=== PATIENT | female | born 1970 | race Caucasian/White ===

== ENCOUNTER → 2018-10-08 08:55 | Outpatient (CLI) | payer BC, SELFPAY ==
--- NOTE | 2018-10-08 09:00 | RAD_ITS ---
STUDY: X-RAY CHEST REASON FOR EXAM: Female, 48 years old. Dyspnea on exertion. TECHNIQUE: PA and lateral views of the chest. COMPARISON: PA and lateral chest x-ray February 09, 2010. Report for that study not available for review at the time of this dictation. FINDINGS: Small calcified granuloma again projects in the left lung base. The lungs are otherwise clear and expanded. There is no demonstrated pleural abnormality. Normal size heart. Normal mediastinum and zaria. Normal visualized pulmonary arteries. Normal visualized aortic arch and descending thoracic aorta. Normal visualized thoracic spine. Normal visualized ribs, clavicles, and shoulders. There is no demonstrated abnormality of the visualized soft tissue structures of the upper abdomen. RAD/Chest PA and Lateral IMPRESSION: No acute cardiopulmonary disease. Electronically Signed: Jose Ramirez MD at 12:36 EST , Service support ,
== END ==
PROVIDERS: Family Provider Internal Medicine; PCP Internal Medicine; Referring Provider Internal Medicine; Visit Provider Internal Medicine
DX: R06.09 Other forms of dyspnea (principal)
CPT/HCPCS: 71046

== ENCOUNTER → 2018-11-04 11:18 | Outpatient (CLI) | payer BC, SELFPAY ==
--- NOTE | 2018-11-04 16:00 | STRESSREP_ITS ---
Stress Test Report Date: 11/04/2018 Procedure: Exercise tolerance test Indications: Dyspnea on exertion Consent: Per the patient Procedure: The patient exercised on a Eladio protocol for 9 minutes and 30 seconds completing Stage 3 and 30 seconds of Stage IV achieving a peak heart rate of 179 bpm (102 % predicted maximal heart rate) with a peak blood pressure 170/58 mmHg and a peak MET capacity of approximately 10 MET's. The baseline ECG demonstrated normal sinus rhythm. The peak exercise ECG demonstrated no obvious ECG changes. There were no cardiac dysrhythmias pretest, during exercise, or recovery. The functional capacity was considered good. The patient had no complaint of chest discomfort during exercise or recovery. The examination was discontinued secondary to dyspnea. Impression: 1. Technically adequate (percent predicted maximal heart rate greater than 85%) exercise tolerance test 2. Peak exercise ECG with no obvious ECG changes 3. There were no cardiac dysrhythmias during exercise or recovery This note was generated with [employer] software. It may contain incorrect words, spelling, and punctuation that were not noted in checking the note before signing.
--- OUTSIDE RECORDS SUMMARY | 2018-12-21 12:15 | XMS RPT_ITS | Continuity of Care Document ---
:1970 Author Organization [facility] Address [address] [place] [address] [place] [address] Phone Care Team Providers Name Role Phone Stefany Shaver DO Unavailable Maria G Stacy MD Unavailable Ramy Pedroza Torri Unavailable Nannette Reyes Unavailable Unavailable LETICIA Shelby Unavailable Unavailable Unavailable Unavailable Problems Name Dates Details Abnormal skin growth (D49.2, 239.2) Comments: right forehead lesion that is reoccurring after freezing Status: Active Abnormal weight gain (R63.5, 783.1) Status: Active Acne (L70.9, 706.1) Comments: better than was last time. on and off. talk about come off atb PO after 6month and putting on topical atb. Status: Active BMI 27.0-27.9,adult (Z68.27, V85.23) Status: Active Deliveries (Parity) Comments: 3 Status: Active BAEZA (dyspnea on exertion) (R06.09, 786.09) Comments: order exercise stress test cant bring down that test Status: Active Hormone imbalance (E34.9, 259.9) Status: Active Hyperlipidemia (E78.5, 272.4) Status: Active Influenza vaccination declined (Renamed from Refused influenza vaccine) (Z28.21, V64.06) Status: Active [facility] WELLNESS EXAM Status: Active Menopause syndrome (N95.1, 627.2) Status: Active Nonsmoker (Z78.9, V49.89) Status: Active Overweight (BMI 25.0-29.9) (E66.3, 278.02) Status: Active Physical exam, routine (Z00.00, V70.0) Status: Active Postmenopausal (Renamed from Postmenopausal status) (Z78.0, V49.81) Status: Active Pregnancies () Comments: 3 Status: Active TOXIC EFFECT, CARBON MONOXIDE (986.) (986) Comments: cooming down off this and better. Status: Active Vitamin D deficiency (E55.9, 268.9) Status: Active Weight gain (R63.5, 783.1) Comments: think related to postmenaupausal.when really watch lost but then regain wehnnot watching. Status: Active Medications Name Dates Details Plexus Active Comments: x-factor multivitaminvital biomebiocleanseprobiomega X gel ProAir HFA 108 (90 Base) MCG/ACT Inhalation Aerosol Solution 2 (two) Puff puffs 15 min prior to exercise for 0 days Quantity: 1 {Inhalation} Refills: 4 Ordered:30-Sep-2018 Fast DO, Stefany AFast DO, Stefany A Start : 30-Sep-2018 Active Vitamin D 2000 UNIT Oral Capsule 1 (one) Capsule qd for 0 days Quantity: 30 {Capsule} Refills: 0 Ordered:30-Sep-2018 Fast DO, Stefany AFast DO, Stefany A Start : 30-Sep-2018 Active Adapalene 0.1 % External Gel uad Gel qd to affcetd area(s) for 0 days Quantity: 30 {Gram} Refills: 3 Ordered:29-Aug-2018 Nannette Reyes Start : 25-Apr-2015 End : 29-Aug-2018 Inactive Aldactone 50 MG Oral Tablet 1 (one) Tablet Tablet bid for 0 days Quantity: 60 {Tablet} Refills: 3 Ordered:29-Aug-2018 Nannette Reyes Start : 24-Aug-2014 End : 29-Aug-2018 Inactive BENZAMYCIN, 5-3% (External Gel) 1 Gel daily in am on th off day of tretinoin four times weekly for 0 days Quantity: 1 {Gel} Refills: 3 Ordered:24-Aug-2014 Madison Ball LPN Start : 04-Jun-2013 End : 24-Aug-2014 Inactive Benzoyl Peroxide 2.5 % External Gel uad Gel qd to affected area(s) prn for 0 days Quantity: 60 {Gram} Refills: 3 Ordered:29-Aug-2018 Nannette Reyes Start : 25-Apr-2015 End : 29-Aug-2018 Inactive EPIDUO, 0.1-2.5% (External Gel) 1 (one) Gel Gel apply at night for 0 days Quantity: 1 {Bottle} Refills: 5 Ordered:25-Apr-2015 Maria G Stacy MD Start : 25-Apr-2015 End : 25-Apr-2015 Inactive EST ESTROGENS-METHYLTEST DS, 1.25-2.5MG (Oral Tablet) 1 Tablet daily for 0 days Quantity: 90 {Tablet} Refills: 3 Ordered:24-Aug-2014 Madison Ball LPN Start : 04-Jun-2013 End : 24-Aug-2014 Inactive Comments:ninety MINOCYCLINE HCL, 100MG (Oral Tablet) 1 Tablet qd for 0 days Quantity: 90 {Tablet} Refills: 3 Ordered:24-Aug-2014 Madison Ball LPN Start : 04-Jun-2013 End : 24-Aug-2014 Inactive No Known Historical Medications Allergies and Adverse Reactions Name Dates Details No Known Allergies (Allergy) Onset: 27-Dec-2011 Status: Active No Known Drug Allergies (Allergy) Onset: 29-Aug-2018 Status: Active Past Medical History Name Dates Details Encounter for screening mammogram for breast cancer (Renamed from Encounter for screening mammogram for malignant neoplasm of breast) (Z12.31, V76.12) Status: Resolved as of 30-Sep-2018 Need for prophylactic vaccination and inoculation against influenza (Z23, V04.81) Status: Resolved as of 30-Sep-2018 [facility] V73.21 Comments: will get mammo TAHBSO. grandfather prostate cancer not colon wildo stool cards scope at 50. Status: Resolved as of 30-Sep-2018 [facility] V73.21 Comments: needs tdap with line of work for sure. tue bso. mammo endo of this year Status: Resolved as of 30-Sep-2018 Procedures Procedure Dates Details Cholecystectomy Completed Comments: October 2006 Hysterectomy; Total Completed Comments: January 2010 Tonsillectomy Completed Comments: 1978 Date Value Details 08-Oct-2018 Chest PA and Lateral Result: Comments: See Note; NOTES: [facility] Imaging Services [address] [place] [address] Chest PA and Lateral MR#: [id number] Acct: [id number] Name: KAREN CAMPOS Rep #: [id number] : 1970 F 48 From: Espinoza Ramirez MD PCP: Stefany Shaver DO Status: REG CLI Study: Chest PA and Lateral Date of Exam: 10/08/18 Exam# [id number] Ordering Dr: Stefany Shaver DO STUDY: X-RAY CHEST REASON FOR EXAM: Female, 48 years old. Dyspnea on exertion. TECHNIQUE: PA and lateral views of the chest. COMPARISON: PA and lateral chest x-ray February 09, 2010. Report for that study not available for review at the time of this dictation. FINDINGS: Small calcified granuloma again projects in the left lung base. The lungs are otherwise clear and expanded. There i s no demonstrated pleural abnormality. Normal size heart. Normal mediastinum and zaria. Normal visualized pulmonary arteries. Normal visualized aortic arch and descending thoracic aorta. Normal visuali zed thoracic spine. Normal visualized ribs, clavicles, and shoulders. There is no demonstrated abnormality of the visualized soft tissue structures of the upper abdomen. ____ RAD/Chest PA and Lateral IMPRESSION: No acute cardiopulmonary disease. Electronically Signed: Jose Ramirez MD at 12:36 EST , Service support , CC: Stefany Shaver DO Truck Safety Inspector: Signed Family History Unknown Family Member Name Dates Details Father Comments: Type I diabetes, age 60- had kidney transplant( diabetes) but of chf Status: Active Maternal Grandfather Comments: prostate cancer, Status: Active Mother Comments: healthy Status: Active paternal aunt with breast cancer Status: Active Paternal Grandfather Comments: prostate cancer Status: Active Sister 1 Comments: living and healthy Status: Active Social History Name Dates Details Alcohol Use: Occasional alcohol use. 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 Status: Active Living Situation: Lives with spouse. Comments: Status: Active No Drug Use Status: Active Non Smoker/No Tobacco Use Status: Active Tobacco use: Never smoker. Status: Active Smoking Status Name Dates Details Never smoker Vital Signs Date Test Result Details :02 Temperature 97.9 f Comments: Method: Temporal Pulse 70 /min Comments: Pattern: Regular Respiration Rate 20 /min Comments: Pattern: Unlabored O2 SAT 98 % Comments: Room air BP Systolic 118 mm[Hg] Comments: Patient Position: Sitting; Cuff Location: Left Arm; Cuff Size: Standard BP Diastolic 78 mm[Hg] Comments: Patient Position: Sitting; Cuff Location: Left Arm; Cuff Size: Standard Weight 182 lb Height 69 in Body Mass Index Calculated 26.88 kg/m2 Body Surface Area Calculated 1.98 m2 :14 Temperature 97.4 f Comments: Method: Temporal Pulse 70 /min Comments: Pattern: Regular Respiration Rate 16 /min Comments: Pattern: Unlabored BP Systolic 100 mm[Hg] Comments: Patient Position: Sitting; Cuff Location: Left Arm; Cuff Size: Standard BP Diastolic 62 mm[Hg] Comments: Patient Position: Sitting; Cuff Location: Left Arm; Cuff Size: Standard Weight 185 lb Height 69 in Body Mass Index Calculated 27.32 kg/m2 Body Surface Area Calculated 2 m2 :34 Temperature 97.8 f Comments: Method: Temporal Pulse 70 /min Comments: Pattern: Regular Respiration Rate 20 /min Comments: Pattern: Unlabored BP Systolic 114 mm[Hg] Comments: Patient Position: Sitting; Cuff Location: Left Arm; Cuff Size: Standard BP Diastolic 74 mm[Hg] Comments: Patient Position: Sitting; Cuff Location: Left Arm; Cuff Size: Standard Weight 187 lb Height 69 in Body Mass Index Calculated 27.61 kg/m2 Body Surface Area Calculated 2.01 m2 :45 Temperature 97.4 f Comments: Method: Temporal Pulse 68 /min Comments: Pattern: Regular Respiration Rate 15 /min Comments: Pattern: Unlabored BP Systolic 122 mm[Hg] Comments: Patient Position: Sitting; Cuff Location: Left Arm; Cuff Size: Standard BP Diastolic 78 mm[Hg] Comments: Patient Position: Sitting; Cuff Location: Left Arm; Cuff Size: Standard Weight 189 lb Height 69 in Body Mass Index Calculated 27.91 kg/m2 Body Surface Area Calculated 2.02 m2 :41 Temperature 98.1 f Comments: Method: Temporal Pulse 72 /min Comments: Pattern: Regular Respiration Rate 17 /min Comments: Pattern: Unlabored O2 SAT 98 % Comments: Room air BP Systolic 120 mm[Hg] Comments: Patient Position: Sitting; Cuff Location: Left Arm; Cuff Size: Standard BP Diastolic 74 mm[Hg] Comments: Patient Position: Sitting; Cuff Location: Left Arm; Cuff Size: Standard Weight 195 lb Height 69 in Body Mass Index Calculated 28.8 kg/m2 Body Surface Area Calculated 2.04 m2 :04 Pulse 86 /min Comments: Pattern: Regular Respiration Rate 18 /min Comments: Pattern: Unlabored BP Systolic 114 mm[Hg] Comments: Patient Position: Sitting; Cuff Location: Left Arm; Cuff Size: Standard BP Diastolic 74 mm[Hg] Comments: Patient Position: Sitting; Cuff Location: Left Arm; Cuff Size: Standard Weight 181 lb Height 69 in Body Mass Index Calculated 26.73 kg/m2 Body Surface Area Calculated 1.98 m2 :29 Temperature 97.8 f Comments: Method: Oral Pulse 68 /min Comments: Pattern: Regular Respiration Rate 18 /min Comments: Pattern: Unlabored BP Systolic 118 mm[Hg] Comments: Patient Position: Sitting; Cuff Location: Left Arm; Cuff Size: Standard BP Diastolic 74 mm[Hg] Comments: Patient Position: Sitting; Cuff Location: Left Arm; Cuff Size: Standard Weight 180 lb Height 69 in Body Mass Index Calculated 26.58 kg/m2 Body Surface Area Calculated 1.98 m2 :53 Temperature 98 f Comments: Method: Oral Pulse 64 /min Comments: Pattern: Regular Respiration Rate 18 /min Comments: Pattern: Unlabored BP Systolic 108 mm[Hg] Comments: Patient Position: Sitting; Cuff Location: Left Arm; Cuff Size: Standard BP Diastolic 70 mm[Hg] Comments: Patient Position: Sitting; Cuff Location: Left Arm; Cuff Size: Standard Weight 184 lb Height 69 in Body Mass Index Calculated 27.17 kg/m2 Body Surface Area Calculated 1.99 m2 :55 Temperature 98 f Comments: Method: Oral Pulse 76 /min Comments: Pattern: Regular Respiration Rate 18 /min Comments: Pattern: Unlabored BP Systolic 114 mm[Hg] Comments: Patient Position: Sitting; Cuff Location: Left Arm; Cuff Size: Standard BP Diastolic 74 mm[Hg] Comments: Patient Position: Sitting; Cuff Location: Left Arm; Cuff Size: Standard Weight 185 lb Height 69 in Body Mass Index Calculated 27.32 kg/m2 Body Surface Area Calculated 2 m2 Results Date Description Value Details 6-Xnq-046901:22 Microscopic Examination Comments: PATIENT NOT FASTINGPERFORMED BY: [facility] [id number] [facility] [id number] Bacteria None seen (Normal) Mucus Threads Present (Normal) Epithelial Cells (non renal) 0-10 {/hpf} (Normal) Range: 0 - 10 RBC 0-2 {/hpf} (Normal) Range: 0 - 2 WBC 0-5 {/hpf} (Normal) Range: 0 - 5 9-Bvr-726676:22 Cortisol (26990) Comments: PATIENT NOT FASTINGPERFORMED BY: [facility] [id number] [facility] [id number] Cortisol 5.9 ug/dL (Normal) Comments: Cortisol AM 6.2 - 19.4 Cortisol PM 2.3 - 11.9 2-Ftm-950365:22 T3, FREE (TRIDOTHYRONINE) (65129) Comments: PATIENT NOT FASTINGPERFORMED BY: [facility] [id number] [facility] [id number] Triiodothyronine (T3), Free 2.6 pg/mL (Normal) Range: 2.0-4.4 0-Lrt-082574:22 T4, FREE (THYROXINE) (07951) Comments: PATIENT NOT FASTINGPERFORMED BY: [facility] [id number] [facility] [id number] T4,Free(Direct) 1.03 ng/dL (Normal) Range: 0.82-1.77 9-Yut-068582:22 URINALYSIS, W/ MICRO (11722) Comments: PATIENT NOT FASTINGPERFORMED BY: [facility] [id number] [facility] [id number] Microscopic Examination See below: (Normal) Comments: Microscopic was indicated and was performed. Microscopic Examination MICRON (Normal) Comments: Microscopic follows if indicated. Nitrite, Urine Negative (Normal) Urobilinogen,Semi-Qn 0.2 mg/dL (Normal) Range: 0.2-1.0 Bilirubin Negative (Normal) Occult Blood Negative (Normal) Ketones Negative (Normal) Glucose Negative (Normal) Protein Negative (Normal) WBC Esterase Negative (Normal) Appearance Clear (Normal) Urine-Color Yellow (Normal) pH 6.5 (Normal) Range: 5.0-7.5 Specific Given 1.015 (Normal) Range: 1.005-1.030 0-Hcu-949177:22 CBC W/AUTO DIFF WBC Comments: PATIENT NOT FASTINGPERFORMED BY: [facility] [id number] [facility] [id number] Information: NURSE DRAW (64433) Immature Grans (Abs) 0.0 {x10E3/uL} (Normal) Range: 0.0-0.1 Immature Granulocytes 0 % (Normal) Baso (Absolute) 0.0 {x10E3/uL} (Normal) Range: 0.0-0.2 Eos (Absolute) 0.2 {x10E3/uL} (Normal) Range: 0.0-0.4 Monocytes(Absolute) 0.3 {x10E3/uL} (Normal) Range: 0.1-0.9 Lymphs (Absolute) 2.3 {x10E3/uL} (Normal) Range: 0.7-3.1 Neutrophils (Absolute) 3.1 {x10E3/uL} (Normal) Range: 1.4-7.0 Basos 1 % (Normal) Eos 3 % (Normal) Monocytes 5 % (Normal) Lymphs 39 % (Normal) Neutrophils 52 % (Normal) Platelets 336 {x10E3/uL} (Normal) Range: 150-379 RDW 13.4 % (Normal) Range: 12.3-15.4 MCHC 33.3 g/dL (Normal) Range: 31.5-35.7 MCH 29.8 pg (Normal) Range: 26.6-33.0 MCV 89 fL (Normal) Range: 79-97 Hematocrit 41.1 % (Normal) Range: 34.0-46.6 Hemoglobin 13.7 g/dL (Normal) Range: 11.1-15.9 RBC 4.60 {x10E6/uL} (Normal) Range: 3.77-5.28 WBC 5.9 {x10E3/uL} (Normal) Range: 3.4-10.8 4-Ydd-988509:22 METABOLIC PANEL, COMPREHENSIVE Comments: PATIENT NOT FASTINGPERFORMED BY: Kn[facility]70 [facility] [id number] (38446) ALT (SGPT) 19 [iU]/L (Normal) Range: 0-32 AST (SGOT) 21 [iU]/L (Normal) Range: 0-40 Alkaline Phosphatase 86 [iU]/L (Normal) Range: 39-117 Bilirubin, Total <0.2 mg/dL (Normal) Range: 0.0-1.2 A/G Ratio 1.7 (Normal) Range: 1.2-2.2 Globulin, Total 2.7 g/dL (Normal) Range: 1.5-4.5 Albumin 4.7 g/dL (Normal) Range: 3.5-5.5 Protein, Total 7.4 g/dL (Normal) Range: 6.0-8.5 Calcium 9.6 mg/dL (Normal) Range: 8.7-10.2 Carbon Dioxide, Total 23 mmol/L (Normal) Range: 20-29 Chloride 102 mmol/L (Normal) Range: 96-106 Potassium 5.1 mmol/L (Normal) Range: 3.5-5.2 Sodium 140 mmol/L (Normal) Range: 134-144 BUN/Creatinine Ratio 17 (Normal) Range: 9-23 eGFR If Africn Am 107 mL/min/1.73 (Normal) eGFR If NonAfricn Am 93 mL/min/1.73 (Normal) Creatinine 0.77 mg/dL (Normal) Range: 0.57-1.00 BUN 13 mg/dL (Normal) Range: 6-24 Glucose 87 mg/dL (Normal) Range: 65-99 31-Cvr-41588:38 METABOLIC PANEL, BASIC Comments: 4-6 wks; PATIENT NOT FASTINGPERFORMED BY: Knok70 [facility] HospitalOramed PharmaceuticalsAn[facility] [id number] Information: [id number] (25760) Calcium, Serum 10.1 mg/dL (Normal) Range: 8.7-10.2 Carbon Dioxide, Total 25 mmol/L (Normal) Range: 18-29 Chloride, Serum 100 mmol/L (Normal) Range: 97-108 Potassium, Serum 5.0 mmol/L (Normal) Range: 3.5-5.2 Sodium, Serum 139 mmol/L (Normal) Range: 134-144 BUN/Creatinine Ratio 15 (Normal) Range: 9-23 eGFR If Africn Am 127 mL/min/1.73 (Normal) eGFR If NonAfricn Am 110 mL/min/1.73 (Normal) Creatinine, Serum 0.65 mg/dL (Normal) Range: 0.57-1.00 BUN 10 mg/dL (Normal) Range: 6-24 Glucose, Serum 91 mg/dL (Normal) Range: 65-99 :42 Lipid Panel (36026) Comments: PATIENT WAS FASTINGPERFORMED BY: [facility]ianxin [facility] [id number] LDL Cholesterol Calc 117 mg/dL (Abnormal) Range: 0-99 LDL/HDL Ratio 1.7 {ratio_units} (Normal) Range: 0.0-3.2 VLDL Cholesterol Issac 18 mg/dL (Normal) Range: 5-40 HDL Cholesterol 70 mg/dL (Normal) Comments: According to ATP-III Guidelines, HDL-C >59 mg/dL is considered anegative risk factor for CHD. Triglycerides 92 mg/dL (Normal) Range: 0-149 Cholesterol, Total 205 mg/dL (Abnormal) Range: 100-199 :42 TSH (05137) Comments: PATIENT WAS FASTINGPERFORMED BY: [employer]os[employer]70 [facility] [id number] TSH 1.910 {uIU/mL} (Normal) Range: 0.450-4.500 :42 T4, FREE (THYROXINE) (68079) Comments: PATIENT WAS FASTINGPERFORMED BY: [facility]in [facility] [id number] T4,Free(Direct) 1.03 ng/dL (Normal) Range: 0.82-1.77 :42 CBC (Auto) (23309) Comments: PATIENT WAS FASTINGPERFORMED BY: OnLiveSt. Lawrence Rehabilitation CenterLvdkay7814 [facility] [id number] Platelets 163 {x10E3/uL} (Normal) Range: 140-415 RDW 13.1 % (Normal) Range: 11.7-15.0 MCHC 33.3 g/dL (Normal) Range: 32.0-36.0 MCH 29.6 pg (Normal) Range: 27.0-34.0 MCV 89 fL (Normal) Range: 80-98 Hematocrit 43.2 % (Normal) Range: 34.0-44.0 Hemoglobin 14.4 g/dL (Normal) Range: 11.5-15.0 RBC 4.87 {x10E6/uL} (Normal) Range: 3.80-5.10 WBC 6.1 {x10E3/uL} (Normal) Range: 4.0-10.5 :42 Metabolic Panel, Comments: PATIENT WAS FASTINGPERFORMED BY: OnLiveSt. [facility] CenterLkhers9469 [facility] [id number] Information: [id number] DIFFICULT D RAW Comprehensive (58838) ALT (SGPT) 29 [iU]/L (Normal) Range: 0-40 AST (SGOT) 18 [iU]/L (Normal) Range: 0-40 Alkaline Phosphatase, S 107 [iU]/L (Normal) Range: 25-150 Bilirubin, Total 0.3 mg/dL (Normal) Range: 0.0-1.2 A/G Ratio 2.0 (Normal) Range: 1.1-2.5 Globulin, Total 2.4 g/dL (Normal) Range: 1.5-4.5 Albumin, Serum 4.9 g/dL (Normal) Range: 3.5-5.5 Protein, Total, Serum 7.3 g/dL (Normal) Range: 6.0-8.5 Calcium, Serum 9.9 mg/dL (Normal) Range: 8.7-10.2 Carbon Dioxide, Total 22 mmol/L (Normal) Range: 20-32 Chloride, Serum 103 mmol/L (Normal) Range: 97-108 Potassium, Serum 4.2 mmol/L (Normal) Range: 3.5-5.2 Sodium, Serum 141 mmol/L (Normal) Range: 134-144 BUN/Creatinine Ratio 13 (Normal) Range: 8-20 eGFR If Africn Am 132 mL/min/1.73 (Normal) Comments: Note: A persistent eGFR <60 mL/min/1.73 m2 (3 months or more) mayindicate chronic kidney disease. An eGFR >59 mL/min/1.73 m2 with anelevated urine protein also may indicate chronic kidney disease.Calculated using CKD-EPI formula. eGFR If NonAfricn Am 115 mL/min/1.73 (Normal) Creatinine, Serum 0.61 mg/dL (Normal) Range: 0.57-1.00 BUN 8 mg/dL (Normal) Range: 6-20 Glucose, Serum 90 mg/dL (Normal) Range: 65-99 Plan of Care Name Dates Details Instructions BMI 27.0-27.9,adult : Eprescribed prescriptions (G8553) Indication: BMI 27.0-27.9,adult Need for prophylactic vaccination and inoculation against influenza : Flu (Influenza) *: flu Indication: Need for prophylactic vaccination and inoculation against influenza Need for prophylactic vaccination and inoculation against influenza : Flu (Influenza) *: flu shot Indication: Need for prophylactic vaccination and inoculation against influenza Overweight (BMI 25.0-29.9) : Eprescribed prescriptions (G8553) Indication: Overweight (BMI 25.0-29.9) Acne : Eprescribed prescriptions (G8553) Indication: Acne Acne : Acne: acne Indication: Acne Planned Observations METABOLIC PANEL, COMPREHENSIVE (38075)Indication: Abnormal weight gain On: 5-Lqu-148434:43 Request LIPID PANEL (68965)Indication: Hyperlipidemia On: 8-Ogv-864291:22 Request Vitamin D Hydroxy (74748)Indication: Vitamin D deficiency On: 1-Frz-504388:22 Request Planned Encounters Medical; [facility] 4 Month Fu - On: 04-Feb-2019 9:45 [facility] Fast DO, Stefany A Fast DO, Stefany A Planned Procedures EXERCISE STRESS TEST (91298)By: On: 21-Oct-2018 Intent Fast DO, Stefany A Fast DO, Stefany A Comments: exercise stress test CXR PA & LAT (63952)By: Sivakumar ALVARADO, On: 30-Sep-2018 Intent Stefany A Fast DO, Stefany A ELECTROCARDIOGRAM, COMPLETE (ECG) On: 30-Sep-2018 Intent (79903)By: Stefany Shaver DO Comments: ekg showed normal sinus rhythym, normal axis, no acute st/t wave changes rsr DO, Stefany A DEXA SCAN AXIAL SKELETON (09485)By: On: 29-Aug-2018 Intent Fast , Stefany A Fast DO, Stefany A SCREENING DIGITAL TOMOSYNTHESIS OF On: 29-Aug-2018 Intent BREAST (80439)By: Sivakumar ALVARADO, Stefany A Fast DO, Stefany A IMMUNIZ ADMNIN, 1 VAC, SNGL/COMBO On: 01-Sep-2014 Intent (11177)By: Maria G Stacy MD Comments: Lot #[id number]-[id number] dltd, IMDose prefilled syringegiven by:GERMÁN GramajoNKATHRINE and ABN signed FLU VAC, SPLIT, >3 YEARS, INTRAMUSC On: 01-Sep-2014 Intent (11650)By: Maria G Stacy MD MAMMOGRAM, SCREENING, BOTH BREAST On: 24-Aug-2014 Intent (99001)By: Maria G Stacy MD MAMMOGRAM, SCREENING, BOTH BREASTS On: 04-Jun-2013 Intent (35527)By: Maria G Stacy MD TDAP VACCINE >7 IM (32263)By: On: 27-Dec-2011 Intent Maria G Stacy MD Comments: Lot #: [id number] date: 10/07Amount given: 0.5 mlRoute: IMSite given: left deltoidGiven by: AMADO Buchanan Instructions Name Dates Details [facility]LLNESS EXAM : How to access health information online Indication: [facility] WELLNESS EXAM [facility]LLNESS EXAM : How to access health information online - Detail Indication: [facility] WELLNESS EXAM [facility]LLNESS EXAM : Patient Instructions Indication: [facility] WELLNESS EXAM BMI 27.0-27.9,adult : How to access health information online Indication: BMI 27.0-27.9,adult BMI 27.0-27.9,adult : How to access health information online - Detail Indication: BMI 27.0-27.9,adult BMI 27.0-27.9,adult : Patient Instructions Indication: BMI 27.0-27.9,adult Overweight (BMI 25.0-29.9) : How to access health information online Indication: Overweight (BMI 25.0-29.9) Overweight (BMI 25.0-29.9) : How to access health information online - Detail Indication: Overweight (BMI 25.0-29.9) Overweight (BMI 25.0-29.9) : Patient Instructions Indication: Overweight (BMI 25.0-29.9) Acne : How to access health information online Indication: Acne Acne : How to access health information online - Detail Indication: Acne Acne : Patient Instructions Indication: Acne Acne : Patient Instructions Indication: Acne Encounters Phone Encounter On: 21-Oct-2018 11:19 Encounter Diagnosis: BAEZA (dyspnea on exertion) End: 21-Oct-2018 11:21 [facility] Review On: 30-Sep-2018 9:02 Encounter Reason: Physical female exam - Last seen between 1-3 months ago. General health: feels well with minor complaints, has good energy level and is sleeping well. The patient's appetite is normal. Nutrition: normal /adequate. Exercises 5 days per week. Sleeps on average 6 hours per night. Normal bowel and bladder habits. Safety measures include appropriate use of safety belts and home smoke detectors. Current emot ional problems include anxiety. screening, mammography (has scheduled for Nov 2018) and screening, visual acuity (August 2018). Note for Physical exam: she wasnt as faithful in may or june with cr ossfit but had been doing it for a year- starting a hiit class sat and and still doing crossfit- and she is definitley sweatng when doing crossfit- 2 episodes now of sob that harder than usual to g et rid of and little flutter- and last night was coughing-not working outin cold- no chest pain more like flutter in chest- last few min and no dizzy- olamidereba was pushing harder last night than usual -- did have biopsy skin lesion by ramy- was precancer so they are doing a followup on that- she did track on my fitness pal- she thinks she not getting enough calories- and eating later at night- and - 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- - she unhappy with core- hyster- not cancer told doesnt need papEncounter Diagnosis: BMI 27.0-27.9,adult, Nonsmoker, [facility] WELLNESS EXAM, Influenza vaccination declined (Renamed from Refused influenza vaccine), Abnormal weight gain, BAEZA (dyspnea on exertion), Vitamin D deficiency, Hyperlipidemia [facility] Medicine Office Visit On: 10-Sep-2018 9:42 Encounter Diagnosis: Abnormal skin growth End: 10-Sep-2018 10:19 [facility] Office Visit On: 29-Aug-2018 9:05 Encounter Reason: new patient female physical - General health: feels well with minor complaints (weight gain since beginning of June, went from 162- 185 today. No major changes that she can think of.), has good energy End: 31-Aug-2018 21:54 level and is sleeping poorly. The patient's appetite is normal. Nutrition: appropriate balanced diet (eats whole foods, no processed or fast foods). Exercises 3 (crossfit) days per week. Sleeps on aver age 3 (3 consecutive hours. gets up about twice to use restroom) hours per night. Elimination problems include urinary frequency (drinks a lot of water). Current emotional problems include anxiety and s leep disturbances. screening, colonoscopy (never), screening, mammography (over 2 yrs) and screening, Pap smear (total hysterectomy in 2009). Note for Physical exam: 162 beginning of june and has ga ined 20 pounds in 2 months- crossfit 3 times a week- and not eating fast food - eats whole foods- no diet change- no boxed foods or processed foods-had weight down for a couple years at this easily coul d get weight down if tried until now- hysterectomy 2009- 3 kids in college- no change in stress level-Encounter Diagnosis: Nonsmoker, BMI 27.0-27.9,adult, Influenza vaccination declined (Renamed from Refused influenza vaccine), Abnormal weight gain, Encounter for screening mammogram for breast cancer (Renamed from Encounter for screening mammogram for malignant neoplasm of breast), Postmenopausal (Renamed from Postmenopausal status), Overweight (BMI 25.0-29.9), Menopause syndrome, Hormone imbalance [facility] Refill Request On: 25-Apr-2015 12:00 Encounter Diagnosis: Acne (706.1) End: 25-Apr-2015 12:03 [facility] Office Visit On: 23-Sep-2014 8:33 Encounter Reason: Follow up acute care visit - The patient feeling better since last seen and improving. Patient has been compliant with instructions. Current medication use: no side effects and compliant with dosing reg End: 23-Sep-2014 9:29 imen. Patient sleeps 7 hours per night. Impact of disease: emotional impact-mild. Nutrition: balanced diet and supplemental vitamins. The medical issues the patient is following up for include other (here to follow up on day cleanse ). Encounter Diagnosis: Overweight (BMI 25.0-29.9) [facility] Phone Encounter On: 01-Sep-2014 16:21 Encounter Diagnosis: Hormonal Imbalance (259.9) End: 01-Sep-2014 16:22 [facility] Office Visit On: 01-Sep-2014 10:44 Encounter Reason: Follow up Meds - Patient has been compliant with instructions. Current medication use: no side effects. Patient sleeps 8 hours per night.Encounter Diagnosis: Overweight (BMI 25.0-29.9), End: 01-Sep-2014 11:05 NEED FOR PROPHYLACTIC VACCINATION AND INOCULATION AGAINST INFLUENZA (V04.81), Weight gain (783.1) [facility] Office Visit On: 24-Aug-2014 9:41 Encounter Reason: Follow up for chronic medical issues - The patient feels well with no complaints, has good energy level and is sleeping well. Patient has been compliant with instructions. Current medication use: no filemon End: 24-Aug-2014 11:02 e effects, compliant with dosing regimen and considered effective by patient. Patient sleeps 7 hours per night. Impact of disease: emotional impact-mild. Nutrition: balanced diet and supplemental vitami ns. The medical issues the patient is following up for include other (acne, hormone imbalance, menopause ).Encounter Diagnosis: Hormonal Imbalance (259.9), Acne (706.1), Overweight (BMI 25.0-29.9), WWV V73.21 [facility] Office Visit On: 04-Jun-2013 10:03 Encounter Reason: Follow up for chronic medical issues - The patient feels well with no complaints, has good energy level and is sleeping well. Patient has been compliant with instructions. Current medication use: no filemon End: 04-Jun-2013 10:45 e effects, compliant with dosing regimen and considered effective by patient. Patient sleeps 7 hours per night. Impact of disease: emotional impact-mild. Nutrition: balanced diet and supplemental vitami ns. The medical issues the patient is following up for include other (acne, hormone imbalance, menopause ).Encounter Diagnosis: Acne (706.1), Hormonal Imbalance (259.9), PHYSICAL EXAM, ROUTINE (V70.0) [facility] Phone Encounter On: 02-Apr-2013 13:34 Encounter Diagnosis: Acne (706.1) End: 02-Apr-2013 14:13 [facility] Office Visit On: 26-Jun-2012 7:29 Encounter Reason: Follow up for chronic medical issues - The patient feels well with minor complaints and has decreased energy level. Patient has been compliant with instructions. Current medication use: experiencing filemon End: 26-Jun-2012 7:59 e effects (estrogen causing acne ). Patient sleeps 7 hours per night. Impact of disease: emotional impact-mild. Nutrition: balanced diet and supplemental vitamins. The medical issues the patient is foll owing up for include other (hot flashes, hormone imbalance, goiter ).Encounter Diagnosis: Menopause (627.2), Hormonal Imbalance (259.9), Weight gain (783.1), Acne (706.1), WWV V73.21 [facility] Office Visit On: 18-Jan-2012 7:53 Encounter Reason: Follow up tests - Diagnostic tests include other (labs ). Date: (01-04-12).Encounter Diagnosis: Weight gain (783.1), TOXIC EFFECT, CARBON MONOXIDE (986.) End: 18-Jan-2012 8:33 [facility] Office Visit On: 27-Dec-2011 8:55 Encounter Reason: new patient female physical - Last seen more than 1 year ago. General health: feels well with minor complaints, has decreased energy level and is sleeping poorly. The patient's appetite is normal. Nutri End: 31-Dec-2011 8:05 tion: normal/adequate. Exercises 5 (treadmill walks a mile ) days per week. Sleeps on average 6 hours per night. Normal bowel and bladder habits. Safety measures include appropriate use of safety belts and home smoke detectors. Current emotional problems include anxiety, depression and sleep disturbances. screening, mammography (February 2010 ), screening, Pap smear (had total hysterectomy February 2010 ) a nd screening, visual acuity (Lasik surgery Nov 2008 ).Encounter Diagnosis: Weight gain (783.1), Hormonal Imbalance (259.9), Menopause (627.2), WWV V73.21 [facility] Payers Don SAAB/ELISSA CAMPOS; a guarantor
--- OUTSIDE RECORDS SUMMARY | 2018-12-21 12:15 | XMS RPT_ITS | Continuity of Care Document ---
:1970 Author Organization [facility] Address [facility] [address] Phone Care Team Providers Name Role Phone Stefany Shaver DO Unavailable Maria G Stacy MD Unavailable Ramy Pedroza Torri Unavailable Claribel Conti Unavailable Unavailable Nannette Reyes Unavailable Unavailable Unavailable Unavailable Problems Name Dates [...] Active Deliveries (Parity) Comments: 3 Status: Active Encounter for screening mammogram for breast cancer (Renamed from Encounter for screening mammogram for malignant neoplasm of breast) (Z12.31, V76.12) Status: Active Hormone imbalance (E34.9, 259.9) Status: Active Influenza vaccination declined (Renamed from Refused influenza vaccine) (Z28.21, V64.06) Status: Active Menopause syndrome (N95.1, 627.2) Status: Active Need for prophylactic vaccination and inoculation against influenza (Z23, V04.81) Status: Active Nonsmoker (Z78.9, V49.89) Status: Active Overweight (BMI 25.0-29.9) (E66.3, 278.02) Status: Active Physical exam, routine (Z00.00, V70.0) Status: Active Postmenopausal (Renamed from Postmenopausal status) (Z78.0, V49.81) Status: Active Pregnancies () Comments: 3 Status: Active TOXIC EFFECT, CARBON MONOXIDE (986.) (986) Comments: cooming down off this and better. Status: Active Weight gain (R63.5, 783.1) Comments: think related to postmenaupausal.when really watch lost but then regain wehnnot watching. Status: Active [facility] V73.21 Comments: needs tdap with line of work for sure. ute bso. mammo endo of this year Status: Active [facility] V73.21 Comments: will get mammo TAHBSO. grandfather prostate cancer not colon wildo stool cards scope at 50. Status: Active Medications Name Dates Details Plexus Active Comments: x-factor multivitaminvital biomebiocleanseprobiomega X gel Adapalene 0.1 % External Gel uad Gel [...] days Quantity: 90 {Tablet} Refills: 3 Ordered:24-Aug-2014 Long SCULLION CHIEF, Madison L Start : 04-Jun-2013 End : 24-Aug-2014 Inactive Comments:ninety MINOCYCLINE HCL, 100MG (Oral Tablet) 1 Tablet qd for 0 days Quantity: 90 {Tablet} Refills: 3 Ordered:24-Aug-2014 Long SCULLION CHIEF, Madison L Start : 04-Jun-2013 End : 24-Aug-2014 Inactive No Known Historical Medications Allergies and Adverse Reactions Name Dates Details No Known Allergies (Allergy) Onset: 27-Dec-2011 Status: Active No Known Drug Allergies (Allergy) Onset: 29-Aug-2018 Status: Active Procedures Procedure Dates Details Cholecystectomy Completed Comments: October 2006 Hysterectomy; Total Completed Comments: January 2010 Tonsillectomy Completed Comments: 1978 Family History Unknown Family Member Name Dates Details Father Comments: Type I diabetes, age 60 Status: Active Maternal Grandfather Comments: prostate cancer, Status: Active Mother Comments: healthy Status: Active paternal aunt with breast cancer Status: Active Paternal Grandfather Comments: prostate cancer Status: Active Social History Name Dates Details [...] smoker Vital Signs Date Test Result Details 29-Aug-20189:14 Temperature 97.4 f Comments: Method: Temporal Pulse [...] 2 m2 Results Date Description Value Details 6-Dda-085302:22 Microscopic Examination Comments: PATIENT NOT FASTINGPERFORMED BY: [facility] [id number] [facility] [id number] Bacteria None seen (Normal) Mucus Threads Present (Normal) Epithelial Cells (non renal) 0-10 {/hpf} (Normal) Range: 0 - 10 RBC 0-2 {/hpf} (Normal) Range: 0 - 2 WBC 0-5 {/hpf} (Normal) Range: 0 - 5 1-Fkr-862053:22 Cortisol (15228) Comments: PATIENT NOT FASTINGPERFORMED BY: [facility] [id number] [facility] [id number] Cortisol 5.9 ug/dL (Normal) Comments: Cortisol AM 6.2 - 19.4 Cortisol PM 2.3 - 11.9 8-Oqk-229693:22 T3, FREE (TRIDOTHYRONINE) (53205) Comments: PATIENT NOT FASTINGPERFORMED BY: [facility] [id number] Triiodothyronine (T3), Free 2.6 pg/mL (Normal) Range: 2.0-4.4 5-Zpi-712666:22 T4, FREE (THYROXINE) (86094) Comments: PATIENT NOT FASTINGPERFORMED BY: [facility] [id number] T4,Free(Direct) 1.03 ng/dL (Normal) Range: 0.82-1.77 0-Mma-326364:22 URINALYSIS, W/ MICRO (22309) Comments: PATIENT NOT FASTINGPERFORMED BY: [facility] [id number] Microscopic Examination See below: (Normal) Comments: Microscopic was indicated and was performed. Microscopic Examination MICRON (Normal) Comments: Microscopic follows if indicated. Nitrite, Urine Negative (Normal) Urobilinogen,Semi-Qn 0.2 mg/dL (Normal) Range: 0.2-1.0 Bilirubin Negative (Normal) Occult Blood Negative (Normal) Ketones Negative (Normal) Glucose Negative (Normal) Protein Negative (Normal) WBC Esterase Negative (Normal) Appearance Clear (Normal) Urine-Color Yellow (Normal) pH 6.5 (Normal) Range: 5.0-7.5 Specific [place] 1.015 (Normal) Range: 1.005-1.030 2-Wit-414356:22 CBC W/AUTO DIFF WBC Comments: PATIENT NOT FASTINGPERFORMED BY: [facility] [id number] Information: NURSE DRAW (34159) Immature Grans (Abs) 0.0 {x10E3/uL} (Normal) Range: [...] 3.77-5.28 WBC 5.9 {x10E3/uL} (Normal) Range: 3.4-10.8 2-Wri-957391:22 METABOLIC PANEL, COMPREHENSIVE Comments: PATIENT NOT FASTINGPERFORMED BY: [facility] Sxykql2917 [facility] [id number] (98948) ALT (SGPT) 19 [iU]/L (Normal) Range: 0-32 [...] 6-24 Glucose 87 mg/dL (Normal) Range: 65-99 24-Gqp-24497:38 METABOLIC PANEL, BASIC Comments: 4-6 wks; PATIENT NOT FASTINGPERFORMED BY: [employer] [place] [id number] Information: [id number],[id number] (16576) Calcium, Serum 10.1 mg/dL (Normal) Range: 8.7-10.2 [...] mg/dL (Normal) Range: 65-99 :42 Lipid Panel (39492) Comments: PATIENT WAS FASTINGPERFORMED BY: [employer] [place] [id number] LDL Cholesterol Calc 117 mg/dL (Abnormal) Range: 0-99 LDL/HDL Ratio 1.7 {ratio_units} (Normal) Range: 0.0-3.2 VLDL Cholesterol Issac 18 mg/dL (Normal) Range: 5-40 HDL Cholesterol 70 mg/dL (Normal) Comments: According to ATP-III Guidelines, HDL-C >59 mg/dL is considered anegative risk factor for CHD. Triglycerides 92 mg/dL (Normal) Range: 0-149 Cholesterol, Total 205 mg/dL (Abnormal) Range: 100-199 :42 TSH (45251) Comments: PATIENT WAS FASTINGPERFORMED BY: [facility] [id number] TSH 1.910 {uIU/mL} (Normal) Range: 0.450-4.500 :42 T4, FREE (THYROXINE) (44911) Comments: PATIENT WAS FASTINGPERFORMED BY: [facility] [id number] T4,Free(Direct) 1.03 ng/dL (Normal) Range: 0.82-1.77 :42 CBC (Auto) (37624) Comments: PATIENT WAS FASTINGPERFORMED BY: [facility] [id number] Platelets 163 {x10E3/uL} (Normal) Range: 140-415 RDW 13.1 % (Normal) Range: 11.7-15.0 MCHC 33.3 g/dL (Normal) Range: 32.0-36.0 MCH 29.6 pg (Normal) Range: 27.0-34.0 MCV 89 fL (Normal) Range: 80-98 Hematocrit 43.2 % (Normal) Range: 34.0-44.0 Hemoglobin 14.4 g/dL (Normal) Range: 11.5-15.0 RBC 4.87 {x10E6/uL} (Normal) Range: 3.80-5.10 WBC 6.1 {x10E3/uL} (Normal) Range: 4.0-10.5 :42 Metabolic Panel, Comments: PATIENT WAS FASTINGPERFORMED BY: [facility] [id number] Information: [id number],[id number] DIFFICULT D RAW Comprehensive (06758) ALT (SGPT) 29 [iU]/L (Normal) Range: 0-40 [...] Acne : Acne: acne Indication: Acne Planned Encounters Medical; [facility] Pre [facility]ness Exam (DF Nurse) - labs done On: 15-Sep-2018 9:00 [facility] NURSE, DF Medical; [facility] Wellness Exam (Doctor) - labs done On: 30-Sep-2018 9:00 [facility] Fast DO, Stefany A Fast DO, Stefany A Planned Procedures DEXA SCAN AXIAL SKELETON (80036)By: On: 29-Aug-2018 Intent Fast DO, Stefany A Fast DO, Stefany A SCREENING DIGITAL TOMOSYNTHESIS OF On: 29-Aug-2018 Intent BREAST (66534)By: Fast DO, Stefany A Fast DO, Stefany A IMMUNIZ ADMNIN, 1 VAC, SNGL/COMBO On: 01-Sep-2014 Intent (92583)By: Maria G Stacy MD Comments: Lot #[id number]-L dltd, IMDose prefilled syringegiven by:KIZZY Gramajo and ABN signed FLU VAC, SPLIT, >3 YEARS, INTRAMUSC On: 01-Sep-2014 Intent (35199)By: Maria G Stacy MD MAMMOGRAM, SCREENING, BOTH BREAST On: 24-Aug-2014 Intent (08122)By: Maria G Stacy MD MAMMOGRAM, SCREENING, BOTH BREASTS On: 04-Jun-2013 Intent (21615)By: Maria G Stacy MD TDAP VACCINE >7 IM (54535)By: On: 27-Dec-2011 Intent Maria G Stacy MD Comments: Lot #: [id number] date: 10/07Amount given: 0.5 mlRoute: IMSite given: left deltoidGiven by: AMADO Buchanan Instructions Name Dates Details BMI 27.0-27.9,adult : How to access health [...] Acne : Patient Instructions Indication: Acne Encounters Office Visit On: 10-Sep-2018 9:42 Encounter Diagnosis: [...] include other (here to follow up on cleanse ). Encounter Diagnosis: Overweight (BMI 25.0-29.9) [...]
--- OUTSIDE RECORDS SUMMARY | 2018-12-21 12:16 | XMS RPT_ITS ---
:1970 Author Organization [facility] Care Team Providers Name Role Phone Fast, Stefany Attending Unavailable Fast, Stefany Referring Unavailable Fast, Stefany Primary Care Unavailable Josh Valverde Attending Unavailable Fast, Stefany Referring Unavailable Fast, Stefany Attending Unavailable Fast, Stefany Referring Unavailable Fast, Stefany Primary Care Unavailable Fast, Stefany Attending Unavailable Fast, Stefany Referring Unavailable Fast, Stefany Primary Care Unavailable Fast DO, Stefany A Attending Unavailable Regis ARMENTA, Maria G Hunt Referring Unavailable Fast DO, Stefany A Consulting Unavailable PROBLEMS PROBLEMS DATE TYPE CONDITION / CODE ATTENDING STATUS SOURCE 11/26/2018 Unknown R06.09 - Other Josh Valverde Active [facility] forms of dyspnea [facility] / R06.09(ICD-10) Hospital Repository PROCEDURES PROCEDURES No Procedure Records FoundRESULTS RESULTS STRESS REPORT Observed: 11/04/2018 Status: F Source: [place] 4:00 PM [facility] Cardiovascular Services [address] [place] [address] MR#: [id number] Acct: [id number] Name: KAREN CAMPOS Nohemi Rep #: [id number] : 1970 48 From: Josh Valverde MD Primary Care: Stefany Shaver DO Status: REG CLI Ordering Dr: Sex: F C Stress Test Report Date: 11/04/2018 Procedure: Exercise tolerance test Indications: Dyspnea on exertion Consent: Per the patient Procedure: The patient exercised on a Eladio protocol for 9 minutes and 30 seconds completing Stage 3 and 30 seconds of Stage IV achieving a peak heart rate of 179 bpm (102 % predicted maximal heart rate) with a peak blood pressure 170/58 mmHg and a peak MET capacity of approximately 10 MET's. The baseline ECG demonstrated normal sinus rhythm. The peak exercise ECG demonstrated no obvious ECG changes. There were no cardiac dysrhythmias pretest, during exercise, or recovery. The functional capacity was considered good. The patient had no complaint of chest discomfort during exercise or recovery. The examination was discontinued secondary to dyspnea. Impression: 1. Technically adequate (percent predicted maximal heart rate greater than 85%) exercise tolerance test 2. Peak exercise ECG with no obvious ECG changes 3. There were no cardiac dysrhythmias during exercise or recovery This note was generated with eMotion Groupation software. It may contain incorrect words, spelling, and punctuation that were not noted in checking the note before signing. 11/04/18 1600 <Electronically signed by Josh Valverde MD> Date Josh Valverde MD CC: Stefany Shaver DO Date Dictated: 11/04/188 Date Transcribed: 11/04/181557 Pan Operator: PM Signed CHEST PA AND LATERAL Observed: 10/08/2018 Status: F Source: [place] 9:00 AM [facility] Imaging Services [address] [place] [address] Chest PA and Lateral MR#: [id number] Acct: [id number] Name: KAREN CAMPOS Rep #: [id number] : 1970 F 48 From: Espinoza Ramirez MD PCP: Stefany Shaver DO Status: REG CLI Study: Chest PA and Lateral Date of Exam: 10/08/18 Exam# [id number] Ordering Dr: Stefany Shaver DO STUDY: X-RAY [...] lungs are otherwise clear and expanded. There is no demonstrated pleural abnormality. Normal size heart. Normal mediastinum and zaria. Normal visualized pulmonary arteries. Normal visualized aortic arch and descending thoracic aorta. Normal visualized thoracic spine. Normal visualized ribs, clavicles, and shoulders. There is no demonstrated abnormality of the visualized soft tissue structures of the upper abdomen. RAD/Chest PA and Lateral IMPRESSION: No acute cardiopulmonary disease. Electronically Signed: Jose Ramirez MD at 12:36 EST , Service support , CC: Stefany Shaver DO Pan Operator: Signed ALLERGIES ALLERGIES No Allergies Records FoundENCOUNTERS ENCOUNTERS ADMIT/DISCHARGE ACCOUNT ADMITTING ENCOUNTER LOCATION SOURCE NUMBER CLASS 11/21/2018 [id number] Ambulatory [facility] 8 [facility] ing:[facility] Repository 11/04/2018 [id number] Ambulatory BMSBuilding:W Yovany 4 [facility] Repository 11/04/2018 [id number] Ambulatory [facility] 0 [facility] ing:[facility] Repository 10/08/2018 [id number] Ambulatory Yovany Yovany 4 [facility] ing:[facility] Repository 09/30/2018 [id number] Ambulatory Building:[facility] Practices Repository PAYERS PAYERS ENCOUNTER GUARANTOR PAYER SUBSCRIBER SOURCE 11/21/2018 REBEL Song Primary REBEL Shankar [id number] TR Insurance:ANTHEMPolic SCHLABACHDOB: [address], y Number: [id number] [facility] Center [address]Ieu: [id number] Repository Date:7834-90-30CG [address] () [address]AMZ [place] [address]KN: 11/21/2018 Secondary NOT GIVENUNK Yovany Insurance:SELF PAY [facility] Number: Effective Repository Date:2018-11-05 11/04/2018 REBEL Song Primary REBEL Shankar [id number] Insurance:ANTHEMPolic SCHLABACHDOB: [address] y Number: [id number], [id number] [place] [address]Sof: Date:1533-92-56[address] [place] [address] [place] () [address]JY: 11/04/2018 Secondary NOT GIVENUNK Yovany Insurance:SELF PAY [facility] Number: Effective Repository Date:2018-11-04 11/04/2018 REBEL Shankar [id number] TR Insurance:ANTHEMPolic SCHLABACHDOB: [address], y Number: [id number] Medical Center [address]Inx: [id number] Repository Date:5019-75-27DX [address] () [address]AIKPZ[place]Q, [place] [address]JY: 11/04/2018 Secondary NOT GIVENUNK [facility] Insurance:SELF PAY [facility] Number: Effective Repository Date:2018-09-30 10/08/2018 REBEL Shankar [id number] TR Insurance:ANTHEMPolic SCHLABACHDOB: [address], y Number: [id number] Medical Center [address]Tni: [id number] Repository Date:2392-47-74IK [address] () [address]ADMQLBLAC[place], [place] [address]JY: 10/08/2018 Secondary NOT GIVENUNK Yovany Insurance:SELF PAY [facility] Number: Effective Repository Date:2018-10-08 09/30/2018 KAREN Song Primary Rebel [facility] Practices SCHLABACHDOB: Insurance:Don ElenaB: Repository [id number] /BSPolicy Number: [id number] [id number] [address] [place] [address], Date:8151-87-34Aoqs[address] [address]Oqq: Name:[facility]LY [facility], [facility] [place] [address]Gcr: [id number], [place] () [id number]: [phone]) ([phone] 09/30/2018 Secondary [facility] Practices Insurance:Valdo [facility] HospitalHayleeB: Repository icy Number: [id number] Date: - [address] [place], [place] [id number] [place] [address]Siz: Name:[facility] [place] [address], [place] () [phone]:
--- OUTSIDE RECORDS SUMMARY | 2018-12-21 12:16 | XMS RPT_ITS | Continuity of Care Document ---
:1970 Author Organization [facility] Address [address] [place] [id number] Phone Care Team Providers Name Role Phone Stefany Shaver DO Unavailable Maria G tSacy MD Unavailable Nannette Reyes Unavailable Unavailable Unavailable Unavailable Problems Name Dates Details Abnormal weight gain (R63.5, 783.1) Status: Active [...] but then regain wehnnot watching. Status: Active [employer] V73.21 Comments: needs tdap with line of work for sure. ute bso. mammo endo of this year Status: Active [facility] V73. Comments: will get mammo TAHBSO. grandfather prostate [...] days Quantity: 1 {Gel} Refills: 3 Ordered:24-Aug-2014 Long [employer]OC[employer]ATE [employer], Madison L Start : 04-Jun-2013 End : [...] Quantity: 90 {Tablet} Refills: 3 Ordered:24-Aug-2014 Long ASSOCIATE [employer], Madison L Start : 04-Jun-2013 End : 24-Aug-2014 Inactive Comments:ninety MINOCYCLINE HCL, 100MG (Oral Tablet) 1 Tablet qd for 0 days Quantity: 90 {Tablet} Refills: 3 Ordered:24-Aug-2014 Long ASSOCIATE [employer], Madison L Start : 04-Jun-2013 End : 24-Aug-2014 Inactive No Known Historical Medications Allergies and Adverse Reactions Name Dates Details No Known Allergies (Allergy) Onset: 27-Dec-2011 Status: Active No Known Drug Allergies (Allergy) Onset: 29-Aug-2018 Status: Active Procedures Procedure Dates Details Cholecystectomy Completed Comments: October 2006 Hysterectomy; Total Completed Comments: January 2010 Tonsillectomy Completed Comments: 1979 Family History Unknown Family Member Name Dates [...] kg/m2 Body Surface Area Calculated 2 m2 [id number] Temperature 97.8 f Comments: Method: Temporal Pulse [...] 2 m2 Results Date Description Value Details [id number] Microscopic Examination Comments: PATIENT NOT FASTINGPERFORMED BY: RIMA S B E Ticket Mavrixox [facility]Nov[facility] [id number] Bacteria None seen (Normal) Mucus Threads Present (Normal) Epithelial Cells (non renal) 0-10 {/hpf} (Normal) Range: 0 - 10 RBC 0-2 {/hpf} (Normal) Range: 0 - 2 WBC 0-5 {/hpf} (Normal) Range: 0 - 5 [id number]:22 Cortisol (44479) Comments: PATIENT NOT FASTINGPERFORMED BY: S B E [id number] Tenorio EthonovaNov[facility] [id number] Cortisol 5.9 ug/dL (Normal) Comments: Cortisol AM 6.2 - 19.4 Cortisol PM 2.3 - 11.9 6-[id number] T3, FREE (TRIDOTHYRONINE) (47890) Comments: PATIENT NOT FASTINGPERFORMED BY: S B E [employer] Krebs [facility]thon[facility]Nov[facility] [id number] Triiodothyronine (T3), Free 2.6 pg/mL (Normal) Range: 2.0-4.4 :22 T4, FREE (THYROXINE) (63608) Comments: PATIENT NOT FASTINGPERFORMED BY: [facility] [facility] [id number] T4,Free(Direct) 1.03 ng/dL (Normal) Range: 0.82-1.77 7-Nbj-004535:22 URINALYSIS, W/ MICRO (16479) Comments: PATIENT NOT FASTINGPERFORMED BY: [facility] [facility] [id number] Microscopic Examination See below: (Normal) Comments: Microscopic was indicated and was performed. Microscopic Examination MICRON (Normal) Comments: Microscopic follows if indicated. Nitrite, Urine Negative (Normal) Urobilinogen,Semi-Qn 0.2 mg/dL (Normal) Range: 0.2-1.0 Bilirubin Negative (Normal) Occult Blood Negative (Normal) Ketones Negative (Normal) Glucose Negative (Normal) Protein Negative (Normal) WBC Esterase Negative (Normal) Appearance Clear (Normal) Urine-Color Yellow (Normal) pH 6.5 (Normal) Range: 5.0-7.5 Specific [place]chance 1.015 (Normal) Range: 1.005-1.030 :22 CBC W/AUTO DIFF WBC Comments: PATIENT NOT FASTINGPERFORMED BY: [facility] [facility] [id number] Information: NURSE DRAW (19703) Immature Grans (Abs) 0.0 {x10E3/uL} (Normal) Range: [...] 3.77-5.28 WBC 5.9 {x10E3/uL} (Normal) Range: 3.4-10.8 5-[id number]:22 METABOLIC PANEL, COMPREHENSIVE Comments: PATIENT NOT FASTINGPERFORMED BY: [facility] CenterXjhlxv0721 [facility] [id number] (83519) ALT (SGPT) 19 [iU]/L (Normal) Range: 0-32 [...] 6-24 Glucose 87 mg/dL (Normal) Range: 65-99 :38 METABOLIC PANEL, BASIC Comments: 4-6 wks; PATIENT NOT FASTINGPERFORMED BY: [facility]6370 [facility] [id number] Information: [id number] (50040) Calcium, Serum 10.1 mg/dL (Normal) Range: 8.7-10.2 [...] mg/dL (Normal) Range: 65-99 :42 Lipid Panel (85604) Comments: PATIENT WAS FASTINGPERFORMED BY: [facility]6[address] [facility] [id number] LDL Cholesterol Calc 117 mg/dL (Abnormal) Range: 0-99 LDL/HDL Ratio 1.7 {ratio_units} (Normal) Range: 0.0-3.2 VLDL Cholesterol Issac 18 mg/dL (Normal) Range: 5-40 HDL Cholesterol 70 mg/dL (Normal) Comments: According to ATP-III Guidelines, HDL-C >59 mg/dL is considered anegative risk factor for CHD. Triglycerides 92 mg/dL (Normal) Range: 0-149 Cholesterol, Total 205 mg/dL (Abnormal) Range: 100-199 :42 TSH (13678) Comments: PATIENT WAS FASTINGPERFORMED BY: [facility] [id number] TSH 1.910 {uIU/mL} (Normal) Range: 0.450-4.500 :42 T4, FREE (THYROXINE) (58350) Comments: PATIENT WAS FASTINGPERFORMED BY: [place] [id number] [facility] [id number] T4,Free(Direct) 1.03 ng/dL (Normal) Range: 0.82-1.77 :42 CBC (Auto) (53032) Comments: PATIENT WAS FASTINGPERFORMED BY: [facility] [facility] [id number] Platelets 163 {x10E3/uL} (Normal) Range: 140-415 RDW 13.1 % (Normal) Range: 11.7-15.0 MCHC 33.3 g/dL (Normal) Range: 32.0-36.0 MCH 29.6 pg (Normal) Range: 27.0-34.0 MCV 89 fL (Normal) Range: 80-98 Hematocrit 43.2 % (Normal) Range: 34.0-44.0 Hemoglobin 14.4 g/dL (Normal) Range: 11.5-15.0 RBC 4.87 {x10E6/uL} (Normal) Range: 3.80-5.10 WBC 6.1 {x10E3/uL} (Normal) Range: 4.0-10.5 :42 Metabolic Panel, Comments: PATIENT WAS FASTINGPERFORMED BY: [facility] [facility] [id number] Information: [id number] DIFFICULT D RAW Comprehensive ([id number]) ALT (SGPT) 29 [iU]/L (Normal) Range: 0-40 [...] A Planned Procedures DEXA SCAN AXIAL SKELETON ([id number])By: On: 29-Aug-2018 Intent Fast DO, Stefany A Fast DO, Stefany A SCREENING DIGITAL TOMOSYNTHESIS OF On: 29-Aug-2018 Intent BREAST ([id number])By: Fast DO, Stefany A Fast DO, Stefany A IMMUNIZ ADMNIN, 1 VAC, SNGL/COMBO On: 01-Sep-2014 Intent ([id number])By: Maria G Stacy MD Comments: Lot #[id number]-[id number] dltd, IMDose prefilled syringegiven by:GERMÁN GramajoNKATHRINE and ABN signed FLU VAC, SPLIT, >3 YEARS, INTRAMUSC On: 01-Sep-2014 Intent ([id number])By: Maria G Stacy MD MAMMOGRAM, SCREENING, BOTH BREAST On: 24-Aug-2014 Intent ([id number])By: Maria G Stacy MD MAMMOGRAM, SCREENING, BOTH BREASTS On: 04-Jun-2013 Intent ([id number])By: Maria G Stacy MD TDAP VACCINE >7 IM ([id number])By: On: 27-Dec-2011 Intent Maria G Stacy MD Comments: Lot #: [id number] date: 10/07Amount given: 0.5 mlRoute: IMSite given: [...] Instructions Indication: Acne Encounters Office Visit On: 29-Aug-2018 9:05 Encounter Reason: [...] down if tried until now- hysterectomy 2009- kids in college- no change in stress [...] Imbalance (259.9), Weight gain (783.1), Acne (706.1), [facility] V73.21 [facility] Office Visit On: [...]
== END ==
PROVIDERS: Family Provider Internal Medicine; PCP Internal Medicine; Referring Provider Internal Medicine; Visit Provider Internal Medicine
DX: R06.09 Other forms of dyspnea (principal)
CPT/HCPCS: 93017

== ENCOUNTER → 2019-01-13 10:14 | Outpatient (CLI) | payer BC, SELFPAY ==
--- NOTE | 2019-01-13 10:19 | BI_ITS ---
MAMMOGRAPHY - BILATERAL SCREENING REASON FOR EXAM: Female, 48 years old. Routine annual screening examination. PERTINENT HISTORY: Aunts with breast cancer. TECHNIQUE: Digital bilateral breast susannah (3D mammographic acquisition) in the CC and MLO projections. 2-D mediolateral oblique (MLO) and craniocaudad (CC) views of both breasts were obtained. CAD: Full Field Digital Mammography with Computer Added Detection was performed. COMPARISON: Comparison is made with prior examination dated January 27, 2010. FINDINGS: Breast Composition: There are scattered areas of fibroglandular density. There are no dominant masses or suspicious calcifications. No other significant abnormalities are identified. There has been no significant change since the prior study. BI/SCREENING MAMM (CAD), BILAT IMPRESSION: Stable bilateral screening mammogram. Yearly follow-up mammogram recommended. (A) ASSESSMENT CATEGORY: BIRADS Category 1: Negative. A letter regarding these results will be sent to the patient by the facility within 30 days. Approximately 10% of breast cancers are not detected by mammography. A normal mammogram should not delay biopsy of a clinically suspicious abnormality. [id number] Electronically Signed: Reji Huitron MD at 12:51 EST , Service support ,
--- NOTE | 2019-01-13 10:24 | BD_ITS ---
STUDY: DUAL ENERGY X-RAY ABSORPTIOMETRY / DXA REASON FOR EXAM: Female, 48 years old. Early menopause. Loss of height. TECHNIQUE: Bone Mineral Density (BMD) measurements of lumbar spine and bilateral hips were obtained. COMPARISON: None. FINDINGS: Lumbar Spine (L1-L4): g/cm2 (0.981) / T-score (-1.7) / Z-score (-1.5) Findings are suggestive of osteopenia with a moderate fracture risk. Left Femur Total: g/cm2 (0.929) / T-score (-0.6) / Z-score (-0.3) Left Femoral Neck: g/cm2 (0.769) / T-score (-1.9) / Z-score (-1.3) Right Femur Total: g/cm2 (0.912) / T-score (-0.8) / Z-score (-0.4) Right Femoral Neck: g/cm2 (0.833) / T-score (-1.5) / Z-score (-0.8) BD/Dexa Bone Density Study IMPRESSION: The patient is considered osteopenic as outlined below according to World Glen Organization (WHO) criteria with a moderate fracture risk. Reference Information: The T-score is the number of standard deviations above or below the standard which is normal for young adults at their peak bone mineral density. The World Health Organization (WHO) interprets the T-scores as follows: Above -1 Normal bone density Between -1 and -2.5 Osteopenia Equal to / or below -2.5 Osteoporosis As a practical clinical guideline, osteopenia may be graded as follows: Mild -1 through -1.5 Moderate -1.6 through -2.0 Severe -2.1 through -2.4 The Z-score is the number of standard deviations above or below age-matched controls. A Z-score of less than -1.5 would be considered abnormal. References: 1. NIH Osteoporosis and Related Bone Diseases http://www.osteo.org 2. International Society for Clinical Densitometry http://www.iscd.org 3. National Osteoporosis Foundation http://www.nof.org Electronically Signed: Reji Huitron MD at 14:07 EST , Service support ,
--- NOTE | 2019-01-13 12:26 | ECHOD_ITS ---
Reason For Study: DYSPNEA ON EXERTION Procedure This was a 2D Doppler, Color Flow transthoracic echocardiogram. The exam was of adequate technical quality. Exam performed in department. Left Ventricle Normal LV size. Left ventricular systolic function is normal. The estimated ejection fraction is 65 %. The global longitudinal strain = -24 % (normal). No evidence for diastolic dysfunction. No regional wall motion abnormalities noted. Right Ventricle Normal RV size. Normal systolic function. Atria Normal left atrium. Normal right atrium. No doppler evidence for ASD. Mitral Valve There is mild mitral annular calcification. Normal mitral valve. Trivial mitral valve insufficiency. Tricuspid Valve Normal tricuspid valve. Trivial tricuspid valve insufficiency. Right ventricular systolic pressure estimated to be 33 mmHg. Aortic Valve Trisinus/trileaflet aortic valve. Normal aortic valve. Pulmonic Valve The pulmonic valve is not well visualized. Trivial pulmonic valve insufficiency. Great Vessels Normal sized aortic root. Pericardium/Pleural No pericardial effusion. MMode/2D Measurements & Calculations LVIDd: 4.4 cm IVSd: 0.97 cm Ao root diam: 2.6 cm LVIDs: 2.6 cm LVPWd: 0.97 cm RVDd: 3.2 cm FS: 40.8 % LAV(MOD-bp): 49.7 ml LVAd ap4: 27.9 cm2 SV(MOD-sp4): 56.1 ml LAV(MOD-bp) Indexed: 24.6 ml/m2 EDV(MOD-sp4): 83.0 ml LAV(MOD-sp2): 52.6 ml EDV(sp4-el): 87.4 ml LAV(MOD-sp4): 44.9 ml LVAs ap4: 13.9 cm2 ESV(MOD-sp4): 26.9 ml ESV(sp4-el): 27.7 ml EF(MOD-sp4): 67.6 % EF(sp4-el): 68.3 % SV(sp4-el): 59.7 ml LA A4 area: 17.8 cm2 LA dimension(2D): 3.6 cm RA A4 area: 14.6 cm2 Time Measurements MV dec time: 0.24 sec Doppler Measurements & Calculations MV E max jose roberto: 112.3 cm/sec Lat Peak E' Jose Roberto: 13.3 cm/sec Med Peak E' Jose Roberto: 13.3 cm/sec MV A max jose roberto: 85.8 cm/sec E/E' lat: 8.5 E/E' med: 8.4 MV E/A: 1.3 Ao V2 max: 180.2 cm/sec LV V1 max: 140.9 cm/sec PA V2 max: 139.8 cm/sec Ao max P.0 mmHg LV V1 max P.9 mmHg TR max jose roberto: 273.3 cm/sec TR max P.9 mmHg Interpretation Summary Left ventricular systolic function is normal. The estimated ejection fraction is 65 %. The global longitudinal strain = -24 % (normal). There is mild mitral annular calcification. Trivial mitral valve insufficiency. Trivial tricuspid valve insufficiency. Trivial pulmonic valve insufficiency. Right ventricular systolic pressure estimated to be 33 mmHg. No evidence for diastolic dysfunction. Ordering Physician: Stefany Shaver Referring Physician: Stefany Shaver Performed By: Oliva Moore RDCS
== END ==
PROVIDERS: Family Provider Internal Medicine; PCP Internal Medicine; Referring Provider Internal Medicine; Visit Provider Internal Medicine
DX: Z12.31 Encounter for screening mammogram for malignant neoplasm of breast (principal); M85.80 Other specified disorders of bone density and structure, unspecified site; R06.09 Other forms of dyspnea; Z78.0 Asymptomatic menopausal state
CPT/HCPCS: 77063; 77067; 77080; 93306

== ENCOUNTER → 2020-01-14 09:42 | Outpatient (CLI) | payer BC, SELFPAY ==
--- NOTE | 2020-01-14 09:50 | BI_ITS ---
MAMMOGRAPHY - BILATERAL SCREENING REASON FOR EXAM: Female, 49 years old. Routine annual screening examination. PERTINENT HISTORY: Aunts with breast cancer. TECHNIQUE: Digital bilateral breast susannah (3D mammographic acquisition) in the CC and MLO projections. 2-D mediolateral oblique (MLO) and craniocaudad (CC) views of both breasts were obtained. CAD: Full Field Digital Mammography with Computer Added Detection was performed. COMPARISON: Comparison is made with prior study dated January 13, 2019. FINDINGS: Breast Composition: There are scattered areas of fibroglandular density. There are no dominant masses or suspicious calcifications. No other significant abnormalities are identified. There has been no significant change since the prior study. BI/SCREENING MAMM (CAD), BILAT IMPRESSION: Stable bilateral screening mammogram. Yearly follow-up mammogram recommended. (A) ASSESSMENT CATEGORY: BIRADS Category 1: Negative. A letter regarding these results will be sent to the patient by the facility within 30 days. Approximately 10% of breast cancers are not detected by mammography. A normal mammogram should not delay biopsy of a clinically suspicious abnormality. [id number] Electronically Signed: Reji Huitron, at 12:09 EST , Service support ,
== END ==
PROVIDERS: Family Provider Internal Medicine; PCP Internal Medicine; Referring Provider Internal Medicine; Visit Provider Internal Medicine
DX: Z12.31 Encounter for screening mammogram for malignant neoplasm of breast (principal); Z80.3 Family history of malignant neoplasm of breast
CPT/HCPCS: 77067

== ENCOUNTER → 2020-10-05 15:40 | Outpatient (CLI) | payer BC, SELFPAY ==
--- NOTE | 2020-10-05 15:45 | RAD_ITS ---
STUDY: X-RAY CHEST REASON FOR EXAM: Female, 50 years old. Cough, shortness of breath. TECHNIQUE: Frontal and lateral views of the chest. COMPARISON: 10/08/2018 FINDINGS: The lungs are clear and expanded. There is no demonstrated pleural abnormality. Normal size heart. Normal mediastinum and zaria. Normal visualized pulmonary arteries. Normal visualized aortic arch and descending thoracic aorta. Normal visualized thoracic spine. Normal visualized ribs, clavicles, and shoulders. There is no demonstrated abnormality of the visualized soft tissue structures of the upper abdomen. RAD/Chest PA and Lateral IMPRESSION: Normal x-ray examination of the chest. Electronically Signed: Mariusz Shay MD at 17:01 EST , Service support ,
--- NOTE | 2020-10-05 15:45 | RAD_ITS ---
STUDY: X-RAY - RIGHT HAND, ATTENTION 4 FINGER REASON FOR EXAM: Female, 50 years old. Swollen, and painful right digit. TECHNIQUE: 3 view(s) of the finger were obtained. COMPARISON: None. FINDINGS: Normal metacarpal head. Normal metacarpophalangeal joint. Normal proximal phalanx. Normal middle phalanx. Normal distal phalanx. Minute punctate ossific density along the ulnar aspect of the PIP joint. Minute punctate radiodensity along the ulnar aspect of the DIP joint. RAD/Finger(s) Min 2 Views IMPRESSION: Possible avulsion fractures versus dystrophic calcifications PIP and DIP joints Electronically Signed: Mariusz Shay MD at 17:00 EST , Service support ,
== END ==
PROVIDERS: PCP Internal Medicine; Referring Provider Internal Medicine; Visit Provider Internal Medicine
DX: R05 Cough (principal); M79.644 Pain in right finger(s)
CPT/HCPCS: 71046; 73140

== ENCOUNTER → 2020-12-20 08:17 | Outpatient (CLI) | payer BC, SELFPAY | PROVIDERS: PCP Internal Medicine; Visit Provider Internal Medicine | DX: R00.0 Tachycardia, unspecified (principal) | CPT/HCPCS: 93225; 93226 ==

== ENCOUNTER → 2021-01-23 07:50 | Outpatient (CLI) | payer BC, SELFPAY ==
--- NOTE | 2021-01-23 07:51 | ECHOD_ITS ---
Reason For Study: SOB Procedure This was a 2D Doppler, Color Flow transthoracic echocardiogram. Exam performed in department. Left Ventricle Normal LV size. Left ventricular systolic function is normal. The estimated ejection fraction is 60 %. Stage 1 diastolic dysfunction. No regional wall motion abnormalities noted. Right Ventricle Normal RV size. Normal systolic function. Atria Normal left atrium. Normal right atrium. Mitral Valve Normal mitral valve. Tricuspid Valve Normal tricuspid valve. Mild (1+) tricuspid valve insufficiency. Pulmonary artery systolic pressure is 30 mmHg. Aortic Valve Normal aortic valve. Trisinus/trileaflet aortic valve. Pulmonic Valve Normal pulmonic valve. Great Vessels Normal aortic root. The pulmonary artery is normal size. Normal inferior vena cava. Pericardium/Pleural No pericardial effusion. MMode/2D Measurements & Calculations LVIDd: 4.0 cm IVSd: 0.78 cm Ao root diam: 2.4 cm LVIDs: 2.2 cm LVPWd: 0.85 cm RVDd: 3.2 cm FS: 44.9 % LAV(MOD-bp): 39.9 ml LA A4 area: 14.3 cm2 LA dimension(2D): 3.3 cm LAV(MOD-bp) Indexed: 19.1 ml/m2 LAV(MOD-sp2): 41.4 ml LAV(MOD-sp4): 36.5 ml RA A4 area: 10.7 cm2 Doppler Measurements & Calculations MV E max jose roberto: 81.5 cm/sec Lat Peak E' Jose Roberto: 9.1 cm/sec Med Peak E' Jose Roberto: 9.6 cm/sec MV A max jose roberto: 90.7 cm/sec E/E' lat: 8.9 E/E' med: 8.5 MV E/A: 0.90 Ao V2 max: 153.9 cm/sec LV V1 max: 119.1 cm/sec PA V2 max: 139.5 cm/sec Ao max P.5 mmHg LV V1 max P.7 mmHg TR max jose roberto: 253.3 cm/sec TR max P.7 mmHg Interpretation Summary Normal LV size. Left ventricular systolic function is normal. The estimated ejection fraction is 60 %. Stage 1 diastolic dysfunction. Mild (1+) tricuspid valve insufficiency. Pulmonary artery systolic pressure is 30 mmHg. Ordering Physician: Stefany Shaver Referring Physician: Stefany Shaver Performed By: Tiffanie Lagos RDCS
== END ==
PROVIDERS: PCP Internal Medicine; Referring Provider Internal Medicine; Visit Provider Internal Medicine
DX: R06.02 Shortness of breath (principal)
CPT/HCPCS: 93306

== ENCOUNTER → 2021-01-24 09:13 | Outpatient (CLI) | payer BC, SELFPAY ==
--- NOTE | 2021-01-24 09:14 | BI_ITS ---
MAMMOGRAPHY - BILATERAL SCREENING REASON FOR EXAM: Female, 50 years old. Routine annual screening examination. PERTINENT HISTORY: Aunts with breast cancer. TECHNIQUE: Digital bilateral breast evelia (3D mammographic acquisition) in the CC and MLO projections. 2-D mediolateral oblique (MLO) and craniocaudad (CC) views of both breasts were obtained. CAD: Full Field Digital Mammography with Computer Added Detection was performed. COMPARISON: Comparison is made with prior study of 01/14/2020 and 01/13/2019 FINDINGS: Breast Composition: There are scattered areas of fibroglandular density. There are no dominant masses or suspicious calcifications. No other significant abnormalities are identified. There has been no significant change since the prior study. BI/SCRN MAMM (CAD)W/EVELIA BILAT IMPRESSION: Stable bilateral screening mammogram. Yearly follow-up mammogram recommended. (A) ASSESSMENT CATEGORY: BIRADS Category 1: Negative. A letter regarding these results will be sent to the patient by the facility within 30 days. Approximately 10% of breast cancers are not detected by mammography. A normal mammogram should not delay biopsy of a clinically suspicious abnormality. [id number] Electronically Signed: Reji Huitron MD at 10:48 EST , Service support ,
--- NOTE | 2021-01-24 09:17 | BD_ITS ---
STUDY: DUAL ENERGY X-RAY ABSORPTIOMETRY / DXA REASON FOR EXAM: Female, 50 years old. Z780. Early menopause. Loss of height. TECHNIQUE: Bone Mineral Density (BMD) measurements of lumbar spine and bilateral hips were obtained. COMPARISON: Comparison is made with prior study dated 01/13/2019. FINDINGS: Lumbar Spine (L1-L4): g/cm2 (0.935) / T-score (-1.9) / Z-score (-1.6) Findings are suggestive of osteopenia with a moderate fracture risk. Left Femur Total: g/cm2 (0.897) / T-score (-0.9) / Z-score (-0.5) Left Femoral Neck: g/cm2 (0.8 x 3) / T-score (-1.3) / Z-score (-0.6) Right Femur Total: g/cm2 (0.887) / T-score (-1.0) / Z-score (-0.5) Right Femoral Neck: g/cm2 (0.858) / T-score (-1.3) / Z-score (-0.6) The T-Scores on the most recent prior examination were: Lumbar Spine (L1-L4): There has been improvement of bone density since the previous examination. Left Femur Total: which represents a worsening of 3.4%. Right Femur Total: which represents a worsening of 2.7%. BD/Dexa Bone Density Study IMPRESSION: The patient is considered osteopenic as outlined below according to World [place] Organization (WHO) criteria with a moderate fracture risk. There has been worsening of bone density since the previous examination. Reference Information: The T-score is the number of standard deviations above or below the standard which is normal for young adults at their peak bone mineral density. The World Health Organization (WHO) interprets the T-scores as follows: Above -1 Normal bone density Between -1 and -2.5 Osteopenia Equal to / or below -2.5 Osteoporosis As a practical clinical guideline, osteopenia may be graded as follows: Mild -1 through -1.5 Moderate -1.6 through -2.0 Severe -2.1 through -2.4 The Z-score is the number of standard deviations above or below age-matched controls. A Z-score of less than -1.5 would be considered abnormal. References: 1. NIH Osteoporosis and Related Bone Diseases www osteo.org 2. International Society for Clinical Densitometry www iscd.org 3. National Osteoporosis Foundation www nof.org Electronically Signed: Reji Huitron MD at 10:10 EST , Service support ,
== END ==
PROVIDERS: PCP Internal Medicine; Referring Provider Internal Medicine; Visit Provider Internal Medicine
DX: Z12.31 Encounter for screening mammogram for malignant neoplasm of breast (principal); Z78.0 Asymptomatic menopausal state
CPT/HCPCS: 77063; 77067; 77080

== ENCOUNTER → 2022-04-04 | Outpatient (CLI) | payer OTHER, SELFPAY ==
--- NOTE | 2022-04-04 07:10 | BI_ITS ---
MAMMOGRAPHY - BILATERAL SCREENING REASON FOR EXAM: Female, 51 years old. Routine annual screening examination. PERTINENT HISTORY: Aunts with breast cancer. TECHNIQUE: Digital bilateral breast evelia (3D mammographic acquisition) in the CC and MLO projections. 2-D mediolateral oblique (MLO) and craniocaudad (CC) views of both breasts were obtained. CAD: Full Field Digital Mammography with Computer Added Detection was performed. COMPARISON: Comparison is made with prior study dated 01/24/2021 and 01/14/2020. FINDINGS: Breast Composition: There are scattered areas of fibroglandular density. There are no dominant masses or suspicious calcifications. No other significant abnormalities are identified. There has been no significant change since the prior study. BI/SCRN MAMM (CAD)W/EVELIA BILAT IMPRESSION: Stable bilateral screening mammogram. Yearly follow-up mammogram recommended. (A) ASSESSMENT CATEGORY: BIRADS Category 1: Negative. A letter regarding these results will be sent to the patient by the facility within 30 days. Approximately 10% of breast cancers are not detected by mammography. A normal mammogram should not delay biopsy of a clinically suspicious abnormality. [id number] Electronically Signed: Reji Huitron MD at 8:54 EDT ,
== END | disposition home or self-care (01) ==
LOC: OPBI 07:06
PROVIDERS: PCP Internal Medicine; Referring Provider Internal Medicine; Visit Provider Internal Medicine
DX: Z12.31 Encounter for screening mammogram for malignant neoplasm of breast (principal)
CPT/HCPCS: 77063; 77067

== ENCOUNTER 2023-01-24 07:33 | Day surgery (SDC) | payer OTHER, SELFPAY ==
--- NOTE | 2023-01-24 07:49 | PCM.HP.STD ---
HPI - General General Date of Admission: 01/24/23 Date of Service: 01/24/23 Chief Complaint: Screening colonoscopy HPI Narrative KAREN CAMPOS, is a 52 F who presents today for screening colonoscopy. She does not have any abdominal pain. She has never had a colonoscopy. She denies any chest pain or shortness of breath. She has no family history of colon cancer or colon polyps. She is not experiencing any bleeding per rectum. Overall she is in very good health. [facility] Medical History (Updated 01/21/23 @ 14:34 by Carmen Bhat) Alcohol use Asthma History of echocardiogram Hyperlipidemia Injury of back Non-smoker Normal Holter exam Osteopenia Home Medications albuterol sulfate 90 mcg/actuation aerosol inhaler (ProAir HFA) 2 puff inhalation Q6H PRN SOB 11/09/22 [History Last Taken Unknown] ascorbic acid (vitamin C) 500 mg tablet 500 mg PO DAILY 11/09/22 [History Last Taken Unknown] calcium citrate 250 mg PO DAILY 11/09/22 [History Last Taken Unknown] cholecalciferol (vitamin D3) 50 mcg (2,000 unit) capsule 50 mcg PO DAILY 11/09/22 [History Last Taken Unknown] denosumab 60 mg/mL subcutaneous syringe (Prolia) 60 mg subcut [id number] 11/09/22 [History Last Taken Unknown] rosuvastatin 5 mg tablet 5 mg PO DAILY 11/09/22 [History Last Taken Unknown] sermorelin acetate 0.5 mg subcutaneous solution 10 mg subcut MOTUWETHFR 01/21/23 [History Last Taken Unknown] tirzepatide 2.5 mg/0.5 mL subcutaneous pen injector 2.5 mg subcut MO 01/21/23 [History Last Taken Unknown] Allergy/AdvReac Type Severity Reaction Status Date / Time No Known Allergies Allergy Unverified 01/21/23 14:22 Family History (Updated 11/09/22 @ 10:42 by Mary Goodwin) Father Diabetes Kidney transplant recipient CHF (congestive heart failure) Surgical History (Updated 11/09/22 @ 10:41 by Mary Goodwin) Hx of cholecystectomy Hx of hysterectomy, total Hx of tonsillectomy Social History (Updated 11/09/22 @ 10:43 by Mary Goodwin) household members: spouse current occupational status: employed current occupation: Owns [employer] Smoking Status: Never smoker ROS Review of Systems ROS Unobtainable: other Constitutional Constitutional: Denies fatigue, fever(s), poor appetite, weight gain or weight loss ENT HEENT: Denies mouth lesions Cardiovascular Cardiovascular: Denies abdominal bloating, abdominal edema or abdominal pain Respiratory/Chest Respiratory/Chest: Denies change in mental status, change in phlegm color, chest congestion or chest tightness Gastrointestinal Gastrointestinal: Denies belching, bloating, change in bowel habits, change in stool character, chewing difficulty, coffee ground emesis, constipation, cramping, diarrhea, dyspepsia, dysphagia, early satiety, excessive flatus, fecal incontinence, heartburn, hematemesis, hematochezia, hemorrhoids, loose stools, melena, nausea, odynophagia, rectal bleeding, tenesmus, vomiting or weight changes Genitourinary Genitourinary: Denies abdominal discomfort, burning urination or itching Musculoskeletal Musculoskeletal: Reports as per HPI; Denies muscle weakness or myalgias Integumentary Integumentary: Denies jaundice Neurologic Neurologic: Denies lack of coordination or weakness Psychiatric Psychiatric: Denies confusion, depression, memory loss, mood swings, paranoia or suicidal ideation Endocrine Endocrinology: Denies systems reviewed and no addt'l complaints, except as documented Hematologic/Lymphatic Hematologic/Lymphatic: Denies anemia, easy bleeding, easy bruising or lymphadenopathy Allergic/Immunologic Allergic/Immunologic: Denies systems reviewed and no addt'l complaints, except as documented Physical Exam Const alert General Appearance: cooperative Orientation / Consciousness: oriented to person HEENT hearing grossly normal bilaterally Head and Scalp: normal to inspection Face and Sinus: face symmetric Nose: external nose normal Mouth: oral and palatal mucosa normal Eyes conjunctivae normal General Eye: normal appearance of both eyes Neck full ROM General: normal visual inspection Lymph Lymphatic: no lymphadenopathy noted Chest inspection of chest normal and palpation of chest normal Chest: symmetrical chest wall rise Resp normal respiratory effort Effort and Inspection: able to speak in complete sentences Cardio regular rate GI non-distended Percussion: normal to percussion Rectal Exam: deferred Neuro Speech: speech normal Gait (Neuro): normal gait Assessment & Plan Assessment/Plan (1) Encounter for screening for malignant neoplasm of colon: PLAN: She was explained alternatives, risk, benefits including not withstanding bleeding, infection, sepsis, perforation, need for emergent surgery . She will have an ASA of 1.
[2023-01-24] MEDS: Lactated Ringers 1,000 ML 15 ML IV (08:01)
[2023-01-24 08:02] VITALS: BP 124/79; PULSE 88; RESP 18; TEMP 36.8; O2SAT 100; BMI 27.8
--- NOTE | 2023-01-24 08:45 | COLBX_PTH ---
PATIENT: KAREN CAMPOS LOC: EN U#:[id number] AGE/SX: 52/F ROOM: RE01/24/[address]: Dr. Carlos Malcolm DO : 1970 BED: DIS: 01/24/2023 SPEC #: [id number] RECD: 01/24/23 11:31 STATUS: YVON REFletcher #: [id number] RIDDHI: 01/24/23 08:[address]: Carlos Malcolm DEPT: SURGICAL PATHOLOGY RECD BY: Annabelle Sanches ENTERED: 01/24/23 13:19 SP TYPE: COLON BX OTHR DR: Dr. Stefany Shaver DO Tissues: Cecum, NOS Procedures: Surgery Specimen Level IV HEADER OPERATION: Colonoscopy ? open access (MAC) with biopsy PRE-OP DIAGNOSIS: Screening TISSUE SUBMITTED: Cecal polyp biopsy MICROSCOPIC DIAGNOSIS Cecal polyp, biopsy: Fragments of colonic mucosa with hyperplastic change. AM:juan 01/25/2023 MICROSCOPIC DESCRIPTION Slides are reviewed. GROSS DESCRIPTION Received in fixative is one container labeled with the patient's name and designated cecal polyp biopsy. The specimen consists of multiple irregular fragments of light puga soft tissue that in aggregate measure 1.0 x 0.3 x 0.1 cm. The specimen is totally submitted in one cassette. / SJ:rg 01/24/2023 TC:3 CPT: 44096
[2023-01-24 09:08] VITALS: BP 110/79; BP 124/79; PULSE 94; RESP 16; TEMP 36.2; O2SAT 98
[2023-01-24 09:10] VITALS: BP 111/76; BP 124/79; PULSE 77; RESP 16; O2SAT 98
--- NOTE | 2023-01-24 09:11 | OP.CCLET_ITS ---
01/24/2023 Stefany hSaver Re : Colonoscopy procedure for Elizabeth Dumont Dear Sivakumar This procedure was performed on January. My impressions and recommendations are as follows: Impressions : - One 5 mm polyp in the cecum, removed with a jumbo cold forceps. Resected and retrieved. - Diverticulosis in the recto-sigmoid colon and in the sigmoid colon. Recommendations : - Discharge patient to home. - Resume previous diet. - Continue present medications. - Await pathology results. - Repeat colonoscopy in 5 years for surveillance. My findings are described in the full procedure note, which is enclosed. If I can be of further assistance, please feel free to contact me at . Sincerely, Carlos Malcolm, 01/24/2023 9:10:48 AM This report has been signed electronically.
--- NOTE | 2023-01-24 09:11 | OP.COLON_ITS ---
Patient Name: Elizabeth Dumont Procedure Date: 01/24/2023 8:38 AM Date of : 1970 Age: 52 Procedure: Colonoscopy Indications: Screening for colorectal malignant neoplasm Providers: Carlos Malcolm DO Referring MD: Carlos Malcolm DO Medicines: Monitored Anesthesia Care Patient Profile: This is a 52 year old female. Refer to note in patient chart for documentation of history and physical. Last Colonoscopy: none. The patient's first colonoscopy is today. Complications: No immediate complications. Procedure: Pre-Anesthesia Assessment: - Prior to the procedure, a History and Physical was performed, and patient medications and allergies were reviewed. The patient is competent. The risks and benefits of the procedure and the sedation options and risks were discussed with the patient. All questions were answered and informed consent was obtained. Patient identification and proposed procedure were verified by the physician in the pre-procedure area. Mental Status Examination: alert and oriented. Airway Examination: normal oropharyngeal airway and neck mobility. Respiratory Examination: clear to auscultation. CV Examination: normal. Prophylactic Antibiotics: The patient does not require prophylactic antibiotics. Prior Anticoagulants: The patient has taken no previous anticoagulant or antiplatelet agents. After reviewing the risks and benefits, the patient was deemed in satisfactory condition to undergo the procedure. The anesthesia plan was to use monitored anesthesia care (MAC). Immediately prior to administration of medications, the patient was re-assessed for adequacy to receive sedatives. The heart rate, respiratory rate, oxygen saturations, blood pressure, adequacy of pulmonary ventilation, and response to care were monitored throughout the procedure. The physical status of the patient was re-assessed after the procedure. After I obtained informed consent, the scope was passed under direct vision. Throughout the procedure, the patient's blood pressure, pulse, and oxygen saturations were monitored continuously. The pediatric colonoscope was introduced through the anus and advanced to the cecum, identified by appendiceal orifice and ileocecal valve. The colonoscopy was performed without difficulty. The patient tolerated the procedure well. The quality of the bowel preparation was good. Scope In: 8:54:17 AM Scope Withdrawal Time 0 hours 8 minutes 41 seconds Scope Out: 9:05:44 AM Total Procedure Duration Time 0 hours 11 minutes 27 seconds Findings: The perianal and digital rectal examinations were normal. A 5 mm polyp was found in the cecum. The polyp was sessile. The polyp was removed with a jumbo cold forceps. Resection and retrieval were complete. Verification of patient identification for the specimen was done. Estimated blood loss was minimal. A few small and large-mouthed diverticula were found in the recto-sigmoid colon and sigmoid colon. Impression: - One 5 mm polyp in the cecum, removed with a jumbo cold forceps. Resected and retrieved. - Diverticulosis in the recto-sigmoid colon and in the sigmoid colon. Recommendation: - Discharge patient to home. - Resume previous diet. - Continue present medications. - Await pathology results. - Repeat colonoscopy in 5 years for surveillance. Procedure Code(s): --- Professional --- 56239, Colonoscopy, flexible; with biopsy, single or multiple CPT copyright 2017 [employer]. All rights reserved. The codes documented in this report are preliminary and upon data coder operator review may be revised to meet current compliance requirements. Carlos Malcolm DO 01/24/2023 9:10:48 AM This report has been signed electronically. Number of Addenda: 0 Note Initiated On: 01/24/2023 8:38 AM
[2023-01-24 09:15] VITALS: BP 110/67; BP 124/79; PULSE 72; RESP 16; O2SAT 100
[2023-01-24 09:25] VITALS: BP 108/68; BP 124/79; PULSE 72; RESP 16; TEMP 36.1; O2SAT 100
[2023-01-24 09:46] VITALS: BP 124/79
== END 2023-01-24 09:50 | disposition home or self-care (01) ==
LOC: EN 07:34 → AC 07:38
PROVIDERS: PCP Internal Medicine; Referring Provider Internal Medicine Gastroenterology; Visit Provider Internal Medicine Gastroenterology
PROC: 0DJD8ZZ Inspection of Lower Intestinal Tract, Via Natural or Artificial Opening Endoscopic (ICD-10-PCS; CPT 45378; principal; 2023-01-24 08:40)
DX: Z12.11 Encounter for screening for malignant neoplasm of colon (principal); K57.30 Diverticulosis of large intestine without perforation or abscess without bleeding; K63.5 Polyp of colon; E78.5 Hyperlipidemia, unspecified; Z79.899 Other long term (current) drug therapy
CPT/HCPCS: 45380; 88305; J7120; J2405

== ENCOUNTER → 2023-03-21 | Outpatient (CLI) | payer OTHER, SELFPAY ==
--- NOTE | 2023-03-21 08:21 | BD_ITS ---
STUDY: DUAL ENERGY X-RAY ABSORPTIOMETRY / DXA REASON FOR EXAM: Female, 52 years old. Z780 -- postmenopausal TECHNIQUE: Bone Mineral Density (BMD) measurements of lumbar spine and bilateral hips were obtained. COMPARISON: Comparison is made with prior study of January 24, 2021. FINDINGS: Lumbar Spine (L1-L4): g/cm2 (0.921) / T-score (-1.4) / Z-score (-0.6) Findings are suggestive of osteopenia with a low fracture risk. Left Femur Total: g/cm2 (0.860) / T-score (-0.7) / Z-score (-0.2) Left Femoral Neck: g/cm2 (0.659) / T-score (-1.7) / Z-score (-0.9) Right Femur Total: g/cm2 (0.901) / T-score (-0.3) / Z-score (0.2) Right Femoral Neck: g/cm2 (0.703) / T-score (-1.3) / Z-score (-0.5) The T-Scores on the most recent prior examination were: Lumbar Spine (L1-L4): There has been worsening of bone density since the previous examination. Left Femur Total: which represents an improvement of 3.1%. Right Femur Total: which represents an improvement of 9.3%. BD/Dexa Bone Density Study IMPRESSION: The patient is considered osteopenic as outlined below according to World Glen Organization (WHO) criteria with a moderate fracture risk. There has been improvement of bone density since the previous examination. Reference Information: The T-score is the number of standard deviations above or below the standard which is normal for young adults at their peak bone mineral density. The World Health Organization (WHO) interprets the T-scores as follows: Above -1 Normal bone density Between -1 and -2.5 Osteopenia Equal to / or below -2.5 Osteoporosis As a practical clinical guideline, osteopenia may be graded as follows: Mild -1 through -1.5 Moderate -1.6 through -2.0 Severe -2.1 through -2.4 The Z-score is the number of standard deviations above or below age-matched controls. A Z-score of less than -1.5 would be considered abnormal. References: 1. NIH Osteoporosis and Related Bone Diseases www osteo.org 2. International Society for Clinical Densitometry www iscd.org 3. National Osteoporosis Foundation www nof.org Electronically Signed: Reji Huitron MD at 9:20 EDT ,
== END | disposition home or self-care (01) ==
LOC: OPBD 08:18
PROVIDERS: PCP Internal Medicine; Referring Provider Internal Medicine; Visit Provider Internal Medicine
DX: Z78.0 Asymptomatic menopausal state (principal)
CPT/HCPCS: 77080

== ENCOUNTER → 2023-08-21 | Outpatient (CLI) | payer OTHER, SELFPAY ==
--- NOTE | 2023-08-21 09:36 | US_ITS ---
STUDY: ABDOMINAL ULTRASOUND - ELASTOGRAPHY REASON FOR VISIT: Female, 53 years old. Elevated LFTs. TECHNIQUE: Liver stiffness measurements were obtained on a [employer] RS 85 ultrasound machine using a CA 1-7 probe following the SRU guidelines. 3 measurements were obtained using a 2-D-SWE method. TECHNICAL QUALITY: Adequate. COMPARISON: No relevant prior comparison study available FINDINGS: Liver: There is no demonstrated mass lesion. LIVER: The liver is normal in size and shape with mildly increased echogenicity. No focal hepatic lesion. No intrahepatic biliary ductal dilatation. There is no free fluid. Median liver stiffness measured 6.1-7.3 kPa. TheIQR/M was 14.4-15.1 % suggesting a quality data set. GALLBLADDER AND BILIARY TREE: Cholecystectomy. The proximal common bile duct measures 0.3 cm, which is within normal limits for the patient''s age. PANCREAS: No focal abnormality is demonstrated in the pancreas. No pancreatic ductal dilatation. RIGHT KIDNEY: The right kidney measures 12.1 x 6.1 x 4.1 cm. No hydronephrosis or nephrolithiasis. No renal mass. US/ABD Limited w/ Elastography IMPRESSION: Liver stiffness measures 6.1-7.3 kPa compatible with F2-F3 Metavir score. Electronically Signed: Dakota Acosta MD at 22:08 EDT ,
--- NOTE | 2023-08-21 10:30 | BI_ITS ---
MAMMOGRAPHY - BILATERAL SCREENING REASON FOR EXAM: Female, 53 years old. Routine annual screening examination. PERTINENT HISTORY: Aunts with breast cancer. TECHNIQUE: Digital bilateral breast evelia (3D mammographic acquisition) in the CC and MLO projections. 2-D mediolateral oblique (MLO) and craniocaudad (CC) views of both breasts were obtained. CAD: Full Field Digital Mammography with Computer Added Detection was performed. COMPARISON: Comparison is made with prior study of April 04, 2022 and January 24, 2021. FINDINGS: Breast Composition: The breasts are heterogeneously dense, which may obscure small masses. There are no dominant masses or suspicious calcifications. Since prior study, has been an increase in the amount of fibroglandular tissue most likely secondary to the hormone replacement therapy which was started in March 2022. No other significant abnormalities are identified. BI/SCRN MAMM (CAD)W/EVELIA BILAT IMPRESSION: Increased amount of breast tissue since prior study most likely secondary to the hormone replacement therapy. Yearly follow-up mammogram recommended. (A) ASSESSMENT CATEGORY: BIRADS Category 2: Benign. A letter regarding these results will be sent to the patient by the facility within 30 days. Approximately 10% of breast cancers are not detected by mammography. A normal mammogram should not delay biopsy of a clinically suspicious abnormality. [id number] Electronically Signed: Reji Huitron MD at 14:25 EDT ,
== END | disposition home or self-care (01) ==
PROVIDERS: PCP Internal Medicine; Referring Provider Internal Medicine; Visit Provider Internal Medicine
DX: Z12.31 Encounter for screening mammogram for malignant neoplasm of breast (principal); R79.89 Other specified abnormal findings of blood chemistry
CPT/HCPCS: 76705; 76981; 77063; 77067

== ENCOUNTER → 2024-07-24 | Outpatient (CLI) | payer OTHER, SELFPAY ==
[2024-07-24 11:23] LABS: Magnesium 2.5 mg/dL (1.6-2.6); Potassium 5.1 mmol/L (3.5-5.1)
== END | disposition home or self-care (01) ==
LOC: LABSPEC 11:02
PROVIDERS: PCP Internal Medicine; Referring Provider Internal Medicine; Visit Provider Internal Medicine
DX: E87.6 Hypokalemia (principal)
CPT/HCPCS: 83735; 84132

== ENCOUNTER → 2024-09-05 | Outpatient (CLI) | payer OTHER, SELFPAY ==
--- NOTE | 2024-09-05 07:47 | US_ITS ---
STUDY: ABDOMINAL ULTRASOUND - RIGHT UPPER QUADRANT REASON FOR VISIT: Female, 54 years old elevated LFTs TECHNIQUE: Ultrasound evaluation of the right upper quadrant was performed with real-time and static diamond-scale imaging. TECHNICAL QUALITY: Adequate. COMPARISON: None. FINDINGS: Liver: The liver measures 18.3 cm. There is mild increased echogenicity consistent with fatty infiltration. The bile ducts are within normal limits. There is hepatic color flow. The direction of portal flow is hepatopetal. There is no demonstrated mass lesion. Gallbladder: The patient is status post cholecystectomy. Common Bile Duct (C.B.D.): The common bile duct measures 3.4 mm. Pancreas: Normal size of the head, body and tail of the pancreas. There is normal echogenicity of the pancreas. There is no demonstrated pancreatic mass or cyst. Right Kidney: Normal size of the right kidney. The right kidney measures 11.6 x 5 x 5.4 cm. Normal renal cortex. The right cortex measures 1.1 cm. There is no demonstrated renal mass or cyst. There is no right hydronephrosis. US/Abdomen Limited IMPRESSION: Mild fatty infiltration of the liver without a discrete lesion Electronically Signed: Jose Nolen MD at 9:23 EDT ,
== END | disposition home or self-care (01) ==
LOC: US 07:46
PROVIDERS: PCP Internal Medicine; Referring Provider Internal Medicine; Visit Provider Internal Medicine
DX: K76.0 Fatty (change of) liver, not elsewhere classified (principal)
CPT/HCPCS: 76705

== ENCOUNTER → 2024-09-07 | Outpatient (CLI) | payer OTHER, SELFPAY ==
--- NOTE | 2024-09-07 07:01 | BI_ITS ---
MAMMOGRAPHY - BILATERAL SCREENING 3-D TOMOSYNTHESIS REASON FOR EXAM: Female, 54 years old. screening PERTINENT HISTORY: No significant family history. TECHNIQUE: 2-D mammograms and 3-D Tomosynthesis of the breast (s) were performed. CAD was performed. COMPARISON: 08/21/2023 FINDINGS: The breast composition is heterogeneously dense that can obscure small breast masses. Scattered benign calcifications are seen. No dense spiculated masses or suspicious microcalcifications are identified. No architectural distortion is identified. There is no skin thickening or retraction. There has been no significant change since the prior study. BI/SCRN MAMM (CAD)W/EVELIA BILAT IMPRESSION: No mammographic signs of malignancy. Routine yearly mammograms recommended. ASSESSMENT CATEGORY: BIRADS Category 1: Negative. A letter regarding these results will be sent to the patient by the facility within 30 days. FOLLOW UP RECOMMENDATION: Yearly follow up mammogram recommended. (A) Approximately 10% of breast cancers are not detected by mammography. A normal mammogram should not delay biopsy of a clinically suspicious abnormality. Electronically Signed: Mahesh Nieto MD at 8:08 EDT ,
== END | disposition home or self-care (01) ==
LOC: OPBI 06:59
PROVIDERS: PCP Internal Medicine; Referring Provider Internal Medicine; Visit Provider Internal Medicine
DX: Z12.31 Encounter for screening mammogram for malignant neoplasm of breast (principal)
CPT/HCPCS: 77063; 77067

== ENCOUNTER → 2025-04-01 | Outpatient (CLI) | payer OTHER, SELFPAY ==
--- NOTE | 2025-04-01 12:21 | BD_ITS ---
PROCEDURE: DEXA BONE DENSITY STUDY 04/01/2025 REASON FOR EXAM: F, age 54 y/o . Postmenopausal. TECHNIQUE: DXA scan of sites with data reported below. REFERENCE LINKS: [facility] Adult Position[facility] COMPARISON: Comparison is made with prior study dated March 21, 2023. FINDINGS: BMD and T-SCORES Lumbar spine: 0.938 g/cm2, T-score -1.3 Levels: L1 through L4 Change from prior: Improvement of 1.8%. Left femoral neck: 0.690 g/cm2, T-score -1.4 Femoral neck comparison data not recommended for monitoring change. Left total hip: 0.928 g/cm2, T-score -0.1 Change from prior: Improvement of 7.9%. Right femoral neck: 0.722 g/cm2, T-score -1.1 Femoral neck comparison data not recommended for monitoring change. Right total hip: 0.913 g/cm2, T-score -0.2 Change from prior: Improvement of 1.3%. The World Health Organization has defined the following categories based on bone density: Normal bone density: T-score equal to or greater than -1.0 Osteopenia: T-score between -1.0 and -2.5 Osteoporosis: T-score equal to or less than -2.5 (Note: FRAX is not to be reported in setting of normal range bone density, osteoporosis on DEXA, known history of osteoporosis, prior osteoporotic hip or vertebral fracture, or for any patient undergoing pharmacological treatment for bone loss.) The National Osteoporosis Foundation (NOF) recommends pharmacological treatment for patients with a FRAX 10-year risk of 3% or higher for a hip fracture, or 20% or higher for a major osteoporotic fracture, to prevent osteoporosis and reduce fracture risk. The patient meet the pharmacological treatment recommendations for prevention of osteoporosis. BD/Dexa Bone Density Study IMPRESSION: OSTEOPENIA. Recommend follow-up as clinically warranted. Reading Location: [facility]
== END | disposition home or self-care (01) ==
LOC: OPBD 12:20
PROVIDERS: PCP Internal Medicine; Referring Provider Internal Medicine; Visit Provider Internal Medicine
DX: Z78.0 Asymptomatic menopausal state (principal)
CPT/HCPCS: 77080

== ENCOUNTER → 2025-11-02 | Outpatient (CLI) | payer OTHER, SELFPAY ==
--- NOTE | 2025-11-02 07:13 | US_ITS ---
PROCEDURE: ABD LIMITED W/ ELASTOGRAPHY REASON FOR EXAM: ABD LIMITED W/ ELASTOG COMPARISON: None. TECHNIQUE: Procedure Code: [id number] Modality: US Procedure: ABD LIMITED W/ ELASTOGRAPHY Right upper quadrant abdominal ultrasound. [employer] ElastQ Imaging shear wave elastography for non-invasive assessment of liver tissue stiffness. [employer] EPIQ Elite. FINDINGS: LIVER: Size: Unremarkable Length: 16 cm Echotexture: Heterogeneous echo architecture. No focal mass. Contour: Normal Lesions: None identified Elastography: EQI Med: 4.9 kPa EQI Med Jose Roberto: 1.27 m/s IQR/Med: 10.7 %* GALLBLADDER: Cholecystectomy COMMON BILE DUCT: Normal measuring 4 mm. PANCREAS: Normal Visualized portions of the right kidney are unremarkable. The right kidney measured 11.6 x 6 x 4.1 cm. No right upper quadrant ascites. US/ABD Limited w/ Elastography IMPRESSION: NO TO MILD HEPATIC FIBROSIS Metavir score F0 F1. Heterogeneous echo architecture of the liver parenchyma without any distinct ma ss. Cholecystectomy. No biliary ductal dilatation. Reading Location: [id number]
--- OUTSIDE RECORDS SUMMARY | 2025-11-02 07:16 | XMS RPT_ITS | CCD ---
Author Organization [facility] CliniSyhi Care Team Providers Care Bottomer Operator Name Role Phone Fast, Mohsen A Unavailable Maria G Stacy Unavailable Ramy [place], Torri Unavailable Manchak, Beck Unavailable Unavailable LETICIA Shelby Unavailable Unavailable Bear Delgado Unavailable Unavailable Unavailable Unavailable Ramy [place], Torri Unavailable Manchak, Beck Unavailable Unavailable Madison Ball Unavailable Unavailable Angy, Radha Unavailable Unavailable Slarb, Lizzeth Unavailable Unavailable Fast DO, Mohsen A Unavailable Maria G Stacy MD Unavailable Ramy [place], Torri Unavailable Slarb POTATO PANCAKE FRIER, Lizzeth Unavailable Unavailable Manchak MINNA, Beck Unavailable Unavailable Unavailable Unavailable Carey Mayer LPN Unavailable Unavailable Unavailable Unavailable DIAZ DO, DR CONNOLLY Primary Care Physician [phone] BERNARDO, DR NICK Marroquin Attending Unavaila ble BERNARDO, DR NICK Marroquin Primary Care Unavaila ble BERNARDO, DR NICK Marroquin Admitting Unavaila ble FAST, MOHSEN DO Referring Unavailable FAST, MOHSEN DO Consulting Unavailable PROVIDER, UNKNOWN Consulting Unavailable Angy POTATO PANCAKE FRIER, Radha Unavailable Unavailable FAST , DR CONNOLLY Primary Care Physician Fast DO, Mohsen A Unavailable Maria G Stacy MD Unavailable Friend, Dr. Gonzalez Unavailable Gravius Eugenie BUITRAGO Unavailable Unavailable FABI HIDALGO C.N.P. Attending Unavail able Diaz, Dr. Connolly Primary Care Provider [phone] Mary Goodwin Attending Provider Unavailable Friend, Dr. Gonzalez Attending Provider [phone] Friend, Dr. Gonzalez Referring Provider [phone] Friend, Dr. Gonzalez Other Provider [phone] Regis ARMENTA, Maria G Feliciano Referring Unavailable Fast DO, Mohsen Garcia Attending Unavailable Fast DO, Mohsen Garcia Consulting Unavailable Fast, Dr. Connolly Primary Care Provider [phone] Friend, Dr. Gonzalez Attending Provider [phone] Friend, Dr. Gonzalez Referring Provider [phone] Friend, Dr. Gonzalez Other Provider [phone] Essence Cruz MA Unavailable Unavailable Pcp ON SITE MANAGER, No Primary Care Provider Unavailabl e Fast DO, Mohsen A Primary Care Provider [phone] FAST, MOHSEN A Referring Unavailable FAST, MOHSEN Radha Primary Care Unavailable Fast DO, Dr. Connolly Primary Care Provider [phone] Benton ARMENTA, Dr. Pepper Attending Provider [phone] Fast DO, Dr. Connolly Attending Provider [phone] Fast DO, Dr. Connolly Referring Provider [phone] Fast, Mohsen Primary Care Unavailable Fast, Mohsen Attending Unavailable Fast, Mohsen Referring Unavailable Fast, Mohsen Referring Unavailable Fast, Mohsen Primary Care Unavailable Fast, Mohsen Attending Unavailable Fast, Mohsen Primary Care Unavailable Evgeny Bhardwaj Attending Unavailable Fast, Mohsen Referring Unavailable Fast, Mohsen Primary Care Unavailable Fast, Mohsen Attending Unavailable Fast, Mohsen Primary Care Unavailable Fast, Mohsen Attending Unavailable Fast, Mohsen Referring Unavailable Allergies Allergy Classification Reported Allergen(s) Allergy Type Date of Onset Reaction(s) Facility (1 source) ALLERGIES NOT ON FILE; Translations: [ALLERGIES NOT ON FILE] Propensity to adverse reactions (disorder) [facility] 2 Repository Medications Current Medications Medication Drug Class(es) Dates Sig (Normalized) Sig (Original) acetaminophen 1000 mg oral tablet (4 sources) Start: 11-30-2021 Tylenol Dose : 1,000 mg = 2 tab(s), Oral, TID, 0 Refill(s) Start Date: 11/30/21 Status: Ordered [id number] 200 actuat albuterol 0.09 mg/actuat metered dose inhaler (20 sources) beta2-Adrenergic Agonist Start: 11-09-2022 Albuterol Sulfate (Proair Hfa) 90 mcg/actuation HFA aerosol inhaler Active 2 NMA INHALATION EVERY 6 HOURS as needed for SOB November 09, 2022 1:00am Start: 11-09-2022 take 1 puff(s) by in halation every six hours Albuterol Sulfate (Proair Hfa) 90 mcg/actuation HFA aerosol inhaler Active 2 PUFF INHALATION EVERY 6 HOURS November 09, 2022 1:00am Start: 12-12-2020 ProAir HFA 108 (90 Base) MCG/ACT Inhalation Aerosol Solution 2 (two) Puff puffs 15 min prior to exercise for 0 days Quantity: 1 {Inhalation} Refills: 4 Ordered: 12-Dec-2020 Fast DO, Mohsen A Fast DO, Mohsen A Start : 12-Dec-2020 Active Start: 12-12-2020 ProAir HFA 108 (90 Base) MCG/ACT Inhalation Aerosol Solution 2 (two) Puff puffs 15 min prior to exercise for 0 days Quantity: 1 {Inhalation} Refills: 4 Ordered: 12-Dec-2020 Fast DO, Mohsen A Fast DO, Mohsen A Start : 12-Dec-2020 Active Start: 09-30-2018 ProAir HFA 108 (90 Base) MCG/ACT Inhalation Aerosol Solution 2 (two) Puff puffs 15 min prior to exercise for 0 days Quantity: 1 {Inhalation} Refills: 4 Ordered: 30-Sep-2018 Fast DO, Mohsen A Fast DO, Mohsen A Start : 30-Sep-2018 Active ascorbic acid 500 mg oral tablet (3 sources) Vitamin C Start: 11-09-2022 take 1 tablet by mouth once daily Ascorbic Acid (Vitamin C) 500 mg tablet Active 500 mg PO DAILY November 09, 2022 1:00am calcium citrate 1040 mg oral tablet (3 sources) Start: 11-09-2022 take 1 tablet by mouth once daily Calcium Citrate 250 mg calcium tablet Active 250 mg PO DAILY November 09, 2022 1:00am cholecalciferol 0.05 mg oral capsule (20 sources) Vitamin D Start: 03-25-2022 take 1 capsule by mouth once daily Cholecalciferol (Vitamin D3) 50 mcg (2,000 unit) capsule Active 50 ug PO DAILY November 09, 2022 1:00am Start: 09-30-2018 take 1 capsule by mo [facility] once daily Vitamin D 2000 UNIT Oral Capsule 1 (one) Capsule qd for 0 days Quantity: 30 {Capsule} Refills: 0 Ordered: 30-Sep-2018 Fast DO, Mohsen A Fast DO, Mohsen A Start : 30-Sep-2018 Active 1 ml denosumab 60 mg/ml prefilled syringe (3 sources) RANK Ligand Inhibitor Start: 11-09-2022 Denosumab (Prolia) 6 0 mg/mL syringe Active 60 mg SC every 6 months November 09, 2022 1:00am oxyCODONE hydrochloride 5 mg oral tablet (2 sources) Opioid Agonist Start: 11-30-2021 End: 12-07-2021 oxyCODONE 5 mg oral tablet ( IMMEDIATE release ) Dose : 5 mg = 1 tab(s), Oral, q6hr, PRN Pain, scale 7-10, X 7 day(s), # 28 tab(s), 0 Refill(s), 12/07/21 12:50:00 EST, Pharmacy: [facility], Compression fracture of L1 vertebra, 177.8, cm, 11/28/21 3:11:00 EST, Height, 88.6, kg, ... Start Date: 11/30/21 Stop Date: 12/07/21 Status: Ordered Start: 11-30-2021 End: 12-07-2021 oxyCODONE 10 mg oral tablet, ( extended release ) Dose : 20 mg = 2 tab(s), Oral, BID, # 28 tab(s), 0 Refill(s), Pharmacy: [facility], Compression fracture of L1 vertebra, 177.8, cm, 11/28/21 3:11:00 EST, Height, 88.6, kg, 11/28/21 3:11:00 EST, Dosing Weight Start Date: 11/30/21 Stop Date: 12/07/21 Status: Ordered Polyethylene Glycols (1 source) Start: 11-30-2021 take 17 doses by mouth once daily polyethylene glycol 3350 Dose : 17 gram(s) =, Oral, qDay, 0 Refill(s) Start Date: 11/30/21 Status: Ordered rosuvastatin calcium 5 mg oral tablet (20 sources) HMG-CoA Reductase Inhibitor Start: 07-08-2022 take 1 tablet by mouth once daily Rosuvastatin 5 mg tablet Active 5 mg PO DAILY November 09, 2022 1:00am Start: 12-12-2020 take 1 tablet by az th once daily at bedtime Rosuvastatin Calcium 5 MG Oral Tablet 1 (one) Tablet qhs for 0 days Quantity: 30 {Tablet} Refills: 3 Ordered: 12-Dec-2020 Fast DO, Mohsen A Fast DO, Mohsen A Start : 12-Dec-2020 Active Senna Leaves (1 source) Start: 11-30-2021 End: 12-30-2021 senna 8.6 mg oral tablet Dos e : 8.6 mg = 1 tab(s), Oral, qDay, X 30 day(s), # 30 tab(s), 0 Refill(s), 12/30/21 10:35:00 EST, Pharmacy: [id number], 177.8, cm, 11/28/21 3:11:00 EST, Height, kg, 11/28/21 3:11:00 EST, Dosing Weight Start Date: 11/30/21 Stop Date: 12/30/21 Status: Ordered Sermorelin (2 sources) Start: 01-21-2023 Sermorelin Joe rosas [facility] January 21, 2023 1:00am Start: 01-21-2023 Sermorelin Joe rosas Active 10 MG SC [facility] January 21, 2023 12:00am Sermorelin Acetate 0.5 mg Re con Soln (1 source) Start: 01-21-2023 Sermorelin Joe rosas 0.5 mg Recon Soln Active 10 mg SC MOTUWETH January 21, 2023 1:00am Tirzepatide (2 sources) Start: 01-21-2023 Tirzepatide Ac tive 2.5 MG SC MO January 21, 2023 1:00am Start: 01-21-2023 Tirzepatide Ac tive 2.5 MG SC MO January 21, 2023 12:00am Tirzepatide 2.5 mg/0.5 mL Pen Injector (1 source) Start: 01-21-2023 Tirzepatide 2. 5 mg/0.5 mL Pen Injector Active 2.5 mg SC MO January 21, 2023 1:00am tiZANidine 4 mg oral tablet (1 source) Central alpha-2 Adrenergic Agonist Start: 11-30-2021 tiZANidine 4 mg oral tablet Dose : 4 mg = 1 tab(s), Oral, TID, # 30 tab(s), 1 Refill(s), Pharmacy: [facility], 177.8, cm, 11/28/21 3:11:00 EST, Height, kg, 11/28/21 3:11:00 EST, Dosing Weight Start Date: 11/30/21 Status: Ordered Completed/Discontinued Medications Medication Drug Class(es) Dates Sig (Normalized) Sig (Original) adapalene 0.001 mg/mg topical gel (20 sources) Retinoid Start: 04-25-2015 End: 08-29-2018 Adapalene 0.1 % External Gel uad Gel qd to affcetd area(s) for 0 days Quantity: 30 {Gram} Refills: 3 Ordered: 29-Aug-2018 Beck Reyes CMA Start : 25-Apr-2015 End : 29-Aug-2018 Inactive adapalene 0.001 mg/mg / benzoyl peroxide 0.025 mg/mg topical gel (20 sources) Retinoid Start: 04-25-2015 End: 04-25-2015 EPIDUO, 0.1-2.5% (External Gel) 1 (one) Gel Gel apply at night for 0 days Quantity: 1 {Bottle} Refills: 5 Ordered: 25-Apr-2015 Maria G Stacy MD Start : 25-Apr-2015 End : 25-Apr-2015 Inactive amoxicillin 875 mg / clavulanate 125 mg oral tablet (20 sources) Penicillin-class Antibacterial Start: 01-24-2022 End: 06-20-2022 take 1 tablet by mouth twice daily Amoxicillin-Pot Clavulanate 875-125 MG Oral Tablet 1 (one) Tablet bid for 0 days Quantity: 28 {Tablet} Refills: 0 Ordered: 20-Jun-2022 Beck Reyes CMA Start : 24-Jan-2022 End : 20-Jun-2022 Inactive benzoyl peroxide 0.025 mg/mg topical gel (20 sources) Start: 04-25-2015 End: 08-29-2018 Benzoyl Peroxide 2.5 % External Gel uad Gel qd to affected area(s) prn for 0 days Quantity: 60 {Gram} Refills: 3 Ordered: 29-Aug-2018 Beck Reyes CMA Start : 25-Apr-2015 End : 29-Aug-2018 Inactive benzoyl peroxide 0.05 mg/mg / erythromycin 0.03 mg/mg topical gel (20 sources) Macrolide, Macrolide Antimicrobial Start: 06-04-2013 End: 08-24-2014 BENZAMYCIN, 5-3% (External Gel) 1 Gel daily in am on th off day of tretinoin four times weekly for 0 days Quantity: 1 {Gel} Refills: 3 Ordered: 24-Aug-2014 Madison Ball RN Start : 04-Jun-2013 End : 24-Aug-2014 Inactive DULoxetine 30 mg delayed release oral capsule (20 sources) Serotonin and Norepinephrine Reuptake Inhibitor Start: 08-04-2021 End: 06-20-2022 take 1 capsule by mouth once at mealtime DULoxetine HCl 30 MG Oral Capsule Delayed Release Particles 1 (one) Capsule q pm with food for 0 days Quantity: 30 {Capsule} Refills: 5 Ordered: 20-Jun-2022 Beck Reyes CMA Start : 04-Aug-2021 End : 20-Jun-2022 Inactive Start: 08-30-2020 End: 12-12-2020 take 1 capsule by mouth once at mealtime DULoxetine HCl 60 MG Oral Capsule Delayed Release Particles 1 (one) Capsule q pm with food for 0 days Quantity: 30 {Capsule} Refills: 0 Ordered: 12-Dec-2020 Lizzeth Sandra LPN Start : 30-Aug-2020 End : 12-Dec-2020 Inactive Start: 08-05-2020 take 1 capsule by mo uth once at mealtime DULoxetine HCl 60 MG Oral Capsule Delayed Release Particles 1 (one) Capsule q pm with food for 0 days Quantity: 30 {Capsule} Refills: 0 Ordered: 05-Aug-2020 Beck Reyes CMA Start : 05-Aug-2020 Active Start: 07-29-2020 take 1 capsule by mo uth once at mealtime DULoxetine HCl 60 MG Oral Capsule Delayed Release Particles 1 (one) Capsule q pm with food for 0 days Quantity: 30 {Capsule} Refills: 0 Ordered: 29-Jul-2020 Fast DO, Mohsen A Fast DO, Mohsen A Start : 29-Jul-2020 Active Start: 06-22-2020 take 1 capsule by mo uth once at mealtime DULoxetine HCl 60 MG Oral Capsule Delayed Release Particles 1 (one) Capsule q pm with food for 0 days Quantity: 30 {Capsule} Refills: 0 Ordered: 22-Jun-2020 Beck Reyes CMA Start : 22-Jun-2020 Active Start: 01-05-2020 take 1 capsule by mo uth once at mealtime DULoxetine HCl 60 MG Oral Capsule Delayed Release Particles 1 (one) Capsule q pm with food for 0 days Quantity: 30 {Capsule} Refills: 3 Ordered: 05-Jan-2020 Fast DO, Mohsen A Fast DO, Mohsen A Start : 05-Jan-2020 Active estrogens, esterified (jail) 1.25 mg / methylTESTOSTERone 2.5 mg oral tablet (20 sources) Androgen Start: 06-04-2013 End: 08-24-2014 take 1 tablet by mouth once daily EST ESTROGENS-METHYLTEST DS, 1.25-2.5MG (Oral Tablet) 1 Tablet daily for 0 days Quantity: 90 {Tablet} Refills: 3 Ordered: 24-Aug-2014 Madison Ball RN Start : 04-Jun-2013 End : 24-Aug-2014 Inactive Comments: ninety Comment on above: ninety 21 day ethinyl estradiol 0.316689 mg/hr / etonogestrel 0.005 mg/hr vaginal system (2 sources) Progestin, Estrogen Start: 04-01-2007 Etonogestrel-Ethinyl Estradiol (NUVARING) 0.12-0.015 mg/24 hr VAGINAL Ring Insert vaginally as directed 3 3 04/01/2007 Active Start: 03-28-2006 NUVARING 0.12 MG -0.015 MG/24 HR VAGINAL Indications: Dysmenorrhea Insert vaginally as directed 3 3 03/28/2006 Active Comment on above: Insert vaginally as directed famciclovir 500 mg oral tablet (20 sources) Herpes Simplex Virus Nucleoside Analog DNA Polymerase Inhibitor Start: 2018 End: 2019 take 1 tablet by mouth three times daily Famciclovir 500 MG Oral Tablet 1 (one) Tablet tid for 0 days Quantity: 21 {Tablet} Refills: 0 Ordered: 06-Jun-2020 Fast DO, Mohsen A Fast DO, Mohsen A Start : 24-Jul-2019 End : 06-Jun-2020 Inactive gabapentin 100 mg oral capsule (20 sources) Anti-epileptic Agent Start: 2018 End: 2019 Neurontin 100 MG Oral Capsule 1 (one) Capsule tid for 3 days for 0 days Quantity: 270 {Capsule} Refills: 1 Ordered: 06-Jun-2020 Fast DO, Mohsen A Fast DO, Mohsen A Start : 24-Jul-2019 End : 06-Jun-2020 Inactive Comments: then 2tid for 3 days then 3 tid Comment on above: then 2tid for 3 days then 3 tid hydroxychloroquine sulfate 200 mg oral tablet (20 sources) Antimalarial, Antirheumatic Agent Start: 2019 End: 2020 Hydroxychloroquine Sulfate 200 MG Oral Tablet 2 (two) Tablet bid for day 1 then 1 pill bid for 4 days for 0 days Quantity: 12 {Tablet} Refills: 0 Ordered: 12-Dec-2020 Lizzeth Sandra LPN Start : 05-Oct-2020 End : 12-Dec-2020 Inactive Comments: twenty Comment on above: twenty ibandronic acid 150 mg oral tablet (20 sources) Bisphosphonate Start: 2021 End: 2021 take 1 tablet by mouth every month Ibandronate Sodium 150 MG Oral Tablet 1 (one) Tablet q month for 0 days Quantity: 3 {Tablet} Refills: 3 Ordered: 02-Oct-2022 Fast DO, Mohsen A Fast DO, Mohsen A Start : 02-Oct-2022 End : 02-Oct-2022 Discontinued Start: 03-21-2022 take 1 tablet by az th every month Ibandronate Sodium 150 MG Oral Tablet 1 (one) Tablet q month for 0 days Quantity: 3 {Tablet} Refills: 3 Ordered: 21-Mar-2022 Beck Reyes CMA Start : 21-Mar-2022 Active meloxicam 15 mg oral tablet (20 sources) Nonsteroidal Anti-inflammatory Drug Start: 03-31-2021 End: 06-20-2022 take 1 tablet by mouth once daily at mealtime Meloxicam 15 MG Oral Tablet 1 (one) Tablet QD for 0 days Quantity: 30 {Tablet} Refills: 1 Ordered: 20-Jun-2022 Fast DO, Mohsen A Fast DO, Mohsen A Start : 31-Mar-2021 End : 20-Jun-2022 Inactive Comments: TAKE WITH FOOD Start: 01-05-2020 End: 12-12-2020 take 1 tablet by mouth once daily at mealtime Meloxicam 15 MG Oral Tablet 1 (one) Tablet QD for 0 days Quantity: 30 {Tablet} Refills: 1 Ordered: 12-Dec-2020 Lizzeth Sandra LPN Start : 05-Jan-2020 End : 12-Dec-2020 Inactive Comments: TAKE WITH FOOD Comment on above: TAKE WITH FOOD minocycline 100 mg oral tablet (20 sources) Tetracycline-class Drug Start: 2012 End: 2013 take 1 tablet by mouth once daily MINOCYCLINE HCL, 100MG (Oral Tablet) 1 Tablet qd for 0 days Quantity: 90 {Tablet} Refills: 3 Ordered: 24-Aug-2014 Madison Ball RN Start : 04-Jun-2013 End : 24-Aug-2014 Inactive 120 actuat mometasone furoate 0.1 mg/actuat metered dose inhaler (20 sources) Corticosteroid Start: 2020 End: 2021 Asmanex HFA 100 MCG/ACT Inhalation Aerosol 2 (two) Puff puffs in am for 0 days Quantity: 1 {Inhalation} Refills: 3 Ordered: 20-Jun-2022 DO Mohsen A Fast DO, Mohsen A Start : 31-Mar-2021 End : 20-Jun-2022 Inactive MULTIVITAMIN TAB (1 source) Start: 2005 MULTIVITAMIN TAB Take one(1) tablet daily. 0 03/28/2006 Active Comment on above: Take one(1) tablet d aily. omeprazole 20 mg delayed release oral capsule (14 sources) Proton Pump Inhibitor Start: 2021 End: 2022 omeprazole 20 mg oral capsule,delayed release (enteric coated) 1 (one) Capsule q am 15-30 min prior to meal for 0 days Quantity: 30 {Capsule} Refills: 1 Ordered: 10-Jun-2023 Fast DO, Mohsen A Fast DO, Mohsen A Start : 02-Oct-2022 End : 10-Jun-2023 Inactive Plexus (20 sources) Plexus Inactive Comments: x-factor multivitaminvital biomebiocleanseprobiomega X gel Plexus Active Co mments: x-factor multivitaminvital biomebiocleanseprobiomega X gel Comment on above: x-factor multivitami nvital biomebiocleanseprobiomega X gel predniSONE 10 mg oral tablet (20 sources) Start: 2021 End: 2021 take 3 tablets by mouth once daily at mealtime predniSONE 10 MG Oral Tablet 3 (three) Tablet pills a day with food in am for 0 days Quantity: 30 {Tablet} Refills: 0 Ordered: 02-Oct-2022 Beck Reyes CMA Start : 20-Jun-2022 End : 02-Oct-2022 Inactive Comments: take with food in am Start: 08-04-2021 End: 01-24-2022 take 3 tablets by mouth once daily at mealtime predniSONE 10 MG Oral Tablet 3 (three) Tablet pills a day with food in am for 0 days Quantity: 30 {Tablet} Refills: 0 Ordered: 24-Jan-2022 Fast DO, Mohsen A Fast DO, Mohsen A Start : 04-Aug-2021 End : 24-Jan-2022 Inactive Comments: take with food in am Start: 12-12-2020 End: 03-31-2021 predniSONE 10 MG Oral Tablet 3 (three) Tablet pills for 3 days 2 pills for 3 days 1 pill for 3 days with food for 0 days Quantity: 18 {Tablet} Refills: 0 Ordered: 31-Mar-2021 Fast DO, Mohsen A Fast DO, Mohsen A Start : 12-Dec-2020 End : 31-Mar-2021 Inactive Comments: take with food in am Comment on above: take with food in am spironolactone 50 mg oral tablet (20 sources) Aldosterone Antagonist Start: 4 End: take 1 tablet by mouth twice daily Aldactone 50 MG Oral Tablet 1 (one) Tablet Tablet bid for 0 days Quantity: 60 {Tablet} Refills: 3 Ordered: 29-Aug-2018 Beck Reyes CMA Start : 24-Aug-2014 End : 29-Aug-2018 Inactive take 1 mg by mouth once daily sp ironolactone 100 mg oral tablet qd (100 mg) Active Comments: Shama Jacome Comment on above: Shama Jacome tirzepatide 2.5 mg/0.5 mL subcutaneous pen injector (4 sources) inject 1 mL by subcutaneous injection every week tirzepatide 2.5 mg/0.5 mL subcutaneous pen injector once a week (2.5 mg/0.5 mL) Active Comments: with B12 Comment on above: with B12 Vitamin B12 (14 sources) Vitamin B12 Vitamin B12 Acti ve NEGATED: Highlighted row has not occurred!drug or medication (17 sources) No Known Histori manuela Medications NEGATED: Highlighted row has not occurred!No Known Historical Medications (20 sources) No Known Histori manuela Medications Problems Active Problems Problem Classification Problem Date Documented Date Episodic/Chronic Allergic reactions (20 sources) Contact dermatitis due to poison que; Translations: [Poison que] Resolved: 10-02-2022 08-04-2021 Episodic Anxiety disorders (20 sources) Mixed anxiety and depressive disorder; Translations: [Anxiety and depression] 06-06-2020 Chronic Comment on above: she feels like she w ants to stick with same dose chronic stable-bg nue present regimen better Asthma (20 sources) Asthma; Translations: [Asthma] 03-31-2021 Chronic Comment on above: chronic stable-bg nue present regimen she did have some so b with bailing hayin heat encourage use inhaler - let me know if keeps reoccuring Cardiac dysrhythmias (20 sources) Tachycardia; Translations: [Tachycardia] Resolved: 06-20-2022 12-12-2020 Episodic Disorders of lipid metabolism (20 sources) Hyperlipidemia; Translations: [Hyperlipidemia] 09-30-2018 Chronic Comment on above: discussded diet and ex she wants to work hanna rder on diet and exercise before starting meds we discusse in detail discussed side effec ts of meds myalgia monitor liver discussed do weight watchers get her feeling better so can get back to exercise discussed diet and e x indetail continue working on diet and ex consistentcy with st atin discussed diet and ex better with statin s he is tolerating at goal chronic stab le-continue present regimen Esophageal disorders (20 sources) Gastroesophageal reflux disease; Translations: [GERD (gastroesophageal reflux disease)] 10-02-2022 Chronic Comment on above: due to bisphosphonat e chronic stable-bg nue present regimen Immunizations and screening for infectious disease (20 sources) Need for prophylactic vaccination and inoculation against influenza; Translations: [Requires varicella vaccination] Resolved: 09-30-2018 06-06-2020 Episodic Malaise and fatigue (20 sources) Fatigue; Translations: [Fatigue] Resolved: 10-02-2022 06-06-2020 Episodic Menopausal disorders (20 sources) Menopausal syndrome; Translations: [Menopause syndrome] 08-31-2018 Chronic Mood disorders (20 sources) Mood disorders Nutritional deficiencies (20 sources) Vitamin D deficiency; Translations: [Vitamin D deficiency] 09-30-2018 Chronic Comment on above: chronic stable-bg nue present regimen Other bone disease and musculoskeletal deformities (20 sources) Osteopenia; Translations: [Osteopenia] 05-11-2019 Episodic Comment on above: weight bearing exerc ising and secondary workup discussed weight prabhu ring exercise when able to do so weight bearing ex an d ibandronate weight bearing exerc ise vitamin d- sheunable to take ibandronate due to severeswallowing issues and gerd- so will try for prolia due to hx of fracture- discudssed side effecs take mmotrin day before of and after to avoid flu like sx tolerating prolia- b one density in march with fracture- on pr favian Other connective tissue disease (20 sources) Lateral epicondylitis; Translations: [Lateral epicondylitis] Resolved: 03-31-2021 01-05-2020 Episodic Comment on above: improving Other connective tissue disease (20 sources) Pain in finger of right hand; Translations: [Finger pain, right] Resolved: 06-20-2022 12-12-2020 Episodic Comment on above: she has avulsion fra cture x2 she has virtual appt with ortho Other connective tissue disease (20 sources) Plantar fasciitis of left foot; Translations: [Plantar fasciitis, left] Resolved: 10-02-2022 03-31-2021 Episodic Comment on above: imrpoved Other endocrine disorders (20 sources) Disorder of endocrine system; Translations: [Hormone imbalance] 08-31-2018 Episodic Other fractures (1 source) Collapse of vertebra; Translations: [Collapsed vertebra, not elsewhere classified, site unspecified, initial encounter for fracture] Onset: 11-28-2021 Episodic Other fractures (1 source) Closed fracture lumbar vertebra, wedge ; Translations: [Wedge compression fracture of first lumbar vertebra, initial encounter for closed fracture] Onset: 11-30-2021 Episodic Other fractures (3 sources) Compression fracture of lumbar spine 01-01-2022 Episodic Other infections; including parasitic (20 sources) Personal history of other infectious and parasitic diseases; Translations: [History of COVID-19] 12-12-2020 Episodic Other liver diseases (1 source) Fatty (change of) liver, not elsewhere classified; Translations: [Fatty (change of) liver, not elsewhere classified] Onset: 09-30-2024 Chronic Other lower respiratory disease (20 sources) Dyspnea on exertion; Translations: [BAEZA (dyspnea on exertion)] 12-24-2018 Episodic Comment on above: order exercise stres s test cant bring down that test improvved Other lower respiratory disease (20 sources) Cough; Translations: [Cough] Resolved: 03-15-2021 10-05-2020 Episodic Other lower respiratory disease (20 sources) Shortness of breath; Translations: [Dyspnea] Resolved: 10-02-2022 10-09-2020 Episodic Comment on above: improving improved Other non-traumatic joint disorders (20 sources) Joint pain; Translations: [Joint pain] Resolved: 10-02-2022 06-06-2020 Episodic Other nutritional; endocrine; and metabolic disorders (20 sources) Overweight; Translations: [Body mass index 25-29 - overweight] 08-31-2018 Chronic Other nutritional; endocrine; and metabolic disorders (20 sources) Body mass index 25-29 - overweight; Translations: [BMI 27.0-27.9,adult] Resolved: 12-02-2019 09-30-2018 Chronic Other nutritional; endocrine; and metabolic disorders (20 sources) Body mass index 30+ - obesity; Translations: [BMI 31.0-31.9,adult] Resolved: 08-03-2021 12-12-2020 Chronic Other nutritional; endocrine; and metabolic disorders (20 sources) Abnormal weight gain; Translations: [Abnormal weight gain] 09-30-2018 Episodic Other nutritional; endocrine; and metabolic disorders (20 sources) Weight gain; Translations: [Weight gain] 08-29-2018 Episodic Comment on above: think related to pos tmenaupausal.when really watch lost but then regain wehnnot watching. Other nutritional; endocrine; and metabolic disorders (20 sources) Body mass index 25-29 - overweight; Translations: [Overweight (BMI 25.0-29.9)] Resolved: 03-15-2021 12-12-2020 Episodic Other nutritional; endocrine; and metabolic disorders (20 sources) Overweight in adulthood with body mass index of 25 or more but less than 30; Translations: [BMI 29.0-29.9,adult] Resolved: 06-10-2023 06-20-2022 Episodic Other skin disorders (20 sources) Acne; Translations: [Acne] 08-29-2018 Episodic Comment on above: better than was last time. on and off. talk about come off atb PO after 6month and putting on topical atb. Other skin disorders (20 sources) Skin lesion; Translations: [Abnormal skin growth] 09-30-2018 Episodic Comment on above: right forehead lesio n that is reoccurring after freezing Other upper respiratory infections (20 sources) Sinusitis; Translations: [Sinusitis] Resolved: 06-20-2022 01-24-2022 Chronic Poisoning by nonmedicinal substances (20 sources) Toxic effect of carbon monoxide; Translations: [TOXIC EFFECT, CARBON MONOXIDE (986.)] 08-29-2018 Episodic Comment on above: cooming down off thi s and better. Residual codes; unclassified (20 sources) Postmenopausal state; Translations: [Postmenopausal (Renamed from Postmenopausal status)] 08-29-2018 Episodic Residual codes; unclassified (14 sources) Preoperative state; Translations: [Preoperative clearance] 07-24-2019 Episodic Comment on above: Dr Milian Residual codes; unclassified (20 sources) Requires varicella vaccination; Translations: [Need for shingles vaccine] 01-05-2020 Episodic Residual codes; unclassified (20 sources) Influenza vaccination declined; Translations: [Influenza vaccination declined (Renamed from Refused influenza vaccine)] 12-12-2020 Episodic Residual codes; unclassified (20 sources) Non-smoker; Translations: [Nonsmoker] 12-12-2020 Episodic Residual codes; unclassified (4 sources) Body mass index 20-24 - normal; Translations: [BMI 23.0-23.9, adult] 06-10-2023 Episodic Residual codes; unclassified (1 source) Asymptomatic menopausal state; Translations: [Asymptomatic menopausal state] Onset: 04-06-2025 Episodic Spondylosis; intervertebral disc disorders; other back problems (20 sources) Cervico-occipital neuralgia; Translations: [Occipital neuralgia] Onset: 11-28-2021 Episodic Comment on above: there is where previ ous fracture we talked aobut imagin and she just feeels she needs to do the exrcises she was taught more routinley so she will let me know if not better and wants to go further chronic stable-bg nue present regimen better Unclassified (20 sources) WWV V73.21 Resolved: 09-30-2018 09-30-2018 Comment on above: will get mammo TAHBS O. grandfather prostate cancer not colon wildo stool cards scope at 50. needs tdap with line of work for sure. ute bso. mammo endo of this year Unclassified (20 sources) Hormonal Imbalance (259.9) Unclassified (20 sources) Weight gain (783.1) Unclassified (20 sources) Unclassified (20 sources) [facility] WELLNESS EXAM 09-30-2018 Unclassified (20 sources) Non-smoker; Translations: [Nonsmoker] 09-30-2018 Unclassified (20 sources) PHYSICAL EXAM, ROUTINE (V70.0) Unclassified (20 sources) BAEZA (dyspnea on exertion) Unclassified (20 sources) BMI 27.0-27.9,adult Unclassified (20 sources) Encounter for screening mammogram for breast cancer (Renamed from Encounter for screening mammogram for malignant neoplasm of breast) Unclassified (20 sources) Postmenopausal (Renamed from Postmenopausal status) Unclassified (20 sources) Need for shingles vaccine Unclassified (20 sources) BMI 31.0-31.9,adult Unclassified (20 sources) History of COVID-19 Unclassified (20 sources) Plantar fasciitis, left Unclassified (20 sources) Elevated high sensitivity C-reactive protein Unclassified (4 sources) None (qualifier value) 07-06-2015 Unclassified (20 sources) Poison que Unclassified (6 sources) BMI 29.0-29.9,adult Viral infection (20 sources) Herpes zoster; Translations: [Coronavirus infection] Resolved: 10-02-2022 07-24-2019 Episodic Comment on above: improving Past or Other Problems Problem Classification Problem Date Documented Da te Episodic/Chronic Biliary tract disease (1 source) Acute cholecystitis; Translations: [Acute cholecystitis] Onset: 10-25-2006 10-25-2006 Episodic Fluid and electrolyte disorders (1 source) Hypokalemia; Translations: [Hypokalemia] Onset: 08-07-2024 Episodic Headache; including migraine (20 sources) Headache; including migraine Other connective tissue disease (6 sources) Pain in finger of right hand; Translations: [Finger pain, right] 10-05-2020 Comment on above: she has avulsion fra cture x2 she has virtual appt with ortho Other screening for suspected conditions (not mental disorders or infectious disease) (20 sources) Patient encounter status; Translations: [Encounter for screening mammogram for breast cancer (Renamed from Encounter for screening mammogram for malignant neoplasm of breast)] Onset: 03-02-2024 Resolved: 09-30-2018 12-12-2020 Episodic Comment on above: improved with statin up slight - she not having any other inflammation issues will monitor Residual codes; unclassified (17 sources) Needs influenza immunization; Translations: [Need for prophylactic vaccination and inoculation against influenza] Resolved: 09-30-2018 09-30-2018 Episodic Unclassified (20 sources) Influenza vaccination declined (Renamed from Refused influenza vaccine); Translations: [Influenza vaccination declined] 09-30-2018 Unclassified (20 sources) Deliveries (Parity); Translations: [Deliveries (Parity)] 09-30-2018 Comment on above: 3 Unclassified (20 sources) TOXIC EFFECT, CARBON MONOXIDE (986.) Unclassified (20 sources) Patient encounter status; Translations: [Physical exam, routine] Resolved: 09-30-2018 08-29-2018 Unclassified (20 sources) Pregnancies (); Translations: [Pregnancies ()] 09-30-2018 Comment on above: 3 Unclassified (20 sources) Abnormal skin growth Unclassified (20 sources) Menopause syndrome Unclassified (20 sources) Hormone imbalance Unclassified (20 sources) Preoperative clearance Unclassified (20 sources) Shingles Unclassified (20 sources) Unspecified Diagnosis 06-06-2020 Unclassified (20 sources) BMI 28.0-28.9,adult Unclassified (20 sources) Finger pain, right Unclassified (1 source) Z13.21 Z13.29 Onset: 12-25-2022 Results Test Name Value Interpretation Reference Range Facility Bone density reportOrdered B y: Reji Huitron on 04-05-2025 Study report Skeletal system DXA [facility] Imaging Services [address] [place] [address] Dexa Bone Density Study MR#: [id number] Acct: [id number] Name: KAREN CAMPOS Rep #: [id number] : 1970 F 54 From: Johnny Huitron MD PCP: Dr. Mohsen Perales, DO Status: REG CLI Study:Dexa Bone Density Study Date of Exam: 04/01/25 Exam# [id number] Ordering Dr: Soni Perales ra DO PROCEDURE: DEXA BONE DENSITY STUDY 04/01/2025 REASON FOR EXAM: F, age 54 y/o . Postmenopausal. TECHNIQUE: DXA scan of sites with data reported below. REFERENCE LINKS: [facility] Adult Positions COMPARISON: Comparison is made with prior study dated March 21, 2023. FINDINGS: BMD and T-SCORES Lumbar spine: 0.938 g/cm2, T-score -1.3 Levels: L1 through L4 Change from prior: Improvement of 1.8%. Left femoral neck: 0.690 g/cm2, T-score -1.4 Femoral neck comparison data not recommended for monitoring change. Left total hip: 0.928 g/cm2, T-score -0.1 Change from prior: Improvement of 7.9%. Right femoral neck: 0.722 g/cm2, T-score -1.1 Femoral neck comparison data not recommended for monitoring change. Right total hip: 0.913 g/cm2, T-score -0.2 Change from prior: Improvement of 1.3%. The World Health Organization has defined the following categories based on bonedensity: Normal bone density: T-score equal to or greater than -1.0 Osteopenia: T-score between -1.0 and -2.5 Osteoporosis: T-score equal to or less than -2.5 (Note: FRAX is not to be reported in setting of normal range bone density, osteoporosis on DEXA, known history of osteoporosis, prior osteoporotic hip or vertebral fracture, or for any patient undergoing pharmacological treatment for bone loss.) The National Osteoporosis Foundation (NOF) recommends pharmacological treatment for patients with a FRAX 10-year risk of 3% or higher for a hip fracture, or 20% or higher for a major osteoporotic fracture, to prevent osteoporosis and reduce fracture risk. The patient meet the pharmacological treatment recommendations for prevention of osteoporosis. BD/Dexa Bone Density Study IMPRESSION: OSTEOPENIA. Recommend follow-up as clinically warranted. Reading Location: [id number] CC: Dr. Mohsen Perales, ~ Compensation Specialist: Signed [facility] Dexa Bone Density Studyon Dexa Bone Density Study [facility] Imaging Services [address] [place] [address] Dexa Bone Density Study MR#: [id number] Acct: [id number] Name: KAREN CAMPOS Rep #: [id number] : 1970 F 54 From: Reji johnson MD PCP: Dr. Mohsen Perales DO Status: REG CLI Study: Dexa Bone Density Study Date of Exam: 04/01/25 Exam# [id number] Ordering Dr: Mohsen Perales DO PROCEDURE: DEXA BONE DENSITY STUDY 04/01/2025 REASON FOR EXAM: F, age 54 y/o . Postmenopausal. TECHNIQUE: DXA scan of sites with data reported below. REFERENCE LINKS: [facility] Adult Positions COMPARISON: Comparison is made with prior study dated March 21, 2023. FINDINGS: BMD and T-SCORES Lumbar spine: 0.938 g/cm2, T-score -1.3 Levels: L1 through L4 Change from prior: Improvement of 1.8%. Left femoral neck: 0.690 g/cm2, T-score -1.4 Femoral neck comparison data not recommended for monitoring change. Left total hip: 0.928 g/cm2, T-score -0.1 Change from prior: Improvement of 7.9%. Right femoral neck: 0.722 g/cm2, T-score -1.1 Femoral neck comparison data not recommended for monitoring change. Right total hip: 0.913 g/cm2, T-score -0.2 Change from prior: Improvement of 1.3%. The World Health Organization has defined the following categories based on bone density: Normal bone density: T-score equal to or greater than -1.0 Osteopenia: T-score between -1.0 and -2.5 Osteoporosis: T-score equal to or less than -2.5 (Note: FRAX is not to be reported in setting of normal range bone density, osteoporosis on DEXA, known history of osteoporosis, prior osteoporotic hip or vertebral fracture, or for any patient undergoing pharmacological treatment for bone loss.) The National Osteoporosis Foundation (NOF) recommends pharmacological treatment for patients with a FRAX 10-year risk of 3% or higher for a hip fracture, or 20% or higher for a major osteoporotic fracture, to prevent osteoporosis and reduce fracture risk. The patient meet the pharmacological treatment recommendations for prevention of osteoporosis. BD/Dexa Bone Density Study IMPRESSION: OSTEOPENIA. Recommend follow-up as clinically warranted. Reading Location: [id number] CC: Dr. Mohsen Perales DO Compensation Specialist: Signed Normal [facility] L/S Spine Min 4 Views11-25 L/S Spine Min 4 Views [facility] [address] [place] [address] L/S Spine Min 4 Views MR#: [id number] Acct: [id number] Name: KAREN CAMPOS Rep #: [id number] : 1970 F 54 From: Salvatore Lowry DO PCP: Dr. Mohsen Perales DO Status: DEP AMB Study: L/S Spine Min 4 Views Date of Exam: 12/09/24 Exam# [id number] Ordering Dr: Mohsen Perales DO [id number] STUDY: X-RAY - LUMBAR SPINE REASON FOR EXAM: Female, 54 years old. BACK PAIN TECHNIQUE: 4 view(s) of the lumbar spine were obtained. COMPARISON: None FINDINGS: Normal lumbar lordosis. There is no substantial scoliosis. There is a normal alignment of the vertebrae. Mild wedge compression of L1. Normal disc space heights. The soft tissue structures are unremarkable. RAD/L/S Spine Min 4 Views IMPRESSION: Mild wedge compression of L1. Correlate with MRI if needed. Electronically Signed: Salvatore Lowry DO at 19:56 EST , CC: Dr. Mohsen Perales DO Compensation Specialist: Signed Normal [facility] Thoracic Spine 3 Viewson Thoracic Spine 3 Views [facility] [address] [place] [address] Thoracic Spine 3 Views MR#: [id number] Acct: [id number] Name: KAREN CAMPOS Rep #: [id number] : 1970 F 54 From: Salvatore Lowry DO PCP: Dr. Mohsen Perales DO Status: DEP AMB Study: Thoracic Spine 3 Views Date of Exam: 12/09/24 Exam# [id number] Ordering Dr: Mohsen Perales DO [id number] INDICATION: BACK PAIN EXAMINATION/TECHNIQUE: X-RAY - XR Spine Thoracic 2 Views COMPARISON: FINDINGS: VERTEBRAE: Preserved vertebral body height. No fracture. No spondylolisthesis. Preservation of the normal thoracic kyphosis. No significant facet arthropathy. DISCS: Disc spaces are maintained. INCLUDED CHEST/ABDOMEN: No acute abnormalities. RAD/Thoracic Spine 3 Views IMPRESSION: No evidence of thoracic spinal fracture or spondylolisthesis. Electronically Signed: Salvatore Lowry DO at 19:50 EST Reading Location ID and State: [facility] / [place] Tel [phone], Service support , CC: Dr. Mohsen Perales DO Compensation Specialist: Signed Normal [facility] SCRN MAMM (CAD)W/EVELIA BILATo n 09-07-2024 SCRN MAMM (CAD)W/EVELIA BILAT [facility] Imaging Services [address] [place] [address] SCRN MAMM (CAD)W/EVELIA BILAT MR#: [id number] Acct: [id number] Name: KAREN CAMPOS Rep #: [id number] : 1970 F 54 From: Mahesh Nieto MD PCP: Dr. Mohsen Perales DO Status: REG CLI Study: SCRN MAMM (CAD)W/EVELIA BILAT Date of Exam: 08/25 03/18 Exam# [id number] Ordering Dr: Mohsen Perales DO [id number] MAMMOGRAPHY - BILATERAL SCREENING 3-D TOMOSYNTHESIS REASON FOR EXAM: Female, 54 years old. screening PERTINENT HISTORY: No significant family history. TECHNIQUE: 2-D mammograms and 3-D Tomosynthesis of the breast (s) were performed. CAD was performed. COMPARISON: 08/21/2023 FINDINGS: The breast composition is heterogeneously dense that can obscure small breast masses. Scattered benign calcifications are seen. No dense spiculated masses or suspicious microcalcifications are identified. No architectural distortion is identified. There is no skin thickening or retraction. There has been no significant change since the prior study. BI/SCRN MAMM (CAD)W/EVELIA BILAT IMPRESSION: No mammographic signs of malignancy. Routine yearly mammograms recommended. ASSESSMENT CATEGORY: BIRADS Category 1: Negative. A letter regarding these results will be sent to the patient by the facility within 30 days. FOLLOW UP RECOMMENDATION: Yearly follow up mammogram recommended. (A) Approximately 10% of breast cancers are not detected by mammography. A normal mammogram should not delay biopsy of a clinically suspicious abnormality. Electronically Signed: Mahesh Nieto MD at 8:08 EDT , CC: Dr. Mohsen Perales DO Compensation Specialist: Signed Normal [facility] Abdomen Limitedon 09-05-2024 Abdomen Limited [facility] Imaging Services [address] [place], [place] [address] Abdomen Limited MR#: [id number] Acct: [id number] Name: KAREN CAMPOS Rep #: [id number] : 1970 F 54 From: Espinoza Nolen MD PCP: Dr. Mohsen Perales DO Status: REG CLI Study: Abdomen Limited Date of Exam: 09/05/24 Exam# [id number] Ordering Dr: Mohsen Perales DO [id number] STUDY: ABDOMINAL ULTRASOUND - RIGHT UPPER QUADRANT REASON FOR VISIT: Female, 54 years old elevated LFTs TECHNIQUE: Ultrasound evaluation of the right upper quadrant was performed with real-time and static diamond-scale imaging. TECHNICAL QUALITY: Adequate. COMPARISON: None. FINDINGS: Liver: The liver measures 18.3 cm. There is mild increased echogenicity consistent with fatty infiltration. The bile ducts are within normal limits. There is hepatic color flow. The direction of portal flow is hepatopetal. There is no demonstrated mass lesion. Gallbladder: The patient is status post cholecystectomy. Common Bile Duct (C.B.D.): The common bile duct measures 3.4 mm. Pancreas: Normal size of the head, body and tail of the pancreas. There is normal echogenicity of the pancreas. There is no demonstrated pancreatic mass or cyst. Right Kidney: Normal size of the right kidney. The right kidney measures 11.6 x 5 x 5.4 cm. Normal renal cortex. The right cortex measures 1.1 cm. There is no demonstrated renal mass or cyst. There is no right hydronephrosis. US/Abdomen Limited IMPRESSION: Mild fatty infiltration of the liver without a discrete lesion Electronically Signed: Jose Nolen MD at 9:23 EDT , CC: Dr. Mohsen Perales, Compensation Specialist: Signed Normal [facility] Magnesiumon 07-24-2024 Magnesium [Mass/Vol] 2.5 mg/dL Normal 1.6-2.6 [facility] Comment on above: Performed By: #### L 501.5600, L501.5200 #### [facility] [address] [place], [place], [address] Potassiumon 07-24-2024 Potassium [Moles/Vol] 5.1 mmol/L Normal 3.5-5.1 [facility] Comment on above: Performed By: #### L 501.5600, L501.5200 #### [facility] [address] [place], [place], [address] CT for calcium scoring WO pr ntrast and CTA W contrast IV Heart and coronary arterieson 03-03-2024 1. Coronary artery c alcium score of 0*. *Coronary artery calcium scoring may be helpful in predicting the risk for future coronary heart disease events. According to the [employer] Clinical Expert Consensus Task Force, such testing provides important prognostic information in patients with more than one coronary heart disease risk factor. The coronary artery calcium score correlates with the annual risk of a non-fatal myocardial infarction or coronary heart disease . Coronary artery score Annual Risk 0-99 0.4% 100-399 1.3% >400 2.4% These three breakpoints correspond to lower, intermediate and high risk states for future coronary events. Such information should be used, along with appropriate clinical judgment, to make decisions regarding the intensity of risk factor management strategies to treat blood lipids and to modify other non-lipid coronary risk factors. Reference: Vera P et al. Circulation. 2007; 115:402-426 MACRO: None Signed by: Mahesh Wilkins 03/03/2024 1:07 PM Dictation workstation: [id number] [facility] Interpreted By: Mahesh Verdin, STUDY: CT CARDIAC SCORING WO IV CONTRAST; 03/02/2024 2:31 pm INDICATION: Signs/Symptoms:ELEVATED HIGH SENSITIVITY C-REACTIVE PROTEIN. COMPARISON: None. ACCESSION NUMBER(S): [id number] ORDERING CLINICIAN: MOHSEN PERALES TECHNIQUE: Using prospective ECG gating, CT scan of the coronary arteries was performed without intravenous contrast. Coronary calcium scoring was performed according to the method of Agatston. FINDINGS: The score and distribution of calcium in the coronary arteries is as follows: Left Main Coronary: 0. Left Anterior Descendin. Left Circumflex: 0. Right Coronary Artery: 0. Total: 0. The lungs are clear. The aorta is without aneurysmal dilatation evident. The heart is not enlarged. No pericardial effusion is evident. No hilar or mediastinal lymphadenopathy is evident. Structures in the visualized upper abdomen are grossly unremarkable. [facility] Mahesh Wilkins M D - 03/03/2024 Interpreted By: Mahesh Wilkins, STUDY: CT CARDIAC SCORING WO IV CONTRAST; 03/02/2024 2:31 pm INDICATION: Signs/Symptoms:ELEVATED HIGH SENSITIVITY C-REACTIVE PROTEIN. COMPARISON: None. ACCESSION NUMBER(S): [id number] ORDERING CLINICIAN: MOHSEN PERALES TECHNIQUE: Using prospective ECG gating, CT scan of the coronary arteries was performed without intravenous contrast. Coronary calcium scoring was performed according to the method of Agatston. FINDINGS: The score and distribution of calcium in the coronary arteries is as follows: Left Main Coronary: 0. Left Anterior Descendin. Left Circumflex: 0. Right Coronary Artery: 0. Total: 0. The lungs are clear. The aorta is without aneurysmal dilatation evident. The heart is not enlarged. No pericardial effusion is evident. No hilar or mediastinal lymphadenopathy is evident. Structures in the visualized upper abdomen are grossly unremarkable. IMPRESSION: 1. Coronary artery calcium score of 0*. *Coronary artery calcium scoring may be helpful in predicting the risk for future coronary heart disease events. According to the [employer] Clinical Expert Consensus Task Force, such testing provides important prognostic information in patients with more than one coronary heart disease risk factor. The coronary artery calcium score correlates with the annual risk of a non-fatal myocardial infarction or coronary heart disease . Coronary artery score Annual Risk 0-99 0.4% 100-399 1.3% >400 2.4% These three breakpoints correspond to lower, intermediate and high risk states for future coronary events. Such information should be used, along with appropriate clinical judgment, to make decisions regarding the intensity of risk factor management strategies to treat blood lipids and to modify other non-lipid coronary risk factors. Reference: Tully P et al. Circulation. 2007; 115:402-426 MACRO: None Signed by: Mahesh Wilkins 03/03/2024 1:07 PM Dictation workstation: [id number] [facility] Work Phone: CT for calcium scoring WO co ntrast and CTA W contrast IV Heart and coronary arteriesOrdered By: Mahesh Wilkins on 03-03-2024 [facility] Work Phone: CT CARDIAC SCORING WO IV CON TRASTon 03-02-2024 CT CARDIAC SCORING WO IV CONTRAST Interpreted By: Mahesh Wilkins, STUDY: CT CARDIAC SCORING WO IV CONTRAST; 03/02/2024 2:31 pm INDICATION: Signs/Symptoms:ELEVATED HIGH SENSITIVITY C-REACTIVE PROTEIN. COMPARISON: None. ACCESSION NUMBER(S): [id number] ORDERING CLINICIAN: MOHSEN PERALES TECHNIQUE: Using prospective ECG gating, CT scan of the coronary arteries was performed without intravenous contrast. Coronary calcium scoring was performed according to the method of Agatston. FINDINGS: The score and distribution of calcium in the coronary arteries is as follows: Left Main Coronary: 0. Left Anterior Descendin. Left Circumflex: 0. Right Coronary Artery: 0. Total: 0. The lungs are clear. The aorta is without aneurysmal dilatation evident. The heart is not enlarged. No pericardial effusion is evident. No hilar or mediastinal lymphadenopathy is evident. Structures in the visualized upper abdomen are grossly unremarkable. IMPRESSION: 1. Coronary artery calcium score of 0*. *Coronary artery calcium scoring may be helpful in predicting the risk for future coronary heart disease events. According to the [employer] Clinical Expert Consensus Task Force, such testing provides important prognostic information in patients with more than one coronary heart disease risk factor. The coronary artery calcium score correlates with the annual risk of a non-fatal myocardial infarction or coronary heart disease . Coronary artery score Annual Risk 0-99 0.4% 100-399 1.3% >400 2.4% These three breakpoints correspond to lower, intermediate and high risk states for future coronary events. Such information should be used, along with appropriate clinical judgment, to make decisions regarding the intensity of risk factor management strategies to treat blood lipids and to modify other non-lipid coronary risk factors. Reference: Tully P et al. Circulation. 2007; 115:402-426 MACRO: None Signed by: Mahesh Wilkins 03/03/2024 1:07 PM Dictation workstation: [id number] Normal [facility] CT for calcium scoring WO co ntrast and CTA W contrast IV Heart and coronary arterieson 03-02-2024 Radiology Study observation (narrative) [facility] Work Phone: CBC W/AUTO DIFF WBC (23638)O rdered By: Do All Operator on 05-29-2023 Basophils (Bld) [#/Vol] 0.0 10*3/uL Normal 0.0-0.2 [facility]; [facility] Work Phone: Comment on above: PATIENT WAS FASTINGP ERFORMED BY: [facility] [facility] [place] [id number] Basophils/100 WBC (Bld) 0 % Normal [facility]; [facility] Work Phone: Comment on above: PATIENT WAS FASTINGP ERFORMED BY: [employer] Ktxgse8341 [address] [place] [id number] Eosinophils (Bld) [#/Vol] 0.2 10*3/uL Normal 0.0-0.4 [facility]; [facility] Work Phone: Comment on above: PATIENT WAS FASTINGP ERFORMED BY: [employer] [facility] [place]bl[place] [id number] Eosinophils/100 WBC (Bld) 2 % Normal [facility]; [facility] Work Phone: Comment on above: PATIENT WAS FASTINGP ERFORMED BY: [employer] Hjwfzg8642 [address] PressBabyDublin [place] [id number] Erythrocyte distribution width (RBC) [Ratio] 12.1 % Normal 11.7-15.4 [facility]; [facility] Work Phone: Comment on above: PATIENT WAS FASTINGP ERFORMED BY: RIMA Labzeynep Allen[address] RoadDublin [place] [id number] Hematocrit (Bld) [Volume fraction] 47.7 % Abnormal 34.0-46.6 [facility]; [facility] Work Phone: Comment on above: PATIENT WAS FASTINGP ERFORMED BY: RIMA [facility] Cgujyb9902 [address] Roadblin [place] [id number] Hemoglobin (Bld) [Mass/Vol] 15.9 g/dL Normal 11.1-15.9 [facility]; [facility] Work Phone: Comment on above: PATIENT WAS FASTINGP ERFORMED BY: RIMA Labcokathy Mtailf8486 [address] RoadDublin [place] [id number] Immature granulocytes (Bld) [#/Vol] 0.0 10*3/uL Normal 0.0-0.1 [facility]; [facility] Work Phone: Comment on above: PATIENT WAS FASTINGP ERFORMED BY: RIMA Labcokathy Klaivd3231 [address] RoadDublin [place] [id number] Immature granulocytes/100 WBC (Bld) 1 % Normal [facility]; [facility] Work Phone: Comment on above: PATIENT WAS FASTINGP ERFORMED BY: RIMA [facility] Patvsu5331 [address] [facility] Hospitalbl[facility] [place] [id number] Lymphocytes (Bld) [#/Vol] 2.2 10*3/uL Normal 0.7-3.1 [facility]; [facility] Work Phone: Comment on above: PATIENT WAS FASTINGP ERFORMED BY: RIMA [facility] Gogiyr9933 [address] RoadDublin [place] [id number] Lymphocytes/100 WBC (Bld) 26 % Normal [facility]; [facility] Work Phone: Comment on above: PATIENT WAS FASTINGP ERFORMED BY: RIMA [facility] Pzyqjw0048 [address] RoadDublin [place] [id number] MCH (RBC) [Entitic mass] 30.9 pg Normal 26.6-33.0 [facility]; [facility] Work Phone: Comment on above: PATIENT WAS FASTINGP ERFORMED BY: RIMA Sunil Allen[address] RoadDublin [place] [id number] MCHC (RBC) [Mass/Vol] 33.3 g/dL Normal 31.5-35.7 [facility]; [facility] Work Phone: Comment on above: PATIENT WAS FASTINGP ERFORMED BY: RIMA [facility] Kspfwh6153 [address] [facility] Hospitalblin [place] [id number] MCV (RBC) [Entitic vol] 93 fL Normal 79-97 [facility]; [facility] Work Phone: Comment on above: PATIENT WAS FASTINGP ERFORMED BY: RIMA [facility] Gistnq8864 [address] Roadblin [place] [id number] Monocytes (Bld) [#/Vol] 0.5 10*3/uL Normal 0.1-0.9 [facility]; [facility] Work Phone: Comment on above: PATIENT WAS FASTINGP ERFORMED BY: RIMA Labzeynep KimScnxnu4301 [address] RoadDublin [place] [id number] Monocytes/100 WBC (Bld) 6 % Normal [facility]; [facility] Work Phone: Comment on above: PATIENT WAS FASTINGP ERFORMED BY: RIMA [facility] Yixnpm6838 [address] RoadDublin [place] [id number] Neutrophils (Bld) [#/Vol] 5.4 10*3/uL Normal 1.4-7.0 [facility]; [facility] Work Phone: Comment on above: PATIENT WAS FASTINGP ERFORMED BY: [facility] Zbuhqf0460 [address] RoadDublin [place] [id number] Neutrophils/100 WBC (Bld) 65 % Normal [facility]; [facility] Work Phone: Comment on above: PATIENT WAS FASTINGP ERFORMED BY: [facility] Owqazo8011 [address] RoadDublin [place] [id number] Platelets (Bld) [#/Vol] 380 10*3/uL Normal 150-450 [facility]; [facility] Work Phone: Comment on above: PATIENT WAS FASTINGP ERFORMED BY: [facility] Wesotb0926 [address] [facility] Hospitalblin [place] [id number] RBC (Bld) [#/Vol] 5.15 10*6/uL Normal 3.77-5.28 [facility] Internal Medicine; [facility] Work Phone: Comment on above: PATIENT WAS FASTINGP ERFORMED BY: [facility] Bcurew3111 [address] [facility] Hospitalblin [place] [id number] WBC (Bld) [#/Vol] 8.2 10*3/uL Normal 3.4-10.8 [facility]; [facility] Work Phone: Comment on above: PATIENT WAS FASTINGP ERFORMED BY: [facility] Lgtxig0341 [facility] [id number] HEPATIC FUNCTION PANEL ([id number])Ordered By: Do All Operator on 05-29-2023 Bilirubin.direct [Mass/Vol] 0.11 mg/dL Normal 0.00-0.40 [facility] Internal Medicine; [facility] Work Phone: Comment on above: 6 weeks; PATIENT WAS FASTINGPERFORMED BY: [facility] Uknbdw1905 [facility]in [place] [id number] METABOLIC PANEL, COMPREHENSI VE ([id number])Ordered By: Do All Operator on 05-29-2023 Albumin [Mass/Vol] 5.0 g/dL Abnormal 3.8-4.8 [facility] Internal Medicine; [facility] Work Phone: Comment on above: Effective June 03, 2023 Albumin reference interval will be changing to: Age Male Female 0 - 7 days 3.6 - 4.9 3.6 - 4.9 8 - 30 days 3.5 - 4.6 3.5 - 4.6 1 - 6 months 3.7 - 4.8 3.7 - 4.8 7 months - 2 years 4.0 - 5.0 4.0 - 5.0 3 - 5 years 4.1 - 5.0 4.1 - 5.0 6 - 12 years 4.2 - 5.0 4.2 - 5.0 13 - 30 years 4.3 - 5.2 4.0 - 5.0 31 - 50 years 4.1 - 5.1 3.9 - 4.9 51 - 60 years 3.8 - 4.9 3.8 - 4.9 61 - 70 years 3.9 - 4.9 3.9 - 4.9 71 - 80 years 3.8 - 4.8 3.8 - 4.8 81 - 89 years 3.7 - 4.7 3.7 - 4.7 90 - 199 years 3.6 - 4.6 3.6 - 4.6 PATIENT WAS FASTINGP ERFORMED BY: [facility] Byyhiy1837 [address] PressBabyBlue [facility] [id number] Albumin/Globulin [Mass ratio] 2.3 {ratio} Abnormal 1.2-2.2 [facility]; [facility] Work Phone: Comment on above: PATIENT WAS FASTINGP ERFORMED BY: [facility] Gwijsj8796 [address] PressBabyFrye Regional Medical Centerin [place] [id number] ALP [Catalytic activity/Vol] 68 U/L Normal 44-121 [facility]; [facility] Work Phone: Comment on above: PATIENT WAS FASTINGP ERFORMED BY: LabPenemarie K Murphy Pavkli[address] [facility]in [place] [id number] ALT [Catalytic activity/Vol] 29 U/L Normal 0-32 [facility]; [facility] Work Phone: Comment on above: PATIENT WAS FASTINGP ERFORMED BY: [facility] Xpvdbz5015 [address] [facility] Hospitalblin [place] [id number] AST [Catalytic activity/Vol] 50 U/L Abnormal 0-40 [facility]; [facility] Work Phone: Comment on above: PATIENT WAS FASTINGP ERFORMED BY: [facility] Narkrx[address] [facility]in [place] [id number] Bilirubin [Mass/Vol] 0.3 mg/dL Normal 0.0-1.2 [facility]; [facility] Work Phone: Comment on above: PATIENT WAS FASTINGP ERFORMED BY: CB [facility] Xpesqm3999 [address] RoadDublin [place] [id number] Calcium [Mass/Vol] 9.9 mg/dL Normal 8.7-10.2 [facility]; [facility] Work Phone: Comment on above: PATIENT WAS FASTINGP ERFORMED BY: CB [facility] Awyatw9288 [address] RoadDublin [place] [id number] Chloride [Moles/Vol] 97 mmol/L Normal 96-106 [facility]; [facility] Work Phone: Comment on above: PATIENT WAS FASTINGP ERFORMED BY: CB [facility] Mnpdam6080 [address] RoadDublin [place] [id number] CO2 [Moles/Vol] 21 mmol/L Normal 20-29 [facility]; [facility] Work Phone: Comment on above: PATIENT WAS FASTINGP ERFORMED BY: CB [facility] Ffnwlq4944 [address] RoadDublin [place] [id number] Creatinine [Mass/Vol] 0.68 mg/dL Normal 0.57-1.00 [facility]; [facility] Work Phone: Comment on above: PATIENT WAS FASTINGP ERFORMED BY: CB [facility] Vngckf5596 [address] RoadDublin [place] [id number] GFR/1.73 sq M.predicted among non-blacks MDRD (S/P/Bld) [Vol rate/Area] 106 mL/min/{1.73_m2} Normal Comprehensi ve Internal Medicine; [facility] Work Phone: Comment on above: PATIENT WAS FASTINGP ERFORMED BY: CB [facility] Zknxdw1523 [address] RoadDublin [place] [id number] Globulin (S) [Mass/Vol] 2.2 g/dL Normal 1.5-4.5 [facility]; [facility] Work Phone: Comment on above: PATIENT WAS FASTINGP ERFORMED BY: CB [facility] Ffimia6729 [address] RoadDublin [place] [id number] Glucose [Mass/Vol] 73 mg/dL Normal 70-99 [facility]; [facility] Work Phone: Comment on above: PATIENT WAS FASTINGP ERFORMED BY: RIMA Sunil Allen[address] [facility] [id number] Potassium [Moles/Vol] 4.6 mmol/L Normal 3.5-5.2 [facility]; [facility] Work Phone: Comment on above: PATIENT WAS FASTINGP ERFORMED BY: RIMA Pionury Khgnub0478 [address] [facility] [id number] Protein [Mass/Vol] 7.2 g/dL Normal 6.0-8.5 [facility]; [facility] Work Phone: Comment on above: PATIENT WAS FASTINGP ERFORMED BY: RIMA Kimlin[address] [facility] [id number] Sodium [Moles/Vol] 137 mmol/L Normal 134-144 [facility]; [facility] Work Phone: Comment on above: PATIENT WAS FASTINGP ERFORMED BY: RIMA Labzeynep KimFvwsiw0738 [facility] [id number] Urea nitrogen [Mass/Vol] 10 mg/dL Normal 6-24 [facility]; [facility] Work Phone: Comment on above: PATIENT WAS FASTINGP ERFORMED BY: RIMA Labnury Zfdfgm8685 [facility] [id number] Urea nitrogen/Creatinine [Mass ratio] 15 mg/mg Normal 9-23 [facility]; [facility] Work Phone: Comment on above: PATIENT WAS FASTINGP ERFORMED BY: RIMA [facility] Yutiig[address] [facility]in [place] [id number] SPEP ([id number])Ordered By: Syst em [employer] Operator Helper on 05-29-2023 Albumin [Mass/Vol] 4.4 g/dL Normal 2.9-4.4 [facility]; [facility] Work Phone: Comment on above: PATIENT WAS FASTINGP ERFORMED BY: [facility] Lzlmyw0156 [address] RoadFrye Regional Medical Centerin [place] [id number] Albumin/Globulin [Mass ratio] 1.6 {ratio} Normal 0.7-1.7 [facility]; [facility] Work Phone: Comment on above: PATIENT WAS FASTINGP ERFORMED BY: [facility] Nqrjjt9054 [address] RoadFrye Regional Medical Centerin [place] [id number] Alpha 1 globulin Elph [Mass/Vol] 0.4 g/dL Normal 0.0-0.4 [facility]; [facility] Work Phone: Comment on above: PATIENT WAS FASTINGP ERFORMED BY: [facility] Hdmjhy5203 [address] RoadBlue [facility] [id number] Alpha 2 globulin Elph [Mass/Vol] 0.7 g/dL Normal 0.4-1.0 [facility]; [facility] Work Phone: Comment on above: PATIENT WAS FASTINGP ERFORMED BY: [facility] Volhhl2094 [address] RoadBlue Ridge Regional Hospital [id number] Beta globulin Elph [Mass/Vol] 1.0 g/dL Normal 0.7-1.3 [facility]; [facility] Work Phone: Comment on above: PATIENT WAS FASTINGP ERFORMED BY: [facility] Vjcuvf0791 [address] [facility] [id number] Gamma globulin Elph [Mass/Vol] 0.8 g/dL Normal 0.4-1.8 [facility]; [facility] Work Phone: Comment on above: PATIENT WAS FASTINGP ERFORMED BY: [facility] Aecvqv0858 [address] [facility]in [place] [id number] Globulin (S) [Mass/Vol] 2.8 g/dL Normal 2.2-3.9 [facility]; [facility] Work Phone: Comment on above: PATIENT WAS FASTINGP ERFORMED BY: [facility] Qqobtf9433 [address] RoadDublin [place] [id number] Laboratory comment Trevon (Report) SPRCS Normal [facility]; [facility] Work Phone: Comment on above: Protein electrophore sis scan will follow via computer, mail, orcourier delivery. PATIENT WAS FASTINGP ERFORMED BY: RIMA [facility] Hspgwc9433 [address] RoadDublin [place] [id number] Laboratory report . Normal Compreh ensive Internal Medicine; [facility] Work Phone: Comment on above: PATIENT WAS FASTINGP ERFORMED BY: CB [facility] Oxkcvo3543 [address] RoadDublin [place] [id number] Protein.monoclonal Elph [Mass/Vol] Not Observed Normal [facility]; [facility] Work Phone: Comment on above: PATIENT WAS FASTINGP ERFORMED BY: RIMA [facility] Hypvme1716 [address] RoadDublin [place] [id number] UPEP ([id number])Ordered By: Syst em [employer] Operator Helper on 05-29-2023 Albumin Elph (U) [Mass fraction] 32.4 % Normal [facility]; [facility] Work Phone: Comment on above: PATIENT WAS FASTINGP ERFORMED BY: RIMA [facility] Dqlnyp5493 [address] RoadDublin [place] [id number] Alpha 1 globulin Elph (U) [Mass fraction] 2.6 % Normal [facility]; [facility] Work Phone: Comment on above: PATIENT WAS FASTINGP ERFORMED BY: CB [facility] Iyncsm7909 [address] RoadDublin [place] [id number] Alpha 2 globulin Elph (U) [Mass fraction] 13.1 % Normal [facility]; [facility] Work Phone: Comment on above: PATIENT WAS FASTINGP ERFORMED BY: CB [facility] Uqscdo2746 [address] RoadDublin [place] [id number] Beta globulin Elph (U) [Mass fraction] 30.2 % Normal Comprehensiv e Internal [facility]; [facility] Work Phone: Comment on above: PATIENT WAS FASTINGP ERFORMED BY: CB [facility] Bezwsm0972 [address] RoadDublin [place] [id number] Gamma globulin Elph (U) [Mass fraction] 21.7 % Normal Comprehensiv e [facility]; [facility] Work Phone: Comment on above: PATIENT WAS FASTINGP ERFORMED BY: CB [facility] Fpczpu0311 [address] RoadDublin [place] [id number] Protein (U) [Mass/Vol] 4.0 mg/dL Normal [facility]; [facility] Work Phone: Comment on above: PATIENT WAS FASTINGP ERFORMED BY: CB [facility] Qbryhw7918 [address] RoadDublin [place] [id number] Protein.monoclonal Elph (U) [Mass fraction] Not Observed Normal [facility]; [facility] Work Phone: Comment on above: PATIENT WAS FASTINGP ERFORMED BY: CB [facility] Ljvtnt9509 [address] RoadDublin [place] [id number] URINALYSIS, W/ MICRO ([id number]) Ordered By: Do All Operator on 05-29-2023 Appearance (U) Clear Normal Comprehens genet Internal Medicine; [facility] Work Phone: Comment on above: PATIENT WAS FASTINGP ERFORMED BY: RIMA [facility] Wxfbpu3439 [address] RoadDublin [place] [id number] Bilirubin Ql (U) Negative Normal Comprehe nsive Internal Medicine; [facility] Work Phone: Comment on above: PATIENT WAS FASTINGP ERFORMED BY: CB [facility] Hsiagd5467 [address] RoadDublin [place] [id number] Color (U) Yellow Normal [facility]; [facility] Work Phone: Comment on above: PATIENT WAS FASTINGP ERFORMED BY: CB [facility] Ogowdw3895 [address] RoadDublin [place] [id number] Glucose Ql (U) Negative Normal Comprehens genet [facility]; [facility] Work Phone: Comment on above: PATIENT WAS FASTINGP ERFORMED BY: CB [facility] Esqqew2680 [address] RoadDublin [place] [id number] Hemoglobin Ql (U) Negative Normal Compreh ensive [facility]; [facility] Work Phone: Comment on above: PATIENT WAS FASTINGP ERFORMED BY: RIMA Kimlin6370 [address] RoadD[address] [place] [id number] Ketones Ql (U) 1+ Abnormal Comprehens genet [facility]; [facility] Work Phone: Comment on above: PATIENT WAS FASTINGP ERFORMED BY: RIMA iKmlin6370 [address] RoadDublin [place] [id number] Leukocyte esterase Test strip Ql (U) Trace Abnormal [facility]; [facility] Work Phone: Comment on above: PATIENT WAS FASTINGP ERFORMED BY: RIMA Kimlin6370 [address] RoadDublin [place] [id number] Microscopic observation LM Nom (Urine sed) See below: Normal [facility]; [facility] Work Phone: Comment on above: Microscopic was arnaud cated and was performed. PATIENT WAS FASTINGP ERFORMED BY: RIMA Allen6370 [address] RoadDublin [place] [id number] Nitrite Ql (U) Negative Normal Comprehens genet [facility]; [facility] Work Phone: Comment on above: PATIENT WAS FASTINGP ERFORMED BY: RIMA Kimlin6370 [address] [place] [id number] pH (U) 6.5 [pH] Normal 5.0-7.5 [facility]; [facility] Work Phone: Comment on above: PATIENT WAS FASTINGP ERFORMED BY: RIMA Kimlin6370 [address] RoadD[address] [place] [id number] Protein Ql (U) Negative Normal Comprehens genet [facility] Medicine; [facility] Work Phone: Comment on above: PATIENT WAS FASTINGP ERFORMED BY: RIMA Kimlin6370 [address] RoadD[address] [place] [id number] Specific gravity (U) [Rel density] 1.009 1 Normal 1.005-1.03 0 [facility]; [facility] Work Phone: Comment on above: PATIENT WAS FASTINGP ERFORMED BY: RIMA Kimlin6[address] RoadD[address] [place] [id number] Urobilinogen (U) [Mass/Vol] 0.2 mg/dL Normal 0.2-1.0 [facility]; [facility] Work Phone: Comment on above: PATIENT WAS FASTINGP ERFORMED BY: RIMA [facility] Lhczvr9012 [facility] [id number] C-REACT PROT HIGH SENS(hsCRP ) (52131)Ordered By: Do All Operator on 02-06-2023 CRP High sensitivity method [Mass/Vol] 7.98 mg/L Abnormal 0.00-3.00 [facility]; [facility] Work Phone: Comment on above: Relative Risk for Fu ture Cardiovascular Event Low <1.00 Average 1.00 - 3.00 High >3.00 PATIENT WAS FASTINGP ERFORMED BY: RIMA [place] 8607070 [facility] [id number] CBC W/AUTO DIFF WBC ([id number])O rdered By: Do All Operator on 02-06-2023 Basophils (Bld) [#/Vol] 0.1 10*3/uL Normal 0.0-0.2 [facility]; [facility] Work Phone: Comment on above: PATIENT WAS FASTINGP ERFORMED BY: RIMA [facility] Igjfcj1524 [facility] [id number] Basophils/100 WBC (Bld) 1 % Normal [facility]; [facility] Work Phone: Comment on above: PATIENT WAS FASTINGP ERFORMED BY: [facility]6370 [facility] [id number] Eosinophils (Bld) [#/Vol] 0.3 10*3/uL Normal 0.0-0.4 [facility]; [facility] Work Phone: Comment on above: PATIENT WAS FASTINGP ERFORMED BY: [facility]6370 [facility] [id number] Eosinophils/100 WBC (Bld) 5 % Normal [facility]; [facility] Work Phone: Comment on above: PATIENT WAS FASTINGP ERFORMED BY: [facility] Oxkgtm0711 [address] Roadbl[address] [place] [id number] Erythrocyte distribution width (RBC) [Ratio] 12.5 % Normal 11.7-15.4 [facility]; [facility] Work Phone: Comment on above: PATIENT WAS FASTINGP ERFORMED BY: [facility] Wwbudm7574 [address] Roadblin [place] [id number] Hematocrit (Bld) [Volume fraction] 44.2 % Normal 34.0-46.6 [facility]; [facility] Work Phone: Comment on above: PATIENT WAS FASTINGP ERFORMED BY: [facility] Hyayyh5326 [address] RoadDublin [place] [id number] Hemoglobin (Bld) [Mass/Vol] 14.5 g/dL Normal 11.1-15.9 [facility]; [facility] Work Phone: Comment on above: PATIENT WAS FASTINGP ERFORMED BY: [facility] Pwdutm5284 [address] RoadDuin [place] [id number] Immature granulocytes (Bld) [#/Vol] 0.0 10*3/uL Normal 0.0-0.1 [facility]; [facility] Work Phone: Comment on above: PATIENT WAS FASTINGP ERFORMED BY: [facility] Ycmebm4285 [address] RoadDublin [place] [id number] Immature granulocytes/100 WBC (Bld) 0 % Normal [facility]; [facility] Work Phone: Comment on above: PATIENT WAS FASTINGP ERFORMED BY: [facility] Evdnxg1297 [address] RoadFrye Regional Medical Centerin [place] [id number] Lymphocytes (Bld) [#/Vol] 1.9 10*3/uL Normal 0.7-3.1 [facility]; [facility] Work Phone: Comment on above: PATIENT WAS FASTINGP ERFORMED BY: [facility] Voavzh5784 [address] RoadDublin [place] [id number] Lymphocytes/100 WBC (Bld) 27 % Normal [facility]; [facility] Work Phone: Comment on above: PATIENT WAS FASTINGP ERFORMED BY: CB [facility] Fcqhwy4926 [address] RoadDublin [place] [id number] MCH (RBC) [Entitic mass] 29.7 pg Normal 26.6-33.0 [facility]; [facility] Work Phone: Comment on above: PATIENT WAS FASTINGP ERFORMED BY: CB [facility] Ijvpqi0039 [address] RoadDublin [place] [id number] MCHC (RBC) [Mass/Vol] 32.8 g/dL Normal 31.5-35.7 [facility]; [facility] Work Phone: Comment on above: PATIENT WAS FASTINGP ERFORMED BY: CB [facility] Zbchzy2775 [address] RoadDublin [place] [id number] MCV (RBC) [Entitic vol] 91 fL Normal 79-97 [facility]; [facility] Work Phone: Comment on above: PATIENT WAS FASTINGP ERFORMED BY: [facility] Bgnjrw1640 [address] RoadDublin [place] [id number] Monocytes (Bld) [#/Vol] 0.5 10*3/uL Normal 0.1-0.9 [facility]; [facility] Work Phone: Comment on above: PATIENT WAS FASTINGP ERFORMED BY: [facility] Ivutnm5712 [address] RoadDublin [place] [id number] Monocytes/100 WBC (Bld) 7 % Normal [facility]; [facility] Work Phone: Comment on above: PATIENT WAS FASTINGP ERFORMED BY: CB [facility] Vxmkwc6937 [address] RoadDublin [place] [id number] Neutrophils (Bld) [#/Vol] 4.3 10*3/uL Normal 1.4-7.0 [facility]; [facility] Work Phone: Comment on above: PATIENT WAS FASTINGP ERFORMED BY: CB [facility] Zyvdkj8614 [address] RoadDublin [place] [id number] Neutrophils/100 WBC (Bld) 60 % Normal [facility]; [facility] Work Phone: Comment on above: PATIENT WAS FASTINGP ERFORMED BY: RIMA [facility] Mvtfmu0078 [address] RoadDublin [place] [id number] Platelets (Bld) [#/Vol] 338 10*3/uL Normal 150-450 [facility]; [facility] Work Phone: Comment on above: PATIENT WAS FASTINGP ERFORMED BY: CB [facility] Hmqyvw4366 [address] RoadDublin [place] [id number] RBC (Bld) [#/Vol] 4.88 10*6/uL Normal 3.77-5.28 Compr ehensive Internal Medicine; [facility] Work Phone: Comment on above: PATIENT WAS FASTINGP ERFORMED BY: RIMA [facility] Wsxsin8092 [address] RoadDublin [place] [id number] WBC (Bld) [#/Vol] 7.1 10*3/uL Normal 3.4-10.8 [facility]; [facility] Work Phone: Comment on above: PATIENT WAS FASTINGP ERFORMED BY: RIMA [facility] Rugmuu8036 [address] RoadDublin [place] [id number] LIPID PANEL (99136)Ordered B y: Do All Operator on 02-06-2023 Cholesterol [Mass/Vol] 145 mg/dL Normal 100-199 [facility]; [facility] Work Phone: Comment on above: PATIENT WAS FASTINGP ERFORMED BY: RIMA [facility] Mqxvwi4415 [address] RoadDublin [place] [id number] Cholesterol in HDL [Mass/Vol] 73 mg/dL Normal [facility]; [facility] Work Phone: Comment on above: PATIENT WAS FASTINGP ERFORMED BY: RIMA [facility] Vvhuhn7658 [address] RoadDublin [place] [id number] Triglyceride [Mass/Vol] 83 mg/dL Normal 0-149 [facility]; [facility] Work Phone: Comment on above: PATIENT WAS FASTINGP ERFORMED BY: RIMA [facility] Rysxqr5340 [address] RoadDublin [place] [id number] LIPID PANEL (10528) 16 mg/dL Normal 5-40 [facility]; [facility] Work Phone: Comment on above: PATIENT WAS FASTINGP ERFORMED BY: RIMA Katalinakathy Shdask[address] [facility]in [place] [id number] LIPID PANEL (70401) 56 mg/dL Normal 0-99 [facility] Internal Medicine; [facility] Work Phone: Comment on above: PATIENT WAS FASTINGP ERFORMED BY: RIMA Kimlin6370 [facility] [id number] LIPID PANEL (34695) 0.8 {ratio} Normal 0.0-3.2 [facility]; [facility] Work Phone: Comment on above: LDL/HDL Ratio Men Wo men 1/2 Avg.Risk 1.0 1.5 Avg.Risk 3.6 3.2 2X Avg.Risk 6.2 5.0 3X Avg.Risk 8.0 6.1 PATIENT WAS FASTINGP ERFORMED BY: RIMA Kimlin6370 [facility] [id number] METABOLIC PANEL, COMPREHENSI VE (01249)Ordered By: Do All Operator on 02-06-2023 Albumin [Mass/Vol] 5.0 g/dL Abnormal 3.8-4.8 [facility] Internal Medicine; [facility] Work Phone: Comment on above: PATIENT WAS FASTINGP ERFORMED BY: RIMA Labzeynep KimZbxyiz1553 [facility] [id number] Albumin/Globulin [Mass ratio] 2.2 {ratio} Normal 1.2-2.2 [facility]; [facility] Work Phone: Comment on above: PATIENT WAS FASTINGP ERFORMED BY: RIMA Labzeynep Buxqmu9353 [facility] [id number] ALP [Catalytic activity/Vol] 81 U/L Normal 44-121 [facility]; [facility] Work Phone: Comment on above: PATIENT WAS FASTINGP ERFORMED BY: RIMA Labcokathy Piutue4959 [facility] [id number] ALT [Catalytic activity/Vol] 47 U/L Abnormal 0-32 [facility]; [facility] Work Phone: Comment on above: PATIENT WAS FASTINGP ERFORMED BY: CB [facility] Bvvewb1023 [address] RoadDublin [place] [id number] AST [Catalytic activity/Vol] 39 U/L Normal 0-40 [facility]; [facility] Work Phone: Comment on above: PATIENT WAS FASTINGP ERFORMED BY: CB [facility] Wxjsxj5840 [address] RoadDublin [place] [id number] Bilirubin [Mass/Vol] 0.3 mg/dL Normal 0.0-1.2 [facility]; [facility] Work Phone: Comment on above: PATIENT WAS FASTINGP ERFORMED BY: CB [facility] Erbhrc0884 [address] RoadDublin [place] [id number] Calcium [Mass/Vol] 9.8 mg/dL Normal 8.7-10.2 [facility] Internal Medicine; [facility] Work Phone: Comment on above: PATIENT WAS FASTINGP ERFORMED BY: CB [facility] Pknxld4163 [address] RoadDublin [place] [id number] Chloride [Moles/Vol] 98 mmol/L Normal 96-106 [facility]; [facility] Work Phone: Comment on above: PATIENT WAS FASTINGP ERFORMED BY: CB [facility] Mkxduk7044 [address] RoadDublin [place] [id number] CO2 [Moles/Vol] 15 mmol/L Abnormal 20-29 [facility] Internal Medicine; [facility] Work Phone: Comment on above: PATIENT WAS FASTINGP ERFORMED BY: CB [facility] Tsrrvf6131 [address] RoadDublin [place] [id number] Creatinine [Mass/Vol] 0.69 mg/dL Normal 0.57-1.00 [facility]; [facility] Work Phone: Comment on above: PATIENT WAS FASTINGP ERFORMED BY: CB [facility] Olkcnr8755 [address] RoadDublin [place] [id number] GFR/1.73 sq M.predicted among non-blacks MDRD (S/P/Bld) [Vol rate/Area] 106 mL/min/{1.73_m2} Normal Comprehensi Internal Medicine; [facility] Work Phone: Comment on above: PATIENT WAS FASTINGP ERFORMED BY: [facility] Thdqsi3928 [address] RoadDublin [place] [id number] Globulin (S) [Mass/Vol] 2.3 g/dL Normal 1.5-4.5 [facility]; [facility] Work Phone: Comment on above: PATIENT WAS FASTINGP ERFORMED BY: [facility] Dttgce6329 [address] RoadDublin [place] [id number] Glucose [Mass/Vol] 58 mg/dL Abnormal 70-99 [facility] Internal Medicine; [facility] Work Phone: Comment on above: Client Requested Fla g PATIENT WAS FASTINGP ERFORMED BY: LabSaint [facility] Health ServicesKyxxic0587 [address] RoadFrye Regional Medical Centerin [place] [id number] Potassium [Moles/Vol] 4.4 mmol/L Normal 3.5-5.2 [facility]; [facility] Work Phone: Comment on above: PATIENT WAS FASTINGP ERFORMED BY: [facility] Mconql4082 [address] RoadDublin [place] [id number] Protein [Mass/Vol] 7.3 g/dL Normal 6.0-8.5 [facility] Internal Medicine; [facility] Work Phone: Comment on above: PATIENT WAS FASTINGP ERFORMED BY: [facility] Jucazg3830 [address] RoadDublin [place] [id number] Sodium [Moles/Vol] 141 mmol/L Normal 134-144 [facility] Internal [facility]; [facility] Work Phone: Comment on above: PATIENT WAS FASTINGP ERFORMED BY: [facility] Clleev4646 [address] RoadDublin [place] [id number] Urea nitrogen [Mass/Vol] 9 mg/dL Normal 6-24 [facility]; [facility] Work Phone: Comment on above: PATIENT WAS FASTINGP ERFORMED BY: [facility]6370 [facility] [id number] Urea nitrogen/Creatinine [Mass ratio] 13 mg/mg Normal 9-23 [facility]; [facility] Work Phone: Comment on above: PATIENT WAS FASTINGP ERFORMED BY: [place] [id number] [facility] [id number] TSH (16902)Ordered By: Jaydon feliciano [employer] Operator Helper on 02-06-2023 TSH Qn 1.800 {uIU/mL} Normal 0.450-4.50 0 [facility]; [facility] Work Phone: Comment on above: PATIENT WAS FASTINGP ERFORMED BY: [place] [id number] [facility] [id number] INSULINon 12-27-2022 INSULIN 4.9 uIU/mL Normal 2.6-24.9 [facility] Comment on above: Result Comment: Perf ormed at: [facility] [address] [place], [place] [id number] Digital Research Analyst: Alok Guadarrama PhD, Phone: [phone] Performed By: #### L 800.0970, L800.0950 #### [place] [address] INSULIN LIK GR FAC Ion 12-27 Insulin-like Growth Factor I 178 ng/mL 70 - 225 ng/mL [facility] INSULINGROWTHon 12-27-2022 INSULINGROWTH 178 ng/mL Normal 70-225 [facility] Comment on above: Result Comment: Perf ormed at: [facility] [id number] Digital Research Analyst: Angelo Garrett MD, Phone: [phone] Performed By: #### L 800.0970, L800.0950 #### [place] [address] Insulin Qnon 12-27-2022 Insulin 4.9 uIU/mL 2.6 - 24.9 uIU/mL [facility] PROLACTINon 12-25-2022 PROLACTIN 4.70 ng/mL [facility] Comment on above: Result Comment: Cullen vance Ref. Ranges Non- 4.79-23.3 Performed By: #### L 304.0190 #### ML - [facility] [address] [place] [address] C-REACT PROT HIGH SENS(hsCRP ) (41862)Ordered By: Do All Operator on 09-28-2022 CRP High sensitivity method [Mass/Vol] 5.09 mg/L Abnormal 0.00-3.00 [facility]; [facility] Work Phone: Comment on above: Relative Risk for Fu ture Cardiovascular Event Low <1.00 Average 1.00 - 3.00 High >3.00 PATIENT WAS FASTINGP ERFORMED BY: RIMA Labzeynep Allen6370 [facility] [id number]; appt 10/02 CBC, PLATELETS & AUT DIFF (7 2303)Ordered By: Do All Operator on 09-28-2022 Basophils (Bld) [#/Vol] 0.0 10*3/uL Normal 0.0-0.2 [facility]; [facility] Work Phone: Comment on above: PATIENT WAS FASTINGP ERFORMED BY: RIMA Labcokathy KimRqzlac4[address] PressBabyBlue Ridge Regional Hospital [id number] Basophils/100 WBC (Bld) 1 % Normal [facility]; [facility] Work Phone: Comment on above: PATIENT WAS FASTINGP ERFORMED BY: RIMA [facility] Bsqfoi0[address] PressBabyBlue Ridge Regional Hospital [id number] Eosinophils (Bld) [#/Vol] 0.1 10*3/uL Normal 0.0-0.4 [facility]; [facility] Work Phone: Comment on above: PATIENT WAS FASTINGP ERFORMED BY: RIMA [facility] Htqxvm4666 [address] PressBabyBlue Ridge Regional Hospital [id number] Eosinophils/100 WBC (Bld) 2 % Normal [facility]; [facility] Work Phone: Comment on above: PATIENT WAS FASTINGP ERFORMED BY: RIMA [facility] Locvox3096 [facility] [id number] Erythrocyte distribution width (RBC) [Ratio] 12.6 % Normal 11.7-15.4 [facility]; [facility] Work Phone: Comment on above: PATIENT WAS FASTINGP ERFORMED BY: RIMA Sunil Allen6370 [facility] [id number] Hematocrit (Bld) [Volume fraction] 44.4 % Normal 34.0-46.6 [facility]; [facility] Work Phone: Comment on above: PATIENT WAS FASTINGP ERFORMED BY: RIMA [facility] Xmyfxu2618 [facility] [id number] Hemoglobin (Bld) [Mass/Vol] 14.5 g/dL Normal 11.1-15.9 [facility]; [facility] Work Phone: Comment on above: PATIENT WAS FASTINGP ERFORMED BY: RIMA [facility] Klirvb9445 [facility] [id number] Immature granulocytes (Bld) [#/Vol] 0.0 10*3/uL Normal 0.0-0.1 [facility]; [facility] Work Phone: Comment on above: PATIENT WAS FASTINGP ERFORMED BY: RIMA Piozeynep KimBkgkmm7839 [facility] [id number] Immature granulocytes/100 WBC (Bld) 0 % Normal [facility]; [facility] Work Phone: Comment on above: PATIENT WAS FASTINGP ERFORMED BY: RIMA [facility] Anjyhw3364 [facility] [id number] Lymphocytes (Bld) [#/Vol] 1.8 10*3/uL Normal 0.7-3.1 [facility]; [facility] Work Phone: Comment on above: PATIENT WAS FASTINGP ERFORMED BY: RIMA Katalina Fkevxo2358 [facility] [id number] Lymphocytes/100 WBC (Bld) 30 % Normal [facility]; [facility] Work Phone: Comment on above: PATIENT WAS FASTINGP ERFORMED BY: RIMA [facility] Zoytiq5380 [facility] [id number] MCH (RBC) [Entitic mass] 29.5 pg Normal 26.6-33.0 [facility]; [facility] Work Phone: Comment on above: PATIENT WAS FASTINGP ERFORMED BY: RIMA Katalina Ptndam8788 [facility] [id number] MCHC (RBC) [Mass/Vol] 32.7 g/dL Normal 31.5-35.7 [facility]; [facility] Work Phone: Comment on above: PATIENT WAS FASTINGP ERFORMED BY: RIMA [facility] Vyywzs3797 [facility] [id number] MCV (RBC) [Entitic vol] 90 fL Normal 79-97 [facility]; [facility] Work Phone: Comment on above: PATIENT WAS FASTINGP ERFORMED BY: [facility] Ucvwmm[address] [id number] Monocytes (Bld) [#/Vol] 0.4 10*3/uL Normal 0.1-0.9 [facility]; [facility] Work Phone: Comment on above: PATIENT WAS FASTINGP ERFORMED BY: RIMA Pionury Kofgxw0030 [facility] [id number] Monocytes/100 WBC (Bld) 7 % Normal [facility]; [facility] Work Phone: Comment on above: PATIENT WAS FASTINGP ERFORMED BY: PioStephanie [place] 3664270 [facility] [id number] Neutrophils (Bld) [#/Vol] 3.6 10*3/uL Normal 1.4-7.0 [facility]; [facility] Work Phone: Comment on above: PATIENT WAS FASTINGP ERFORMED BY: [facility] Avxypa[address] [facility]in [place] [id number] Neutrophils/100 WBC (Bld) 60 % Normal [facility]; [facility] Work Phone: Comment on above: PATIENT WAS FASTINGP ERFORMED BY: RIMA [facility] Vzrcbi6208 [address] RoadDublin [place] [id number] Platelets (Bld) [#/Vol] 330 10*3/uL Normal 150-450 [facility]; [facility] Work Phone: Comment on above: PATIENT WAS FASTINGP ERFORMED BY: RIMA [facility] Fhosec6431 [address] RoadDublin [place] [id number] RBC (Bld) [#/Vol] 4.92 10*6/uL Normal 3.77-5.28 [facility]; [facility] Work Phone: Comment on above: PATIENT WAS FASTINGP ERFORMED BY: RIMA [facility] Vnmuos2791 [address] RoadDublin [place] [id number] WBC (Bld) [#/Vol] 5.9 10*3/uL Normal 3.4-10.8 [facility] Internal Medicine; [facility] Work Phone: Comment on above: PATIENT WAS FASTINGP ERFORMED BY: RIMA [facility] Sxawco7543 [address] RoadDublin [place] [id number] LIPID PANEL (80738)Ordered B y: Do All Operator on 09-28-2022 Cholesterol [Mass/Vol] 184 mg/dL Normal 100-199 [facility]; [facility] Work Phone: Comment on above: PATIENT WAS FASTINGP ERFORMED BY: RIMA [facility] Lnmjwk8874 [address] RoadDublin [place] [id number] Cholesterol in HDL [Mass/Vol] 72 mg/dL Normal [facility]; [facility] Work Phone: Comment on above: PATIENT WAS FASTINGP ERFORMED BY: RIMA [facility] Sqfnps2486 [address] RoadDublin [place] [id number] Triglyceride [Mass/Vol] 100 mg/dL Normal 0-149 [facility]; [facility] Work Phone: Comment on above: PATIENT WAS FASTINGP ERFORMED BY: RIMA [facility] Tzfunk9252 [address] RoadDublin [place] [id number] LIPID PANEL (68827) 18 mg/dL Normal 5-40 Compr ehensive Internal Medicine; [facility] Work Phone: Comment on above: PATIENT WAS FASTINGP ERFORMED BY: RIMA [facility] Xjoqvl3163 [address] RoadDublin [place] [id number] LIPID PANEL (38096) 94 mg/dL Normal 0-99 [facility] Internal Medicine; [facility] Work Phone: Comment on above: PATIENT WAS FASTINGP ERFORMED BY: RIMA [facility] Tjoaxh5916 [address] Roadblin [place] [id number] LIPID PANEL (75235) 1.3 {ratio} Normal 0.0-3.2 [facility] Internal Medicine; [facility] Work Phone: Comment on above: LDL/HDL Ratio Men Wo men 1/2 Avg.Risk 1.0 1.5 Avg.Risk 3.6 3.2 2X Avg.Risk 6.2 5.0 3X Avg.Risk 8.0 6.1 PATIENT WAS FASTINGP ERFORMED BY: RIMA [facility] Zcxyyn0265 [address] [facility]bl[facility] [place] [id number] METABOLIC PANEL, COMPREHENSI VE (98326)Ordered By: Do All Operator on 09-28-2022 Albumin [Mass/Vol] 4.9 g/dL Abnormal 3.8-4.8 [facility] Internal Medicine; [facility] Work Phone: Comment on above: PATIENT WAS FASTINGP ERFORMED BY: RIMA Labcokathy Rqafwk1345 [address] [facility] Hospitalbl[facility] [place] [id number] Albumin/Globulin [Mass ratio] 2.5 {ratio} Abnormal 1.2-2.2 [facility] Internal Medicine; [facility] Work Phone: Comment on above: PATIENT WAS FASTINGP ERFORMED BY: CB [facility] Olijln2419 [address] RoadDublin [place] [id number] ALP [Catalytic activity/Vol] 84 U/L Normal 44-121 [facility] Internal Medicine; [facility] Work Phone: Comment on above: PATIENT WAS FASTINGP ERFORMED BY: RIMA [facility] Tqmyxy9448 [address] RoadDublin [place] [id number] ALT [Catalytic activity/Vol] 24 U/L Normal 0-32 [facility]; [facility] Work Phone: Comment on above: PATIENT WAS FASTINGP ERFORMED BY: CB [facility] Dvuvip2587 [address] RoadDublin [place] [id number] AST [Catalytic activity/Vol] 19 U/L Normal 0-40 [facility]; [facility] Work Phone: Comment on above: PATIENT WAS FASTINGP ERFORMED BY: CB [facility] Vbybai0673 [address] RoadDublin [place] [id number] Bilirubin [Mass/Vol] 0.4 mg/dL Normal 0.0-1.2 [facility]; [facility] Work Phone: Comment on above: PATIENT WAS FASTINGP ERFORMED BY: [facility] Nmoxyg6495 [address] RoadDublin [place] [id number] Calcium [Mass/Vol] 9.2 mg/dL Normal 8.7-10.2 [facility] Internal Medicine; [facility] Work Phone: Comment on above: PATIENT WAS FASTINGP ERFORMED BY: [facility] Phueqw0643 [address] RoadDublin [place] [id number] Chloride [Moles/Vol] 103 mmol/L Normal 96-106 [facility]; [facility] Work Phone: Comment on above: PATIENT WAS FASTINGP ERFORMED BY: [facility] Dcpfdg9223 [address] RoadDublin [place] [id number] CO2 [Moles/Vol] 23 mmol/L Normal 20-29 [facility] Internal Medicine; [facility] Work Phone: Comment on above: PATIENT WAS FASTINGP ERFORMED BY: [facility] Dpdxiw7891 [address] RoadDublin [place] [id number] Creatinine [Mass/Vol] 0.60 mg/dL Normal 0.57-1.00 [facility]; [facility] Work Phone: Comment on above: PATIENT WAS FASTINGP ERFORMED BY: CB [facility] Tqrhmh8679 [address] RoadDublin [place] [id number] GFR/1.73 sq M.predicted among non-blacks MDRD (S/P/Bld) [Vol rate/Area] 109 mL/min/{1.73_m2} Normal Comprehensi Internal Medicine; [facility] Work Phone: Comment on above: PATIENT WAS FASTINGP ERFORMED BY: RIMA Piozeynep KimQfvoye6071 [address] [facility] [place] [id number] Globulin (S) [Mass/Vol] 2.0 g/dL Normal 1.5-4.5 [facility]; [facility] Work Phone: Comment on above: PATIENT WAS FASTINGP ERFORMED BY: RIMA Labcokathy KimDlycsw1008 [address] RoadDublin [place] [id number] Glucose [Mass/Vol] 88 mg/dL Normal 70-99 [facility] Internal Medicine; [facility] Work Phone: Comment on above: PATIENT WAS FASTINGP ERFORMED BY: RIMA Kimlin[address] [facility]in [place] [id number] Potassium [Moles/Vol] 4.2 mmol/L Normal 3.5-5.2 [facility]; [facility] Work Phone: Comment on above: PATIENT WAS FASTINGP ERFORMED BY: RIMA Allen6[address] [facility]in [place] [id number] Protein [Mass/Vol] 6.9 g/dL Normal 6.0-8.5 [facility] Internal Medicine; [facility] Work Phone: Comment on above: PATIENT WAS FASTINGP ERFORMED BY: RIMA [facility] Mrxthe6101 [address] [facility]in [place] [id number] Sodium [Moles/Vol] 140 mmol/L Normal 134-144 [facility] ansonive Internal Medicine; [facility] Work Phone: Comment on above: PATIENT WAS FASTINGP ERFORMED BY: RIMA Labcokathy KimXzyitn3546 [address] [facility] HospitalDublin [place] [id number] Urea nitrogen [Mass/Vol] 9 mg/dL Normal 6-24 [facility]; [facility] Work Phone: Comment on above: PATIENT WAS FASTINGP ERFORMED BY: RIMA Darden Odilqr1821 [address] [facility] [id number] Urea nitrogen/Creatinine [Mass ratio] 15 mg/mg Normal 9-23 [facility]; [facility] Work Phone: Comment on above: PATIENT WAS FASTINGP ERFORMED BY: RIMA Allen6[address] [facility]in [place] [id number] VITAMIN B-12 (CYANOCOBALAMIN ) (27133)Ordered By: Do All Operator on 09-28-2022 Cobalamin (Vitamin B12) [Mass/Vol] 989 pg/mL Normal 232-1245 [facility]; [facility] Work Phone: Comment on above: PATIENT WAS FASTINGP ERFORMED BY: RIMA Darden Cgdqyw9919 [address] [facility]in [place] [id number] CBC W/AUTO DIFF WBC (36391)O rdered By: Do All Operator on 05-25-2022 Basophils (Bld) [#/Vol] 0.0 10*3/uL Normal 0.0-0.2 [facility]; [facility] Work Phone: Comment on above: PATIENT WAS FASTINGP ERFORMED BY: RIMA [facility] Owogqp4670 [address] [facility]bl[facility] [place] [id number] Basophils/100 WBC (Bld) 1 % Normal [facility]; [facility] Work Phone: Comment on above: PATIENT WAS FASTINGP ERFORMED BY: [facility] Zrgzmz8766 [address] [facility] Hospitalbl[facility] [place] [id number] Eosinophils (Bld) [#/Vol] 0.1 10*3/uL Normal 0.0-0.4 [facility]; [facility] Work Phone: Comment on above: PATIENT WAS FASTINGP ERFORMED BY: RIMA [facility] Rytkzw2558 [address] RoadDublin [place] [id number] Eosinophils/100 WBC (Bld) 1 % Normal [facility]; [facility] Work Phone: Comment on above: PATIENT WAS FASTINGP ERFORMED BY: [facility] Eeknpk6563 [address] [facility] Hospitalbl[facility] [place] [id number] Erythrocyte distribution width (RBC) [Ratio] 12.4 % Normal 11.7-15.4 [facility]; [facility] Work Phone: Comment on above: PATIENT WAS FASTINGP ERFORMED BY: RIMA Allen6370 [address] RoadFrye Regional Medical Centerin [place] [id number] Hematocrit (Bld) [Volume fraction] 42.3 % Normal 34.0-46.6 [facility]; [facility] Work Phone: Comment on above: PATIENT WAS FASTINGP ERFORMED BY: RIMA Sueroco Roipei2292 [address] [facility] [id number] Hemoglobin (Bld) [Mass/Vol] 14.2 g/dL Normal 11.1-15.9 [facility]; [facility] Work Phone: Comment on above: PATIENT WAS FASTINGP ERFORMED BY: RIMA Katalina Dfjxon0513 [address] [facility] [id number] Immature granulocytes (Bld) [#/Vol] 0.0 10*3/uL Normal 0.0-0.1 [facility]; [facility] Work Phone: Comment on above: PATIENT WAS FASTINGP ERFORMED BY: RIMA Sunil Allen6[address] [facility]in [place] [id number] Immature granulocytes/100 WBC (Bld) 0 % Normal [facility]; [facility] Work Phone: Comment on above: PATIENT WAS FASTINGP ERFORMED BY: RIMA Labco Yjxyjj1303 [address] [facility] [id number] Lymphocytes (Bld) [#/Vol] 2.5 10*3/uL Normal 0.7-3.1 [facility]; [facility] Work Phone: Comment on above: PATIENT WAS FASTINGP ERFORMED BY: RIMA [facility] Ypgwyx0415 [address] RoadDublin [place] [id number] Lymphocytes/100 WBC (Bld) 36 % Normal [facility]; [facility] Work Phone: Comment on above: PATIENT WAS FASTINGP ERFORMED BY: RIMA [facility] Hphent5818 [facility] [id number] MCH (RBC) [Entitic mass] 30.2 pg Normal 26.6-33.0 [facility]; [facility] Work Phone: Comment on above: PATIENT WAS FASTINGP ERFORMED BY: RIMA Sunil Allen6370 [address] [facility] [place] [id number] MCHC (RBC) [Mass/Vol] 33.6 g/dL Normal 31.5-35.7 [facility]; [facility] Work Phone: Comment on above: PATIENT WAS FASTINGP ERFORMED BY: RIMA Kimlin6370 [facility] [id number] MCV (RBC) [Entitic vol] 90 fL Normal 79-97 [facility]; [facility] Work Phone: Comment on above: PATIENT WAS FASTINGP ERFORMED BY: RIMA Kimlin[address] [facility] [id number] Monocytes (Bld) [#/Vol] 0.5 10*3/uL Normal 0.1-0.9 [facility]; [facility] Work Phone: Comment on above: PATIENT WAS FASTINGP ERFORMED BY: RIMA Kimlin[address] [facility] [id number] Monocytes/100 WBC (Bld) 7 % Normal [facility]; [facility] Work Phone: Comment on above: PATIENT WAS FASTINGP ERFORMED BY: RIMA Darden Nocwyx1184 [facility] [id number] Neutrophils (Bld) [#/Vol] 3.9 10*3/uL Normal 1.4-7.0 [facility]; [facility] Work Phone: Comment on above: PATIENT WAS FASTINGP ERFORMED BY: RIMA Labzeynep Sgfbog6377 [address] [facility] Hospitalbl[facility] [place] [id number] Neutrophils/100 WBC (Bld) 55 % Normal [facility]; [facility] Work Phone: Comment on above: PATIENT WAS FASTINGP ERFORMED BY: RIMA [facility] [facility]in [place] [id number] Platelets (Bld) [#/Vol] 340 10*3/uL Normal 150-450 [facility]; [facility] Work Phone: Comment on above: PATIENT WAS FASTINGP ERFORMED BY: RIMA [facility] Owhcuq6651 [address] Roadblin [place] [id number] RBC (Bld) [#/Vol] 4.70 10*6/uL Normal 3.77-5.28 [facility]; [facility] Work Phone: Comment on above: PATIENT WAS FASTINGP ERFORMED BY: RIMA [facility] Zbbcny0099 [address] [facility]in [place] [id number] WBC (Bld) [#/Vol] 7.0 10*3/uL Normal 3.4-10.8 [facility]; [facility] Work Phone: Comment on above: PATIENT WAS FASTINGP ERFORMED BY: RIMA Labcokathy KimFvdtno7310 [address] [facility] [id number] LIPID PANEL (46946)Ordered B y: Do All Operator on 05-25-2022 Cholesterol [Mass/Vol] 228 mg/dL Abnormal 100-199 [facility]; [facility] Work Phone: Comment on above: PATIENT WAS FASTINGP ERFORMED BY: RIMA Labcokathy KimPinxfu8[address] [facility]in [place] [id number] Cholesterol in HDL [Mass/Vol] 68 mg/dL Normal [facility]; [facility] Work Phone: Comment on above: PATIENT WAS FASTINGP ERFORMED BY: RIMA [facility] Mjblzu1867 [address] [facility]in [place] [id number] Triglyceride [Mass/Vol] 121 mg/dL Normal 0-149 [facility]; [facility] Work Phone: Comment on above: PATIENT WAS FASTINGP ERFORMED BY: RIMA [facility] Vequcy4526 [address] [facility]bl[facility] [place] [id number] LIPID PANEL (56367) 21 mg/dL Normal 5-40 [facility]; [facility] Work Phone: Comment on above: PATIENT WAS FASTINGP ERFORMED BY: CB [facility] Rxovbn7078 [address] RoadDublin [place] [id number] LIPID PANEL (59487) 139 mg/dL Abnormal 0-99 [facility] Internal Medicine; [facility] Work Phone: Comment on above: PATIENT WAS FASTINGP ERFORMED BY: CB [facility] Umbwih7655 [address] RoadDublin [place] [id number] LIPID PANEL (70865) 2.0 {ratio} Normal 0.0-3.2 [facility]; [facility] Work Phone: Comment on above: LDL/HDL Ratio Men Wo men 1/2 Avg.Risk 1.0 1.5 Avg.Risk 3.6 3.2 2X Avg.Risk 6.2 5.0 3X Avg.Risk 8.0 6.1 PATIENT WAS FASTINGP ERFORMED BY: RIMA [facility] Wsnskg8597 [address] RoadDuin [place] [id number] METABOLIC PANEL, COMPREHENSI VE ([id number])Ordered By: Do All Operator on 05-25-2022 Albumin [Mass/Vol] 4.6 g/dL Normal 3.8-4.8 [facility]; [facility] Work Phone: Comment on above: PATIENT WAS FASTINGP ERFORMED BY: CB [facility] Aabrjk2808 [address] RoadDublin [place] [id number] Albumin/Globulin [Mass ratio] 2.1 {ratio} Normal 1.2-2.2 [facility] Medicine; [facility] Work Phone: Comment on above: PATIENT WAS FASTINGP ERFORMED BY: CB [facility] Tfdkyj1961 [address] RoadDublin [place] [id number] ALP [Catalytic activity/Vol] 90 U/L Normal 44-121 [facility]; [facility] Work Phone: Comment on above: PATIENT WAS FASTINGP ERFORMED BY: CB [facility] Xemmqd1479 [address] RoadDublin [place] [id number] ALT [Catalytic activity/Vol] 18 U/L Normal 0-32 [facility]; [facility] Work Phone: Comment on above: PATIENT WAS FASTINGP ERFORMED BY: [facility] Tejtyp9216 [address] RoadDublin [place] [id number] AST [Catalytic activity/Vol] 18 U/L Normal 0-40 [facility]; [facility] Work Phone: Comment on above: PATIENT WAS FASTINGP ERFORMED BY: [facility] Dzqdww9628 [address] RoadDublin [place] [id number] Bilirubin [Mass/Vol] 0.4 mg/dL Normal 0.0-1.2 [facility]; [facility] Work Phone: Comment on above: PATIENT WAS FASTINGP ERFORMED BY: [facility] Gxucqw1043 [address] RoadDublin [place] [id number] Calcium [Mass/Vol] 9.0 mg/dL Normal 8.7-10.2 [facility]; [facility] Work Phone: Comment on above: PATIENT WAS FASTINGP ERFORMED BY: [facility] Xlbtnq7418 [address] RoadDublin [place] [id number] Chloride [Moles/Vol] 104 mmol/L Normal 96-106 [facility]; [facility] Work Phone: Comment on above: PATIENT WAS FASTINGP ERFORMED BY: [facility] Xcfrmd5956 [address] RoadDublin [place] [id number] CO2 [Moles/Vol] 21 mmol/L Normal 20-29 [facility] Medicine; [facility] Work Phone: Comment on above: PATIENT WAS FASTINGP ERFORMED BY: [facility] Lidvne7191 [address] RoadDublin [place] [id number] Creatinine [Mass/Vol] 0.64 mg/dL Normal 0.57-1.00 [facility]; [facility] Work Phone: Comment on above: PATIENT WAS FASTINGP ERFORMED BY: CB [facility] Adgvta2025 [address] RoadDublin [place] [id number] GFR/1.73 sq M.predicted among non-blacks MDRD (S/P/Bld) [Vol rate/Area] 108 mL/min/{1.73_m2} Normal Comprehensi ve Internal Medicine; [facility] Work Phone: Comment on above: PATIENT WAS FASTINGP ERFORMED BY: RIMA [facility] Zzbpos6925 [address] RoadDublin [place] [id number] Globulin (S) [Mass/Vol] 2.2 g/dL Normal 1.5-4.5 [facility]; [facility] Work Phone: Comment on above: PATIENT WAS FASTINGP ERFORMED BY: CB [facility] Faeyah3728 [address] RoadDublin [place] [id number] Glucose [Mass/Vol] 85 mg/dL Normal 65-99 [facility]; [facility] Work Phone: Comment on above: PATIENT WAS FASTINGP ERFORMED BY: RIMA [facility] Qjsbyf1744 [address] RoadDublin [place] [id number] Potassium [Moles/Vol] 4.8 mmol/L Normal 3.5-5.2 [facility]; [facility] Work Phone: Comment on above: PATIENT WAS FASTINGP ERFORMED BY: RIMA [facility] Yeodws7911 [address] RoadDublin [place] [id number] Protein [Mass/Vol] 6.8 g/dL Normal 6.0-8.5 [facility]; [facility] Work Phone: Comment on above: PATIENT WAS FASTINGP ERFORMED BY: CB [facility] Csqqzr5675 [address] RoadDublin [place] [id number] Sodium [Moles/Vol] 141 mmol/L Normal 134-144 [facility]; [facility] Work Phone: Comment on above: PATIENT WAS FASTINGP ERFORMED BY: CB [facility] Appwhv1185 [address] RoadDublin [place] [id number] Urea nitrogen [Mass/Vol] 8 mg/dL Normal 6-24 [facility]; [facility] Work Phone: Comment on above: PATIENT WAS FASTINGP ERFORMED BY: CB [facility] Sjdwjm1225 [address] RoadDublin [place] [id number] Urea nitrogen/Creatinine [Mass ratio] 13 mg/mg Normal 9-23 [facility]; [facility] Work Phone: Comment on above: PATIENT WAS FASTINGP ERFORMED BY: RIMA Sunil Allen6[address] [facility] [place] [id number] METABOLIC PANEL, COMPREHENSI VE ([id number])Ordered By: Do All Operator on 03-21-2022 Albumin [Mass/Vol] 4.8 g/dL Normal 3.8-4.8 [facility]; [facility] Work Phone: Comment on above: PATIENT NOT FASTINGP ERFORMED BY: RIMA Sunil Allen[address] [facility] [id number] Albumin/Globulin [Mass ratio] 1.9 {ratio} Normal 1.2-2.2 [facility]; [facility] Work Phone: Comment on above: PATIENT NOT FASTINGP ERFORMED BY: RIMA Sunil Allen6[address] [facility] [id number] ALP [Catalytic activity/Vol] 103 U/L Normal 44-121 [facility]; [facility] Work Phone: Comment on above: PATIENT NOT FASTINGP ERFORMED BY: RIMA Sunil Allen6[address] [facility] [id number] ALT [Catalytic activity/Vol] 17 U/L Normal 0-32 [facility]; [facility] Work Phone: Comment on above: PATIENT NOT FASTINGP ERFORMED BY: RIMA Kimlin[address] [facility] [id number] AST [Catalytic activity/Vol] 20 U/L Normal 0-40 [facility]; [facility] Work Phone: Comment on above: PATIENT NOT FASTINGP ERFORMED BY: RIMA Sunil Kimlin6[address] [facility] [id number] Bilirubin [Mass/Vol] 0.3 mg/dL Normal 0.0-1.2 [facility]; [facility] Work Phone: Comment on above: PATIENT NOT FASTINGP ERFORMED BY: RIMA [facility] Oidltg9442 [address] RoadDublin [place] [id number] Calcium [Mass/Vol] 9.6 mg/dL Normal 8.7-10.2 [facility]; [facility] Work Phone: Comment on above: PATIENT NOT FASTINGP ERFORMED BY: CB [facility] Txlcun5562 [address]Dublin [place] [id number] Chloride [Moles/Vol] 100 mmol/L Normal 96-106 [facility]; [facility] Work Phone: Comment on above: PATIENT NOT FASTINGP ERFORMED BY: CB [facility] Bictnd4019 [address] RoadDublin [place] [id number] CO2 [Moles/Vol] 20 mmol/L Normal 20-29 [facility]; [facility] Work Phone: Comment on above: PATIENT NOT FASTINGP ERFORMED BY: [facility] Naoxat1434 [address] RoadDublin [place] [id number] Creatinine [Mass/Vol] 0.64 mg/dL Normal 0.57-1.00 [facility]; [facility] Work Phone: Comment on above: PATIENT NOT FASTINGP ERFORMED BY: [facility] Fbkoiv9145 [address] RoadDublin [place] [id number] GFR/1.73 sq M.predicted among non-blacks MDRD (S/P/Bld) [Vol rate/Area] 108 mL/min/{1.73_m2} Normal [facility]ka[facility]; [facility] Work Phone: Comment on above: PATIENT NOT FASTINGP ERFORMED BY: CB [facility] Rcdjap3041 [address] RoadDublin [place] [id number] Globulin (S) [Mass/Vol] 2.5 g/dL Normal 1.5-4.5 [facility]; [facility] Work Phone: Comment on above: PATIENT NOT FASTINGP ERFORMED BY: [facility] Dqzbyb7417 [address] RoadDublin [place] [id number] Glucose [Mass/Vol] 92 mg/dL Normal 65-99 [facility]; [facility] Work Phone: Comment on above: PATIENT NOT FASTINGP ERFORMED BY: RIMA [facility] Qsxprx2861 [address] RoadDublin [place] [id number] Potassium [Moles/Vol] 4.2 mmol/L Normal 3.5-5.2 [facility]; [facility] Work Phone: Comment on above: PATIENT NOT FASTINGP ERFORMED BY: CB [facility] Ulxmvy2282 [address] RoadDublin [place] [id number] Protein [Mass/Vol] 7.3 g/dL Normal 6.0-8.5 [facility]; [facility] Work Phone: Comment on above: PATIENT NOT FASTINGP ERFORMED BY: RIMA [facility] Mqlmoo4342 [address] RoadDublin [place] [id number] Sodium [Moles/Vol] 139 mmol/L Normal 134-144 [facility]; [facility] Work Phone: Comment on above: PATIENT NOT FASTINGP ERFORMED BY: RIMA [facility] Dnyblp5801 [address] RoadD[address] [place] [id number] Urea nitrogen [Mass/Vol] 10 mg/dL Normal 6-24 [facility]; [facility] Work Phone: Comment on above: PATIENT NOT FASTINGP ERFORMED BY: RIMA [facility] Ibyetr7131 [address] RoadDublin [place] [id number] Urea nitrogen/Creatinine [Mass ratio] 16 mg/mg Normal 9-23 [facility]; [facility] Work Phone: Comment on above: PATIENT NOT FASTINGP ERFORMED BY: CB [facility] Vlsqkn1810 [address]Dublin [place] [id number] SPEP ([id number])Ordered By: Syst em [employer] Operator Helper on 03-21-2022 Albumin [Mass/Vol] 4.3 g/dL Normal 2.9-4.4 [facility]; [facility] Work Phone: Comment on above: PATIENT NOT FASTINGP ERFORMED BY: CB [facility] Gapgwx8643 [address]Dublin [place] [id number] Albumin/Globulin [Mass ratio] 1.4 {ratio} Normal 0.7-1.7 [facility]; [facility] Work Phone: Comment on above: PATIENT NOT FASTINGP ERFORMED BY: RIMA Kimlin6370 [facility] [id number] Alpha 1 globulin Elph [Mass/Vol] 0.2 g/dL Normal 0.0-0.4 [facility]; [facility] Work Phone: Comment on above: PATIENT NOT FASTINGP ERFORMED BY: RIMA [facility] Tcoiku7614 [facility] [id number] Alpha 2 globulin Elph [Mass/Vol] 0.8 g/dL Normal 0.4-1.0 [facility]; [facility] Work Phone: Comment on above: PATIENT NOT FASTINGP ERFORMED BY: Katalina Vqitdy4167 [facility] [id number] Beta globulin Elph [Mass/Vol] 1.1 g/dL Normal 0.7-1.3 [facility]; [facility] Work Phone: Comment on above: PATIENT NOT FASTINGP ERFORMED BY: RIMA Darden Hhcjbb6430 [facility] [id number] Gamma globulin Elph [Mass/Vol] 0.8 g/dL Normal 0.4-1.8 [facility]; [facility] Work Phone: Comment on above: PATIENT NOT FASTINGP ERFORMED BY: RIMA Darden Gjqmyl0449 [facility] [id number] Globulin (S) [Mass/Vol] 3.0 g/dL Normal 2.2-3.9 [facility]; [facility] Work Phone: Comment on above: PATIENT NOT FASTINGP ERFORMED BY: RIMA Labnury Remfqr0371 [facility]in [place] [id number] Laboratory comment Trevon (Report) SPRCS Normal [facility]; [facility] Work Phone: Comment on above: Protein electrophore sis scan will follow via computer, mail, orcourier delivery. PATIENT NOT FASTINGP ERFORMED BY: RIMA [facility] Geptdf[address] [facility]in [place] [id number] Laboratory report . Normal Compreh ensive Internal Medicine; [facility] Work Phone: Comment on above: PATIENT NOT FASTINGP ERFORMED BY: RIMA [facility] Bsyszn9018 [address] [facility]in [place] [id number] Protein.monoclonal Elph [Mass/Vol] Not Observed Normal [facility]; [facility] Work Phone: Comment on above: PATIENT NOT FASTINGP ERFORMED BY: [facility] Ubfmyi3979 [address] [facility]in [place] [id number] UPEP ([id number])Ordered By: Syst em [employer] Operator Helper on 03-21-2022 Albumin Elph (U) [Mass fraction] 32.2 % Normal [facility]; [facility] Work Phone: Comment on above: PATIENT NOT FASTINGP ERFORMED BY: [facility] Cbzuep4069 [address] [facility] [id number] Alpha 1 globulin Elph (U) [Mass fraction] 16.8 % Normal [facility]; [facility] Work Phone: Comment on above: PATIENT NOT FASTINGP ERFORMED BY: [facility] Amvwsg5887 [address] [facility] [id number] Alpha 2 globulin Elph (U) [Mass fraction] 10.7 % Normal [facility]; [facility] Work Phone: Comment on above: PATIENT NOT FASTINGP ERFORMED BY: [facility] Fumrdx1198 [address] [facility]in [place] [id number] Beta globulin Elph (U) [Mass fraction] 21.6 % Normal Comprehensiv e Internal Medicine; [facility] Work Phone: Comment on above: PATIENT NOT FASTINGP ERFORMED BY: [facility] Dsxbhu9397 [address] [facility] [id number] Gamma globulin Elph (U) [Mass fraction] 18.6 % Normal Comprehensiv e Internal Medicine; [facility] Work Phone: Comment on above: PATIENT NOT FASTINGP ERFORMED BY: CB [facility] Stxodn3589 [address] RoadDublin [place] [id number] Protein (U) [Mass/Vol] 4.1 mg/dL Normal [facility]; [facility] Work Phone: Comment on above: PATIENT NOT FASTINGP ERFORMED BY: CB [facility] Jxssim8330 [address] RoadDublin [place] [id number] Protein.monoclonal Elph (U) [Mass fraction] Not Observed Normal [facility]; [facility] Work Phone: Comment on above: PATIENT NOT FASTINGP ERFORMED BY: RIMA [facility] Ixcrbe1965 [address]Dublin [place] [id number] CBC with auto diff ([id number])Or dered By: Do All Operator on 03-09-2022 Basophils (Bld) [#/Vol] 0.0 10*3/uL Normal 0.0-0.2 [facility]; [facility] Work Phone: Comment on above: PATIENT WAS FASTINGP ERFORMED BY: RIMA [facility] Wnabdc4728 [address]Dublin [place] [id number] Basophils/100 WBC (Bld) 1 % Normal [facility]; [facility] Work Phone: Comment on above: PATIENT WAS FASTINGP ERFORMED BY: CB [facility] Uyneqy9547 [address] RoadDublin [place] [id number] Eosinophils (Bld) [#/Vol] 0.1 10*3/uL Normal 0.0-0.4 [facility]; [facility] Work Phone: Comment on above: PATIENT WAS FASTINGP ERFORMED BY: CB [facility] Uqqdgy4488 [address] RoadDublin [place] [id number] Eosinophils/100 WBC (Bld) 1 % Normal [facility]; [facility] Work Phone: Comment on above: PATIENT WAS FASTINGP ERFORMED BY: CB [facility] Zdmnvu5549 [address] RoadDublin [place] [id number] Erythrocyte distribution width (RBC) [Ratio] 13.2 % Normal 11.7-15.4 [facility]; [facility] Work Phone: Comment on above: PATIENT WAS FASTINGP ERFORMED BY: RIMA Labzeynep Allen6370 [address] [place] [id number] Hematocrit (Bld) [Volume fraction] 40.9 % Normal 34.0-46.6 [facility]; [facility] Work Phone: Comment on above: PATIENT WAS FASTINGP ERFORMED BY: RIMA [facility] Bklsoi1821 [address] RoadFrye Regional Medical Centerin [place] [id number] Hemoglobin (Bld) [Mass/Vol] 13.8 g/dL Normal 11.1-15.9 [facility]; [facility] Work Phone: Comment on above: PATIENT WAS FASTINGP ERFORMED BY: RIMA Sunil Kimlin6370 [address] RoadFrye [facility] Medical Centerin [place] [id number] Immature granulocytes (Bld) [#/Vol] 0.0 10*3/uL Normal 0.0-0.1 [facility]; [facility] Work Phone: Comment on above: PATIENT WAS FASTINGP ERFORMED BY: RIMA [facility] Cdsife6032 [address] RoadFrye Regional Medical Centerin [place] [id number] Immature granulocytes/100 WBC (Bld) 0 % Normal [facility]; [facility] Work Phone: Comment on above: PATIENT WAS FASTINGP ERFORMED BY: [facility] Yoakwb8536 [address] [facility]in [place] [id number] Lymphocytes (Bld) [#/Vol] 2.3 10*3/uL Normal 0.7-3.1 [facility]; [facility] Work Phone: Comment on above: PATIENT WAS FASTINGP ERFORMED BY: RIMA [facility] Fwfbte3595 [address] RoadDublin [place] [id number] Lymphocytes/100 WBC (Bld) 39 % Normal [facility]; [facility] Work Phone: Comment on above: PATIENT WAS FASTINGP ERFORMED BY: CB [facility] Ezatgh3652 [address]Dublin [place] [id number] MCH (RBC) [Entitic mass] 29.9 pg Normal 26.6-33.0 [facility]; [facility] Work Phone: Comment on above: PATIENT WAS FASTINGP ERFORMED BY: RIMA Labcokathy AllenJqgqeo0521 [address] RoadDublin [place] [id number] MCHC (RBC) [Mass/Vol] 33.7 g/dL Normal 31.5-35.7 [facility]; [facility] Work Phone: Comment on above: PATIENT WAS FASTINGP ERFORMED BY: RIMA [facility] Vikfai9243 [address] [place] [id number] MCV (RBC) [Entitic vol] 89 fL Normal 79-97 [facility]; [facility] Work Phone: Comment on above: PATIENT WAS FASTINGP ERFORMED BY: RIMA Labzeynep KimGlvmyf5677 [address] RoadFrye Regional Medical Centerin [place] [id number] Monocytes (Bld) [#/Vol] 0.4 10*3/uL Normal 0.1-0.9 [facility]; [facility] Work Phone: Comment on above: PATIENT WAS FASTINGP ERFORMED BY: RIMA Labzeynep KimEkydtk5509 [address] RoadDublin [place] [id number] Monocytes/100 WBC (Bld) 7 % Normal [facility]; [facility] Work Phone: Comment on above: PATIENT WAS FASTINGP ERFORMED BY: RIMA [facility] Suvaud7010 [address] [facility] [place] [id number] Neutrophils (Bld) [#/Vol] 3.1 10*3/uL Normal 1.4-7.0 [facility]; [facility] Work Phone: Comment on above: PATIENT WAS FASTINGP ERFORMED BY: RIMA [facility] Folztq1528 [address]Dublin [place] [id number] Neutrophils/100 WBC (Bld) 52 % Normal [facility]; [facility] Work Phone: Comment on above: PATIENT WAS FASTINGP ERFORMED BY: RIMA [facility] Jenkxp2290 [address] [facility] HospitalD[facility] [place] [id number] Platelets (Bld) [#/Vol] 295 10*3/uL Normal 150-450 [facility]; [facility] Work Phone: Comment on above: PATIENT WAS FASTINGP ERFORMED BY: RIMA Sunil Allne6370 [facility]in [place] [id number] RBC (Bld) [#/Vol] 4.61 10*6/uL Normal 3.77-5.28 [facility] Internal Medicine; [facility] Work Phone: Comment on above: PATIENT WAS FASTINGP ERFORMED BY: RIMA Katalina Qqtoyc3792 [facility]in [place] [id number] WBC (Bld) [#/Vol] 5.9 10*3/uL Normal 3.4-10.8 [facility]; [facility] Work Phone: Comment on above: PATIENT WAS FASTINGP ERFORMED BY: RIMA Katalina Naieua0973 [facility]in [place] [id number] LIPID PANEL (79498)Ordered B y: Do All Operator on 03-09-2022 Cholesterol [Mass/Vol] 193 mg/dL Normal 100-199 [facility]; [facility] Work Phone: Comment on above: PATIENT WAS FASTINGP ERFORMED BY: RIMA Sunil Allen6370 [facility] [place] [id number] Cholesterol in HDL [Mass/Vol] 67 mg/dL Normal [facility]; [facility] Work Phone: Comment on above: PATIENT WAS FASTINGP ERFORMED BY: RIMA Katalina Pzsfjv1986 [facility] [place] [id number] Triglyceride [Mass/Vol] 108 mg/dL Normal 0-149 [facility]; [facility] Work Phone: Comment on above: PATIENT WAS FASTINGP ERFORMED BY: RIMA Katalina Nucxri9855 [facility] [place] [id number] LIPID PANEL (60455) 19 mg/dL Normal 5-40 [facility]; [facility] Work Phone: Comment on above: PATIENT WAS FASTINGP ERFORMED BY: [facility] Cfbiqh3749 [address] RoadDublin [place] [id number] LIPID PANEL (92262) 107 mg/dL Abnormal 0-99 [facility]; [facility] Work Phone: Comment on above: PATIENT WAS FASTINGP ERFORMED BY: [facility] Sdwdzp0929 Ten[address] RoadDublin [place] [id number] LIPID PANEL (63611) 1.6 {ratio} Normal 0.0-3.2 [facility]; [facility] Work Phone: Comment on above: LDL/HDL Ratio Men Wo men 1/2 Avg.Risk 1.0 1.5 Avg.Risk 3.6 3.2 2X Avg.Risk 6.2 5.0 3X Avg.Risk 8.0 6.1 PATIENT WAS FASTINGP ERFORMED BY: [facility] Ruswin0192 [address] Roadblin [place] [id number] METABOLIC PANEL, COMPREHENSI VE (13470)Ordered By: Do All Operator on 03-09-2022 Albumin [Mass/Vol] 5.0 g/dL Abnormal 3.8-4.8 [facility]; [facility] Work Phone: Comment on above: PATIENT WAS FASTINGP ERFORMED BY: [facility] Fbpvto98[address] [facility] [place] [id number] Albumin/Globulin [Mass ratio] 2.2 {ratio} Normal 1.2-2.2 [facility]; [facility] Work Phone: Comment on above: PATIENT WAS FASTINGP ERFORMED BY: [facility] Tacvxz1360 [address] RoadDublin [place] [id number] ALP [Catalytic activity/Vol] 97 U/L Normal 44-121 [facility]; [facility] Work Phone: Comment on above: PATIENT WAS FASTINGP ERFORMED BY: [facility] Brqbfy6794 Ten[address] RoadDublin [place] [id number] ALT [Catalytic activity/Vol] 20 U/L Normal 0-32 [facility]; [facility] Work Phone: Comment on above: PATIENT WAS FASTINGP ERFORMED BY: [facility] Hpibww5569 Ten[address] RoadDublin [place] [id number] AST [Catalytic activity/Vol] 24 U/L Normal 0-40 [facility]; [facility] Work Phone: Comment on above: PATIENT WAS FASTINGP ERFORMED BY: [facility] Nxluyr9892 [address] RoadDublin [place] [id number] Bilirubin [Mass/Vol] 0.3 mg/dL Normal 0.0-1.2 [facility]; [facility] Work Phone: Comment on above: PATIENT WAS FASTINGP ERFORMED BY: [facility] Hbaesn0399 [address] RoadDublin [place] [id number] Calcium [Mass/Vol] 9.3 mg/dL Normal 8.7-10.2 [facility]; [facility] Work Phone: Comment on above: PATIENT WAS FASTINGP ERFORMED BY: [facility] Pyoryw8781 [address] RoadFrye [facility] Medical Centerin [place] [id number] Chloride [Moles/Vol] 103 mmol/L Normal 96-106 [facility]; [facility] Work Phone: Comment on above: PATIENT WAS FASTINGP ERFORMED BY: [facility] Rpenky3078 [address] Roadbl[address] [place] [id number] CO2 [Moles/Vol] 18 mmol/L Abnormal 20-29 [facility] Medicine; [facility] Work Phone: Comment on above: PATIENT WAS FASTINGP ERFORMED BY: [facility] Arjkia1133 [address] [facility] [place] [id number] Creatinine [Mass/Vol] 0.65 mg/dL Normal 0.57-1.00 [facility]; [facility] Work Phone: Comment on above: PATIENT WAS FASTINGP ERFORMED BY: [facility] Mtzwog2421 [address] Roadblin [place] [id number] GFR/1.73 sq M.predicted among non-blacks MDRD (S/P/Bld) [Vol rate/Area] 108 mL/min/{1.73_m2} Normal [facility]; [facility] Work Phone: Comment on above: PATIENT WAS FASTINGP ERFORMED BY: RIMA [facility] Nswpdo9458 [address] RoadDublin [place] [id number] Globulin (S) [Mass/Vol] 2.3 g/dL Normal 1.5-4.5 [facility]; [facility] Work Phone: Comment on above: PATIENT WAS FASTINGP ERFORMED BY: CB [facility] Wprsoj9397 [address] RoadDublin [place] [id number] Glucose [Mass/Vol] 90 mg/dL Normal 65-99 [facility]; [facility] Work Phone: Comment on above: PATIENT WAS FASTINGP ERFORMED BY: CB [facility] Oaxghm7455 [address] RoadDublin [place] [id number] Potassium [Moles/Vol] 4.1 mmol/L Normal 3.5-5.2 [facility]; [facility] Work Phone: Comment on above: PATIENT WAS FASTINGP ERFORMED BY: RIMA [facility] Zixdjk4478 [address] RoadDublin [place] [id number] Protein [Mass/Vol] 7.3 g/dL Normal 6.0-8.5 [facility]; [facility] Work Phone: Comment on above: PATIENT WAS FASTINGP ERFORMED BY: [facility] Uanyaf2961 [address] RoadDublin [place] [id number] Sodium [Moles/Vol] 141 mmol/L Normal 134-144 [facility] Internal [facility]; [facility] Work Phone: Comment on above: PATIENT WAS FASTINGP ERFORMED BY: CB [facility] Dunczh2510 [address] RoadDublin [place] [id number] Urea nitrogen [Mass/Vol] 10 mg/dL Normal 6-24 [facility]; [facility] Work Phone: Comment on above: PATIENT WAS FASTINGP ERFORMED BY: CB [facility] Wwezas2245 [address] RoadDublin [place] [id number] Urea nitrogen/Creatinine [Mass ratio] 15 mg/mg Normal 9-23 [facility]; [facility] Work Phone: Comment on above: PATIENT WAS FASTINGP ERFORMED BY: RIMA Live Matrixnurykathy Tlrtcl3573 [facility] [id number] Vitamin D Hydroxy (63146)Ord ered By: Do All Operator on 03-09-2022 25-hydroxyvitamin D [Mass/Vol] 35.5 ng/mL Normal 30.0-100.0 [facility]; [facility] Work Phone: Comment on above: Vitamin D deficiency has been defined by the [place] ofMedicine and an Endocrine Society practice guideline as alevel of serum 25-OH vitamin D less than 20 ng/mL (1,2).The Endocrine Society went on to further define vitamin Dinsufficiency as a level between 21 and 29 ng/mL (2).1. IOM ([place] of Medicine). 2010. Dietary reference intakes for calcium and D. [place]: The National Academies Press.2. Blu MF, Priyanka NC, Ho HANNA, et al. Evaluation, treatment, and prevention of vitamin D deficiency: an Endocrine Society clinical practice guideline. JCEM. 2010; 96(7):1911-30. PATIENT WAS FASTINGP ERFORMED BY: RIMA Five minuteskathy Bqkkwd0422 [facility] [id number] XR SPINE LUMBAR 1 VIEWon XR SPINE LUMBAR 1 VIEW ORIGINAL HISTORY: L1 compression fracture COMPARISON: 29 January 2022 FINDINGS: There are 5 lumbar type vertebral bodies counting from the last visible rib. Alignment is within normal limits. There is a mild compression deformity at L1, with less than 50% loss of anterior vertebral body height. The remaining vertebral bodies are intact. There is scattered mild disc space narrowing, and there are mild lower lumbar facet degenerative changes. IMPRESSION: No significant interval change. Interpreted by: Jad Fernandez MD Preliminary Report By: Jad Fernandez MD Electronically signed By Jad Fernandez MD Dictated Date: 02/26/2022 9:26:18 AM Prelim Date: 02/26/2022 9:27:49 AM Sign Date: 02/26/2022 9:27:49 AM Ordering Provider: DUARTE MTZ [facility] ([place]) XR SPINE LUMBAR 1 VIEWon XR SPINE LUMBAR 1 VIEW ORIGINAL EXAMINATION: ONE XRAY VIEW OF THE LUMBAR SPINE 01/29/2022 10:19 am COMPARISON: Lumbar spine radiograph 01/01/2022 HISTORY: ORDERING SYSTEM PROVIDED HISTORY: Reason for Exam: L1 compression fracture FINDINGS: Redemonstration of mild compression deformity of L1 without radiographic evidence of retropulsion. No new compression deformities. Lumbar spine alignment is maintained. Mild degenerative disc disease again noted. IMPRESSION: Unchanged mild L1 compression fracture. Interpreted by: Brice Hou Preliminary Report By: Brice Hou Electronically signed By Brice Hou Dictated Date: 01/29/2022 10:41:49 AM Prelim Date: 01/29/2022 10:42:20 AM Sign Date: 01/29/2022 10:42:20 AM Ordering Provider: DUARTE Titus [facility]) XR SPINE LUMBAR 1 VIEWon XR SPINE LUMBAR 1 VIEW ORIGINAL EXAMINATION: ONE XRAY VIEW OF THE LUMBAR SPINE 01/01/2022 9:31 am COMPARISON: Lumbar spine radiographs November 28, 2021 HISTORY: ORDERING SYSTEM PROVIDED HISTORY: Reason for Exam: L1 fracture FINDINGS: There are 5 goj-aur-ntwwkvy lumbar type vertebral bodies. Unchanged mild L1 compression deformity with approximately 30% anterior height loss. No evidence of retropulsion. No additional compression deformity. No significant spondylolisthesis. Mild intervertebral disc height loss at L5-S1. IMPRESSION: Unchanged mild L1 compression deformity without retropulsion. I have personally reviewed the images of this examination and agree with the resident's findings interpretations. Interpreted by: Bakari France DO Preliminary Report By: Jan Mcmahan Electronically signed By Bakari France DO Dictated Date: 01/01/2022 9:38:28 AM Prelim Date: 01/01/2022 2:47:48 PM Sign Date: 01/01/2022 2:47:48 PM Ordering Provider: DUARTE MTZ [facility] ([place]) EMERGENCY REPORTon 2 EMERGENCY REPORT [facility] EMERGENCY ROOM REPORT NAME ACCOUNT SEX AGE ADMIT DISCHARGE PT MED. RECORD# NUMBER DATE DATE TYPE BETH, [id number] F 51 11/27/21 11/28/21 3 KAREN [id number] ROOM: [facility] DATE OF : 1970 DICTATING PHYSICIAN: Aaron Hayden ADDENDUM PHYSICAL EXAMINATION: VITAL SIGNS: 113/77 blood pressure, 84 pulse, 24 respirations, 97.7 tympanic screening, and oxygen saturation 100% on room air. Weight is 195 pounds. DIAGNOSTIC DATA: Her COVID was negative. Dictated By: Aaron Hayden DO 11/28/21 05:35 JOB #: [id number] Transcribed By: nathaniel 11/28/21 13:44 Electronically signed by: E-SIGN AARON HAYDEN DO 12/06/21 03:19 Page 1 of 1 BETH, KAREN Emergency Room Report Normal [facility] EMERGENCY REPORT [facility] EM[facility] REPORT NAME ACCOUNT SEX AGE ADMIT DISCHARGE PT MED. RECORD# NUMBER DATE DATE TYPE BETH [id number] F 51 11/27/21 11/28/21 3 KAREN [id number] ROOM: [facility] DATE OF : 1970 DICTATING PHYSICIAN: Aaron Hayden HISTORY OF PRESENT ILLNESS: The patient is a 51-year-old female who came to the emergency room by private vehicle with complaints of left wrist and mid back pain. It is worse if she takes a deep breath. This happened after a fall prior to arrival. She states she was running for a drink of water for her son going down the stairs and she slipped and came down on her back side and has had the pain. She states it made her a little nauseated for a second. No loss of consciousness. No head injury. No neck pain. No numbness or tingling to her arms or legs. No loss of control of urine or bowel. No medication was taken for this at home. She came here by private vehicle. She states it is very painful to move. She states she has had no significant back problems in the past. She does not take any anticoagulants. She is not a diabetic. She denies any cardiac or lung disorders. She states she does not have a history of cancer. She has never had any significant back injuries. We gave her Toradol IM, Zofran p.o. and Dilaudid IM. That really did not control her pain. We gave her 0.5 mg initially of Dilaudid, so we gave her another 0.5 mg of Dilaudid, and that helped a little bit. She was still uncomfortable. SOCIAL HISTORY: She is a nonsmoker. She is employed. 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 PHYSICAL EXAMINATION: GENERAL: On exam, she is pleasant and uncomfortable. HEENT: Head was normocephalic. No evidence of head trauma or facial trauma. Pupils were 3.0 mm. No nystagmus. Extraocular muscles intact. Tympanic membrane, canals, and pinnae normal without any retrotympanic membrane or heme. NECK: Neck is easily supple. No tenderness. LUNGS: Lungs were clear. There was no expiratory wheeze, rales, rhonchi, or paradoxical chest motions. After pain medications, incursion and excursion was a little bit more relaxed. When she first came in, she was having a hard time taking a deep breath because of the pain in her back. HEART: Her heart rate and rhythm is regular. PMI is left breast. She had good radial and dorsalis pedis pulses. EXTREMITIES: There is no peripheral edema. She had sensation to her toes and to her arms. She has slight swelling over the snuffbox on the left, but alignment of the wrist was well maintained. Neurovascular was normal. As previously dictated, I did not see a fracture of that scaphoid on the x-rays. DIAGNOSTIC DATA: She went over for a CT of her chest without contrast, CT of the lumbar, and x-rays of the left wrist. Left wrist, read by the emergency room physician, demonstrated no fracture or dislocation. Her swelling on exam was in the vicinity of the Page 1 of 2 KAREN CAMPOS Emergency Room Report KAREN CAMPOS : 1970 snuffbox, but I really did not see any abnormality there on x-ray. CT of her chest was essentially negative. CT of her lumbar spine had a compression, which is a pretty good compression actually of L1. EKG showed a rate of 83. Time was 2222 hours on November 27, 2021. It is a normal looking EKG. Laboratories were satisfactory. EMERGENCY DEPARTMENT COURSE AND TREATMENT: I spoke to Dr. Miranda in the emergency room at [facility] who asked that I speak to the General Surgeon distribution tech, Dr. Mtz, who reviewed the films and then asked that the patient be admitted to the hospitalist service. We spoke then to Dr. Cosme on behalf of the patient at 0048 hours, and he authorized the admission at 0053 hours as they had a bed. The patient had an IV placed. Laboratories were drawn. She had another 0.5 mg of Dilaudid given IV, and then later 0.5 mg of Ativan, another 0.5 mg of Dilaudid for transport. The patient could sit up very slowly with assistance. She did not have any lacerations or abrasions to her back. The discomfort was in the lumbar area. DIAGNOSIS: Ground level fall with acute compression fracture of L1. PLAN/DISPOSITION: The patient was transported by ambulance to [facility]. The patient was seen in the presence of her . These are very nice people. Dictated By: Aaron Hayden DO 11/28/21 05:34 JOB #: [id number] Transcribed By: am 11/28/21 14:06 Electronically signed by: E-SIGN AARON HAYDEN DO 12/06/21 03:19 Page 2 of 2 KAREN CAMPOS Emergency Room Report Normal [facility] .Auto Diffon 11-28-2021 Basophil, Absolute 0.00 10 3/mcL Normal 0.00-0.27 [facility] ([place]) Comment on above: Performed By: #### L AC, CBC, ADIFF, ANEU, PRO, CRP, CMP, GFR, ESR #### [address] [address] Basophils/100 WBC (Bld) 0.2 % Normal 0.0-2.5 [facility] ([place]) Comment on above: Performed By: #### L AC, CBC, ADIFF, ANEU, PRO, CRP, CMP, GFR, ESR #### [address] [address] Eosinophil, Absolute 0.00 10 3/mcL Normal 0.00-0.65 [facility] ([place]) Comment on above: Performed By: #### L AC, CBC, ADIFF, ANEU, PRO, CRP, CMP, GFR, ESR #### [address] [address] Eosinophils/100 WBC (Bld) 0.4 % Normal 0.0-6.0 [facility] ([place]) Comment on above: Performed By: #### L AC, CBC, ADIFF, ANEU, PRO, CRP, CMP, GFR, ESR #### [address] [address] Lymphocyte, Absolute 1.60 10 3/mcL Normal 0.90-4.32 [facility] ([place]) Comment on above: Performed By: #### L AC, CBC, ADIFF, ANEU, PRO, CRP, CMP, GFR, ESR #### [address] [address] Lymphocytes/100 WBC (Bld) 19.9 % Low 20.0-40.0 [facility] ([place]) Comment on above: Performed By: #### L AC, CBC, ADIFF, ANEU, PRO, CRP, CMP, GFR, ESR #### [address] [address] Monocyte, Absolute 0.60 10 3/mcL Normal 0.09-1.40 [facility] ([place]) Comment on above: Performed By: #### L AC, CBC, ADIFF, ANEU, PRO, CRP, CMP, GFR, ESR #### [address] [address] Monocytes/100 WBC (Bld) 7.7 % Normal 2.0-13.0 [facility] ([place]) Comment on above: Performed By: #### L AC, CBC, ADIFF, ANEU, PRO, CRP, CMP, GFR, ESR #### [address] [address] Neutrophils/100 WBC (Bld) 71.8 % Normal 50.0-75.0 [facility] ([place]) Comment on above: Performed By: #### L AC, CBC, ADIFF, ANEU, PRO, CRP, CMP, GFR, ESR #### [address] [address] .GFRon 11-28-2021 GFR >60 Normal [facility] ([place]) Comment on above: Result Comment: GFR Population mean for , Non- Americans Ages 20-29 = 116 mL/min/1.73 sq.m. Ages 30-39 = 107 mL/min/1.73 sq.m. Ages 40-49 = 99 mL/min/1.73 sq.m. Ages 50-59 = 93 mL/min/1.73 sq.m. Ages 60-69 = 85 mL/min/1.73 sq.m. Ages 70+ = 75 mL/min/1.73 sq.m. Chronic Kidney Disease: Less than 60 mL/min/1.73 square meters End Stage Renal Disease: Less than 15 mL/min/1.73 square meters Performed By: #### L AC, CBC, ADIFF, ANEU, PRO, CRP, CMP, GFR, ESR #### [address] [address] GFR Non- >60 Normal [facility] ([place]) Comment on above: Result Comment: GFR Population mean for , Non- Americans Ages 20-29 = 116 mL/min/1.73 sq.m. Ages 30-39 = 107 mL/min/1.73 sq.m. Ages 40-49 = 99 mL/min/1.73 sq.m. Ages 50-59 = 93 mL/min/1.73 sq.m. Ages 60-69 = 85 mL/min/1.73 sq.m. Ages 70+ = 75 mL/min/1.73 sq.m. Chronic Kidney Disease: Less than 60 mL/min/1.73 square meters End Stage Renal Disease: Less than 15 mL/min/1.73 square meters Performed By: #### L AC, CBC, ADIFF, ANEU, PRO, CRP, CMP, GFR, ESR #### [address] [address] .NEUABSon 11-28-2021 Neutrophil, Absolute 5.80 10 3/mcL Normal 2.25-8.10 [facility] ([place]) Comment on above: Performed By: #### L AC, CBC, ADIFF, ANEU, PRO, CRP, CMP, GFR, ESR #### [address] [address] CBCon 11-28-2021 Erythrocyte distribution width (RBC) [Ratio] 12.7 % Normal 11.5-15.5 [facility] ([place]) Comment on above: Performed By: #### L AC, CBC, ADIFF, ANEU, PRO, CRP, CMP, GFR, ESR #### [place] [address] Hematocrit (Bld) [Volume fraction] 37.0 % Normal 34.0-46.0 [facility] ([place]) Comment on above: Performed By: #### L AC, CBC, ADIFF, ANEU, PRO, CRP, CMP, GFR, ESR #### [place] [id number] Hgb 12.7 G/dL Normal 12.0-16.0 [facility] ([place]) Comment on above: Performed By: #### L AC, CBC, ADIFF, ANEU, PRO, CRP, CMP, GFR, ESR #### [place] [address] MCH (RBC) [Entitic mass] 30.0 pg Normal 27.0-33.0 [facility] ([place]) Comment on above: Performed By: #### L AC, CBC, ADIFF, ANEU, PRO, CRP, CMP, GFR, ESR #### [place] [address] MCHC 34.3 G/dL Normal 32.0-36.0 [facility] ([place]) Comment on above: Performed By: #### L AC, CBC, ADIFF, ANEU, PRO, CRP, CMP, GFR, ESR #### [place] [id number] MCV (RBC) [Entitic vol] 87.6 fL Normal 80.0-99.0 [facility] ([place]) Comment on above: Performed By: #### L AC, CBC, ADIFF, ANEU, PRO, CRP, CMP, GFR, ESR #### [place] [id number] Platelet 281 10 3/mcL Normal 150-450 [facility] ([place]) Comment on above: Performed By: #### L AC, CBC, ADIFF, ANEU, PRO, CRP, CMP, GFR, ESR #### [place] [address] Platelet mean volume (Bld) [Entitic vol] 7.7 fL Normal 6.6-10.5 [facility] ([place]) Comment on above: Performed By: #### L AC, CBC, ADIFF, ANEU, PRO, CRP, CMP, GFR, ESR #### [address] [address] RBC 4.22 10 6/mcL Normal 4.10-5.30 [facility] ([place]) Comment on above: Performed By: #### L AC, CBC, ADIFF, ANEU, PRO, CRP, CMP, GFR, ESR #### [address] [address] WBC 8.00 10 3/mcL Normal 4.50-10.80 [facility] ([place]) Comment on above: Performed By: #### L AC, CBC, ADIFF, ANEU, PRO, CRP, CMP, GFR, ESR #### [place] [address] CBC + DIFFon 11-28-2021 Baso # 0.00 x10EE3/UL Normal 0.00 - 0.10 [facility] Comment on above: Performed By: #### 2 73564 #### [facility],[address] [place] [address] Basophils/100 WBC (Bld) 0.2 % Normal 0.0 - 2.0 [facility] Comment on above: Performed By: #### 2 76771 #### [facility],[address] [place] [address] CBC + DIFF Normal [facility] Comment on above: Result Comment: CBC- COMPLETE BLOOD COUNT Performed By: #### 2 79927 #### [facility],[address] [place] [address] EO # 0.00 x10EE3/UL Normal 0.00 - 0.50 [facility] Comment on above: Performed By: #### 2 14459 #### [facility],[address] [place] [address] Eosinophils/100 WBC (Bld) 0.1 % Normal 0.0 - 7.0 [facility] Comment on above: Performed By: #### 2 87045 #### [facility],[address] [place] [address] Erythrocyte distribution width (RBC) [Ratio] 12.6 % Normal 12.0 - 15.6 [facility] Comment on above: Performed By: #### 2 71285 #### [facility],[address] [place] [address] Hematocrit (Bld) [Volume fraction] 38.6 % Normal 34.0 - 46.0 [facility] Comment on above: Performed By: #### 2 98610 #### [facility],[address] [place] [address] Hemoglobin (Bld) [Mass/Vol] 12.9 g/dL Normal 12.0 - 16.0 [facility] Comment on above: Performed By: #### 2 25335 #### [facility],[address] [place] [address] Lymph # 1.90 x10EE3/UL Normal 0.80 - 2.80 [facility] Comment on above: Performed By: #### 2 23650 #### [facility],[address] [place] [address] Lymphocytes/100 WBC (Bld) 12.7 % Low 20.0 - 45.0 [facility] Comment on above: Performed By: #### 2 81714 #### [facility],[address] [place], [place] [id number] MANUAL DIFF N/A Normal [facility] Comment on above: Performed By: #### 2 40514 #### [facility],[address] [place] [address] MCH (RBC) [Entitic mass] 29 pg Normal 27 - 33 [facility] Comment on above: Performed By: #### 2 64770 #### [facility],[address] [place] [address] MCHC 34 X10 3 Normal 32 - 36 [facility] Comment on above: Performed By: #### 2 59237 #### [place] [address] MCV (RBC) [Entitic vol] 87 fL Normal 80 - 99 [facility] Comment on above: Performed By: #### 2 84266 #### [facility],[address] [place] [address] Riley # 0.90 x10EE3/UL Normal 0.20 - 1.00 [facility] Comment on above: Performed By: #### 2 86752 #### [place] [address] MONOS % 5.7 % Normal 0.0 - 10.0 [facility] Comment on above: Performed By: #### 2 98538 #### [place] [address] Morphology Trevon (Bld) [Interp] N/A Normal [facility] Comment on above: Result Comment: {CD] Performed By: #### 2 05856 #### [place] [address] Neut # 12.30 x10EE3/UL High 1.50 - 7.10 [facility] Comment on above: Performed By: #### 2 01595 #### [place] [address] Neutrophils/100 WBC (Bld) 81.3 % High 46.0 - 76.0 [facility] Comment on above: Performed By: #### 2 90996 #### [place] [address] PLATELET 306 x10EE3/UL Normal 150 - 450 [facility] Comment on above: Performed By: #### 2 83917 #### [facility],[address],[place] [address] Platelet mean volume (Bld) [Entitic vol] 7.7 fL Normal 6.6 - 10.5 [facility] Comment on above: Result Comment: AUTO MATED DIFFERENTIAL Performed By: #### 2 21922 #### [facility],[address] [place] [address] RBC 4.44 x 10EE6/UL Normal 4.10 - 5.30 [facility] Comment on above: Performed By: #### 2 55869 #### [facility] [facility],[address] [place] [address]65 WBC 15.1 x 10EE3/UL High 4.5 - 10.8 [facility] Comment on above: Performed By: #### 2 99581 #### [facility],[address] [place] [address] 32673 CMPon 11-28-2021 Albumin Level 3.8 G/dL Normal 3.2-4.8 [facility] ([place]) Comment on above: Performed By: #### L AC, CBC, ADIFF, ANEU, PRO, CRP, CMP, GFR, ESR #### [address] [address] Albumin/Globulin [Mass ratio] 1.7 {ratio} High 0.9-1.6 [facility] ([place]) Comment on above: Performed By: #### L AC, CBC, ADIFF, ANEU, PRO, CRP, CMP, GFR, ESR #### [address] [address] ALP [Catalytic activity/Vol] 85 U/L Normal 38-126 [facility] ([place]) Comment on above: Performed By: #### L AC, CBC, ADIFF, ANEU, PRO, CRP, CMP, GFR, ESR #### [address] [address] ALT [Catalytic activity/Vol] 23 U/L Normal 10-49 [facility] ([place]) Comment on above: Performed By: #### L AC, CBC, ADIFF, ANEU, PRO, CRP, CMP, GFR, ESR #### [address] [address] AST [Catalytic activity/Vol] 21 U/L Normal 8-34 [facility] ([place]) Comment on above: Performed By: #### L AC, CBC, ADIFF, ANEU, PRO, CRP, CMP, GFR, ESR #### [address] [address] Bili Total 0.50 mg/dL Normal 0.20-1.20 [facility] ([place]) Comment on above: Result Comment: Use of this assay is not recommended for patients undergoing treatment with eltrombopag due to the potential for falsely elevated results. Performed By: #### L AC, CBC, ADIFF, ANEU, PRO, CRP, CMP, GFR, ESR #### [place] [id number] BUN/Creatinine Ratio 15.5 ratio Normal 10.0-22.0 [facility] ([place]) Comment on above: Performed By: #### L AC, CBC, ADIFF, ANEU, PRO, CRP, CMP, GFR, ESR #### [address] [address] Calcium [Mass/Vol] 9.5 mg/dL Normal 8.7-10.4 [facility] ([place]) Comment on above: Result Comment: No te - New Reference Range in effect 20 Performed By: #### L AC, CBC, ADIFF, ANEU, PRO, CRP, CMP, GFR, ESR #### [address] [address] Chloride [Moles/Vol] 111 mmol/L High 98-110 [facility] ([place]) Comment on above: Performed By: #### L AC, CBC, ADIFF, ANEU, PRO, CRP, CMP, GFR, ESR #### [address] [address] CO2 [Moles/Vol] 26 mmol/L Normal 22-32 [facility] ([place]) Comment on above: Performed By: #### L AC, CBC, ADIFF, ANEU, PRO, CRP, CMP, GFR, ESR #### [address] [address] Creatinine [Mass/Vol] 0.58 mg/dL Normal 0.50-1.20 [facility] ([place]) Comment on above: Performed By: #### L AC, CBC, ADIFF, ANEU, PRO, CRP, CMP, GFR, ESR #### [address] [address] Electrolyte Balance 4.0 mEq/L Normal 4.0-15.0 [facility] ([place]) Comment on above: Performed By: #### L AC, CBC, ADIFF, ANEU, PRO, CRP, CMP, GFR, ESR #### [place] [id number] Globulin 2.3 G/dL Normal 1.5-3.8 [facility] ([place]) Comment on above: Performed By: #### L AC, CBC, ADIFF, ANEU, PRO, CRP, CMP, GFR, ESR #### [place] [id number] Glucose [Mass/Vol] 89 mg/dL Normal 70-110 [facility] ([place]) Comment on above: Performed By: #### L AC, CBC, ADIFF, ANEU, PRO, CRP, CMP, GFR, ESR #### [place] [id number] Potassium [Moles/Vol] 4.0 mmol/L Normal 3.5-5.0 [facility] ([place]) Comment on above: Performed By: #### L AC, CBC, ADIFF, ANEU, PRO, CRP, CMP, GFR, ESR #### [place] [id number] Sodium [Moles/Vol] 141 mmol/L Normal 136-145 [facility] ([place]) Comment on above: Performed By: #### L AC, CBC, ADIFF, ANEU, PRO, CRP, CMP, GFR, ESR #### [place] [id number] Total Protein 6.1 G/dL Normal 5.7-8.2 [facility] ([place]) Comment on above: Result Comment: No te - New Reference Range in effect 20 Performed By: #### L AC, CBC, ADIFF, ANEU, PRO, CRP, CMP, GFR, ESR #### [address] [address] Urea nitrogen [Mass/Vol] 9.0 mg/dL Normal 8.0-22.0 [facility] ([place]) Comment on above: Performed By: #### L AC, CBC, ADIFF, ANEU, PRO, CRP, CMP, GFR, ESR #### [address] [address] CMP with eGFRon 11-28-2021 AGE 51 years Normal [facility] Comment on above: Performed By: #### 2 97874 #### [facility],[address] [place] [address] Albumin [Mass/Vol] 4.1 g/dL Normal 3.4 - 5.0 [facility] Comment on above: Performed By: #### 2 01736 #### [facility],[address] [place] [address] Albumin/Globulin [Mass ratio] 1.5 {ratio} Normal 0.9 - 1.6 [facility] Comment on above: Performed By: #### 2 13991 #### [facility],[address] [place] [address] ALK PHOS 79 U/L Normal 46 - 116 [facility] Comment on above: Performed By: #### 2 83214 #### [facility],[address] [place] [address] ALT [Catalytic activity/Vol] 35 U/L Normal 14 - 59 [facility] Comment on above: Performed By: #### 2 55827 #### [facility],[address] [place] [address] Anion gap [Moles/Vol] 17 mmol/L Normal 10 - 20 [facility] Comment on above: Performed By: #### 2 93605 #### [facility],[address] [place] [address]397 AST [Catalytic activity/Vol] 26 U/L Normal 13 - 39 [facility] Comment on above: Performed By: #### 2 05402 #### [facility],[address] [place], [place] [id number] B/C RATIO 22 ratio Normal 0 - 30 [facility] Comment on above: Performed By: #### 2 73502 #### [facility],[address] [place] [address] Bilirubin [Mass/Vol] 0.2 mg/dL Normal 0.2 - 1.0 [facility] Comment on above: Performed By: #### 2 90021 #### [facility],[address] [place] [address] Calcium [Mass/Vol] 8.9 mg/dL Normal 8.5 - 10.1 [facility] Comment on above: Performed By: #### 2 20489 #### [facility],[address] [place], [place] [address] Chloride [Moles/Vol] 102 mmol/L Normal 98 - 107 [facility] Comment on above: Performed By: #### 2 48050 #### [facility],[address] [place] [address] CMP with eGFR Normal [facility] Comment on above: Result Comment: COMP REHENSIVE METABOLIC PANEL Performed By: #### 2 73942 #### [facility],[address] [place], [place] [address] CO2 [Moles/Vol] 23.7 mmol/L Normal 21.0 - 32.0 [facility] Comment on above: Performed By: #### 2 48907 #### [facility],[address] [place] [address] Creatinine [Mass/Vol] 0.58 mg/dL Normal 0.55 - 1.02 [facility] Comment on above: Performed By: #### 2 58395 #### [facility],[address] [place] [address] GFR/1.73 sq M.predicted among non-blacks MDRD (S/P/Bld) [Vol rate/Area] mL/min/{1.73_m2} Normal 60 - 999 [facility] Comment on above: Performed By: #### 2 76782 #### [facility],[address] [place] [address] Result Comment: ACCO RDING TO THE NATIONAL KIDNEY DISEASE EDUCATION PROGRAM(NKDE), A NORMAL eGFR IS A VALUE GREATER THAN OR EQUAL TO 60 ML/MIN/1.73 SQ METERS. CHRONIC KIDNEY DISEASE: <60mL/MIN/1.73 SQ METERS KIDNEY FAILURE: <15mL/MIN/1.73 SQ METERS THIS TEST SHOULD ONLY BE USED FOR PATIENTS 18 YEARS OF AGE AND OLDER. Globulin (S) [Mass/Vol] 2.8 g/dL Normal 1.5 - 3.8 [facility] Comment on above: Performed By: #### 2 02033 #### [facility],[address] [place] [address] Glucose [Mass/Vol] 112 mg/dL High 74 - 106 [facility] Comment on above: Performed By: #### 2 07632 #### [facility],[address] [place] [address] Potassium [Moles/Vol] 3.8 mmol/L Normal 3.5 - 5.1 [facility] Comment on above: Performed By: #### 2 52583 #### [facility],[address] [place] [address] Protein [Mass/Vol] 6.9 g/dL Normal 6.4 - 8.2 [facility] Comment on above: Performed By: #### 2 67932 #### [facility],[address] [place] [address] Sodium [Moles/Vol] 139 mmol/L Normal 136 - 145 [facility] Comment on above: Performed By: #### 2 50818 #### [place] [address],[place] [address] Urea nitrogen [Mass/Vol] 13 mg/dL Normal 7 - 18 [facility] Comment on above: Performed By: #### 2 79957 #### [facility],[address] [place] [address] CORONAVIRUS (SARS) ANTIGEN T ESTon 11-28-2021 EXTERNAL QC DONE? YES Normal [facility] Comment on above: Performed By: #### 2 69855 #### [facility],[address] [place] [address] INTERNAL CONTROL PASS Normal [facility] Comment on above: Performed By: #### 2 05514 #### [facility],[address] [place], [place] [phone] SARS ANTIGEN Negative Normal NORMAL: NEGATIVE [facility] Comment on above: Performed By: #### 2 90853 #### [facility],[address] [place], [place] [phone] SEND TO ? NO Normal [facility] Comment on above: Result Comment: SARS -CoV-2 THIS TEST IS BEING USED UNDER THE FDA EUA PROCEDURE. THIS ASSAY HAS BEEN VALIDATED AT [facility] FOR USE WITH NASAL AND NASOPHARYNGEAL SWAB SPECIMENS. INTERPRETIVE DATA TEST RESULTS SHOULD ALWAYS BE CONSIDERED IN THE CONTEXT OF CLINICAL OBSERVATIONS AND EPIDEMIOLOGICAL DATA IN MAKING FINAL DIAGNOSIS AND PATIENT MANAGEMENT DECISIONS. PATIENT MANAGEMENT SHOULD FOLLOW CURRENT CDC GUIDELINES. THE COLLINS SARS ANTIGEN YOSSI DOES NOT DIFFERENTIATE BETWEEN SARS-CoV & SARS-CoV-2. A POSITIVE TEST RESULT INDICATES THE PRESENCE OF SARS-CoV-2 NUCLEOCAPSID PROTEIN ANTIGEN, AND THE PATIENT IS INFECTED WITH THE VIRUS AND PRESUMED TO BE CONTAGIOUS. A NEGATIVE TEST RESULT FOR THIS TEST MEANS THAT SARS-CoV-2 NUCLEOCAPSID PROTEIN ANTIGEN WAS NOT PRESENT IN THE SPECIMEN ABOVE THE LIMIT OF DETECTION. HOWEVER, A NEGATIVE RESULT DOES NOT RULE OUT COVID-19 AND SHOULD NOT BE USED THE SOLE BASIS FOR TREATMENT OR PATIENT MANAGEMENT DECISIONS. A NEGATIVE RESULT DOES NOT EXCLUDE THE POSSIBILITY OF COVID-19. NEGATIVE RESULTS, FROM PATIENTS WITH SYMPTOM ONSET BEYOND FIVE DAYS, SHOULD BE TREATED PRESUMPTIVE AND CONFIRMATION WITH A MOLECULAR ASSAY, IF NECESSARY, FOR PATIENT MANAGEMENT, MAY BE PERFORMED. WHEN DIAGNOSTIC TESTING IS NEGATIVE, THE POSSIBLILTY OF A FALSE NEGATIVE RESULT SHOULD BE CONSIDERED IN THE CONTEXT OF A PATIENT'S RECENT EXPOSURES AND THE PRESENCE OF CLINICAL SIGNS AND SYMPTOMS CONSISTENT WITH COVID-19. THE POSSIBILITY OF A FALSE NEGATIVE RESULT SHOULD ESPECIALLY BE CONSIDERED IF THE PATIENT'S RECENT EXPOSURES OR CLINICAL PRESENTATION INDICATE THAT COVID-19 IS LIKELY, AND DIAGNOSTIC TESTS FOR OTHER CAUSES OF ILLNESS (e.g., OTHER RESPIRATORY ILLNESS) ARE NEGATIVE. IF COVID-19 IS STILL SUSPECTED BASED ON EXPOSURE HISTORY TOGETHER WITH OTHER CLINICAL FINDINGS, RE-TESTING SHOULD BE CONSIDERED BY HEALTHCARE PROVIDERS IN CONSULTATION WITH PUBLIC HEALTH AUTHORITIES. Performed By: #### 2 65720 #### [facility],[address] [place], [place] [address] CRPon 11-28-2021 C-Reactive Protein 2.1 mg/dL High 0.0-1.0 [facility] ([place]) Comment on above: Result Comment: No te - New Reference Range in effect 20 Performed By: #### L AC, CBC, ADIFF, ANEU, PRO, CRP, CMP, GFR, ESR #### [place] [address] ESRon 11-28-2021 Erythrocyte Sed Rate 7 mm/hr Normal 0-20 [facility] ([place]) Comment on above: Performed By: #### L AC, CBC, ADIFF, ANEU, PRO, CRP, CMP, GFR, ESR #### [place] [address] LABORATORYOrdered By: SYSTEM SYSTEM on 11-28-2021 Albumin BCP dye [Mass/Vol] 3.8 G/dL Invalid Interpretation Code 3.2 - 4.8 G/dL ADM SS Albumin/Globulin [Mass ratio] 1.7 {ratio} Invalid Interpretation Code 0.9 - 1.6 ratio AH ADM SS ALP [Catalytic activity/Vol] 85 U/L Invalid Interpretation Code 38 - 126 U/L AH ADM SS ALT No additional P-5'-P [Catalytic activity/Vol] 23 U/L Invalid Interpretation Code 10 - 49 U/L AH ADM SS AST [Catalytic activity/Vol] 21 U/L Invalid Interpretation Code 8 - 34 U/L AH ADM SS Basophils (Bld) [#/Vol] 0.00 103/mcL Invalid Interpretation Code 0.00 - 0.27 10^3/mcL AH Remisol SS Basophils/100 WBC (Bld) 0.2 % Invalid Interpretation Code 0.0 - 2.5 % AH Remisol SS Bilirubin [Mass/Vol] 0.50 mg/dL Invalid Interpretation Code 0.20 - 1.20 mg/dL AH ADM SS Calcium [Mass/Vol] 9.5 mg/dL Invalid Interpretation Code 8.7 - 10.4 mg/dL AH ADM SS Chloride [Moles/Vol] 111 mmol/L Invalid Interpretation Code 98 - 110 mEq/L ADM SS CO2 [Moles/Vol] 26 mmol/L Invalid Interpretation Code 22 - 32 mEq/L AH ADM SS Creatinine [Mass/Vol] 0.58 mg/dL Invalid Interpretation Code 0.50 - 1.20 mg/dL AH ADM SS CRP [Mass/Vol] 2.1 mg/dL Invalid Interpretation Code 0.0 - 1.0 mg/dL AH ADM SS Electrolyte Balance 4.0 mEq/L Invalid Interpretation Code 4.0 - 15.0 mEq/L AH ADM SS Eosinophils (Bld) [#/Vol] 0.00 103/mcL Invalid Interpretation Code 0.00 - 0.65 10^3/mcL Remisol SS Eosinophils/100 WBC (Bld) 0.4 % Invalid Interpretation Code 0.0 - 6.0 % AH Remisol SS Erythrocyte distribution width (RBC) [Ratio] 12.7 % Invalid Interpretation Code 11.5 - 15.5 % AH Remisol SS GFR/1.73 sq M.predicted among blacks MDRD (S/P/Bld) [Vol rate/Area] ml/min/1.73sqm Invalid Interpretation Code Chemistry S GFR/1.73 sq M.predicted among non-blacks MDRD (S/P/Bld) [Vol rate/Area] ml/min/1.73sqm Invalid Interpretation Code Chemistry S Globulin 2.3 G/dL Invalid Interpretation Code 1.5 - 3.8 G/dL ADM SS Glucose [Mass/Vol] 89 mg/dL Invalid Interpretation Code 70 - 110 mg/dL AH ADM SS Hematocrit (Bld) [Volume fraction] 37.0 % Invalid Interpretation Code 34.0 - 46.0 % AH Remisol SS Hemoglobin (Bld) [Mass/Vol] 12.7 G/dL Invalid Interpretation Code 12.0 - 16.0 G/dL AH Remisol SS Lymphocytes (Bld) [#/Vol] 1.60 103/mcL Invalid Interpretation Code 0.90 - 4.32 10^3/mcL AH Remisol SS Lymphocytes/100 WBC (Bld) 19.9 % Invalid Interpretation Code 20.0 - 40.0 % AH Remisol SS MCH (RBC) [Entitic mass] 30.0 pg Invalid Interpretation Code 27.0 - 33.0 pg AH Remisol SS MCHC (RBC) [Mass/Vol] 34.3 G/dL Invalid Interpretation Code 32.0 - 36.0 G/dL AH Remisol SS MCV (RBC) [Entitic vol] 87.6 fL Invalid Interpretation Code 80.0 - 99.0 fL AH Remisol SS Monocytes (Bld) [#/Vol] 0.60 103/mcL Invalid Interpretation Code 0.09 - 1.40 10^3/mcL AH Remisol SS Monocytes/100 WBC (Bld) 7.7 % Invalid Interpretation Code 2.0 - 13.0 % AH Remisol SS Neutrophils (Bld) [#/Vol] 5.80 103/mcL Invalid Interpretation Code 2.25 - 8.10 10^3/mcL AH Remisol SS Neutrophils/100 WBC (Bld) 71.8 % Invalid Interpretation Code 50.0 - 75.0 % AH Remisol SS Platelet mean volume (Bld) [Entitic vol] 7.7 fL Invalid Interpretation Code 6.6 - 10.5 fL AH Remisol SS Platelets (Bld) [#/Vol] 281 103/mcL Invalid Interpretation Code 150 - 450 10^3/mcL AH Remisol SS Potassium [Moles/Vol] 4.0 mmol/L Invalid Interpretation Code 3.5 - 5.0 mEq/L AH ADM SS Protein [Mass/Vol] 6.1 G/dL Invalid Interpretation Code 5.7 - 8.2 G/dL AH ADM SS RBC (Bld) [#/Vol] 4.22 106/mcL Invalid Interpretation Code 4.10 - 5.30 10^6/mcL AH Remisol SS Sodium [Moles/Vol] 141 mmol/L Invalid Interpretation Code 136 - 145 mEq/L AH ADM SS Urea nitrogen [Mass/Vol] 9.0 mg/dL Invalid Interpretation Code 8.0 - 22.0 mg/dL AH ADM SS Urea nitrogen/Creatinine [Mass ratio] 15.5 ratio Invalid Interpretation Code 10.0 - 22.0 ratio ADM SS WBC (Bld) [#/Vol] 8.00 103/mcL Invalid Interpretation Code 4.50 - 10.80 10^3/mcL Remisol SS LABORATORYOrdered By: Vilma Fairbanks on 11-28-2021 ESR 15 minute reading (Bld) [Velocity] 7 mm/hr Invalid Interpretation Code 0 - 20 mm/hr Manual Heme SS LABORATORYOrdered By: Danie Rob on 11-28-2021 INR Coag (PPP) [Relative time] 1.0 {INR} Invalid Interpretation Code Auto Coag SS PT Coag (PPP) [Time] 11.5 s Invalid Interpretation Code 9.0 - 14.8 seconds Auto Coag SS LABORATORYOrdered By: Elsa Amin on 11-28-2021 Lactate [Moles/Vol] 1.2 mmol/L Invalid Interpretation Code 0.2 - 2.0 mmol/L Auto Chem SS LACon 11-28-2021 Lactic Acid Lvl 1.2 mmol/L Normal 0.2-2.0 [facility] ([place]) Comment on above: Performed By: #### L AC, CBC, ADIFF, ANEU, PRO, CRP, CMP, GFR, ESR #### [address] [address] PROon 11-28-2021 INR Coag (PPP) [Relative time] 1.0 {INR} Normal [facility] ([place]) Comment on above: Result Comment: The [employer] (CHEST, 1992, 102:312S-25S) recommended therapeutic range for oral anticoagulant therapy is: LOW RISK: Prophylaxis of venous thrombosis INR: 2.0-3.0 Treatment of pulmonary embolism 2.0-3.0 Prevention of systemic embolism 2.0-3.0 HIGH RISK: Mechanical prosthetic valves 2.5-3.5 Performed By: #### L AC, CBC, ADIFF, ANEU, PRO, CRP, CMP, GFR, ESR #### [address] [address] PT Coag (PPP) [Time] 11.5 s Normal 9.0-14.8 [facility] ([place]) Comment on above: Result Comment: Effe ctive 06/08/08, Protime results may be affected by some antibiotics (i.e. Ciprofloxacin, Azithromycin, Bactrim) which may potentiate the action of oral anticoagulants, with further increases in Protime/INR. Performed By: #### L AC, CBC, ADIFF, ANEU, PRO, CRP, CMP, GFR, ESR #### [facility] [address] [place] [address] TROPONIN I, HIGH SENSITIVITY on 11-28-2021 HS TROPONIN <4.0 Normal 0.0 - 51.4 [facility] Comment on above: Performed By: #### 2 50229 #### [facility],[address] [place] [address] WRIST COMPLETE LTon 11-28-19 WRIST COMPLETE LT [address] [address] Patient: KAREN CAMPOS Phone#: : 1970 Age: 51 Gender: F Pt. Type: ER Account: [id number] Location: [facility] Ordering: NICK CHANG Exam Date: 11/27/2021/21:50 Family Phys: MOHSEN Vang FAST Charge Code: [id number] Physician: Shawnee Order #: [id number] DLP Dose#: PROCEDURE: X-RAY WRIST LT COMPLETE MIN 3 VIEWS COMPARISON: None. INDICATIONS: Trauma. FINDINGS: BONES: Normal. No significant arthropathy or acute abnormality. SOFT TISSUES: Negative. No visible soft tissue swelling. EFFUSION: None visible. OTHER: Negative. CONCLUSION: No acute disease. Dictated by: Veronica Moses MD on 11/28/2021 at 8:44 Approved by: Veronica Moses MD on 11/28/2021 at 8:44 Normal [facility] XR SPINE LUMBAR AP/LATon XR SPINE LUMBAR AP/LAT ORIGINAL HISTORY: L1 compression fracture COMPARISON: CT previous day. FINDINGS: There is a brace. There are 5 lumbar type vertebral bodies counting from the last visible rib. Alignment is within normal limits. There is a mild compression fracture along the superior endplate of L1, less than 50% of the canal diameter. Disc spaces are maintained. The facet joints are unremarkable. IMPRESSION: Mild L1 compression fracture, unchanged since the previous day. Interpreted by: Jad Fernandez MD Preliminary Report By: Jad Fernandez MD Electronically signed By Jad Fernandez MD Dictated Date: 11/28/2021 10:01:29 AM Prelim Date: 11/28/2021 10:02:49 AM Sign Date: 11/28/2021 10:02:49 AM Ordering Provider: BECK [facility] ([place]) CT CHEST W/O CONTRASTon -0 CT CHEST W/O CONTRAST [place] [address] Patient: KAREN CAMPOS Phone#: : 1970 Age: 51 Gender: F Pt. Type: ER Account: [id number] Location: 2 Ordering: NICK CHANG Exam Date: 11/27/2021/21:02 Family Phys: MOHSEN PERALES Charge Code: [id number] Physician: Shawnee Order #: [id number] DLP Dose#: 6.8 mGy PROCEDURE: CT CHEST WITHOUT CONTRAST COMPARISON: None. INDICATIONS: Trauma. TECHNIQUE: CT images were created without the administration of contrast material. All CT scans at this facility use dose modulation, iterative reconstruction, and/or weight based dosing when appropriate to reduce radiation dose to as low as reasonably achievable. IV CONTRAST: No IV contrast used,0ml TOTAL DOSE: 6.8 CTDIvol(mGy) FINDINGS: LUNGS: Normal. No visible pulmonary disease. VASCULATURE: Normal. Thrombus cannot be excluded without intravenous contrast. ZARIA: Normal. No mass or adenopathy. MEDIASTINUM: Normal. No mass or adenopathy. CARDIAC: Normal. No enlargement, pericardial thickening, or significant calcification. PLEURA: Normal. No mass or effusion. AORTA: Normal. No aneurysm. CHEST WALL: Normal. No mass or axillary adenopathy. LIMITED ABDOMEN: Normal. Limited images of the upper abdomen are unremarkable. BONES: Compression at the superior endplate of L1. OTHER: Negative. CONCLUSION: 1. L1 compression fracture. 2. There is no other acute thoracic abnormality. Continued Report - Page 2 of 2 Patient: KAREN CAMPOS Phone#: : 1970 Age: 51 Gender: F Pt. Type: ER Account: [id number] Location: 052 Ordering: [facility] Exam Date: 11/27/2021/21:02 Family Phys: MOHSEN Vang FAST Charge Code: [id number] Physician: Shawnee Order #: [id number] DLP Dose#: 6.8 mGy Dictated by: Veronica Moses MD on 11/28/2021 at 9:47 Approved by: Veronica Moses MD on 11/28/2021 at 9:49 Normal [facility] CT LUMBAR W/O CONTRASTon CT LUMBAR W/O CONTRAST [place] [address] Patient: KAREN CAMPOS Phone#: : 1970 Age: 51 Gender: F Pt. Type: ER Account: [id number] Location: 052 Ordering: [facility] Exam Date: 11/27/2021/21:02 Family Phys: MOHSEN Vang FAST Charge Code: [id number] Physician: Shawnee Order #: [id number] DLP Dose#: 27.5 mGy PROCEDURE: CT LUMBAR SPINE WITHOUT CONTRAST COMPARISON: None. INDICATIONS: Trauma. TECHNIQUE: After obtaining the patient's consent, multi-planar CT images were created without intravenous contrast material. All CT scans at this facility use dose modulation, iterative reconstruction, and/or weight based dosing when appropriate to reduce radiation dose to as low as reasonably achievable. IV CONTRAST: No IV contrast used,0ml TOTAL DOSE: 27.5 CTDIvol(mGy) FINDINGS: PARASPINAL AREA: Normal with no visible mass. BONES: Compression fracture at the superior endplate and right lateral vertebral body of L1 is present. LUMBAR DISC LEVELS: L1-L2: No significant disc/facet abnormality, spinal stenosis, or foraminal stenosis. L2-L3: No significant disc/facet abnormality, spinal stenosis, or foraminal stenosis. L3-L4: No significant disc/facet abnormality, spinal stenosis, or foraminal stenosis. L4-L5: No significant disc/facet abnormality, spinal stenosis, or foraminal stenosis. L5-S1: No significant disc/facet abnormality, spinal stenosis, or foraminal stenosis. CONCLUSION: 1. Compression fracture of the superior endplate and right lateral vertebral body of L1. There is no evidence of retropulsion of fragments. Continued Report - Page 2 of 2 Patient: KAREN CAMPOS Phone#: : 1970 Age: 51 Gender: F Pt. Type: ER Account: [id number] Location: [facility] Ordering: NICK CHANG Exam Date: 11/27/2021/21:02 Family Phys: MOHSEN PERALES Charge Code: [id number] Physician: Shawnee Order #: [id number] DLP Dose#: 27.5 mGy Dictated by: Veronica Moses MD on 11/28/2021 at 9:49 Approved by: Veronica Moses MD on 11/28/2021 at 9:50 Normal [facility] C-REACT PROT HIGH SENS(hsCRP ) (24272)Ordered By: Do All Operator on 07-28-2021 CRP High sensitivity method [Mass/Vol] 1.22 mg/L Normal 0.00-3.00 [facility]; [facility] Work Phone: Comment on above: Relative Risk for Fu ture Cardiovascular Event Low <1.00 Average 1.00 - 3.00 High >3.00 PATIENT WAS FASTINGP ERFORMED BY: RIMA [employer] [id number] [facility] [id number] LIPID PANEL ([id number])Ordered B y: Do All Operator on 07-28-2021 Cholesterol [Mass/Vol] 205 mg/dL Abnormal 100-199 [facility]; [facility] Work Phone: Comment on above: ADDENDA: fu 9-10 df PATIENT WAS FASTINGP ERFORMED BY: RIMA [facility] [id number] [address] RoadDublin [place] [id number] Cholesterol in HDL [Mass/Vol] 77 mg/dL Normal [facility]; [facility] Work Phone: Comment on above: PATIENT WAS FASTINGP ERFORMED BY: RIMA [employer] [id number] [address] RoadDublin [place] [id number] Triglyceride [Mass/Vol] 83 mg/dL Normal 0-149 [facility]; [facility] Work Phone: Comment on above: PATIENT WAS FASTINGP ERFORMED BY: RIMA [facility] [id number] [address] RoadDublin [place] [id number] LIPID PANEL ([id number]) 15 mg/dL Normal 5-40 [facility]; [facility] Work Phone: Comment on above: PATIENT WAS FASTINGP ERFORMED BY: RIMA LabZeynep [id number] RoadDublin [place] [id number] LIPID PANEL (19072) 113 mg/dL Abnormal 0-99 [facility]; [facility] Work Phone: Comment on above: PATIENT WAS FASTINGP ERFORMED BY: RIMA LabCokathy Zahlti3550 [address] RoadDublin [place] [id number] LIPID PANEL (81553) 1.5 {ratio} Normal 0.0-3.2 [facility]; [facility] Work Phone: Comment on above: LDL/HDL Ratio Men Wo men 1/2 Avg.Risk 1.0 1.5 Avg.Risk 3.6 3.2 2X Avg.Risk 6.2 5.0 3X Avg.Risk 8.0 6.1 PATIENT WAS FASTINGP ERFORMED BY: RIMA [facility] Bbkoea3508 [address] RoadDublin [place] [id number] METABOLIC PANEL, COMPREHENSI VE (98758)Ordered By: Do All Operator on 07-28-2021 Albumin [Mass/Vol] 5.1 g/dL Abnormal 3.8-4.8 [facility] Internal Medicine; [facility] Work Phone: Comment on above: PATIENT WAS FASTINGP ERFORMED BY: RIMA [facility] Xkfmwf0204 [facility] [id number] Albumin/Globulin [Mass ratio] 2.4 {ratio} Abnormal 1.2-2.2 [facility]; [facility] Work Phone: Comment on above: PATIENT WAS FASTINGP ERFORMED BY: RIMA Ditto Amrjam0767 [facility] [id number] ALP [Catalytic activity/Vol] 84 U/L Normal 48-121 [facility]; [facility] Work Phone: Comment on above: Effective Septembe r 2020 Alkaline Phosphatase reference interval will be changing to: Age Male Female 0 - 5 days 47 - 127 47 - 127 6 - 10 days 29 - 242 29 - 242 11 - 20 days 109 - 357 109 - 357 21 - 30 days 94 - 494 94 - 494 1 - 2 months 149 - 539 149 - 539 3 - 6 months 131 - 452 131 - 452 7 - 11 months 117 - 401 117 - 401 12 months - 6 years 158 - 369 158 - 369 7 - 12 years 150 - 409 150 - 409 13 years 156 - 435 78 - 227 14 years 114 - 375 64 - 161 15 years 88 - 279 56 - 134 16 years 74 - 207 51 - 121 17 years 63 - 161 47 - 113 18 - 20 years 51 - 125 42 - 106 >20 years 44 - 121 44 - 121 PATIENT WAS FASTINGP ERFORMED BY: RIMA Dittokathy Tstjpg1883 [facility] [id number] ALT [Catalytic activity/Vol] 24 U/L Normal 0-32 [facility]; [facility] Work Phone: Comment on above: PATIENT WAS FASTINGP ERFORMED BY: RIMA [facility] Rofsrg4251 [facility] [id number] AST [Catalytic activity/Vol] 15 U/L Normal 0-40 [facility]; [facility] Work Phone: Comment on above: PATIENT WAS FASTINGP ERFORMED BY: RIMA [employer] Plyeaz0977 [facility] [id number] Bilirubin [Mass/Vol] mg/dL Normal 0.0-1.2 [facility]; [facility] Work Phone: Comment on above: PATIENT WAS FASTINGP ERFORMED BY: LabCo Bhlnmc7175 [address] Roadblin [place] [id number] Calcium [Mass/Vol] 9.6 mg/dL Normal 8.7-10.2 [facility] Internal Medicine; [facility] Work Phone: Comment on above: PATIENT WAS FASTINGP ERFORMED BY: LabCo Iqinbw8135 [address] [facility]in [place] [id number] Chloride [Moles/Vol] 104 mmol/L Normal 96-106 [facility]; [facility] Work Phone: Comment on above: PATIENT WAS FASTINGP ERFORMED BY: LabCo Qyzhli2817 [address] [facility] [id number] CO2 [Moles/Vol] 22 mmol/L Normal 20-29 [facility] Internal Medicine; [facility] Work Phone: Comment on above: PATIENT WAS FASTINGP ERFORMED BY: [facility] Kyjzkj6000 [address] [facility] [id number] Creatinine [Mass/Vol] 0.67 mg/dL Normal 0.57-1.00 [facility]; [facility] Work Phone: Comment on above: PATIENT WAS FASTINGP ERFORMED BY: [facility] Ecigrf7074 [address] [facility] [id number] GFR/1.73 sq M.predicted among blacks CKD-EPI (S/P/Bld) [Vol rate/Area] 119 mL/min/1.73 Normal [facility]; [facility] Work Phone: Comment on above: [facility] eGFR in compliance with the current recommendations of the National Kidney Foundation. [facility] will update reporting as new guidelines are published from the NKF-ASN Task force. PATIENT WAS FASTINGP ERFORMED BY: [facility] Qqrsmg5058 [address] Roadblin [place] [id number] GFR/1.73 sq M.predicted among non-blacks CKD-EPI (S/P/Bld) [Vol rate/Area] 104 mL/min/1.73 Normal [facility]; [facility] Work Phone: Comment on above: PATIENT WAS FASTINGP ERFORMED BY: RIMA LabCokathy Pguwfi3842 [address] RoadDublin [place] [id number] Globulin (S) [Mass/Vol] 2.1 g/dL Normal 1.5-4.5 [facility]; [facility] Work Phone: Comment on above: PATIENT WAS FASTINGP ERFORMED BY: CB [facility] Afgxas0618 [address] RoadDublin [place] [id number] Glucose [Mass/Vol] 88 mg/dL Normal 65-99 [facility]; [facility] Work Phone: Comment on above: PATIENT WAS FASTINGP ERFORMED BY: RIMA LabCokathy KimNdrkzr8426 [address] RoadDublin [place] [id number] Potassium [Moles/Vol] 4.1 mmol/L Normal 3.5-5.2 [facility]; [facility] Work Phone: Comment on above: PATIENT WAS FASTINGP ERFORMED BY: RIMA LabCo Iepfzq9747 [address] RoadDublin [place] [id number] Protein [Mass/Vol] 7.2 g/dL Normal 6.0-8.5 [facility]; [facility] Work Phone: Comment on above: PATIENT WAS FASTINGP ERFORMED BY: LabCo Wxzvht0933 [address] RoadDublin [place] [id number] Sodium [Moles/Vol] 139 mmol/L Normal 134-144 [facility]; [facility] Work Phone: Comment on above: PATIENT WAS FASTINGP ERFORMED BY: [facility] Vaxwdh2788 [address] RoadDublin [place] [id number] Urea nitrogen [Mass/Vol] 12 mg/dL Normal 6-24 [facility]; [facility] Work Phone: Comment on above: PATIENT WAS FASTINGP ERFORMED BY: CB [facility] Jxxgpy8735 [address] RoadDublin [place] [id number] Urea nitrogen/Creatinine [Mass ratio] 18 mg/mg Normal 9-23 [facility]; [facility] Work Phone: Comment on above: PATIENT WAS FASTINGP ERFORMED BY: [place] [id number] Vitamin D Hydroxy (87853)Ord ered By: Do All Operator on 07-28-2021 25-hydroxyvitamin D [Mass/Vol] 35.2 ng/mL Normal 30.0-100.0 [facility]; [facility] Work Phone: Comment on above: Vitamin D deficiency has been defined by the [place] ofMedicine and an Endocrine Society practice guideline as alevel of serum 25-OH vitamin D less than 20 ng/mL (1,2).The Endocrine Society went on to further define vitamin Dinsufficiency as a level between 21 and 29 ng/mL (2).1. IOM ([place] of Medicine). 2010. Dietary reference intakes for calcium and D. [place]: The National Academies Press.2. Blu MF, Priyanka MARTINEZ, Ho HANNA, et al. Evaluation, treatment, and prevention of vitamin D deficiency: an Endocrine Society clinical practice guideline. JCEM. 2010; 96(7):1911-30. PATIENT WAS FASTINGP ERFORMED BY: [employer]6370 ParallelsCritical access hospital [id number] CBC W/AUTO DIFF WBC (63467)O rdered By: Do All Operator on 03-15-2021 Basophils (Bld) [#/Vol] 0.0 10*3/uL Normal 0.0-0.2 [facility]; [facility] Work Phone: Comment on above: PERFORMED BY: DealHamster70 ParallelsCritical access hospital [id number] Information: NURSE DRAW Basophils/100 WBC (Bld) 1 % Normal [facility]; [facility] Work Phone: Comment on above: PERFORMED BY: Woozworld6370 ParallelsCritical access hospital [id number] Information: NURSE DRAW Eosinophils (Bld) [#/Vol] 0.1 10*3/uL Normal 0.0-0.4 [facility]; [facility] Work Phone: Comment on above: PERFORMED BY: [employer] [address] [facility] [id number] Information: NURSE DRAW Eosinophils/100 WBC (Bld) 1 % Normal [facility]; [facility] Work Phone: Comment on above: PERFORMED BY: DealHamster[address] [place] [address] [id number] Information: NURSE DRAW Erythrocyte distribution width (RBC) [Ratio] 12.1 % Normal 11.7-15.4 [facility]; [facility] Work Phone: Comment on above: PERFORMED BY: DealHamster[address] [place], [place] [address]ox [facility] [id number] Information: NURSE DRAW Hematocrit (Bld) [Volume fraction] 42.4 % Normal 34.0-46.6 [facility]; [facility] Work Phone: Comment on above: PERFORMED BY: [employer] [id number] Information: NURSE DRAW Hemoglobin (Bld) [Mass/Vol] 13.9 g/dL Normal 11.1-15.9 [facility]; [facility] Work Phone: Comment on above: PERFORMED BY: [employer] [id number] Information: NURSE DRAW Immature granulocytes (Bld) [#/Vol] 0.0 10*3/uL Normal 0.0-0.1 [facility]; [facility] Work Phone: Comment on above: PERFORMED BY: [employer] [id number] Information: NURSE DRAW Immature granulocytes/100 WBC (Bld) 0 % Normal [facility]; [facility] Work Phone: Comment on above: PERFORMED BY: [employer] [id number] Information: NURSE DRAW Lymphocytes (Bld) [#/Vol] 2.5 10*3/uL Normal 0.7-3.1 [facility]; [facility] Work Phone: Comment on above: PERFORMED BY: [employer] [address] [facility] [id number] Information: NURSE DRAW Lymphocytes/100 WBC (Bld) 39 % Normal [facility]; [facility] Work Phone: Comment on above: PERFORMED BY: DealHamster[address] [place], [place] [address]ox [facility] [id number] Information: NURSE DRAW MCH (RBC) [Entitic mass] 29.4 pg Normal 26.6-33.0 [facility]; [facility] Work Phone: Comment on above: PERFORMED BY: DealHamster70 [address] [facility] [id number] Information: NURSE DRAW MCHC (RBC) [Mass/Vol] 32.8 g/dL Normal 31.5-35.7 [facility]; [facility] Work Phone: Comment on above: PERFORMED BY: [employer] [facility] [id number] Information: NURSE DRAW MCV (RBC) [Entitic vol] 90 fL Normal 79-97 [facility]; [facility] Work Phone: Comment on above: PERFORMED BY: DealHam[employer]70 [address] [facility] [id number] Information: NURSE DRAW Monocytes (Bld) [#/Vol] 0.6 10*3/uL Normal 0.1-0.9 [facility]; [facility] Work Phone: Comment on above: PERFORMED BY: [employer]Ham[employer]70 [address] [facility] [id number] Information: NURSE DRAW Monocytes/100 WBC (Bld) 9 % Normal [facility]; [facility] Work Phone: Comment on above: PERFORMED BY: DealHamster70 [address] [facility] [id number] Information: NURSE DRAW Neutrophils (Bld) [#/Vol] 3.3 10*3/uL Normal 1.4-7.0 [facility]; [facility] Work Phone: Comment on above: PERFORMED BY: [employer] [facility] [id number] Information: NURSE DRAW Neutrophils/100 WBC (Bld) 50 % Normal [facility]; [facility] Work Phone: Comment on above: PERFORMED BY: DealHamster[address] [place] [address] [id number] Information: NURSE DRAW Platelets (Bld) [#/Vol] 306 10*3/uL Normal 150-450 [facility]; [facility] Work Phone: Comment on above: PERFORMED BY: [employer] [id number] Information: NURSE DRAW RBC (Bld) [#/Vol] 4.73 10*6/uL Normal 3.77-5.28 Compr [facility] Internal Medicine; [facility] Work Phone: Comment on above: PERFORMED BY: Sir[employer] Wirelesslin6370 [address] [facility] [id number] Information: NURSE DRAW WBC (Bld) [#/Vol] 6.5 10*3/uL Normal 3.4-10.8 [facility]; [facility] Work Phone: Comment on above: PERFORMED BY: [employer] [id number] Information: NURSE DRAW METABOLIC PANEL, COMPREHENSI VE (88889)Ordered By: Do All Operator on 03-15-2021 Albumin [Mass/Vol] 4.8 g/dL Normal 3.8-4.8 [facility]; [facility] Work Phone: Comment on above: PERFORMED BY: [employer] [id number]; fu 5-7 df Albumin/Globulin [Mass ratio] 2.3 {ratio} Abnormal 1.2-2.2 [facility]; [facility] Work Phone: Comment on above: PERFORMED BY: [facility]sm Sgtjoc9297 [address] RoadDublin [place] [id number]; fu 5-7 df ALP [Catalytic activity/Vol] 85 U/L Normal 39-117 [facility]; [facility] Work Phone: Comment on above: PERFORMED BY: [facility] Zeynep Gedbmv2917 [address] RoadDublin [place] [id number]; fu 5-7 df ALT [Catalytic activity/Vol] 20 U/L Normal 0-32 [facility]; [facility] Work Phone: Comment on above: PERFORMED BY: [facility] Worlize6370 [address] RoadDublin [place] [id number]; fu 5-7 df AST [Catalytic activity/Vol] 20 U/L Normal 0-40 [facility]; [facility] Work Phone: Comment on above: PERFORMED BY: Sirific Wirelesslin6370 [address]ro[address] RoadDublin [place] [id number]; fu 5-7 df Bilirubin [Mass/Vol] 0.2 mg/dL Normal 0.0-1.2 [facility]; [facility] Work Phone: Comment on above: PERFORMED BY: Sirific Wirelesslin6370 [address] RoadDublin [place] [id number]; fu 5-7 df Calcium [Mass/Vol] 9.8 mg/dL Normal 8.7-10.2 [facility] Internal Medicine; [facility] Work Phone: Comment on above: PERFORMED BY: [facility] [employer] Utvftl4957 [address] RoadDublin [place] [id number]; fu 5-7 df Chloride [Moles/Vol] 101 mmol/L Normal 96-106 [facility]; [facility] Work Phone: Comment on above: PERFORMED BY: [facility] Rdkngk4203 [address] RoadDublin [place] [id number]; fu 5-7 df CO2 [Moles/Vol] 23 mmol/L Normal 20-29 [facility]; [facility] Work Phone: Comment on above: PERFORMED BY: W[employer]zworld6370 [address] RoadDublin [place] [id number]; fu 5-7 df Creatinine [Mass/Vol] 0.72 mg/dL Normal 0.57-1.00 [facility]; [facility] Work Phone: Comment on above: PERFORMED BY: Woozworld6370 [address] RoadDublin [place] [id number]; fu 5-7 df GFR/1.73 sq M.predicted among blacks CKD-EPI (S/P/Bld) [Vol rate/Area] 115 mL/min/1.73 Normal [facility]; [facility] Work Phone: Comment on above: PERFORMED BY: Woozworld6370 [address] RoadXiaoi Robertblin [place] [id number]; fu 5-7 df GFR/1.73 sq M.predicted among non-blacks CKD-EPI (S/P/Bld) [Vol rate/Area] 99 mL/min/1.73 Normal [facility]; [facility] Work Phone: Comment on above: PERFORMED BY: Woozworld6370 [address] RoadXiaoi Robertblin [place] [id number]; fu 5-7 df Globulin (S) [Mass/Vol] 2.1 g/dL Normal 1.5-4.5 [facility]; [facility] Work Phone: Comment on above: PERFORMED BY: Woozworld6370 [address] RoadDublin [place] [id number]; fu 5-7 df Glucose [Mass/Vol] 93 mg/dL Normal 65-99 [facility] Internal Medicine; [facility] Work Phone: Comment on above: PERFORMED BY: Woozworld[address] PressBabyDublin [place] [id number]; fu 5-7 df Potassium [Moles/Vol] 4.5 mmol/L Normal 3.5-5.2 [facility]; [facility] Work Phone: Comment on above: PERFORMED BY: DealHamster70 [address] RoadBlue [facility] [id number]; fu 5-7 df Protein [Mass/Vol] 6.9 g/dL Normal 6.0-8.5 [facility] Internal Medicine; [facility] Work Phone: Comment on above: PERFORMED BY: [facility] Zeynep Mzpjqh2298 [address] RoadDublin [place] [id number]; fu 5-7 df Sodium [Moles/Vol] 140 mmol/L Normal 134-144 [facility] Internal Medicine; [facility] Work Phone: Comment on above: PERFORMED BY: [facility] Zeynep Dpjscz4913 [address] RoadXiaoi Robertblin [place] [id number]; fu 5-7 df Urea nitrogen [Mass/Vol] 13 mg/dL Normal 6-24 [facility]; [facility] Work Phone: Comment on above: PERFORMED BY: [facility] Zeynep Ndfnka4126 [address] RoadXiaoi Robertblin [place] [id number]; fu 5-7 df Urea nitrogen/Creatinine [Mass ratio] 18 mg/mg Normal 9-23 [facility]; [facility] Work Phone: Comment on above: PERFORMED BY: [facility] Zeynep Iwltxw65[address] Adept [place]in [place] [id number]; fu 5-7 df MAGNESIUM (08341)Ordered By: Do All Operator on 12-12-2020 Magnesium [Mass/Vol] 2.4 mg/dL Abnormal 1.6-2.3 [facility]; [facility] Work Phone: Comment on above: Test(s) 230581-ZQQB- CoV-2 Antibody, IgGhas not been FDA cleared or approved. This test hasbeen authorized by FDA under an Emergency Use Authorization(EUA). This test is only authorized for the duration of thedeclaration that circumstances exist justifying the authorizationof emergency use of in vitro diagnostics for detection and/ordiagnosis of COVID-19 under Section 564(b)(1) of the Act, 21U.S.C. 360bbb-3(b)(1), unless the authorization is terminated orrevoked sooner. This test has been authorized only for detectingthe presence of antibodies against SARS-CoV-2, not for any otherviruses or pathogens.PATIENT NOT FASTINGPERFORMED BY: RIMA [facility] Zwhyqg5950 [facility] [id number] SARS-CoV-2 Antibody, IgGOrde red By: Do All Operator on 12-12-2020 SARS-CoV-2 Antibody, IgG Positive Abnormal [facility]; [facility] Work Phone: Comment on above: Results suggest rece nt or prior infection with SARS-CoV-2. Correlationwith epidemiologic risk factors and other clinical and laboratoryfindings is recommended. Serologic results should not be used as thesole basis to diagnose or exclude recent SARS-CoV-2 infection. Falsepositive results infrequently occur due to prior infection with otherhuman Coronaviruses.This assay was performed using the [employer] Liaison(R)SARS-CoV-2 S1/S2 IgG assay. Test(s) 875497-BDIA- CoV-2 Antibody, IgGhas not been FDA cleared or approved. This test hasbeen authorized by FDA under an Emergency Use Authorization(EUA). This test is only authorized for the duration of thedeclaration that circumstances exist justifying the authorizationof emergency use of in vitro diagnostics for detection and/ordiagnosis of COVID-19 under Section 564(b)(1) of the Act, 21U.S.C. 360bbb-3(b)(1), unless the authorization is terminated orrevoked sooner. This test has been authorized only for detectingthe presence of antibodies against SARS-CoV-2, not for any otherviruses or pathogens.PATIENT NOT FASTINGPERFORMED BY: [facility] Emzjoj3735 [facility] [id number] SARS-CoV-2 Antibody, IgG Positive Abnormal [facility]; [facility] Work Phone: Comment on above: Results suggest rece nt or prior infection with SARS-CoV-2. Correlationwith epidemiologic risk factors and other clinical and laboratoryfindings is recommended. Serologic results should not be used as thesole basis to diagnose or exclude recent SARS-CoV-2 infection. Falsepositive results infrequently occur due to prior infection with otherhuman Coronaviruses.This assay was performed using the [employer] Liaison(R)SARS-CoV-2 S1/S2 IgG assay. Test(s) 964544-BNCD- CoV-2 Antibody, IgGhas not been FDA cleared or approved. This test hasbeen authorized by FDA under an Emergency Use Authorization(EUA). This test is only authorized for the duration of thedeclaration that circumstances exist justifying the authorizationof emergency use of in vitro diagnostics for detection and/ordiagnosis of COVID-19 under Section 564(b)(1) of the Act, 21U.S.C. 360bbb-3(b)(1), unless the authorization is terminated orrevoked sooner. This test has been authorized only for detectingthe presence of antibodies against SARS-CoV-2, not for any otherviruses or pathogens.PATIENT NOT FASTINGPERFORMED BY: [employer] Fytnlr1811 TenorioSynthaceBlue Ridge Regional Hospital [id number] TSH (65857)Ordered By: Head[employer] Operator Helper on 12-12-2020 TSH Qn 2.160 {uIU/mL} Normal 0.450-4.50 0 [facility]; [facility] Work Phone: Comment on above: Test(s) 489221-IICL- CoV-2 Antibody, IgGhas not been FDA cleared or approved. This test hasbeen authorized by FDA under an Emergency Use Authorization(EUA). This test is only authorized for the duration of thedeclaration that circumstances exist justifying the authorizationof emergency use of in vitro diagnostics for detection and/ordiagnosis of COVID-19 under Section 564(b)(1) of the Act, 21U.S.C. 360bbb-3(b)(1), unless the authorization is terminated orrevoked sooner. This test has been authorized only for detectingthe presence of antibodies against SARS-CoV-2, not for any otherviruses or pathogens.PATIENT NOT FASTINGPERFORMED BY: DittoRehoboth McKinley Christian Health Care ServicesUbartg1817 [address] [facility] [id number] CALCIFEDIOL (08342)Ordered B y: Do All Operator on 12-05-2020 25-Hydroxyvitamin D2+25-Hydroxyvitami n D3 [Mass/Vol] 53.0 ng/mL Normal 30.0-100.0 [facility]; [facility] Work Phone: Comment on above: Vitamin D deficiency has been defined by the [place] ofMedicine and an Endocrine Society practice guideline as alevel of serum 25-OH vitamin D less than 20 ng/mL (1,2).The Endocrine Society went on to further define vitamin Dinsufficiency as a level between 21 and 29 ng/mL (2).1. IOM ([place] of Medicine). 2010. Dietary reference intakes for calcium and D. [place]: The National Academies Press.2. Blu MF, Priyanka MARTINEZ, Ho HANNA, et al. Evaluation, treatment, and prevention of vitamin D deficiency: an Endocrine Society clinical practice guideline. JCEM. 2010; 96(7):1911-30. PATIENT WAS FASTINGP ERFORMED BY: [employer]6370 Musical SneakersDublin [place] [id number] CBC, PLATELETS & MANUAL DIFF (64573)Ordered By: Do All Operator on 12-05-2020 Basophils (Bld) [#/Vol] 0.0 {x10E3/uL} Normal 0.0-0.2 [facility]; [facility] Work Phone: Comment on above: PATIENT WAS FASTINGP ERFORMED BY: [place] LabWorlize6370 Parallelsblin [place] [id number] Basophils (Bld) [#/Vol] 0.0 10*3/uL Normal 0.0-0.2 [facility]; [facility] Work Phone: Comment on above: PATIENT WAS FASTINGP ERFORMED BY: [facility] Pmjlre2993 [address] PressBabyDublin [place] [id number] Basophils/100 WBC (Bld) 1 % Normal [facility]; [facility] Work Phone: Comment on above: PATIENT WAS FASTINGP ERFORMED BY: [place] LabPrysm Rcedei1743 [address] PressBabyDublin [place] [id number] Eosinophils (Bld) [#/Vol] 0.1 {x10E3/uL} Normal 0.0-0.4 [facility]; [facility] Work Phone: Comment on above: PATIENT WAS FASTINGP ERFORMED BY: [facility] Jngktt9121 [address] [facility]in [place] [id number] Eosinophils (Bld) [#/Vol] 0.1 10*3/uL Normal 0.0-0.4 [facility]; [facility] Work Phone: Comment on above: PATIENT WAS FASTINGP ERFORMED BY: [facility]6370 [address] [facility]in [place] [id number] Eosinophils/100 WBC (Bld) 2 % Normal [facility]; [facility] Work Phone: Comment on above: PATIENT WAS FASTINGP ERFORMED BY: [facility]6370 [address] [facility] [id number] Erythrocyte distribution width (RBC) [Ratio] 11.9 % Normal 11.7-15.4 [facility]; [facility] Work Phone: Comment on above: PATIENT WAS FASTINGP ERFORMED BY: [place] 145[address] [facility] [id number] Hematocrit (Bld) [Volume fraction] 39.9 % Normal 34.0-46.6 [facility]; [facility] Work Phone: Comment on above: PATIENT WAS FASTINGP ERFORMED BY: [facility]6370 [facility] [id number] Hemoglobin (Bld) [Mass/Vol] 13.7 g/dL Normal 11.1-15.9 [facility]; [facility] Work Phone: Comment on above: PATIENT WAS FASTINGP ERFORMED BY: [facility]6[address] [facility] [id number] Immature granulocytes (Bld) [#/Vol] 0.0 {x10E3/uL} Normal 0.0-0.1 [facility]; [facility] Work Phone: Comment on above: PATIENT WAS FASTINGP ERFORMED BY: LabCo Rgsdxm3182 [address] [facility] [place] [id number] Immature granulocytes (Bld) [#/Vol] 0.0 10*3/uL Normal 0.0-0.1 [facility]; [facility] Work Phone: Comment on above: PATIENT WAS FASTINGP ERFORMED BY: RIMA lAlen6370 [address] [facility]in [place] [id number] Immature granulocytes/100 WBC (Bld) 0 % Normal [facility]; [facility] Work Phone: Comment on above: PATIENT WAS FASTINGP ERFORMED BY: Katalina Aijwtk0196 [address] [facility] [place] [id number] Lymphocytes (Bld) [#/Vol] 2.4 {x10E3/uL} Normal 0.7-3.1 [facility]; [facility] Work Phone: Comment on above: PATIENT WAS FASTINGP ERFORMED BY: Katalina Jppada5143 [address] [facility] [place] [id number] Lymphocytes (Bld) [#/Vol] 2.4 10*3/uL Normal 0.7-3.1 [facility]; [facility] Work Phone: Comment on above: PATIENT WAS FASTINGP ERFORMED BY: [facility] Srbbpr4391 [address] [facility] [place] [id number] Lymphocytes/100 WBC (Bld) 41 % Normal [facility]; [facility] Work Phone: Comment on above: PATIENT WAS FASTINGP ERFORMED BY: [facility] Lbzkin7007 [facility] [id number] MCH (RBC) [Entitic mass] 30.0 pg Normal 26.6-33.0 [facility]; [facility] Work Phone: Comment on above: PATIENT WAS FASTINGP ERFORMED BY: [facility]6370 [address] [facility] [place] [id number] MCHC (RBC) [Mass/Vol] 34.3 g/dL Normal 31.5-35.7 [facility]; [facility] Work Phone: Comment on above: PATIENT WAS FASTINGP ERFORMED BY: [facility] Dpvake0397 [address] [facility] [place] [id number] MCV (RBC) [Entitic vol] 88 fL Normal 79-97 [facility]; [facility] Work Phone: Comment on above: PATIENT WAS FASTINGP ERFORMED BY: RIMA LabCokathy AllenGfzuba2105 [address] RoadDublin [place] [id number] Monocytes (Bld) [#/Vol] 0.5 {x10E3/uL} Normal 0.1-0.9 [facility]; [facility] Work Phone: Comment on above: PATIENT WAS FASTINGP ERFORMED BY: RIMA [facility] Vtowfc8228 [address] RoadDublin [place] [id number] Monocytes (Bld) [#/Vol] 0.5 10*3/uL Normal 0.1-0.9 [facility]; [facility] Work Phone: Comment on above: PATIENT WAS FASTINGP ERFORMED BY: RIMA LabNurykathy KimSinsoq9573 [address] RoadDublin [place] [id number] Monocytes/100 WBC (Bld) 9 % Normal [facility]; [facility] Work Phone: Comment on above: PATIENT WAS FASTINGP ERFORMED BY: RIMA [facility] Ztzjbc3267 [address] RoadDublin [place] [id number] Neutrophils (Bld) [#/Vol] 2.8 {x10E3/uL} Normal 1.4-7.0 [facility]; [facility] Work Phone: Comment on above: PATIENT WAS FASTINGP ERFORMED BY: RIMA LabNury Clnkmx8629 [address] Roadblin [place] [id number] Neutrophils (Bld) [#/Vol] 2.8 10*3/uL Normal 1.4-7.0 [facility]; [facility] Work Phone: Comment on above: PATIENT WAS FASTINGP ERFORMED BY: CB [facility] Prdqto4039 [address] RoadDublin [place] [id number] Neutrophils/100 WBC (Bld) 47 % Normal [facility]; [facility] Work Phone: Comment on above: PATIENT WAS FASTINGP ERFORMED BY: RIMA [facility] Muitvl3817 [address] RoadDublin [place] [id number] Platelets (Bld) [#/Vol] 307 {x10E3/uL} Normal 150-450 [facility]; [facility] Work Phone: Comment on above: PATIENT WAS FASTINGP ERFORMED BY: CB [facility] Aiydul0034 [address] RoadDublin [place] [id number] Platelets (Bld) [#/Vol] 307 10*3/uL Normal 150-450 [facility]; [facility] Work Phone: Comment on above: PATIENT WAS FASTINGP ERFORMED BY: CB [facility] Xedezk9860 [address] RoadDublin [place] [id number] RBC (Bld) [#/Vol] 4.56 {x10E6/uL} Normal 3.77-5.28 [facility]; [facility] Work Phone: Comment on above: PATIENT WAS FASTINGP ERFORMED BY: CB [facility] Kkvjmi6816 [address] RoadDublin [place] [id number] RBC (Bld) [#/Vol] 4.56 10*6/uL Normal 3.77-5.28 [facility]; [facility] Work Phone: Comment on above: PATIENT WAS FASTINGP ERFORMED BY: CB [facility] Sxnckn9063 [address] RoadDublin [place] [id number] WBC (Bld) [#/Vol] 5.8 {x10E3/uL} Normal 3.4-10.8 [facility]; [facility] Work Phone: Comment on above: PATIENT WAS FASTINGP ERFORMED BY: CB [facility] Bvjtaa2647 [address] RoadDublin [place] [id number] WBC (Bld) [#/Vol] 5.8 10*3/uL Normal 3.4-10.8 [facility] Internal Medicine; [facility] Work Phone: Comment on above: PATIENT WAS FASTINGP ERFORMED BY: CB [facility] Zfradp3150 [address] RoadDublin [place] [id number] LIPID PANEL (80360)Ordered B y: Do All Operator on 12-05-2020 Cholesterol [Mass/Vol] 253 mg/dL Abnormal 100-199 [facility]; [facility] Work Phone: Comment on above: PATIENT WAS FASTINGP ERFORMED BY: RIMA Allen6370 [address] RoadDublin [place] [id number]; appt 12/12 Cholesterol in HDL [Mass/Vol] 78 mg/dL Normal [facility]; [facility] Work Phone: Comment on above: PATIENT WAS FASTINGP ERFORMED BY: CB [facility] Qcvowk0888 [address] RoadDublin [place] [id number]; appt 12/12 Cholesterol in LDL/Cholesterol in HDL [Mass ratio] 2.1 {ratio} Normal 0.0-3.2 [facility]; [facility] Work Phone: Comment on above: LDL/HDL Ratio Men Wo men 1/2 Avg.Risk 1.0 1.5 Avg.Risk 3.6 3.2 2X Avg.Risk 6.2 5.0 3X Avg.Risk 8.0 6.1 PATIENT WAS FASTINGP ERFORMED BY: RIMA [facility] Baafvx4206 [address] Roadblin [place] [id number]; appt 12/12 Triglyceride [Mass/Vol] 72 mg/dL Normal 0-149 [facility]; [facility] Work Phone: Comment on above: PATIENT WAS FASTINGP ERFORMED BY: RIMA [facility] Axnbew6945 [address] RoadDublin [place] [id number]; appt 12/12 LIPID PANEL (61869) 163 mg/dL Abnormal 0-99 Compr ehensive Internal Medicine; [facility] Work Phone: Comment on above: PATIENT WAS FASTINGP ERFORMED BY: CB [facility] Psxdfi4351 [address] RoadDublin [place] [id number]; appt 12/12 LIPID PANEL (67077) 12 mg/dL Normal 5-40 Compr ehensive Internal Medicine; [facility] Work Phone: Comment on above: PATIENT WAS FASTINGP ERFORMED BY: CB [facility] Wtbjnu8787 [address] RoadDublin [place] [id number]; appt 12/12 LIPID PANEL (26343) 2.1 {ratio} Normal 0.0-3.2 [facility]; [facility] Work Phone: Comment on above: LDL/HDL Ratio Men Wo men 1/2 Avg.Risk 1.0 1.5 Avg.Risk 3.6 3.2 2X Avg.Risk 6.2 5.0 3X Avg.Risk 8.0 6.1 PATIENT WAS FASTINGP ERFORMED BY: [facility]6370 [facility] [id number]; appt 12/12 METABOLIC PANEL, COMPREHENSI VE (86364)Ordered By: Do All Operator on 12-05-2020 Albumin [Mass/Vol] 4.6 g/dL Normal 3.8-4.8 [facility] Internal Medicine; [facility] Work Phone: Comment on above: PATIENT WAS FASTINGP ERFORMED BY: [facility]6370 [facility] [id number] Albumin/Globulin [Mass ratio] 2.0 {ratio} Normal 1.2-2.2 [facility]; [facility] Work Phone: Comment on above: PATIENT WAS FASTINGP ERFORMED BY: [facility]6370 [facility] [id number] ALP [Catalytic activity/Vol] 97 [iU]/L Normal 39-117 [facility]; [facility] Work Phone: Comment on above: PATIENT WAS FASTINGP ERFORMED BY: [facility]6370 [facility] [id number] ALP [Catalytic activity/Vol] 97 U/L Normal 39-117 [facility]; [facility] Work Phone: Comment on above: PATIENT WAS FASTINGP ERFORMED BY: [facility]6370 [facility] [id number] ALT [Catalytic activity/Vol] 23 [iU]/L Normal 0-32 [facility]; [facility] Work Phone: Comment on above: PATIENT WAS FASTINGP ERFORMED BY: RIMA [facility] Sscwzw5173 [address] RoadDublin [place] [id number] ALT [Catalytic activity/Vol] 23 U/L Normal 0-32 [facility]; [facility] Work Phone: Comment on above: PATIENT WAS FASTINGP ERFORMED BY: RIMA [facility] Idsmsl1125 [address] RoadDublin [place] [id number] AST [Catalytic activity/Vol] 19 [iU]/L Normal 0-40 [facility]; [facility] Work Phone: Comment on above: PATIENT WAS FASTINGP ERFORMED BY: RIMA [facility] Iyhmbg9539 [address] RoadDublin [place] [id number] AST [Catalytic activity/Vol] 19 U/L Normal 0-40 [facility]; [facility] Work Phone: Comment on above: PATIENT WAS FASTINGP ERFORMED BY: RIMA Lab[facility] Ilhvqe8509 [address] RoadDublin [place] [id number] Bilirubin [Mass/Vol] 0.3 mg/dL Normal 0.0-1.2 [facility]; [facility] Work Phone: Comment on above: PATIENT WAS FASTINGP ERFORMED BY: RIMA [facility] Aurxja8635 [address] RoadDublin [place] [id number] Calcium [Mass/Vol] 9.6 mg/dL Normal 8.7-10.2 [facility] Internal Medicine; [facility] Work Phone: Comment on above: PATIENT WAS FASTINGP ERFORMED BY: [facility] Mbmsvo0922 [address] RoadDublin [place] [id number] Chloride [Moles/Vol] 103 mmol/L Normal 96-106 [facility]; [facility] Work Phone: Comment on above: PATIENT WAS FASTINGP ERFORMED BY: RIMA [facility] Jiimjo2457 [address] RoadDublin [place] [id number] CO2 [Moles/Vol] 23 mmol/L Normal 20-29 [facility] Internal Medicine; [facility] Work Phone: Comment on above: PATIENT WAS FASTINGP ERFORMED BY: RIMA [facility] Llrwpy1764 [address] RoadDublin [place] [id number] Creatinine [Mass/Vol] 0.74 mg/dL Normal 0.57-1.00 [facility]; [facility] Work Phone: Comment on above: PATIENT WAS FASTINGP ERFORMED BY: CB [facility] Wviqjh1938 [address] RoadDublin [place] [id number] GFR/1.73 sq M predicted among blacks CKD-EPI (S/P/Bld) [Vol rate/Area] 111 mL/min/1.73 Normal [facility]; [facility] Work Phone: Comment on above: PATIENT WAS FASTINGP ERFORMED BY: [facility] Gdmncx4338 [address] RoadDublin [place] [id number] GFR/1.73 sq M predicted among non-blacks CKD-EPI (S/P/Bld) [Vol rate/Area] 96 mL/min/1.73 Normal [facility]; [facility] Work Phone: Comment on above: PATIENT WAS FASTINGP ERFORMED BY: [facility] Bgmdgh0145 [address] RoadDublin [place] [id number] Globulin (S) [Mass/Vol] 2.3 g/dL Normal 1.5-4.5 [facility]; [facility] Work Phone: Comment on above: PATIENT WAS FASTINGP ERFORMED BY: [facility] Sgupac1977 [address] RoadDublin [place] [id number] Glucose [Mass/Vol] 93 mg/dL Normal 65-99 [facility] Internal Medicine; [facility] Work Phone: Comment on above: PATIENT WAS FASTINGP ERFORMED BY: [facility] Gljluy7029 [address] RoadDublin [place] [id number] Potassium [Moles/Vol] 4.7 mmol/L Normal 3.5-5.2 [facility]; [facility] Work Phone: Comment on above: PATIENT WAS FASTINGP ERFORMED BY: CB [facility] Dqaxrb5466 [address] RoadDublin [place] [id number] Protein [Mass/Vol] 6.9 g/dL Normal 6.0-8.5 [facility] ansonive Internal Medicine; [facility] Work Phone: Comment on above: PATIENT WAS FASTINGP ERFORMED BY: [facility]6[address] [facility]in [place] [id number] Sodium [Moles/Vol] 141 mmol/L Normal 134-144 [facility]; [facility] Work Phone: Comment on above: PATIENT WAS FASTINGP ERFORMED BY: [facility]6[address] [facility] [id number] Urea nitrogen [Mass/Vol] 10 mg/dL Normal 6-24 [facility]; [facility] Work Phone: Comment on above: PATIENT WAS FASTINGP ERFORMED BY: [facility] [facility] [id number] Urea nitrogen/Creatinine [Mass ratio] 14 mg/mg Normal 9-23 [facility]; [facility] Work Phone: Comment on above: PATIENT WAS FASTINGP ERFORMED BY: [facility]6[address] [facility] [id number] 2019 Novel Coronavirus (COVI D-19), MARY ([id number])Ordered By: Do All Operator on 10-05-2020 2019 Novel Coronavirus (COVID-19), MARY ([id number]) Detected Abnormal [facility] Work Phone: Comment on above: Client Requested [facility] nucleic acid amplification test was developed and its performancecharacteristics determined by [employer]. Nucleic acidamplification tests include PCR and TMA. This test has not been FDAcleared or approved. This test has been authorized by FDA under anEmergency Use Authorization (EUA). This test is only authorized forthe duration of time the declaration that circumstances existjustifying the authorization of the emergency use of in vitrodiagnostic tests for detection of SARS-CoV-2 virus and/or diagnosisof COVID-19 infection under section 564(b)(1) of the Act, 21 U.S.C.360bbb-3(b) (1), unless the authorization is terminated or revokedsooner.When diagnostic testing is negative, the possibility of a falsenegative result should be considered in the context of a patient'srecent exposures and the presence of clinical signs and symptomsconsistent with COVID-19. An individual without symptoms of COVID-19and who is not shedding SARS-CoV-2 virus would expect to have anegative (not detected) result in this assay. PATIENT NOT FASTINGP ERFORMED BY: YURIY [employer] [id number] ANEESH PaulinoHOSPITAL [facility] THE UN[facility] [id number] 2018 Novel Coronavirus (COVID-19), MARY ([id number]) Detected Abnormal [facility]; [facility] Work Phone: Comment on above: Client Requested [facility] nucleic acid amplification test was developed and its performancecharacteristics determined by [employer]. Nucleic acidamplification tests include PCR and TMA. This test has not been FDAcleared or approved. This test has been authorized by FDA under anEmergency Use Authorization (EUA). This test is only authorized forthe duration of time the declaration that circumstances existjustifying the authorization of the emergency use of in vitrodiagnostic tests for detection of SARS-CoV-2 virus and/or diagnosisof COVID-19 infection under section 564(b)(1) of the Act, 21 U.S.C.360bbb-3(b) (1), unless the authorization is terminated or revokedsooner.When diagnostic testing is negative, the possibility of a falsenegative result should be considered in the context of a patient'srecent exposures and the presence of clinical signs and symptomsconsistent with COVID-19. An individual without symptoms of COVID-19and who is not shedding SARS-CoV-2 virus would expect to have anegative (not detected) result in this assay. PATIENT NOT FASTINGP ERFORMED BY: [employer] [id number] ANEESH PaulinoHOSPITAL OF THE UNIVERSITY [facility] PEN[facility]LV[facility] [id number] AVERY (ANTINUCLEAR ANTIBODY) ( [id number])Ordered By: Do All Operator on 06-06-2020 Nuclear Ab Ql (S) Negative Normal Compreh ensive Internal Medicine Work Phone: Comment on above: PATIENT NOT FASTINGP ERFORMED BY: CB [facility] Sfoegg8018 [address] RoadDublin [place] [id number] Nuclear Ab Ql (S) Negative Normal Compreh ensive Internal Medicine; [facility] Work Phone: Comment on above: PATIENT NOT FASTINGP ERFORMED BY: [facility] Wdpgfo7034 [address] RoadDublin [place] [id number] C-REACTIVE PROTEIN (29962)Or dered By: Do All Operator on 06-06-2020 CRP [Mass/Vol] 4 mg/L Normal 0-10 Comprehens genet Internal Medicine Work Phone: Comment on above: PATIENT NOT FASTINGP ERFORMED BY: [facility] Fltudw6312 [address] [facility]in [place] [id number] CBC with auto diff (00683)Or dered By: Do All Operator on 06-06-2020 Basophils (Bld) [#/Vol] 0.0 {x10E3/uL} Normal 0.0-0.2 [facility] Work Phone: Comment on above: PATIENT NOT FASTINGP ERFORMED BY: [facility] Jsrsce4600 [address] RoadDuin [place] [id number] Basophils (Bld) [#/Vol] 0.0 10*3/uL Normal 0.0-0.2 [facility]; [facility] Work Phone: Comment on above: PATIENT NOT FASTINGP ERFORMED BY: [facility] Yxfbyf4251 [address] RoadDublin [place] [id number] Basophils/100 WBC (Bld) 1 % Normal [facility] Work Phone: Comment on above: PATIENT NOT FASTINGP ERFORMED BY: [facility] Jjlmav0808 [address] RoadDublin [place] [id number] Eosinophils (Bld) [#/Vol] 0.1 {x10E3/uL} Normal 0.0-0.4 [facility] Work Phone: Comment on above: PATIENT NOT FASTINGP ERFORMED BY: [facility] Dyxxcc2350 [address] RoadDublin [place] [id number] Eosinophils (Bld) [#/Vol] 0.1 10*3/uL Normal 0.0-0.4 [facility]; [facility] Work Phone: Comment on above: PATIENT NOT FASTINGP ERFORMED BY: RIMA [facility] Sbbshh7424 [address] RoadDublin [place] [id number] Eosinophils/100 WBC (Bld) 2 % Normal [facility] Work Phone: Comment on above: PATIENT NOT FASTINGP ERFORMED BY: CB [facility] Bbpiyf2594 [address] Roadblin [place] [id number] Erythrocyte distribution width (RBC) [Ratio] 12.3 % Normal 11.7-15.4 [facility] Work Phone: Comment on above: PATIENT NOT FASTINGP ERFORMED BY: CB [facility] Xwishu3077 [address] RoadFrye Regional Medical Centerin [place] [id number] Hematocrit (Bld) [Volume fraction] 39.6 % Normal 34.0-46.6 [facility] Work Phone: Comment on above: PATIENT NOT FASTINGP ERFORMED BY: CB [facility] Gbbbnx5053 [address] RoadDuin [place] [id number] Hemoglobin (Bld) [Mass/Vol] 13.3 g/dL Normal 11.1-15.9 [facility] Work Phone: Comment on above: PATIENT NOT FASTINGP ERFORMED BY: CB [facility] Zfudyu0646 [address] RoadDublin [place] [id number] Immature granulocytes (Bld) [#/Vol] 0.0 {x10E3/uL} Normal 0.0-0.1 [facility] Work Phone: Comment on above: PATIENT NOT FASTINGP ERFORMED BY: CB [facility] Xupyua5650 [address] RoadDublin [place] [id number] Immature granulocytes (Bld) [#/Vol] 0.0 10*3/uL Normal 0.0-0.1 [facility]; [facility] Work Phone: Comment on above: PATIENT NOT FASTINGP ERFORMED BY: CB [facility] Spybeh6164 [address] RoadDublin [place] [id number] Immature granulocytes/100 WBC (Bld) 1 % Normal [facility] Work Phone: Comment on above: PATIENT NOT FASTINGP ERFORMED BY: CB [facility] Jenfjq6389 [address] RoadDublin [place] [id number] Lymphocytes (Bld) [#/Vol] 2.2 {x10E3/uL} Normal 0.7-3.1 [facility] Work Phone: Comment on above: PATIENT NOT FASTINGP ERFORMED BY: CB [facility] Frtiob3890 [address] RoadDublin [place] [id number] Lymphocytes (Bld) [#/Vol] 2.2 10*3/uL Normal 0.7-3.1 [facility]; [facility] Work Phone: Comment on above: PATIENT NOT FASTINGP ERFORMED BY: [facility] Aqehbq2417 [address] RoadDublin [place] [id number] Lymphocytes/100 WBC (Bld) 38 % Normal [facility] Work Phone: Comment on above: PATIENT NOT FASTINGP ERFORMED BY: [facility] Naijsi9301 [address] RoadFrye Regional Medical Centerin [place] [id number] MCH (RBC) [Entitic mass] 29.8 pg Normal 26.6-33.0 [facility] Work Phone: Comment on above: PATIENT NOT FASTINGP ERFORMED BY: CB [facility] Jpskfg8568 [address] [facility]bl[facility] [place] [id number] MCHC (RBC) [Mass/Vol] 33.6 g/dL Normal 31.5-35.7 [facility] Work Phone: Comment on above: PATIENT NOT FASTINGP ERFORMED BY: CB [facility] Akyzly7924 [address] RoadDublin [place] [id number] MCV (RBC) [Entitic vol] 89 fL Normal 79-97 [facility] Work Phone: Comment on above: PATIENT NOT FASTINGP ERFORMED BY: CB [facility] Vriewg4001 [address] RoadDublin [place] [id number] Monocytes (Bld) [#/Vol] 0.4 {x10E3/uL} Normal 0.1-0.9 [facility] Work Phone: Comment on above: PATIENT NOT FASTINGP ERFORMED BY: CB [facility] Afgbws9448 [address] RoadDublin [place] [id number] Monocytes (Bld) [#/Vol] 0.4 10*3/uL Normal 0.1-0.9 [facility]; [facility] Work Phone: Comment on above: PATIENT NOT FASTINGP ERFORMED BY: CB [facility] Ytazbk7387 Tneorio RoadDublin [place] [id number] Monocytes/100 WBC (Bld) 8 % Normal [facility] Work Phone: Comment on above: PATIENT NOT FASTINGP ERFORMED BY: CB [facility] Cnuhuy0860 [address] RoadDublin [place] [id number] Neutrophils (Bld) [#/Vol] 2.9 {x10E3/uL} Normal 1.4-7.0 [facility] Work Phone: Comment on above: PATIENT NOT FASTINGP ERFORMED BY: CB [facility] Crmbed6407 [address] RoadDublin [place] [id number] Neutrophils (Bld) [#/Vol] 2.9 10*3/uL Normal 1.4-7.0 [facility]; [facility] Work Phone: Comment on above: PATIENT NOT FASTINGP ERFORMED BY: CB [facility] Hclaqt6839 [address] RoadDublin [place] [id number] Neutrophils/100 WBC (Bld) 50 % Normal [facility] Work Phone: Comment on above: PATIENT NOT FASTINGP ERFORMED BY: CB [facility] Bhwqwp1056 [address]Dublin [place] [id number] Platelets (Bld) [#/Vol] 306 {x10E3/uL} Normal 150-450 [facility] Work Phone: Comment on above: PATIENT NOT FASTINGP ERFORMED BY: CB [facility] Gowlol4844 [address] RoadDublin [place] [id number] Platelets (Bld) [#/Vol] 306 10*3/uL Normal 150-450 [facility]; [facility] Work Phone: Comment on above: PATIENT NOT FASTINGP ERFORMED BY: RIMA [address] [facility] [id number] RBC (Bld) [#/Vol] 4.46 {x10E6/uL} Normal 3.77-5.28 [facility] Internal Medicine Work Phone: Comment on above: PATIENT NOT FASTINGP ERFORMED BY: RIMA Allen[address] [facility] [id number] RBC (Bld) [#/Vol] 4.46 10*6/uL Normal 3.77-5.28 [facility] Internal Medicine; [facility] Work Phone: Comment on above: PATIENT NOT FASTINGP ERFORMED BY: RIMA Allen6370 [facility] [id number] WBC (Bld) [#/Vol] 5.7 {x10E3/uL} Normal 3.4-10.8 [facility] Internal Medicine Work Phone: Comment on above: PATIENT NOT FASTINGP ERFORMED BY: RIMA Allen6370 [facility] [id number] WBC (Bld) [#/Vol] 5.7 10*3/uL Normal 3.4-10.8 [facility] Internal Medicine; [facility] Work Phone: Comment on above: PATIENT NOT FASTINGP ERFORMED BY: RIMA Darden Rdauwp7906 [facility] [id number] Lyme Disease Antibody W/ Ref josef (46799)Ordered By: Do All Operator on 06-06-2020 B. burgdorferi IgG+IgM Qn (S) {index_val} Normal 0.00-0.90 [facility] Internal Medicine Work Phone: Comment on above: Negative <0.91 Equiv ocal 0.91 - 1.09 Positive >1.09 PATIENT NOT FASTINGP ERFORMED BY: RIMA [facility] Ohcpwq2993 [facility] [id number] B. burgdorferi IgG+IgM Qn (S) {index_val} Normal 0.00-0.90 [facility]; [facility] Work Phone: Comment on above: Negative <0.91 Equiv ocal 0.91 - 1.09 Positive >1.09 PATIENT NOT FASTINGP ERFORMED BY: RIMA LabCokathy KimJnntcd7725 [address] RoadDublin [place] [id number] RHEUMATOID FACTOR-QUANT (864 31)Ordered By: Do All Operator on 06-06-2020 Rheumatoid factor Qn 10.4 {IU/mL} Normal 0.0-13.9 [facility] Work Phone: Comment on above: PATIENT NOT FASTINGP ERFORMED BY: RIMA LabAnchor Semiconductorrp Swuklv0622 [address] RoadDublin [place] [id number] Rheumatoid factor Qn 10.4 [IU]/mL Normal 0.0-13.9 [facility]; [facility] Work Phone: Comment on above: PATIENT NOT FASTINGP ERFORMED BY: RIMA SueroPrysm Brwonf5374 [address] RoadDublin [place] [id number] SED RATE ERYTHROCYTE (26775) Ordered By: Do All Operator on 06-06-2020 ESR (Bld) [Velocity] 7 mm/h Normal 0-32 [facility] Work Phone: Comment on above: PATIENT NOT FASTINGP ERFORMED BY: RIMA Dittokathy KimGlgsob[address] PressBabyDublin [place] [id number] VITAMIN B-12 (CYANOCOBALAMIN ) (49610)Ordered By: Do All Operator on 06-06-2020 Cobalamin (Vitamin B12) [Mass/Vol] 910 pg/mL Normal 232-1245 [facility] Work Phone: Comment on above: PATIENT NOT FASTINGP ERFORMED BY: RIMA [facility] Motmui7179 [address] RoadDublin [place] [id number] Vitamin D Hydroxy (76729)Ord ered By: Do All Operator on 06-06-2020 25-Hydroxyvitamin D2+25-Hydroxyvitami n D3 [Mass/Vol] 50.7 ng/mL Normal 30.0-100.0 [facility] Work Phone: Comment on above: Vitamin D deficiency has been defined by the [place] ofMedicine and an Endocrine Society practice guideline as alevel of serum 25-OH vitamin D less than 20 ng/mL (1,2).The Endocrine Society went on to further define vitamin Dinsufficiency as a level between 21 and 29 ng/mL (2).1. IOM ([place] of Medicine). 2010. Dietary reference intakes for calcium and D. [place]: The National Academies Press.2. Blu MF, Priyanka MARTINEZ, Ho HANNA, et al. Evaluation, treatment, and prevention of vitamin D deficiency: an Endocrine Society clinical practice guideline. JCEM. 2010; 96(7):1911-30. PATIENT NOT FASTINGP ERFORMED BY: CB [facility] Gvxgfz3339 [address] RoadDublin [place] [id number] LIPID PANEL (46622)Ordered B y: Do All Operator on 06-01-2020 Cholesterol [Mass/Vol] 273 mg/dL Abnormal 100-199 [facility] Work Phone: Comment on above: PATIENT WAS FASTINGP ERFORMED BY: CB [facility] Csiqxc1783 [address] RoadDublin [place] [id number]; appt 7/13 Cholesterol in HDL [Mass/Vol] 83 mg/dL Normal [facility] Work Phone: Comment on above: PATIENT WAS FASTINGP ERFORMED BY: CB [facility] Netgtb2483 [address] RoadDublin [place] [id number]; appt 7/13 Cholesterol in LDL [Mass/Vol] 175 mg/dL Abnormal 0-99 [facility] Work Phone: Comment on above: PATIENT WAS FASTINGP ERFORMED BY: CB [facility] Mopvxc8736 [address] RoadDublin [place] [id number]; appt 7/13 Cholesterol in LDL/Cholesterol in HDL [Mass ratio] 2.1 {ratio} Normal 0.0-3.2 [facility] Work Phone: Comment on above: LDL/HDL Ratio Men Wo men 1/2 Avg.Risk 1.0 1.5 Avg.Risk 3.6 3.2 2X Avg.Risk 6.2 5.0 3X Avg.Risk 8.0 6.1 PATIENT WAS FASTINGP ERFORMED BY: RIMA [facility] Vreosq6719 [address] RoadDublin [place] [id number]; appt 06/06 Cholesterol in VLDL [Mass/Vol] 15 mg/dL Normal 5-40 [facility] Work Phone: Comment on above: PATIENT WAS FASTINGP ERFORMED BY: CB [facility] Thibbg3712 [address] RoadDublin [place] [id number]; appt 06/06 Triglyceride [Mass/Vol] 76 mg/dL Normal 0-149 [facility] Work Phone: Comment on above: PATIENT WAS FASTINGP ERFORMED BY: RIMA [facility] Olvbvz2048 [address] RoadDublin [place] [id number]; appt 06/06 METABOLIC PANEL, COMPREHENSI VE ([id number])Ordered By: Do All Operator on 06-01-2020 Albumin [Mass/Vol] 4.9 g/dL Abnormal 3.8-4.8 [facility] Internal Medicine Work Phone: Comment on above: PATIENT WAS FASTINGP ERFORMED BY: RIMA [facility] Npbxda2294 [address] RoadDublin [place] [id number] Albumin/Globulin [Mass ratio] 2.1 {ratio} Normal 1.2-2.2 [facility] Work Phone: Comment on above: PATIENT WAS FASTINGP ERFORMED BY: [facility] Rgjswg4417 [address] RoadDublin [place] [id number] ALP [Catalytic activity/Vol] 93 [iU]/L Normal 39-117 [facility] Work Phone: Comment on above: PATIENT WAS FASTINGP ERFORMED BY: CB [facility] Obyqvl8905 [address] RoadDublin [place] [id number] ALP [Catalytic activity/Vol] 93 U/L Normal 39-117 [facility]; [facility] Work Phone: Comment on above: PATIENT WAS FASTINGP ERFORMED BY: CB [facility] Sarosw2452 [address] RoadDublin [place] [id number] ALT [Catalytic activity/Vol] 27 [iU]/L Normal 0-32 [facility] Work Phone: Comment on above: PATIENT WAS FASTINGP ERFORMED BY: [facility] Rxnqnx2144 [address] RoadDublin [place] [id number] ALT [Catalytic activity/Vol] 27 U/L Normal 0-32 [facility]; [facility] Work Phone: Comment on above: PATIENT WAS FASTINGP ERFORMED BY: [facility] Azooko5849 [address] RoadDublin [place] [id number] AST [Catalytic activity/Vol] 26 [iU]/L Normal 0-40 [facility] Work Phone: Comment on above: PATIENT WAS FASTINGP ERFORMED BY: Lab[facility] Aauvhj1334 [address] RoadDublin [place] [id number] AST [Catalytic activity/Vol] 26 U/L Normal 0-40 [facility]; [facility] Work Phone: Comment on above: PATIENT WAS FASTINGP ERFORMED BY: [facility] Zngcmm4002 [address] RoadDublin [place] [id number] Bilirubin [Mass/Vol] 0.4 mg/dL Normal 0.0-1.2 [facility] Internal Medicine Work Phone: Comment on above: PATIENT WAS FASTINGP ERFORMED BY: Lab[facility] Jicbwg6166 [address] RoadDublin [place] [id number] Calcium [Mass/Vol] 9.2 mg/dL Normal 8.7-10.2 [facility] Internal Medicine Work Phone: Comment on above: PATIENT WAS FASTINGP ERFORMED BY: Lab[facility] Dryera6805 [address] RoadDublin [place] [id number] Chloride [Moles/Vol] 102 mmol/L Normal 96-106 [facility] Work Phone: Comment on above: PATIENT WAS FASTINGP ERFORMED BY: [facility] Bzlhov6445 [address] RoadDublin [place] [id number] CO2 [Moles/Vol] 22 mmol/L Normal 20-29 [facility] Internal Medicine Work Phone: Comment on above: PATIENT WAS FASTINGP ERFORMED BY: [facility] Yxaylr3178 [address] RoadDublin [place] [id number] Creatinine [Mass/Vol] 0.68 mg/dL Normal 0.57-1.00 [facility] Work Phone: Comment on above: PATIENT WAS FASTINGP ERFORMED BY: [facility] Nhryiq6867 [address] RoadDublin [place] [id number] GFR/1.73 sq M predicted among blacks CKD-EPI (S/P/Bld) [Vol rate/Area] 120 mL/min/1.73 Normal [facility] Work Phone: Comment on above: PATIENT WAS FASTINGP ERFORMED BY: [facility]6[address]blin [place] [id number] GFR/1.73 sq M predicted among non-blacks CKD-EPI (S/P/Bld) [Vol rate/Area] 105 mL/min/1.73 Normal [facility] Work Phone: Comment on above: PATIENT WAS FASTINGP ERFORMED BY: [facility]6370 [address] RoadFrye Regional Medical Centerin [place] [id number] Globulin (S) [Mass/Vol] 2.3 g/dL Normal 1.5-4.5 [facility] Work Phone: Comment on above: PATIENT WAS FASTINGP ERFORMED BY: [facility] Vonmbw1782 [address] City Hospitalblin [place] [id number] Glucose [Mass/Vol] 93 mg/dL Normal 65-99 [facility] Internal Medicine Work Phone: Comment on above: PATIENT WAS FASTINGP ERFORMED BY: Lab[facility] Ekpgqc0564 [address] City Hospitalblin [place] [id number] Potassium [Moles/Vol] 4.0 mmol/L Normal 3.5-5.2 [facility] Work Phone: Comment on above: PATIENT WAS FASTINGP ERFORMED BY: [facility] Ieyibk2880 [address] [facility] Butter[facility] HospitalDublin [place] [id number] Protein [Mass/Vol] 7.2 g/dL Normal 6.0-8.5 [facility] Internal Medicine Work Phone: Comment on above: PATIENT WAS FASTINGP ERFORMED BY: RIMA LabCokathy KimMdftvn4406 [address] RoadDublin [place] [id number] Sodium [Moles/Vol] 142 mmol/L Normal 134-144 [facility] Internal Medicine Work Phone: Comment on above: PATIENT WAS FASTINGP ERFORMED BY: RIMA LabZeynep KimAwtpte2097 [address] RoadDublin [place] [id number] Urea nitrogen [Mass/Vol] 11 mg/dL Normal 6-24 [facility] Work Phone: Comment on above: PATIENT WAS FASTINGP ERFORMED BY: RIMA LabZeynep KimEhytwj5162 [address] City Hospitalblin [place] [id number] Urea nitrogen/Creatinine [Mass ratio] 16 mg/mg Normal 9-23 [facility] Work Phone: Comment on above: PATIENT WAS FASTINGP ERFORMED BY: RIMA Kimlin[address] [facility] [id number] TSH ([id number])Ordered By: Syste m [employer] Operator Helper on 06-01-2020 TSH Qn 4.020 {uIU/mL} Normal 0.450-4.50 0 [facility] Work Phone: Comment on above: PATIENT WAS FASTINGP ERFORMED BY: RIMA Kimlin6[address] Roadbl[address] [place] [id number] URINE CALCIUM OMAR TIMED 24 Hour ([id number])Ordered By: Do All Operator on 11-10-2019 Calcium (24H U) [Mass/Time] 165.3 {mg/24_hr} Normal 100.0-300. 0 [facility] Work Phone: Comment on above: PATIENT NOT FASTINGP ERFORMED BY: RIMA LabCokathy KimLgdqgi7674 [address] City Hospitalblin [place] [id number] Information: START 11/10/19@6AM Calcium (24H U) [Mass/Vol] 2.9 mg/dL Normal [facility] Work Phone: Comment on above: PATIENT NOT FASTINGP ERFORMED BY: RIMA LabCokathy KimWipzwf7856 [facility] [id number] Information: START 11/10/19@6AM CBC & PLATELETS (AUTO) (8502 [id number])Ordered By: Do All Operator on 11-04-2019 Erythrocyte distribution width (RBC) [Ratio] 12.8 % Normal 12.3-15.4 [facility] Work Phone: Comment on above: Effective November 30, 2019, the RDW pediatric reference interval will be removed and the adult reference interval will be changing to: Female 11.7 - 15.4 Male 11.6 - 15.4 PATIENT NOT FASTINGP ERFORMED BY: RIMA [facility] Hisxzq6113 [facility] [id number] Hematocrit (Bld) [Volume fraction] 41.9 % Normal 34.0-46.6 [facility] Work Phone: Comment on above: PATIENT NOT FASTINGP ERFORMED BY: RIMA [facility] Cmvhpp[address] [facility] [id number] Hemoglobin (Bld) [Mass/Vol] 13.9 g/dL Normal 11.1-15.9 [facility] Work Phone: Comment on above: PATIENT NOT FASTINGP ERFORMED BY: RIMA [facility] Dodidg7873 [address] [facility] [id number] MCH (RBC) [Entitic mass] 29.8 pg Normal 26.6-33.0 [facility] Work Phone: Comment on above: PATIENT NOT FASTINGP ERFORMED BY: RIMA [facility] Wpkfle7410 [address] [facility] [id number] MCHC (RBC) [Mass/Vol] 33.2 g/dL Normal 31.5-35.7 [facility] Work Phone: Comment on above: PATIENT NOT FASTINGP ERFORMED BY: RIMA [facility] Vcqxtw6852 [address] [facility] [id number] MCV (RBC) [Entitic vol] 90 fL Normal 79-97 [facility] Work Phone: Comment on above: PATIENT NOT FASTINGP ERFORMED BY: RIMA [facility] Gzshbc5217 [address] RoadDublin [place] [id number] Platelets (Bld) [#/Vol] 304 {x10E3/uL} Normal 150-450 [facility] Work Phone: Comment on above: PATIENT NOT FASTINGP ERFORMED BY: RIMA LabCokathy AllenVyrmdv1756 [address] RoadDublin [place] [id number] Platelets (Bld) [#/Vol] 304 10*3/uL Normal 150-450 [facility]; [facility] Work Phone: Comment on above: PATIENT NOT FASTINGP ERFORMED BY: CB [facility] Oijwcc5359 [address] RoadDublin [place] [id number] RBC (Bld) [#/Vol] 4.66 {x10E6/uL} Normal 3.77-5.28 [facility] Internal Medicine Work Phone: Comment on above: PATIENT NOT FASTINGP ERFORMED BY: RIMA [facility] Ymcple7903 [address] RoadDublin [place] [id number] RBC (Bld) [#/Vol] 4.66 10*6/uL Normal 3.77-5.28 [facility]; [facility] Work Phone: Comment on above: PATIENT NOT FASTINGP ERFORMED BY: RIMA [facility] Ukvyvo3999 [address] RoadDublin [place] [id number] WBC (Bld) [#/Vol] 5.8 {x10E3/uL} Normal 3.4-10.8 [facility] Work Phone: Comment on above: PATIENT NOT FASTINGP ERFORMED BY: CB [facility] Qlbhji0849 [address] RoadDublin [place] [id number] WBC (Bld) [#/Vol] 5.8 10*3/uL Normal 3.4-10.8 [facility] Internal Medicine; [facility] Work Phone: Comment on above: PATIENT NOT FASTINGP ERFORMED BY: CB [facility] Zlezek3201 [address] RoadDublin [place] [id number] METABOLIC PANEL, COMPREHENSI VE (04091)Ordered By: Do All Operator on 11-04-2019 Albumin [Mass/Vol] 4.9 g/dL Normal 3.5-5.5 [facility] Internal Medicine Work Phone: Comment on above: PATIENT NOT FASTINGP ERFORMED BY: CB [facility] Rvptgp2599 [address] RoadDublin [place] [id number] Albumin/Globulin [Mass ratio] 2.0 {ratio} Normal 1.2-2.2 [facility] Work Phone: Comment on above: PATIENT NOT FASTINGP ERFORMED BY: CB [facility] Jgxvli7383 [address] RoadDublin [place] [id number] ALP [Catalytic activity/Vol] 81 [iU]/L Normal 39-117 [facility] Work Phone: Comment on above: PATIENT NOT FASTINGP ERFORMED BY: CB [facility] Bhoigb2392 [address] RoadDublin [place] [id number] ALP [Catalytic activity/Vol] 81 U/L Normal 39-117 [facility]; [facility] Work Phone: Comment on above: PATIENT NOT FASTINGP ERFORMED BY: CB [facility] Letkhi2314 [address] RoadDublin [place] [id number] ALT [Catalytic activity/Vol] 25 [iU]/L Normal 0-32 [facility] Work Phone: Comment on above: PATIENT NOT FASTINGP ERFORMED BY: CB [facility] Izdeht0273 [address] RoadDublin [place] [id number] ALT [Catalytic activity/Vol] 25 U/L Normal 0-32 [facility]; [facility] Work Phone: Comment on above: PATIENT NOT FASTINGP ERFORMED BY: CB [facility] Yfaudm2580 [address] RoadDublin [place] [id number] AST [Catalytic activity/Vol] 29 [iU]/L Normal 0-40 [facility] Work Phone: Comment on above: PATIENT NOT FASTINGP ERFORMED BY: CB [facility] Hpbboc4260 [address] RoadDublin [place] [id number] AST [Catalytic activity/Vol] 29 U/L Normal 0-40 [facility]; [facility] Work Phone: Comment on above: PATIENT NOT FASTINGP ERFORMED BY: CB [facility] Smfpjd5022 [address] RoadDublin [place] [id number] Bilirubin [Mass/Vol] 0.2 mg/dL Normal 0.0-1.2 [facility] Work Phone: Comment on above: PATIENT NOT FASTINGP ERFORMED BY: CB [facility] Pzqhnr1848 [address] RoadDublin [place] [id number] Calcium [Mass/Vol] 9.4 mg/dL Normal 8.7-10.2 [facility] Internal Medicine Work Phone: Comment on above: PATIENT NOT FASTINGP ERFORMED BY: CB [facility] Kgsmba5666 [address] RoadDublin [place] [id number] Chloride [Moles/Vol] 103 mmol/L Normal 96-106 [facility] Work Phone: Comment on above: PATIENT NOT FASTINGP ERFORMED BY: CB [facility] Yyqpmd3543 [address] RoadDublin [place] [id number] CO2 [Moles/Vol] 23 mmol/L Normal 20-29 [facility] Internal Medicine Work Phone: Comment on above: PATIENT NOT FASTINGP ERFORMED BY: CB [facility] Znlaut8005 [address] RoadDublin [place] [id number] Creatinine [Mass/Vol] 0.76 mg/dL Normal 0.57-1.00 [facility] Internal Medicine Work Phone: Comment on above: PATIENT NOT FASTINGP ERFORMED BY: CB [facility] Bbybeq1859 [address] RoadDublin [place] [id number] GFR/1.73 sq M predicted among blacks CKD-EPI (S/P/Bld) [Vol rate/Area] 108 mL/min/1.73 Normal [facility] Work Phone: Comment on above: PATIENT NOT FASTINGP ERFORMED BY: CB [facility] Mjcjmr6661 [address] RoadDublin [place] [id number] GFR/1.73 sq M predicted among non-blacks CKD-EPI (S/P/Bld) [Vol rate/Area] 94 mL/min/1.73 Normal [facility] Work Phone: Comment on above: PATIENT NOT FASTINGP ERFORMED BY: RIMA [facility] Glwcgd5420 [address] RoadDublin [place] [id number] Globulin (S) [Mass/Vol] 2.4 g/dL Normal 1.5-4.5 [facility] Work Phone: Comment on above: PATIENT NOT FASTINGP ERFORMED BY: CB [facility] Bokfer9833 [address] RoadDublin [place] [id number] Glucose [Mass/Vol] 96 mg/dL Normal 65-99 [facility] Internal Medicine Work Phone: Comment on above: PATIENT NOT FASTINGP ERFORMED BY: RIMA LabCokathy Nnruvu6311 [address] RoadDublin [place] [id number] Potassium [Moles/Vol] 4.6 mmol/L Normal 3.5-5.2 [facility] Work Phone: Comment on above: PATIENT NOT FASTINGP ERFORMED BY: RIMA LabZeynep Hdbfea4399 [address] RoadDublin [place] [id number] Protein [Mass/Vol] 7.3 g/dL Normal 6.0-8.5 [facility] Internal Medicine Work Phone: Comment on above: PATIENT NOT FASTINGP ERFORMED BY: RIMA [facility] Hqzbyo2095 [address] RoadDublin [place] [id number] Sodium [Moles/Vol] 141 mmol/L Normal 134-144 [facility] Internal Medicine Work Phone: Comment on above: PATIENT NOT FASTINGP ERFORMED BY: CB [facility] Zdxcbz4563 [address] RoadDublin [place] [id number] Urea nitrogen [Mass/Vol] 10 mg/dL Normal 6-24 [facility] Work Phone: Comment on above: PATIENT NOT FASTINGP ERFORMED BY: CB [facility] Ymrevv8374 [address] RoadDublin [place] [id number] Urea nitrogen/Creatinine [Mass ratio] 13 mg/mg Normal 9-23 [facility] Work Phone: Comment on above: PATIENT NOT FASTINGP ERFORMED BY: CB [facility] Ncjpcb5192 [address] RoadDublin [place] [id number] PARATHORMONE ([id number])Ordered By: Do All Operator on 11-04-2019 Parathyrin.intact [Mass/Vol] 21 pg/mL Normal 15-65 [facility] Work Phone: Comment on above: PATIENT NOT FASTINGP ERFORMED BY: CB [facility] Tipkoz4761 [address] RoadDublin [place] [id number] PHOSPHORUS ([id number])Ordered By : Do All Operator on 11-04-2019 Phosphate [Mass/Vol] 4.1 mg/dL Normal 2.5-4.5 [facility] Work Phone: Comment on above: PATIENT NOT FASTINGP ERFORMED BY: CB [facility] Qhsryy2865 [address] RoadDublin [place] [id number] SPEP ([id number])Ordered By: Syst em [employer] Operator Helper on 11-04-2019 Albumin [Mass/Vol] 4.2 g/dL Normal 2.9-4.4 [facility] Internal Medicine Work Phone: Comment on above: PATIENT NOT FASTINGP ERFORMED BY: CB [facility] Iflyro1523 [address] RoadDublin [place] [id number] Albumin/Globulin [Mass ratio] 1.4 {ratio} Normal 0.7-1.7 [facility] Work Phone: Comment on above: PATIENT NOT FASTINGP ERFORMED BY: CB [facility] Gvfprx8035 [address] RoadDublin [place] [id number] Alpha 1 globulin Elph [Mass/Vol] 0.2 g/dL Normal 0.0-0.4 [facility] Work Phone: Comment on above: PATIENT NOT FASTINGP ERFORMED BY: CB [facility] Ffjnwx0936 [address] RoadDublin [place] [id number] Alpha 2 globulin Elph [Mass/Vol] 0.8 g/dL Normal 0.4-1.0 [facility] Work Phone: Comment on above: PATIENT NOT FASTINGP ERFORMED BY: CB [facility] Fjjsoh9690 [address] RoadDublin [place] [id number] Beta globulin Elph [Mass/Vol] 1.3 g/dL Normal 0.7-1.3 [facility] Work Phone: Comment on above: PATIENT NOT FASTINGP ERFORMED BY: RIMA Kimlin6370 [address] RoadDublin [place] [id number] Gamma globulin Elph [Mass/Vol] 0.8 g/dL Normal 0.4-1.8 [facility] Work Phone: Comment on above: PATIENT NOT FASTINGP ERFORMED BY: RIMA Lab[facility] Ronsux1637 [address] RoadDublin [place] [id number] Globulin (S) [Mass/Vol] 3.1 g/dL Normal 2.2-3.9 [facility] Work Phone: Comment on above: PATIENT NOT FASTINGP ERFORMED BY: RIMA Katalina Bjirdo9360 [address] RoadDublin [place] [id number] Protein.monoclonal Elph [Mass/Vol] Not Observed Normal [facility] Work Phone: Comment on above: PATIENT NOT FASTINGP ERFORMED BY: LabNury Jydhvx9800 [address] Roadbl[address] [place] [id number] UPEP ([id number])Ordered By: Syst em [employer] Operator Helper on 11-04-2019 Albumin Elph (U) [Mass fraction] 36.1 % Normal [facility] Work Phone: Comment on above: PATIENT NOT FASTINGP ERFORMED BY: RIMA LabNury Uxobct6675 [address] RoadDublin [place] [id number] Alpha 1 globulin Elph (U) [Mass fraction] 2.9 % Normal [facility] Work Phone: Comment on above: PATIENT NOT FASTINGP ERFORMED BY: RIMA [facility] Nmgctq2069 [address] RoadDublin [place] [id number] Alpha 2 globulin Elph (U) [Mass fraction] 12.2 % Normal [facility] Work Phone: Comment on above: PATIENT NOT FASTINGP ERFORMED BY: [facility] Kupfvm4958 [address] RoadDublin [place] [id number] Beta globulin Elph (U) [Mass fraction] 36.9 % Normal Comprehens[facility] e [facility] Work Phone: Comment on above: PATIENT NOT FASTINGP ERFORMED BY: CB [facility] Urqmzq3225 [address] RoadDublin [place] [id number] Gamma globulin Elph (U) [Mass fraction] 12.0 % Normal Comprehensiv e [facility] Medicine Work Phone: Comment on above: PATIENT NOT FASTINGP ERFORMED BY: CB [facility] Pdrqhk3778 [address] RoadDublin [place] [id number] Laboratory comment Trevon (Report) SPRCS Normal [facility] Work Phone: Comment on above: Protein electrophore sis scan will follow via computer, mail, orcourier delivery. PATIENT NOT FASTINGP ERFORMED BY: CB [facility] Jajwak9130 [address] RoadDublin [place] [id number] Laboratory report . Normal Compreh ensive Internal Medicine Work Phone: Comment on above: PATIENT NOT FASTINGP ERFORMED BY: CB [facility] Yzzuoq3402 [address]Dublin [place] [id number] Protein (U) [Mass/Vol] mg/dL Normal [facility] Work Phone: Comment on above: Verified by repeat analysis PATIENT NOT FASTINGP ERFORMED BY: CB [facility] Suspxe6110 [address] RoadDublin [place] [id number] Protein (U) [Mass/Vol] mg/dL Normal [facility]; [facility] Work Phone: Comment on above: Verified by repeat analysis PATIENT NOT FASTINGP ERFORMED BY: CB [facility] Rhobgw9663 [address] RoadDublin [place] [id number] Protein.monoclonal Elph (U) [Mass fraction] Not Observed Normal [facility] Work Phone: Comment on above: PATIENT NOT FASTINGP ERFORMED BY: CB [facility] Pllyma0497 [address] RoadDublin [place] [id number] CBC W/AUTO DIFF WBC (54606)O rdered By: Do All Operator on 05-11-2019 Basophils (Bld) [#/Vol] 0.0 {x10E3/uL} Normal 0.0-0.2 [facility] Work Phone: Comment on above: PATIENT NOT FASTINGP ERFORMED BY: CB [facility] Swodem1135 [address] RoadDublin [place] [id number] Basophils (Bld) [#/Vol] 0.0 10*3/uL Normal 0.0-0.2 [facility]; [facility] Work Phone: Comment on above: PATIENT NOT FASTINGP ERFORMED BY: CB [facility] Trvjtg0582 [address] RoadDublin [place] [id number] Basophils/100 WBC (Bld) 0 % Normal [facility] Work Phone: Comment on above: PATIENT NOT FASTINGP ERFORMED BY: CB [facility] Zozwna7868 [address] RoadDublin [place] [id number] Eosinophils (Bld) [#/Vol] 0.1 {x10E3/uL} Normal 0.0-0.4 [facility] Work Phone: Comment on above: PATIENT NOT FASTINGP ERFORMED BY: CB [facility] Boddbu6481 [address] RoadDublin [place] [id number] Eosinophils (Bld) [#/Vol] 0.1 10*3/uL Normal 0.0-0.4 [facility]; [facility] Work Phone: Comment on above: PATIENT NOT FASTINGP ERFORMED BY: CB [facility] Rywiqg1092 [address] RoadDublin [place] [id number] Eosinophils/100 WBC (Bld) 1 % Normal [facility] Work Phone: Comment on above: PATIENT NOT FASTINGP ERFORMED BY: CB [facility] Itmyeb7700 [address] RoadDublin [place] [id number] Erythrocyte distribution width (RBC) [Ratio] 12.9 % Normal 12.3-15.4 [facility] Work Phone: Comment on above: PATIENT NOT FASTINGP ERFORMED BY: CB [facility] Eijmwz0349 [address] RoadDublin [place] [id number] Hematocrit (Bld) [Volume fraction] 40.8 % Normal 34.0-46.6 [facility] Work Phone: Comment on above: PATIENT NOT FASTINGP ERFORMED BY: RIMA Allen[address] [facility] [id number] Hemoglobin (Bld) [Mass/Vol] 13.7 g/dL Normal 11.1-15.9 [facility] Work Phone: Comment on above: PATIENT NOT FASTINGP ERFORMED BY: RIMA SueroCokathy AllenLlckeo37[address] [facility] [id number] Immature granulocytes (Bld) [#/Vol] 0.0 {x10E3/uL} Normal 0.0-0.1 [facility] Work Phone: Comment on above: PATIENT NOT FASTINGP ERFORMED BY: RIMA Katalinakathy KimDpxznn6707 [address] [facility] [id number] Immature granulocytes (Bld) [#/Vol] 0.0 10*3/uL Normal 0.0-0.1 [facility]; [facility] Work Phone: Comment on above: PATIENT NOT FASTINGP ERFORMED BY: RIMA Sunil Allen6[address] [facility] [id number] Immature granulocytes/100 WBC (Bld) 0 % Normal [facility] Work Phone: Comment on above: PATIENT NOT FASTINGP ERFORMED BY: RIMA Katalina Kmbjum1217 [address] [facility] [id number] Lymphocytes (Bld) [#/Vol] 2.5 {x10E3/uL} Normal 0.7-3.1 [facility] Work Phone: Comment on above: PATIENT NOT FASTINGP ERFORMED BY: RIMA [facility] Kqyrnm3049 [address] [facility] [id number] Lymphocytes (Bld) [#/Vol] 2.5 10*3/uL Normal 0.7-3.1 [facility]; [facility] Work Phone: Comment on above: PATIENT NOT FASTINGP ERFORMED BY: CB [facility] Tbydgb7535 [address] RoadDublin [place] [id number] Lymphocytes/100 WBC (Bld) 31 % Normal [facility] Work Phone: Comment on above: PATIENT NOT FASTINGP ERFORMED BY: RIMA Allen6370 [address] RoadDublin [place] [id number] MCH (RBC) [Entitic mass] 29.7 pg Normal 26.6-33.0 [facility] Work Phone: Comment on above: PATIENT NOT FASTINGP ERFORMED BY: RIMA [facility] Gzakfs3442 [address] Roadblin [place] [id number] MCHC (RBC) [Mass/Vol] 33.6 g/dL Normal 31.5-35.7 [facility] Work Phone: Comment on above: PATIENT NOT FASTINGP ERFORMED BY: RIMA Kimlin[address] [facility]in [place] [id number] MCV (RBC) [Entitic vol] 88 fL Normal 79-97 [facility] Work Phone: Comment on above: PATIENT NOT FASTINGP ERFORMED BY: RIMA Darden Fzwyod9819 [address] RoadFrye Regional Medical Centerin [place] [id number] Monocytes (Bld) [#/Vol] 0.6 {x10E3/uL} Normal 0.1-0.9 [facility] Work Phone: Comment on above: PATIENT NOT FASTINGP ERFORMED BY: RIMA [facility] Bunexx8635 [address] RoadDublin [place] [id number] Monocytes (Bld) [#/Vol] 0.6 10*3/uL Normal 0.1-0.9 [facility]; [facility] Work Phone: Comment on above: PATIENT NOT FASTINGP ERFORMED BY: RIMA [facility] Mszzdj6463 [address] RoadDublin [place] [id number] Monocytes/100 WBC (Bld) 8 % Normal [facility] Work Phone: Comment on above: PATIENT NOT FASTINGP ERFORMED BY: [facility] Xkqxrb7416 [address] RoadDublin [place] [id number] Neutrophils (Bld) [#/Vol] 4.7 {x10E3/uL} Normal 1.4-7.0 [facility] Work Phone: Comment on above: PATIENT NOT FASTINGP ERFORMED BY: RIMA [facility] Puxqtc4156 [address] RoadDublin [place] [id number] Neutrophils (Bld) [#/Vol] 4.7 10*3/uL Normal 1.4-7.0 [facility]; [facility] Work Phone: Comment on above: PATIENT NOT FASTINGP ERFORMED BY: RIMA LabCokathy KimPihgyg9948 [address] RoadDublin [place] [id number] Neutrophils/100 WBC (Bld) 60 % Normal [facility] Work Phone: Comment on above: PATIENT NOT FASTINGP ERFORMED BY: RIMA Kimlin6370 [address] RoadDublin [place] [id number] Platelets (Bld) [#/Vol] 305 {x10E3/uL} Normal 150-450 [facility] Work Phone: Comment on above: PATIENT NOT FASTINGP ERFORMED BY: RIMA LabCokathy KimGkpnhx7729 [address] RoadDublin [place] [id number] Platelets (Bld) [#/Vol] 305 10*3/uL Normal 150-450 [facility]; [facility] Work Phone: Comment on above: PATIENT NOT FASTINGP ERFORMED BY: RIMA LabZeynep KimHqjbzs9134 [address] RoadDublin [place] [id number] RBC (Bld) [#/Vol] 4.62 {x10E6/uL} Normal 3.77-5.28 [facility] Work Phone: Comment on above: PATIENT NOT FASTINGP ERFORMED BY: RIMA [facility] Vzleth6654 [address] RoadDublin [place] [id number] RBC (Bld) [#/Vol] 4.62 10*6/uL Normal 3.77-5.28 [facility] Internal [facility]; [facility] Work Phone: Comment on above: PATIENT NOT FASTINGP ERFORMED BY: RIMA [facility] Elpxcc2439 [address] RoadDublin [place] [id number] WBC (Bld) [#/Vol] 7.9 {x10E3/uL} Normal 3.4-10.8 [facility] Internal Medicine Work Phone: Comment on above: PATIENT NOT FASTINGP ERFORMED BY: [facility] Cmhgrt9413 [address] RoadDublin [place] [id number] WBC (Bld) [#/Vol] 7.9 10*3/uL Normal 3.4-10.8 [facility] Internal Medicine; [facility] Internal Medicine Work Phone: Comment on above: PATIENT NOT FASTINGP ERFORMED BY: [facility] Lwaqla0052 [address] RoadDublin [place] [id number] PT (Prothrobim Time) (58734) Ordered By: Do All Operator on 05-11-2019 INR Coag (PPP) [Relative time] 1.0 {INR} Normal 0.8-1.2 [facility] Internal Medicine Work Phone: Comment on above: Reference interval i s for non-anticoagulated patients. . Suggested INR therapeutic range for Vitamin K antagonist therapy: Standard Dose (moderate intensity therapeutic range): 2.0 - 3.0 Higher intensity therapeutic range 2.5 - 3.5 PATIENT NOT FASTINGP ERFORMED BY: Kaatlina Kgbkfn0111 [address] RoadDublin [place] [id number] PT Coag (PPP) [Time] 10.7 {sec} Normal 9.1-12.0 [facility] Internal Medicine Work Phone: Comment on above: PATIENT NOT FASTINGP ERFORMED BY: [facility] Xgvjmu2422 [address] RoadDublin [place] [id number] PT Coag (PPP) [Time] 10.7 s Normal 9.1-12.0 [facility]; [facility] Work Phone: Comment on above: PATIENT NOT FASTINGP ERFORMED BY: [facility] Ohcgbt7402 [address] RoadDublin [place] [id number] PTT (Activated Partial Throm boplastin Time) (50491)Ordered By: Do All Operator on 05-11-2019 aPTT Coag (PPP) [Time] 33 {sec} Normal 24-33 [facility] Work Phone: Comment on above: This test has not be en validated for monitoring unfractionated heparintherapy. aPTT-based therapeutic ranges for unfractionated heparintherapy have not been established. For general guidelines onHeparin monitoring, refer to the [employer] Directory of Services. PATIENT NOT FASTINGP ERFORMED BY: [facility] Centerlin[address] PressBabyBlue Ridge Regional Hospital [id number] aPTT Coag (PPP) [Time] 33 s Normal 24-33 [facility]; [facility] Work Phone: Comment on above: This test has not be en validated for monitoring unfractionated heparintherapy. aPTT-based therapeutic ranges for unfractionated heparintherapy have not been established. For general guidelines onHeparin monitoring, refer to the [employer]itto Directory of Services. PATIENT NOT FASTINGP ERFORMED BY: DittoRehoboth McKinley Christian [facility] Care ServicesUfedyd1156 ParallelsCritical access hospital [id number] LIPID PANEL (63748)Ordered B y: Do All Operator on 02-17-2019 Cholesterol [Mass/Vol] 239 mg/dL Abnormal 100-199 [facility] Work Phone: Comment on above: PATIENT WAS FASTINGP ERFORMED BY: Live MatrixAlvin J. Siteman Cancer CenterJvzbzt[address] Adept CloudCritical access hospital [id number]; fu 4-9 DF Cholesterol in HDL [Mass/Vol] 89 mg/dL Normal [facility] Work Phone: Comment on above: PATIENT WAS FASTINGP ERFORMED BY: Live MatrixSheridan Community Hospital[address] PressBabyBlue Ridge Regional Hospital [id number]; fu 4-9 DF Cholesterol in LDL [Mass/Vol] 136 mg/dL Abnormal 0-99 [facility] Work Phone: Comment on above: PATIENT WAS FASTINGP ERFORMED BY: Live MatrixAlvin J. Siteman Cancer CenterOrutlg75[address] PressBabyBlue Ridge Regional Hospital [id number]; fu 4-9 DF Cholesterol in LDL/Cholesterol in HDL [Mass ratio] 1.5 {ratio} Normal 0.0-3.2 [facility] Work Phone: Comment on above: LDL/HDL Ratio Men Wo men 1/2 Avg.Risk 1.0 1.5 Avg.Risk 3.6 3.2 2X Avg.Risk 6.2 5.0 3X Avg.Risk 8.0 6.1 PATIENT WAS FASTINGP ERFORMED BY: CB [facility] Ncnycm1384 [address] RoadDublin [place] [id number]; fu 4-9 DF Cholesterol in VLDL [Mass/Vol] 14 mg/dL Normal 5-40 [facility] Work Phone: Comment on above: PATIENT WAS FASTINGP ERFORMED BY: CB [facility] Qxwpuu9791 [address] RoadDublin [place] [id number]; fu 4-9 DF Triglyceride [Mass/Vol] 69 mg/dL Normal 0-149 [facility] Work Phone: Comment on above: PATIENT WAS FASTINGP ERFORMED BY: CB [facility] Xxkzte2048 [address] RoadDublin [place] [id number]; fu 4-9 DF METABOLIC PANEL, COMPREHENSI VE (83603)Ordered By: Do All Operator on 02-17-2019 Albumin [Mass/Vol] 4.8 g/dL Normal 3.5-5.5 [facility] Internal Medicine Work Phone: Comment on above: PATIENT WAS FASTINGP ERFORMED BY: CB [facility] Yistso2194 [address] RoadDublin [place] [id number] Albumin/Globulin [Mass ratio] 2.1 {ratio} Normal 1.2-2.2 [facility] Work Phone: Comment on above: PATIENT WAS FASTINGP ERFORMED BY: CB [facility] Tletht7447 [address] RoadDublin [place] [id number] ALP [Catalytic activity/Vol] 80 [iU]/L Normal 39-117 [facility] Work Phone: Comment on above: PATIENT WAS FASTINGP ERFORMED BY: CB [facility] Bxpcaq8831 [address] RoadDublin [place] [id number] ALP [Catalytic activity/Vol] 80 U/L Normal 39-117 [facility]; [facility] Work Phone: Comment on above: PATIENT WAS FASTINGP ERFORMED BY: RIMA [facility] Qqaumm4582 [address] RoadDublin [place] [id number] ALT [Catalytic activity/Vol] 22 [iU]/L Normal 0-32 [facility] Work Phone: Comment on above: PATIENT WAS FASTINGP ERFORMED BY: RIMA [facility] Kowpzg7536 [address] RoadDublin [place] [id number] ALT [Catalytic activity/Vol] 22 U/L Normal 0-32 [facility]; [facility] Work Phone: Comment on above: PATIENT WAS FASTINGP ERFORMED BY: RIMA [facility] Ghtwzd3753 [address] RoadDublin [place] [id number] AST [Catalytic activity/Vol] 25 [iU]/L Normal 0-40 [facility] Work Phone: Comment on above: PATIENT WAS FASTINGP ERFORMED BY: RIMA [facility] Zazdlt6476 [address] RoadDublin [place] [id number] AST [Catalytic activity/Vol] 25 U/L Normal 0-40 [facility]; [facility] Work Phone: Comment on above: PATIENT WAS FASTINGP ERFORMED BY: RIMA [facility] Dxwnrb3088 [address] RoadDublin [place] [id number] Bilirubin [Mass/Vol] 0.4 mg/dL Normal 0.0-1.2 [facility] Work Phone: Comment on above: PATIENT WAS FASTINGP ERFORMED BY: [facility] Ztgklb1505 [address] RoadDublin [place] [id number] Calcium [Mass/Vol] 9.7 mg/dL Normal 8.7-10.2 [facility] Internal Medicine Work Phone: Comment on above: PATIENT WAS FASTINGP ERFORMED BY: CB [facility] Pcwsab7716 [address] RoadDublin [place] [id number] Chloride [Moles/Vol] 103 mmol/L Normal 96-106 [facility] Work Phone: Comment on above: PATIENT WAS FASTINGP ERFORMED BY: RIMA [facility] Qgksqb9043 [address] RoadDublin [place] [id number] CO2 [Moles/Vol] 24 mmol/L Normal 20-29 [facility] Internal Medicine Work Phone: Comment on above: PATIENT WAS FASTINGP ERFORMED BY: [facility]6370 [facility] [id number] Creatinine [Mass/Vol] 0.75 mg/dL Normal 0.57-1.00 [facility] Work Phone: Comment on above: PATIENT WAS FASTINGP ERFORMED BY: [facility]6370 [facility] [id number] GFR/1.73 sq M predicted among blacks CKD-EPI (S/P/Bld) [Vol rate/Area] 111 mL/min/1.73 Normal [facility] Work Phone: Comment on above: PATIENT WAS FASTINGP ERFORMED BY: [place] 1451970 [facility] [id number] GFR/1.73 sq M predicted among non-blacks CKD-EPI (S/P/Bld) [Vol rate/Area] 96 mL/min/1.73 Normal [facility] Work Phone: Comment on above: PATIENT WAS FASTINGP ERFORMED BY: [facility]6370 [facility] [id number] Globulin (S) [Mass/Vol] 2.3 g/dL Normal 1.5-4.5 [facility] Work Phone: Comment on above: PATIENT WAS FASTINGP ERFORMED BY: [facility]6370 [facility] [id number] Glucose [Mass/Vol] 88 mg/dL Normal 65-99 [facility] Internal Medicine Work Phone: Comment on above: PATIENT WAS FASTINGP ERFORMED BY: [facility]6370 [facility] [id number] Potassium [Moles/Vol] 4.6 mmol/L Normal 3.5-5.2 [facility] Work Phone: Comment on above: PATIENT WAS FASTINGP ERFORMED BY: CB [facility] Kcxsut8194 [address] RoadDublin [place] [id number] Protein [Mass/Vol] 7.1 g/dL Normal 6.0-8.5 [facility] Internal Medicine Work Phone: Comment on above: PATIENT WAS FASTINGP ERFORMED BY: CB [facility] Sbythm0564 [address] RoadDublin [place] [id number] Sodium [Moles/Vol] 143 mmol/L Normal 134-144 [facility] Internal Medicine Work Phone: Comment on above: PATIENT WAS FASTINGP ERFORMED BY: CB [facility] Hkemeo5044 [address] RoadDublin [place] [id number] Urea nitrogen [Mass/Vol] 12 mg/dL Normal 6-24 [facility] Internal Medicine Work Phone: Comment on above: PATIENT WAS FASTINGP ERFORMED BY: CB [facility] Mxscxp4117 [address] RoadDublin [place] [id number] Urea nitrogen/Creatinine [Mass ratio] 16 mg/mg Normal 9-23 [facility] Internal Medicine Work Phone: Comment on above: PATIENT WAS FASTINGP ERFORMED BY: CB [facility] Epjjkg6696 [address] RoadDublin [place] [id number] Vitamin D Hydroxy (22309)Ord ered By: Do All Operator on 02-17-2019 25-Hydroxyvitamin D2+25-Hydroxyvitami n D3 [Mass/Vol] 64.2 ng/mL Normal 30.0-100.0 [facility] Internal Medicine Work Phone: Comment on above: Vitamin D deficiency has been defined by the [place] ofMedicine and an Endocrine Society practice guideline as alevel of serum 25-OH vitamin D less than 20 ng/mL (1,2).The Endocrine Society went on to further define vitamin Dinsufficiency as a level between 21 and 29 ng/mL (2).1. IOM ([place] of Medicine). 2010. Dietary reference intakes for calcium and D. [place]: The National Academies Press.2. Blu MF, Priyanka NC, Ho HANNA, et al. Evaluation, treatment, and prevention of vitamin D deficiency: an Endocrine Society clinical practice guideline. JCEM. 2011 Leonel; 96(7):1911-30. PATIENT WAS FASTINGP ERFORMED BY: RIMA [facility] CenterNury[address] [id number] CBC W/AUTO DIFF WBC (36098)O rdered By: Do All Operator on 08-29-2018 Basophils #/vol (Bld) 0.0 {x10E3/uL} Normal 0.0-0.2 [facility] Work Phone: Comment on above: PATIENT NOT FASTINGP ERFORMED BY: RIMA Suero[address] [id number] Information: NURSE DRAW Basophils (Bld) [#/Vol] 0.0 10*3/uL Normal 0.0-0.2 [facility]; [facility] Work Phone: Comment on above: PATIENT NOT FASTINGP ERFORMED BY: [address] [id number] Information: NURSE DRAW Basophils/100 WBC (Bld) 1 % Normal [facility] Work Phone: Comment on above: PATIENT NOT FASTINGP ERFORMED BY: RIMA Suero[address] [id number] Information: NURSE DRAW Eosinophils #/vol (Bld) 0.2 {x10E3/uL} Normal 0.0-0.4 [facility] Work Phone: Comment on above: PATIENT NOT FASTINGP ERFORMED BY: [address] [id number] Information: NURSE DRAW Eosinophils (Bld) [#/Vol] 0.2 10*3/uL Normal 0.0-0.4 [facility]; [facility] Work Phone: Comment on above: PATIENT NOT FASTINGP ERFORMED BY: RIMA [address] [id number] Information: NURSE DRAW Eosinophils/100 WBC (Bld) 3 % Normal [facility] Work Phone: Comment on above: PATIENT NOT FASTINGP ERFORMED BY: RIMA SueroCoAaron [place]ille 6008470 [facility] [id number] Information: NURSE DRAW Erythrocyte distribution width Ratio (RBC) 13.4 % Normal 12.3-15.4 [facility] Work Phone: Comment on above: PATIENT NOT FASTINGP ERFORMED BY: [address] [id number] Information: NURSE DRAW Hematocrit Volume Fraction (Bld) 41.1 % Normal 34.0-46.6 [facility] Work Phone: Comment on above: PATIENT NOT FASTINGP ERFORMED BY: [address] [id number] Information: NURSE DRAW Hemoglobin mass conc (Bld) 13.7 g/dL Normal 11.1-15.9 [facility] Work Phone: Comment on above: PATIENT NOT FASTINGP ERFORMED BY: [address] [id number] Information: NURSE DRAW Immature granulocytes #/vol (Bld) 0.0 {x10E3/uL} Normal 0.0-0.1 [facility] Work Phone: Comment on above: PATIENT NOT FASTINGP ERFORMED BY: [facility] EastCo[address] [id number] Information: NURSE DRAW Immature granulocytes (Bld) [#/Vol] 0.0 10*3/uL Normal 0.0-0.1 [facility]; [facility] Work Phone: Comment on above: PATIENT NOT FASTINGP ERFORMED BY: LabCoAaron [place]ille 6008470 [facility] [id number] Information: NURSE DRAW Immature granulocytes/100 WBC (Bld) 0 % Normal [facility] Work Phone: Comment on above: PATIENT NOT FASTINGP ERFORMED BY: [facility] EastCoAaron [place] 6008470 [facility] [id number] Information: NURSE DRAW Lymphocytes #/vol (Bld) 2.3 {x10E3/uL} Normal 0.7-3.1 [facility] Work Phone: Comment on above: PATIENT NOT FASTINGP ERFORMED BY: RIMA PioZeynep KimQjpphd8515 [facility] [id number] Information: NURSE DRAW Lymphocytes (Bld) [#/Vol] 2.3 10*3/uL Normal 0.7-3.1 [facility]; [facility] Work Phone: Comment on above: PATIENT NOT FASTINGP ERFORMED BY: RIMA PioCokathy KimEqdlqh0591 [facility] [id number] Information: NURSE DRAW Lymphocytes/100 WBC (Bld) 39 % Normal [facility] Work Phone: Comment on above: PATIENT NOT FASTINGP ERFORMED BY: RIMA PioZeynep KimUlwbkf[address] [id number] Information: NURSE DRAW MCH Entitic mass (RBC) 29.8 pg Normal 26.6-33.0 [facility] Work Phone: Comment on above: PATIENT NOT FASTINGP ERFORMED BY: RIMA LabZeynep KimOpjret7458 [facility] [id number] Information: NURSE DRAW MCHC mass conc (RBC) 33.3 g/dL Normal 31.5-35.7 [facility] Work Phone: Comment on above: PATIENT NOT FASTINGP ERFORMED BY: RIMA LabCokathy KimLwlvoe5923 [facility] [id number] Information: NURSE DRAW MCV Entitic volume (RBC) 89 fL Normal 79-97 [facility] Work Phone: Comment on above: PATIENT NOT FASTINGP ERFORMED BY: RIMA LabCokathy KimUoattl7936 [facility] [id number] Information: NURSE DRAW Monocytes #/vol (Bld) 0.3 {x10E3/uL} Normal 0.1-0.9 [facility] Work Phone: Comment on above: PATIENT NOT FASTINGP ERFORMED BY: RIMA Darden Vsofsm7230 [facility] [id number] Information: NURSE DRAW Monocytes (Bld) [#/Vol] 0.3 10*3/uL Normal 0.1-0.9 [facility]; [facility] Work Phone: Comment on above: PATIENT NOT FASTINGP ERFORMED BY: RIMA Kimlin6370 [facility] [id number] Information: NURSE DRAW Monocytes/100 WBC (Bld) 5 % Normal [facility] Work Phone: Comment on above: PATIENT NOT FASTINGP ERFORMED BY: [address] [id number] Information: NURSE DRAW Neutrophils #/vol (Bld) 3.1 {x10E3/uL} Normal 1.4-7.0 [facility] Work Phone: Comment on above: PATIENT NOT FASTINGP ERFORMED BY: [facility] EastNury[address] [id number] Information: NURSE DRAW Neutrophils (Bld) [#/Vol] 3.1 10*3/uL Normal 1.4-7.0 [facility]; [facility] Work Phone: Comment on above: PATIENT NOT FASTINGP ERFORMED BY: RIMA Kimlin6370 [facility] [id number] Information: NURSE DRAW Neutrophils/100 WBC (Bld) 52 % Normal [facility] Work Phone: Comment on above: PATIENT NOT FASTINGP ERFORMED BY: [place] 1451970 [facility] [id number] Information: NURSE DRAW Platelets #/vol (Bld) 336 {x10E3/uL} Normal 150-379 [facility] Work Phone: Comment on above: PATIENT NOT FASTINGP ERFORMED BY: RIMA DardenAaron [place] 6008470 [facility] [id number] Information: NURSE DRAW Platelets (Bld) [#/Vol] 336 10*3/uL Normal 150-379 [facility]; [facility] Internal Medicine Work Phone: Comment on above: PATIENT NOT FASTINGP ERFORMED BY: RIMA Zarate [facility] [id number] Information: NURSE DRAW RBC #/vol (Bld) 4.60 {x10E6/uL} Normal 3.77-5.28 [facility] Internal [facility] Work Phone: Comment on above: PATIENT NOT FASTINGP ERFORMED BY: RIMA Kimlin6370 [facility] [id number] Information: NURSE DRAW RBC (Bld) [#/Vol] 4.60 10*6/uL Normal 3.77-5.28 [facility] Internal Medicine; [facility] Internal Medicine Work Phone: Comment on above: PATIENT NOT FASTINGP ERFORMED BY: RIMA Katalina O[address] [id number] Information: NURSE DRAW WBC #/vol (Bld) 5.9 {x10E3/uL} Normal 3.4-10.8 [facility] Internal Medicine Work Phone: Comment on above: PATIENT NOT FASTINGP ERFORMED BY: RIMA Kimlin6370 [facility] [id number] Information: NURSE DRAW WBC (Bld) [#/Vol] 5.9 10*3/uL Normal 3.4-10.8 [facility] Internal Medicine; [facility] Internal Medicine Work Phone: Comment on above: PATIENT NOT FASTINGP ERFORMED BY: RIMA Katalina Rcaipp9234 [facility] [id number] Information: NURSE DRAW Cortisol (24641)Ordered By: Do All Operator on 08-29-2018 Cortisol mass conc 5.9 ug/dL Normal [facility] Internal Medicine Work Phone: Comment on above: Cortisol AM 6.2 - 19 .4 Cortisol PM 2.3 - 11.9 PATIENT NOT FASTINGP ERFORMED BY: RIMA LabCoEast Mountain HospitalVlokld4670 [facility] [id number] METABOLIC PANEL, COMPREHENSI VE (22976)Ordered By: Do All Operator on 08-29-2018 Albumin mass conc 4.7 g/dL Normal 3.5-5.5 Compreh [facility] Internal Medicine Work Phone: Comment on above: PATIENT NOT FASTINGP ERFORMED BY: CB [facility] Cypina9[address] RoadDublin [place] [id number] Albumin/Globulin mass ratio 1.7 {ratio} Normal 1.2-2.2 [facility] Work Phone: Comment on above: PATIENT NOT FASTINGP ERFORMED BY: CB [facility] Gaqveq4671 [address] RoadDublin [place] [id number] ALP [Catalytic activity/Vol] 86 U/L Normal 39-117 [facility]; [facility] Work Phone: Comment on above: PATIENT NOT FASTINGP ERFORMED BY: CB [facility] Zdbnok9681 [address] RoadDublin [place] [id number] ALP enzyme act/vol 86 [iU]/L Normal 39-117 [facility] Internal Medicine Work Phone: Comment on above: PATIENT NOT FASTINGP ERFORMED BY: CB [facility] Vfddnt9251 [address] RoadDublin [place] [id number] ALT [Catalytic activity/Vol] 19 U/L Normal 0-32 [facility]; [facility] Work Phone: Comment on above: PATIENT NOT FASTINGP ERFORMED BY: CB [facility] Hncjjj8336 [address] RoadDublin [place] [id number] ALT enzyme act/vol 19 [iU]/L Normal 0-32 [facility] Internal Medicine Work Phone: Comment on above: PATIENT NOT FASTINGP ERFORMED BY: CB [facility] Dvdytq1217 [address] RoadDublin [place] [id number] AST [Catalytic activity/Vol] 21 U/L Normal 0-40 [facility]; [facility] Work Phone: Comment on above: PATIENT NOT FASTINGP ERFORMED BY: CB [facility] Upvome3981 [address] RoadDublin [place] [id number] AST enzyme act/vol 21 [iU]/L Normal 0-40 Compre hensive Internal Medicine Work Phone: Comment on above: PATIENT NOT FASTINGP ERFORMED BY: RIMA LabCokathy AllenXuhjhf1321 [address] Roadblin [place] [id number] Bilirubin [Mass/Vol] mg/dL Normal 0.0-1.2 [facility]; [facility] Work Phone: Comment on above: PATIENT NOT FASTINGP ERFORMED BY: RIMA [facility] Btggor3084 [address] RoadFrye Regional Medical Centerin [place] [id number] Bilirubin mass conc mg/dL Normal 0.0-1.2 Compr ehensive Internal Medicine Work Phone: Comment on above: PATIENT NOT FASTINGP ERFORMED BY: RIMA Allen[address] [facility] [id number] Calcium mass conc 9.6 mg/dL Normal 8.7-10.2 Compreh ensive Internal Medicine Work Phone: Comment on above: PATIENT NOT FASTINGP ERFORMED BY: RIMA LabCokathy KimJttiay[address] [facility]in [place] [id number] Chloride molar conc 102 mmol/L Normal 96-106 Compr ensive Internal Medicine Work Phone: Comment on above: PATIENT NOT FASTINGP ERFORMED BY: RIMA LabZeynep KimZuwzsk[address] [facility] [id number] CO2 molar conc 23 mmol/L Normal 20-29 Comprehens genet Internal Medicine Work Phone: Comment on above: PATIENT NOT FASTINGP ERFORMED BY: RIMA [facility] Haamac[address] [facility]in [place] [id number] Creatinine mass conc 0.77 mg/dL Normal 0.57-1.00 [facility] Work Phone: Comment on above: PATIENT NOT FASTINGP ERFORMED BY: RIMA [facility] Pxyyhv[address] [facility]in [place] [id number] GFR/1.73 sq M predicted among blacks CKD-EPI vol rate/area (S/P/Bld) 107 mL/min/1.73 Normal Comprehensiv e Internal Medicine Work Phone: Comment on above: PATIENT NOT FASTINGP ERFORMED BY: RIMA LabZeynep KimUvjmbl0599 [facility] [id number] GFR/1.73 sq M predicted among non-blacks CKD-EPI vol rate/area (S/P/Bld) 93 mL/min/1.73 Normal [facility] Work Phone: Comment on above: PATIENT NOT FASTINGP ERFORMED BY: RIMA Kimlin6370 [facility] [id number] Globulin mass conc (S) 2.7 g/dL Normal 1.5-4.5 [facility] Work Phone: Comment on above: PATIENT NOT FASTINGP ERFORMED BY: RIMA Kimlin6370 [facility] [id number] Glucose mass conc 87 mg/dL Normal 65-99 Compreh ensive Internal Medicine Work Phone: Comment on above: PATIENT NOT FASTINGP ERFORMED BY: RIMA Sunil Kmilin6370 [facility] [id number] Potassium molar conc 5.1 mmol/L Normal 3.5-5.2 [facility] Work Phone: Comment on above: PATIENT NOT FASTINGP ERFORMED BY: RIMA Kimlin6370 [facility] [id number] Protein mass conc 7.4 g/dL Normal 6.0-8.5 Compreh ensive Internal Medicine Work Phone: Comment on above: PATIENT NOT FASTINGP ERFORMED BY: RIMA LabNury Vvnhuh6668 [facility] [id number] Sodium molar conc 140 mmol/L Normal 134-144 Compreh ensive Internal Medicine Work Phone: Comment on above: PATIENT NOT FASTINGP ERFORMED BY: RIMA LabZeynep KimHzqtwg2273 [facility] [id number] Urea nitrogen mass conc 13 mg/dL Normal 6-24 [facility] Work Phone: Comment on above: PATIENT NOT FASTINGP ERFORMED BY: RIMA LabCo Uhpmxw8859 [facility] CenterDublin [place] [id number] Urea nitrogen/Creatinine mass ratio 17 mg/mg Normal 9-23 [facility] Work Phone: Comment on above: PATIENT NOT FASTINGP ERFORMED BY: RIMA [facility] Aprpxe1947 [address] RoadDublin [place] [id number] Microscopic ExaminationOrder ed By: Do All Operator on 08-29-2018 Bacteria LM.HPF #/area (Urine sed) None seen Normal [facility] Work Phone: Comment on above: PATIENT NOT FASTINGP ERFORMED BY: RIMA [facility] Zfpszb1153 [address] RoadFrye Regional Medical Centerin [place] [id number] Epithelial cells LM.HPF #/area (Urine sed) 0-10 Normal 0 - 10 [facility] Work Phone: Comment on above: PATIENT NOT FASTINGP ERFORMED BY: RIMA [facility] Uiwwvh0870 [address] RoadFrye Regional Medical Centerin [place] [id number] Mucus Ql (Urine sed) Present Normal [facility] Work Phone: Comment on above: PATIENT NOT FASTINGP ERFORMED BY: RIMA [facility] Cdrvho0247 [address] [facility]in [place] [id number] RBC LM.HPF #/area (Urine sed) 0-2 Normal 0 - 2 [facility] Work Phone: Comment on above: PATIENT NOT FASTINGP ERFORMED BY: RIMA [facility] Ehmpqd4737 [address] [facility]in [place] [id number] WBC LM.HPF #/area (Urine sed) 0-5 Normal 0 - 5 [facility] Work Phone: Comment on above: PATIENT NOT FASTINGP ERFORMED BY: RIMA [facility] Swkzdu4108 [address] [facility]bl[facility] [place] [id number] T3, FREE (TRIDOTHYRONINE) (7 1475)Ordered By: Do All Operator on 08-29-2018 T3 free mass conc 2.6 pg/mL Normal 2.0-4.4 Compreh ensive Internal Medicine Work Phone: Comment on above: PATIENT NOT FASTINGP ERFORMED BY: CB [facility] Ghruae[address] [facility]in [place] [id number] T4, FREE (THYROXINE) (26190) Ordered By: Do All Operator on 08-29-2018 T4 free mass conc 1.03 ng/dL Normal 0.82-1.77 Compreh ensive Internal Medicine Work Phone: Comment on above: PATIENT NOT FASTINGP ERFORMED BY: RIMA Allen6370 [address] RoadDublin [place] [id number] URINALYSIS, W/ MICRO (44742) Ordered By: Do All Operator on 08-29-2018 Appearance Nom (U) Clear Normal Compre hensive Internal Medicine Work Phone: Comment on above: PATIENT NOT FASTINGP ERFORMED BY: RIMA Hernandez70 [address] RoadDublin [place] [id number] Bilirubin Ql (U) Negative Normal Comprehe nsive Internal Medicine Work Phone: Comment on above: PATIENT NOT FASTINGP ERFORMED BY: RIMA Zarate [address] RoadDublin [place] [id number] Bilirubin Ql (U) Negative Normal Comprehe nsive Internal Medicine; [facility] Work Phone: Comment on above: PATIENT NOT FASTINGP ERFORMED BY: RIMA Allen6370 [address] RoadDublin [place] [id number] Color Nom (U) Yellow Normal Comprehensi ve Internal Medicine Work Phone: Comment on above: PATIENT NOT FASTINGP ERFORMED BY: RIMA Allen6370 [address] RoadDublin [place] [id number] Glucose Ql (U) Negative Normal Comprehens genet Internal Medicine Work Phone: Comment on above: PATIENT NOT FASTINGP ERFORMED BY: RIMA LabZeynep KimFwexfo5103 [address] RoadDublin [place] [id number] Glucose Ql (U) Negative Normal Comprehens genet Internal Medicine; [facility] Work Phone: Comment on above: PATIENT NOT FASTINGP ERFORMED BY: RIMA Kimlin6370 [address] RoadDublin [place] [id number] Hemoglobin Ql (U) Negative Normal Compreh ensive Internal Medicine Work Phone: Comment on above: PATIENT NOT FASTINGP ERFORMED BY: RIMA [facility] Vhdymx2494 [address] RoadDublin [place] [id number] Hemoglobin Ql (U) Negative Normal Compreh ensive Internal Medicine; [facility] Work Phone: Comment on above: PATIENT NOT FASTINGP ERFORMED BY: RIMA [facility] Nhgjdw3112 [address] RoadDublin [place] [id number] Ketones Ql (U) Negative Normal Comprehens genet Internal Medicine Work Phone: Comment on above: PATIENT NOT FASTINGP ERFORMED BY: CB [facility] Ckyjvp5174 [address] RoadDublin [place] [id number] Ketones Ql (U) Negative Normal Comprehens genet Internal Medicine; [facility] Work Phone: Comment on above: PATIENT NOT FASTINGP ERFORMED BY: RIMA [facility] Nwbrrd0279 [address] RoadDublin [place] [id number] Leukocyte esterase Test strip Ql (U) Negative Normal [facility] Work Phone: Comment on above: PATIENT NOT FASTINGP ERFORMED BY: RIMA [facility] Wyaczv2752 [address] RoadDublin [place] [id number] Leukocyte esterase Test strip Ql (U) Negative Normal [facility]; [facility] Work Phone: Comment on above: PATIENT NOT FASTINGP ERFORMED BY: RIMA [facility] Zlsokv9960 [address] RoadDublin [place] [id number] Microscopic observation LM Nom (Urine sed) MICRON Normal [facility] Work Phone: Comment on above: Microscopic follows if indicated. PATIENT NOT FASTINGP ERFORMED BY: CB [facility] Vdxbxi3961 [address] RoadDublin [place] [id number] Microscopic observation LM Nom (Urine sed) See below: Normal [facility] Work Phone: Comment on above: Microscopic was arnaud cated and was performed. PATIENT NOT FASTINGP ERFORMED BY: CB [facility] Awuhxa4898 [address] RoadDublin [place] [id number] Nitrite Ql (U) Negative Normal Comprehens genet Internal Medicine Work Phone: Comment on above: PATIENT NOT FASTINGP ERFORMED BY: RIMA LabZeynep KimPcfswq4400 [address] RoadDublin [place] [id number] Nitrite Ql (U) Negative Normal Comprehens genet Internal Medicine; [facility] Work Phone: Comment on above: PATIENT NOT FASTINGP ERFORMED BY: RIMA Kimlin6[address] RoadDublin [place] [id number] pH (U) 6.5 [pH] Normal 5.0-7.5 [facility] Work Phone: Comment on above: PATIENT NOT FASTINGP ERFORMED BY: RIMA LabZeynep KimBkcoxj2850 [address] RoadDublin [place] [id number] Protein Ql (U) Negative Normal Comprehens genet Internal Medicine Work Phone: Comment on above: PATIENT NOT FASTINGP ERFORMED BY: RIMA Allen6370 [address] RoadDuin [place] [id number] Protein Ql (U) Negative Normal Comprehens genet Internal Medicine; [facility] Work Phone: Comment on above: PATIENT NOT FASTINGP ERFORMED BY: RIMA Kimlin6370 [address] [facility]bl[facility] [place] [id number] Specific gravity Relative Density (U) 1.015 1 Normal 1.005-1.03 0 [facility] Work Phone: Comment on above: PATIENT NOT FASTINGP ERFORMED BY: RIMA Kimlin6370 [address] [facility]Blue [facility] [id number] Urobilinogen (U) [Mass/Vol] 0.2 mg/dL Normal 0.2-1.0 [facility]; [facility] Work Phone: Comment on above: PATIENT NOT FASTINGP ERFORMED BY: RIMA LabZeynep KimOocvnx2192 [address] RoadDublin [place] [id number] Urobilinogen Test strip mass conc (U) 0.2 mg/dL Normal 0.2-1.0 Comprehensiv e Internal Medicine Work Phone: Comment on above: PATIENT NOT FASTINGP ERFORMED BY: RIMA Kimlin6370 [facility] [id number] METABOLIC PANEL, BASIC (8004 8)Ordered By: Do All Operator on 09-23-2014 Calcium mass conc 10.1 mg/dL Normal 8.7-10.2 Compreh ensive Internal Medicine Work Phone: Comment on above: 4-6 wks; PATIENT NOT FASTINGPERFORMED BY: CB [facility] [address]tlkmo[address] [facility] [id number] Information: [id number] Chloride molar conc 100 mmol/L Normal 97-108 Compr ehensive Internal Medicine Work Phone: Comment on above: 4-6 wks; PATIENT NOT FASTINGPERFORMED BY: CB [facility] Onypmh0003 [facility] [id number] Information: [id number] CO2 molar conc 25 mmol/L Normal 18-29 Comprehens genet Internal Medicine Work Phone: Comment on above: 4-6 wks; PATIENT NOT FASTINGPERFORMED BY: CB [facility] Ongzfx6424 [facility] [id number] Information: [id number] Creatinine mass conc 0.65 mg/dL Normal 0.57-1.00 [facility] Work Phone: Comment on above: 4-6 wks; PATIENT NOT FASTINGPERFORMED BY: CB [facility] Zctivg9446 [facility] [id number] Information: [id number] GFR/1.73 sq M predicted among blacks CKD-EPI vol rate/area (S/P/Bld) 127 mL/min/1.73 Normal Comprehensiv e Internal Medicine Work Phone: Comment on above: 4-6 wks; PATIENT NOT FASTINGPERFORMED BY: CB [facility] Vkajqw[address] [facility] [id number] Information: [id number] GFR/1.73 sq M predicted among non-blacks CKD-EPI vol rate/area (S/P/Bld) 110 mL/min/1.73 Normal [facility] Work Phone: Comment on above: 4-6 wks; PATIENT NOT FASTINGPERFORMED BY: RIMA Allen6370 [facility] [id number] Information: 516773,[id number] Glucose mass conc 91 mg/dL Normal 65-99 Compreh ensive Internal Medicine Work Phone: Comment on above: 4-6 wks; PATIENT NOT FASTINGPERFORMED BY: RIMA [facility] Uqzcji1825 [facility] [id number] Information: [id number] Potassium molar conc 5.0 mmol/L Normal 3.5-5.2 [facility] Work Phone: Comment on above: 4-6 wks; PATIENT NOT FASTINGPERFORMED BY: RIMA [facility] Nedpdq5980 [facility] [id number] Information: [id number] Sodium molar conc 139 mmol/L Normal 134-144 Compreh ensive Internal Medicine Work Phone: Comment on above: 4-6 wks; PATIENT NOT FASTINGPERFORMED BY: RIMA Darden Xlssvq1272 [facility] [id number] Information: [id number] Urea nitrogen mass conc 10 mg/dL Normal 6-24 [facility] Work Phone: Comment on above: 4-6 wks; PATIENT NOT FASTINGPERFORMED BY: RIMA LabShrin[facility] Nrvtqz9218 [facility] [id number] Information: [id number] Urea nitrogen/Creatinine mass ratio 15 mg/mg Normal 9-23 [facility] Work Phone: Comment on above: 4-6 wks; PATIENT NOT FASTINGPERFORMED BY: RIMA LabShriners [facility] Waqczz7180 [facility] [id number] Information: [id number] CBC (Auto) (10020)Ordered By : Do All Operator on 01-04-2012 Erythrocyte distribution width Ratio (RBC) 13.1 % Normal 11.7-15.0 [facility] Work Phone: Comment on above: PATIENT WAS FASTINGP ERFORMED BY: RIMA [facility] Xepdao3904 [address] [facility] Hospitalbl[facility] [place] [id number] Hematocrit Volume Fraction (Bld) 43.2 % Normal 34.0-44.0 [facility] Work Phone: Comment on above: PATIENT WAS FASTINGP ERFORMED BY: CB [facility] Kefhaf0239 [address] RoadBlue [facility] [id number] Hemoglobin mass conc (Bld) 14.4 g/dL Normal 11.5-15.0 [facility] Work Phone: Comment on above: PATIENT WAS FASTINGP ERFORMED BY: CB [facility] Rbsgud9904 [address] RoadFrye Regional Medical Centerin [place] [id number] MCH Entitic mass (RBC) 29.6 pg Normal 27.0-34.0 [facility] Work Phone: Comment on above: PATIENT WAS FASTINGP ERFORMED BY: [facility] Tmiydo2156 [address] RoadFrye Regional Medical Centerin [place] [id number] MCHC mass conc (RBC) 33.3 g/dL Normal 32.0-36.0 [facility] Work Phone: Comment on above: PATIENT WAS FASTINGP ERFORMED BY: [facility] Icpqvo2864 [address] RoadFrye Regional Medical Centerin [place] [id number] MCV Entitic volume (RBC) 89 fL Normal 80-98 [facility] Work Phone: Comment on above: PATIENT WAS FASTINGP ERFORMED BY: [facility] Amjwln8325 [address] RoadFrye Regional Medical Centerin [place] [id number] Platelets #/vol (Bld) 163 {x10E3/uL} Normal 140-415 [facility] Work Phone: Comment on above: PATIENT WAS FASTINGP ERFORMED BY: CB [facility] Komqwc6809 [address] RoadDublin [place] [id number] Platelets (Bld) [#/Vol] 163 10*3/uL Normal 140-415 [facility]; [facility] Work Phone: Comment on above: PATIENT WAS FASTINGP ERFORMED BY: RIMA Katalina Cxzpqi2973 [facility] [id number] RBC #/vol (Bld) 4.87 {x10E6/uL} Normal 3.80-5.10 Comp [facility] Internal Medicine Work Phone: Comment on above: PATIENT WAS FASTINGP ERFORMED BY: RIMA [facility]ioSh[facility] Nglrbt1054 [address] [facility] [id number] RBC (Bld) [#/Vol] 4.87 10*6/uL Normal 3.80-5.10 Compr ensive Internal Medicine; [facility] Work Phone: Comment on above: PATIENT WAS FASTINGP ERFORMED BY: RIMA PioNury Kdkqnd8453 [facility] [id number] WBC #/vol (Bld) 6.1 {x10E3/uL} Normal 4.0-10.5 [facility] Internal Medicine Work Phone: Comment on above: PATIENT WAS FASTINGP ERFORMED BY: RIMA [facility]ioSh[facility] Yllola6127 [facility] [id number] WBC (Bld) [#/Vol] 6.1 10*3/uL Normal 4.0-10.5 [facility]centerpoint [facility] Internal [facility]; [facility] Work Phone: Comment on above: PATIENT WAS FASTINGP ERFORMED BY: RIMA [facility]ioSh[facility] Qqadjn4631 [facility] [id number] Lipid Panel (94539)Ordered B y: Do All Operator on 01-04-2012 Cholesterol in HDL mass conc 70 mg/dL Normal [facility] Work Phone: Comment on above: According to ATP-III Guidelines, HDL-C >59 mg/dL is considered anegative risk factor for CHD. PATIENT WAS FASTINGP ERFORMED BY: RIMA [facility]ioSher[facility] Hospital6370 [facility] [id number] Cholesterol in LDL mass conc 117 mg/dL Abnormal 0-99 [facility] Work Phone: Comment on above: PATIENT WAS FASTINGP ERFORMED BY: RIMA LabShrin[facility] Mdtbsy7394 [facility] [id number] Cholesterol in LDL/Cholesterol in HDL mass ratio 1.7 {ratio_units} Normal 0.0-3.2 [facility] Work Phone: Comment on above: PATIENT WAS FASTINGP ERFORMED BY: RIMA Kimlin6370 [facility] [id number] Cholesterol in VLDL mass conc 18 mg/dL Normal 5-40 [facility] Work Phone: Comment on above: PATIENT WAS FASTINGP ERFORMED BY: [facility] Ypyrbu2368 [facility] [id number] Cholesterol mass conc 205 mg/dL Abnormal 100-199 [facility] Work Phone: Comment on above: PATIENT WAS FASTINGP ERFORMED BY: RIMA Katalina Goeyqx3805 [facility] [id number] Triglyceride mass conc 92 mg/dL Normal 0-149 [facility] Work Phone: Comment on above: PATIENT WAS FASTINGP ERFORMED BY: RIMA PioSh[facility] Mwoaze3649 [facility] [id number] Metabolic Panel, Comprehensi ve (68290)Ordered By: Do All Operator on 01-04-2012 Albumin mass conc 4.9 g/dL Normal 3.5-5.5 [facility] Internal Medicine Work Phone: Comment on above: PATIENT WAS FASTINGP ERFORMED BY: LabCoEast Mountain HospitalSzuizm2754 [facility] [id number] Information: [id number] DIFFICULT D RAW Albumin/Globulin mass ratio 2.0 {ratio} Normal 1.1-2.5 [facility] Work Phone: Comment on above: PATIENT WAS FASTINGP ERFORMED BY: PioSh[facility] Qyjhsi4901 [facility] [id number] Information: [id number] DIFFICULT D RAW ALP [Catalytic activity/Vol] 107 U/L Normal 25-150 [facility]; [facility] Work Phone: Comment on above: PATIENT WAS FASTINGP ERFORMED BY: LabSheridan [facility] Hospital6370 [facility] [id number] Information: [id number] DIFFICULT D RAW ALP enzyme act/vol 107 [iU]/L Normal 25-150 [facility] Internal Medicine Work Phone: Comment on above: PATIENT WAS FASTINGP ERFORMED BY: [place] 1451970 [facility] [id number] Information: [id number] DIFFICULT D RAW ALT [Catalytic activity/Vol] 29 U/L Normal 0-40 [facility] Work Phone: Comment on above: PATIENT WAS FASTINGP ERFORMED BY: [place] 1451970 [facility] [id number] Information: [id number] DIFFICULT D RAW ALT enzyme act/vol 29 [iU]/L Normal 0-40 [facility] Internal Medicine Work Phone: Comment on above: PATIENT WAS FASTINGP ERFORMED BY: [place] 1451970 [facility] [id number] Information: [id number] DIFFICULT D RAW AST [Catalytic activity/Vol] 18 U/L Normal 0-40 [facility] Work Phone: Comment on above: PATIENT WAS FASTINGP ERFORMED BY: [place] 1451970 [facility] [id number] Information: [id number] DIFFICULT D RAW AST enzyme act/vol 18 [iU]/L Normal 0-40 [facility] Internal Medicine Work Phone: Comment on above: PATIENT WAS FASTINGP ERFORMED BY: LabSheridan [facility] Hospital6370 [facility] [id number] Information: [id number] DIFFICULT D RAW Bilirubin mass conc 0.3 mg/dL Normal 0.0-1.2 [facility] Internal Medicine Work Phone: Comment on above: PATIENT WAS FASTINGP ERFORMED BY: [facility] Jjqszi8822 [facility] [id number] Information: 484253,S29909 DIFFICULT D RAW Calcium mass conc 9.9 mg/dL Normal 8.7-10.2 Compreh ensive Internal Medicine Work Phone: Comment on above: PATIENT WAS FASTINGP ERFORMED BY: [facility] [id number] [facility] [id number] Information: [id number] DIFFICULT D RAW Chloride molar conc 103 mmol/L Normal 97-108 Compr ehensive Internal Medicine Work Phone: Comment on above: PATIENT WAS FASTINGP ERFORMED BY: [facility] [id number] [facility] [id number] Information: [id number] DIFFICULT D RAW CO2 molar conc 22 mmol/L Normal 20-32 Comprehens genet Internal Medicine Work Phone: Comment on above: PATIENT WAS FASTINGP ERFORMED BY: [facility] [id number] [facility] [id number] Information: [id number] DIFFICULT D RAW Creatinine mass conc 0.61 mg/dL Normal 0.57-1.00 [facility] Work Phone: Comment on above: PATIENT WAS FASTINGP ERFORMED BY: [facility]29 [facility] [id number] Information: [id number] DIFFICULT D RAW GFR/1.73 sq M predicted among blacks MDRD vol rate/area (S/P/Bld) 132 mL/min/{1.73_m2} Normal Compreh ensive Internal Medicine Work Phone: Comment on above: Note: A persistent e GFR <60 mL/min/1.73 m2 (3 months or more) mayindicate chronic kidney disease. An eGFR >59 mL/min/1.73 m2 with anelevated urine protein also may indicate chronic kidney disease.Calculated using CKD-EPI formula. PATIENT WAS FASTINGP ERFORMED BY: [facility] HospitalYkamzy1431 [facility] [id number] Information: [id number] DIFFICULT D RAW GFR/1.73 sq M predicted among non-blacks CKD-EPI vol rate/area (S/P/Bld) 115 mL/min/1.73 Normal [facility] Work Phone: Comment on above: PATIENT WAS FASTINGP ERFORMED BY: [place] [id number] [facility] [id number] Information: [id number] DIFFICULT D RAW Globulin mass conc (S) 2.4 g/dL Normal 1.5-4.5 [facility] Work Phone: Comment on above: PATIENT WAS FASTINGP ERFORMED BY: [place] [id number] [facility] [id number] Information: [id number] DIFFICULT D RAW Glucose mass conc 90 mg/dL Normal 65-99 Compreh ensive Internal Medicine Work Phone: Comment on above: PATIENT WAS FASTINGP ERFORMED BY: [place] [id number] [facility] [id number] Information: [id number] DIFFICULT D RAW Potassium molar conc 4.2 mmol/L Normal 3.5-5.2 [facility] Work Phone: Comment on above: PATIENT WAS FASTINGP ERFORMED BY: [place] [id number] [facility] [id number] Information: [id number] DIFFICULT D RAW Protein mass conc 7.3 g/dL Normal 6.0-8.5 Compreh ensive Internal Medicine Work Phone: Comment on above: PATIENT WAS FASTINGP ERFORMED BY: [place] [id number] [facility] [id number] Information: [id number] DIFFICULT D RAW Sodium molar conc 141 mmol/L Normal 134-144 Compreh ensive Internal Medicine Work Phone: Comment on above: PATIENT WAS FASTINGP ERFORMED BY: [address] [place] [id number] Information: [id number] DIFFICULT D RAW Urea nitrogen mass conc 8 mg/dL Normal 6-20 [facility] Work Phone: Comment on above: PATIENT WAS FASTINGP ERFORMED BY: [facility] [id number] [facility] [id number] Information: [id number] DIFFICULT D RAW Urea nitrogen/Creatinine mass ratio 13 mg/mg Normal 8-20 [facility] Work Phone: Comment on above: PATIENT WAS FASTINGP ERFORMED BY: [facility] [id number] [facility] [id number] Information: [id number] DIFFICULT D RAW T4, FREE (THYROXINE) ([id number]) Ordered By: Do All Operator on 01-04-2012 T4 free mass conc 1.03 ng/dL Normal 0.82-1.77 [facility] Work Phone: Comment on above: PATIENT WAS FASTINGP ERFORMED BY: [facility] [id number] [facility] [id number] TSH ([id number])Ordered By: Syste m [employer] Operator Helper on 01-04-2012 Thyrotropin Qn 1.910 {uIU/mL} Normal 0.450-4.50 0 [facility] Work Phone: Comment on above: PATIENT WAS FASTINGP ERFORMED BY: [facility] [id number] [facility] [id number] Vital Signs Date Time Vital Sign Value Performing Clinician Facility 12-09-2024 10:21-0500 Body height 177.[address] Mohsen Perales DO Work Phone: [facility] 06-10-2023 08:29-0400 Body height 175.26 cm Beckmargret Reyes [facility]; [facility] Work Phone: 06-10-2023 08:29-0400 Body mass index (BMI) [Ratio] 23.65 kg/m2 [facility]; [facility] Work Phone: 06-10-2023 08:29-0400 Body surface area Derived from formula 1.88 m2 Beck Reyes [facility]; [facility] Work Phone: 06-10-2023 08:29-0400 Body temperature 96.8 [degF] Beck Reyes [facility]; [facility] Work Phone: Comment on above: Method: Thermal Scan 06-10-2023 08:29-0400 Body weight 72.63 kg Beck Reyes [facility]; [facility] Work Phone: 06-10-2023 08:29-0400 Diastolic blood pressure 80 mm[Hg] Beck Reyes [facility]; [facility] Work Phone: Comment on above: Patient Position: Sitting; Cuff Location : Left Arm; Cuff Size: Standard 06-10-2023 08:29-0400 Heart rate 83 /min Beck Reyes [facility]; [facility] Work Phone: Comment on above: Pattern: Regular 06-10-2023 08:29-0400 Respiratory rate 16 /min Beck Reyes [facility]; [facility] Work Phone: Comment on above: Pattern: Unlabored 06-10-2023 08:29-0400 Systolic blood pressure 118 mm[Hg] Beck Reyes [facility]; [facility] Work Phone: Comment on above: Patient Position: Sitting; Cuff Location : Left Arm; Cuff Size: Standard 02-11-2023 08:07-0400 Body height 175.26 cm Beck Reyes [facility]; [facility] Work Phone: 02-11-2023 08:07-0400 Body mass index (BMI) [Ratio] 27.49 kg/m2 Beck Reyes [facility]; [facility] Work Phone: 02-11-2023 08:07-0400 Body surface area Derived from formula 2 m2 Beck Reyes [employer] [facility]; [facility] Work Phone: 02-11-2023 08:07-0400 Body temperature 97.2 [degF] Beck Reyes [facility]; [facility] Work Phone: Comment on above: Method: Thermal Scan 02-11-2023 08:07-0400 Body weight 84.43 kg Beck Reyes [facility]; [facility] Work Phone: 02-11-2023 08:07-0400 Diastolic blood pressure 64 mm[Hg] Beck Reyes [facility]; [facility] Work Phone: Comment on above: Patient Position: Sitting; Cuff Location : Left Arm; Cuff Size: Standard 02-11-2023 08:07-0400 Heart rate 93 /min Beck Reyes [facility]; [facility] Work Phone: Comment on above: Pattern: Regular 02-11-2023 08:07-0400 Respiratory rate 16 /min Beck Reyes [facility]; [facility] Work Phone: Comment on above: Pattern: Unlabored 02-11-2023 08:07-0400 Systolic blood pressure 115 mm[Hg] Beck Reyes [facility]; [facility] Work Phone: Comment on above: Patient Position: Sitting; Cuff Location : Left Arm; Cuff Size: Standard 01-24-2023 09:25-0500 Body temperature 97 [degF] Dr. Mohsen Perales Work Phone: [facility] 01-24-2023 09:25-0500 Diastolic blood pressure 68 mm[Hg] Dr. Connolly Fast Work Phone: [facility] 01-24-2023 09:25-0500 Heart rate 72 /min Dr. Connolly Fast Work Phone: [facility] 01-24-2023 09:25-0500 Respiratory rate 16 /min Dr. Connolly Fast Work Phone: [facility] 01-24-2023 09:25-0500 SaO2% (BldA) [Mass fraction] 100 % Dr. Connolly Fast Work Phone: [facility] 01-24-2023 09:25-0500 Systolic blood pressure 108 mm[Hg] Dr. Connolly Fast Work Phone: [facility] 01-24-2023 08:02-0500 Body height 177.[address] Connolly Fast Work Phone: [facility] 01-24-2023 08:02-0500 Body mass index (BMI) [Ratio] 27.8 kg/m2 Dr. Connolly Fast Work Phone: [facility] 01-24-2023 08:02-0500 Body weight 88.[address] Mohsen Perales Work Phone: [facility] 11-09-2022 10:49-0500 Body mass index (BMI) [Ratio] 28.8 kg/m2 Dr. Connolly Fast Work Phone: [facility] 11-09-2022 10:49-0500 Body weight 88.[address] Mohsen Perales Work Phone: [facility] 10-02-2022 08:33-0500 Body height 175.26 cm Beck Reyes [facility]; [facility] Work Phone: 10-02-2022 08:33-0500 Body mass index (BMI) [Ratio] 29.26 kg/m2 Beck Reyes [facility]; [facility] Work Phone: 10-02-2022 08:33-0500 Body surface area Derived from formula 2.06 m2 Beck Reyes [facility]; [facility] Work Phone: 10-02-2022 08:33-0500 Body temperature 97.9 [degF] Beck Reyes [facility]; [facility] Work Phone: Comment on above: Method: Thermal Scan 10-02-2022 08:33-0500 Body weight 89.87 kg Beck Reyes [facility]; [facility] Work Phone: 10-02-2022 08:33-0500 Diastolic blood pressure 78 mm[Hg] Beck Reyes [facility]; [facility] Work Phone: Comment on above: Patient Position: Sitting; Cuff Location : Left Arm; Cuff Size: Standard 10-02-2022 08:33-0500 Heart rate 78 /min Beck Reyes [facility]; [facility] Work Phone: Comment on above: Pattern: Regular 10-02-2022 08:33-0500 Respiratory rate 16 /min Beck Reyes [facility]; [facility] Work Phone: Comment on above: Pattern: Unlabored 10-02-2022 08:33-0500 Systolic blood pressure 120 mm[Hg] Beck Reyes [facility]; [facility] Work Phone: Comment on above: Patient Position: Sitting; Cuff Location : Left Arm; Cuff Size: Standard 06-20-2022 08:08-0400 Body height 175.26 cm Beck Reyes [facility]; [facility] Work Phone: 06-20-2022 08:08-0400 Body mass index (BMI) [Ratio] 29.55 kg/m2 Beck Reyes [facility]; [facility] Work Phone: 06-20-2022 08:08-0400 Body surface area Derived from formula 2.07 m2 Beck Reyes [facility]; [facility] Work Phone: 06-20-2022 08:08-0400 Body temperature 97 [degF] Beck Reyes [facility]; [facility] Work Phone: Comment on above: Method: Thermal Scan 06-20-2022 08:08-0400 Body weight 90.78 kg Beck Reyes [facility]; [facility] Work Phone: 06-20-2022 08:08-0400 Diastolic blood pressure 68 mm[Hg] Beck Reyes [facility]; [facility] Work Phone: Comment on above: Patient Position: Sitting; Cuff Location : Left Arm; Cuff Size: Standard 06-20-2022 08:08-0400 Heart rate 77 /min Beck Reyes [facility]; [facility] Work Phone: Comment on above: Pattern: Regular 06-20-2022 08:08-0400 Respiratory rate 16 /min Beck Reyes [facility]; [facility] Work Phone: Comment on above: Pattern: Unlabored 06-20-2022 08:08-0400 Systolic blood pressure 116 mm[Hg] Beck Reyes [facility]; [facility] Work Phone: Comment on above: Patient Position: Sitting; Cuff Location : Left Arm; Cuff Size: Standard 03-21-2022 10:33-0400 Body height 175.26 cm Beck Reyes [facility]; [facility] Work Phone: 03-21-2022 10:33-0400 Body mass index (BMI) [Ratio] 30 kg/m2 Beck Reyes [facility]; [facility] Work Phone: 03-21-2022 10:33-0400 Body surface area Derived from formula 2.08 m2 Beck Reyes [facility]; [facility] Work Phone: 03-21-2022 10:33-0400 Body temperature 97.1 [degF] Beck Reyes [facility]; [facility] Work Phone: Comment on above: Method: Thermal Scan 03-21-2022 10:33-0400 Body weight 92.14 kg Beck Reyes [facility]; [facility] Work Phone: 03-21-2022 10:33-0400 Diastolic blood pressure 72 mm[Hg] Beck Reyes [facility]; [facility] Work Phone: Comment on above: Patient Position: Sitting; Cuff Location : Left Arm; Cuff Size: Standard 03-21-2022 10:33-0400 Heart rate 89 /min Beck Monalisak [facility]; [facility] Work Phone: Comment on above: Pattern: Regular 03-21-2022 10:33-0400 Respiratory rate 16 /min Beck Monalisak [facility]; [facility] Work Phone: Comment on above: Pattern: Unlabored 03-21-2022 10:33-0400 Systolic blood pressure 118 mm[Hg] Beck Monalisak [facility]; [facility] Work Phone: Comment on above: Patient Position: Sitting; Cuff Location : Left Arm; Cuff Size: Standard 11-30-2021 06:19-0500 Body temperature 97.52 [degF] DR CADEN COSME MD [address] [place] [address] 11-30-2021 06:19-0500 Diastolic blood pressure 71 mm[Hg] DR CADEN COSME MD [address] [place] [address] 11-30-2021 06:19-0500 Heart rate 84 /min DR CADNE COSME MD [facility] 11-30-2021 06:19-0500 Respiratory rate 16 /min DR CADEN COSME MD [facility] 11-30-2021 06:19-0500 Systolic blood pressure 111 mm[Hg] DR CADEN COSME MD [facility] 11-30-2021 00:17-0500 Respiratory rate 18 /min DR CADEN COSME MD [address] [place] [address] 11-29-2021 22:43-0500 Body temperature 97.16 [degF] DR CADEN COSME MD [facility] 11-29-2021 22:43-0500 Diastolic blood pressure 67 mm[Hg] DR CADEN COSME MD [facility] 11-29-2021 22:43-0500 Heart rate 73 /min DR CADEN COSME MD [facility] 11-29-2021 22:43-0500 Systolic blood pressure 100 mm[Hg] DR CADEN COSME MD [facility] 11-29-2021 20:11-0500 Body temperature 99.32 [degF] DR CADEN COSME MD [address] [place] [address] 11-29-2021 20:11-0500 Diastolic blood pressure 78 mm[Hg] DR CADEN COSME MD [address] [place] [address] 11-29-2021 20:11-0500 Heart rate 109 /min DR CADEN COSME MD [facility] 11-29-2021 20:11-0500 Mean blood pressure 95 mm[Hg] DR CADEN COSME MD [facility] 11-29-2021 20:11-0500 Respiratory rate 18 /min DR CADEN COSME MD [facility] 11-29-2021 20:11-0500 Systolic blood pressure 130 mm[Hg] DR CADEN COSME MD [facility] 11-29-2021 14:57-0500 Mean blood pressure 86 mm[Hg] DR CADEN COSME MD [facility] 11-29-2021 08:29-0500 Mean blood pressure 94 mm[Hg] DR CADEN COSME MD [facility] 11-28-2021 07:02-0500 Diastolic Blood Pressure NBP [address] CADEN COSME MD [facility] 11-28-2021 07:02-0500 Systolic Blood Pressure NBP [address] CADEN COSME MD [facility] 11-28-2021 03:17-0500 Heart rate 76 /min DR CADEN COSME MD [facility] 11-28-2021 03:11-0500 Body height 177.[address] CADEN COSME MD [facility] 11-28-2021 03:11-0500 Body weight 88.[address] CADEN COSME MD [facility] 11-28-2021 03:11-0500 Body weight 28.03 kg/m2 DR CADEN COSME MD [facility] 08-04-2021 07:18-0400 Body height 175.26 cm Radha Travis LPN [facility]; [facility] Work Phone: 08-04-2021 07:18-0400 Body mass index (BMI) [Ratio] 30 kg/m2 Radha Travis LPN [facility]; [facility] Work Phone: 08-04-2021 07:18-0400 Body surface area Derived from formula 2.08 m2 Radha Travis LPN [facility]; [facility] Work Phone: 08-04-2021 07:18-0400 Body temperature 97.1 [degF] Radha Travis LPN [facility]; [facility] Work Phone: Comment on above: Method: Temporal 08-04-2021 07:18-0400 Body weight 92.14 kg Radha Travis [employer] [facility]; [facility] Work Phone: 08-04-2021 07:18-0400 Diastolic blood pressure 84 mm[Hg] Radha Travis [employer] [facility]; [facility] Work Phone: Comment on above: Patient Position: Sitting; Cuff Location : Left Arm; Cuff Size: Standard 08-04-2021 07:18-0400 Heart rate 80 /min Rahda Travis LPN [facility]; [facility] Work Phone: Comment on above: Pattern: Regular 08-04-2021 07:18-0400 Respiratory rate 16 /min Radha Travis LPN [facility]; [facility] Work Phone: Comment on above: Pattern: Unlabored 08-04-2021 07:18-0400 SaO2% (BldA) [Mass fraction] 99 % Radha Travis [employer] [facility]; [facility] Work Phone: Comment on above: Room air 08-04-2021 07:18-0400 Systolic blood pressure 118 mm[Hg] Radha Travis [employer] [facility]; [facility] Work Phone: Comment on above: Patient Position: Sitting; Cuff Location : Left Arm; Cuff Size: Standard 03-31-2021 07:13-0400 Body height 175.26 cm Carey [facility]; [facility] Work Phone: 03-31-2021 07:13-0400 Body mass index (BMI) [Ratio] 31.01 kg/m2 Carey [facility]; [facility] Work Phone: 03-31-2021 07:13-0400 Body surface area Derived from formula 2.11 m2 [facility]; [facility] Work Phone: 03-31-2021 07:13-0400 Body temperature 97.2 [degF] [facility]; [facility] Work Phone: Comment on above: Method: Thermal Scan 03-31-2021 07:13-0400 Body weight 95.26 kg [facility]; [facility] Work Phone: 03-31-2021 07:13-0400 Diastolic blood pressure 72 mm[Hg] [facility]; [facility] Work Phone: Comment on above: Patient Position: Sitting; Cuff Location : Left Arm; Cuff Size: Standard 03-31-2021 07:13-0400 Heart rate 82 /min [facility]; [facility] Work Phone: Comment on above: Pattern: Regular 03-31-2021 07:13-0400 Respiratory rate 16 /min [facility]; [facility] Work Phone: Comment on above: Pattern: Unlabored 03-31-2021 07:13-0400 SaO2% (BldA) [Mass fraction] 97 % [facility]; [facility] Work Phone: Comment on above: Room air 03-31-2021 07:13-0400 Systolic blood pressure 118 mm[Hg] [facility]; [facility] Work Phone: Comment on above: Patient Position: Sitting; Cuff Location : Left Arm; Cuff Size: Standard 12-12-2020 08:35-0500 BMI (Body Mass Index) 31.01 kg/m2 Lizzeth Kingafunmilayo [facility]; [facility] Work Phone: 12-12-2020 08:35-0500 Body Temperature 97.1 [degF] Lizzeth Donatofunmilayo [facility]; [facility] Work Phone: 12-12-2020 08:35-0500 Body weight 95.26 kg Lizzeth Donatorb [employer] [facility]; [facility] Work Phone: 12-12-2020 08:35-0500 BP Diastolic 72 mm[Hg] Lizzeth Slarb [employer] [facility]; [facility] Work Phone: Comment on above: Patient Position: Sitting; Cuff Location : Left Arm; Cuff Size: Standard 12-12-2020 08:35-0500 BP Systolic 108 mm[Hg] Lizzeth Slarb [employer] [facility]; [facility] Work Phone: Comment on above: Patient Position: Sitting; Cuff Location : Left Arm; Cuff Size: Standard 12-12-2020 08:35-0500 BSA (Body Surface Area) 2.11 m2 Lizzeth Slarb [employer] [facility]; [facility] Work Phone: 12-12-2020 08:35-0500 Height 175.26 cm Lizzeth Slarb [employer] [facility]; [facility] Work Phone: 12-12-2020 08:35-0500 Pulse (Heart Rate) 90 /min Lizzeth Kingarb [employer] [facility]; [facility] Work Phone: Comment on above: Pattern: Regular 12-12-2020 08:35-0500 Pulse Oximetry 97 % Mohsen Diaz [facility]; [facility] Work Phone: Comment on above: Room air 12-12-2020 08:35-0500 Respiratory Rate 17 /min Lizzeth Slarb [employer] [facility]; [facility] Work Phone: Comment on above: Pattern: Unlabored 12-12-2020 08:35-0500 SaO2% (BldA) [Mass fraction] 97 % Lizzeth Slarb [employer] [facility]; [facility] Work Phone: Comment on above: Room air 10-05-2020 14:47-0500 BMI (Body Mass Index) 29.09 kg/m2 Beck Mangodfrey [facility] Work Phone: 10-05-2020 14:47-0500 Body Temperature 98.1 [degF] Beck Reyes [facility] Internal Medicine Work Phone: Comment on above: Method: Oral 10-05-2020 14:47-0500 Body weight 89.36 kg Beck Reyes [facility] Work Phone: 10-05-2020 14:47-0500 BP Diastolic 80 mm[Hg] Beck Reyes [facility] Work Phone: Comment on above: Patient Position: Sitting; Cuff Location : Left Arm; Cuff Size: Standard 10-05-2020 14:47-0500 BP Systolic 130 mm[Hg] Beck Reyes [facility] Work Phone: Comment on above: Patient Position: Sitting; Cuff Location : Left Arm; Cuff Size: Standard 10-05-2020 14:47-0500 BSA (Body Surface Area) 2.05 m2 Beck Reyes [facility] Internal Medicine Work Phone: 10-05-2020 14:47-0500 Height 175.26 cm Beck Reyes [facility] Internal Medicine Work Phone: 10-05-2020 14:47-0500 Pulse (Heart Rate) 70 /min Beck Reyes [facility] Internal Medicine Work Phone: Comment on above: Pattern: Regular 10-05-2020 14:47-0500 Pulse Oximetry 99 % Mohsen Fast [facility] Internal Medicine Work Phone: Comment on above: Room air 10-05-2020 14:47-0500 Respiratory Rate 99 /min Beck Reyes [facility] Internal Medicine Work Phone: Comment on above: Pattern: Unlabored 10-05-2020 14:47-0500 SaO2% (BldA) [Mass fraction] 99 % Beck Reyes [facility] Internal Medicine; [facility] Internal Medicine Work Phone: Comment on above: Room air 06-06-2020 09:01-0400 BMI (Body Mass Index) 29.09 kg/m2 Beck Reyes [facility] Internal Medicine Work Phone: 06-06-2020 09:01-0400 Body Temperature 97.3 [degF] Beck Reyes [facility] Internal Medicine Work Phone: Comment on above: Method: Thermal Scan 06-06-2020 09:01-0400 Body weight 89.36 kg Beck Reyes [facility] Internal Medicine Work Phone: 06-06-2020 09:01-0400 BP Diastolic 70 mm[Hg] Beck Reyes [facility] Internal Medicine Work Phone: Comment on above: Patient Position: Sitting; Cuff Location : Left Arm; Cuff Size: Standard 06-06-2020 09:01-0400 BP Systolic 120 mm[Hg] Beck Reyes [facility] Internal Medicine Work Phone: Comment on above: Patient Position: Sitting; Cuff Location : Left Arm; Cuff Size: Standard 06-06-2020 09:01-0400 BSA (Body Surface Area) 2.05 m2 Beck Reyes [facility] Internal Medicine Work Phone: 06-06-2020 09:01-0400 Height 175.26 cm Beck Reyes [facility] Internal Medicine Work Phone: 06-06-2020 09:01-0400 Pulse (Heart Rate) 80 /min Beck Reyes [facility] Internal Medicine Work Phone: Comment on above: Pattern: Regular 06-06-2020 09:01-0400 Respiratory Rate 16 /min Beck Reyes [facility] Internal Medicine Work Phone: Comment on above: Pattern: Unlabored 01-05-2020 08:07-0500 BMI (Body Mass Index) 28.8 kg/m2 Beck Reyes [facility] Internal Medicine Work Phone: 01-05-2020 08:07-0500 Body Temperature 97.1 [degF] Beck Reyes [facility] Internal Medicine Work Phone: Comment on above: Method: Temporal 01-05-2020 08:07-0500 Body weight 88.45 kg Beck Reyes [facility] Internal Medicine Work Phone: 01-05-2020 08:07-0500 BP Diastolic 70 mm[Hg] Beck Reyes [facility] Work Phone: Comment on above: Patient Position: Sitting; Cuff Location : Left Arm; Cuff Size: Standard 01-05-2020 08:07-0500 BP Systolic 120 mm[Hg] Beck Reyes [facility] Internal Medicine Work Phone: Comment on above: Patient Position: Sitting; Cuff Location : Left Arm; Cuff Size: Standard 01-05-2020 08:07-0500 BSA (Body Surface Area) 2.04 m2 Beck Reyes [facility] Work Phone: 01-05-2020 08:07-0500 Height 175.26 cm Beck Reyes [facility] Internal Medicine Work Phone: 01-05-2020 08:07-0500 Pulse (Heart Rate) 93 /min Beck Reyes [facility] Internal Medicine Work Phone: Comment on above: Pattern: Regular 01-05-2020 08:07-0500 Respiratory Rate 16 /min Beck Reyes [facility] Internal Medicine Work Phone: Comment on above: Pattern: Unlabored 12-02-2019 13:13-0500 BMI (Body Mass Index) 28.5 kg/m2 Beck Reyes [facility] Internal Medicine Work Phone: 12-02-2019 13:13-0500 Body Temperature 97.5 [degF] Beck Reyes [facility] Internal Medicine Work Phone: Comment on above: Method: Temporal 12-02-2019 13:13-0500 Body weight 87.54 kg Beck Reyes [facility] Internal Medicine Work Phone: 12-02-2019 13:13-0500 BP Diastolic 68 mm[Hg] Beck Reyes [facility] Internal Medicine Work Phone: Comment on above: Patient Position: Sitting; Cuff Location : Left Arm; Cuff Size: Standard 12-02-2019 13:13-0500 BP Systolic 115 mm[Hg] Beck Reyes [facility] Internal Medicine Work Phone: Comment on above: Patient Position: Sitting; Cuff Location : Left Arm; Cuff Size: Standard 12-02-2019 13:13-0500 BSA (Body Surface Area) 2.03 m2 Beck Reyes [facility] Internal Medicine Work Phone: 12-02-2019 13:13-0500 Height 175.26 cm Beck Reyes [facility] Internal Medicine Work Phone: 12-02-2019 13:13-0500 Pulse (Heart Rate) 81 /min Beck Reyes [facility] Internal Medicine Work Phone: Comment on above: Pattern: Regular 12-02-2019 13:13-0500 Respiratory Rate 16 /min Beck Reyes [facility] Internal Medicine Work Phone: Comment on above: Pattern: Unlabored 07-24-2019 14:09-0400 BMI (Body Mass Index) 27.32 kg/m2 Beck Reyes [facility] Internal Medicine Work Phone: 07-24-2019 14:09-0400 Body Temperature 98.7 [degF] Beck Reyes [facility] Internal Medicine Work Phone: Comment on above: Method: Temporal 07-24-2019 14:09-0400 Body weight 83.92 kg Beck Reyes [facility] Internal Medicine Work Phone: 07-24-2019 14:09-0400 BP Diastolic 70 mm[Hg] Beck Reyes [facility] Internal Medicine Work Phone: Comment on above: Patient Position: Sitting; Cuff Location : Left Arm; Cuff Size: Standard 07-24-2019 14:09-0400 BP Systolic 118 mm[Hg] Beck Reyes [facility] Internal Medicine Work Phone: Comment on above: Patient Position: Sitting; Cuff Location : Left Arm; Cuff Size: Standard 07-24-2019 14:09-0400 BSA (Body Surface Area) 2 m2 Beck Reyes [facility] Internal Medicine Work Phone: 07-24-2019 14:09-0400 Height 175.26 cm Beck Reyes [facility] Internal Medicine Work Phone: 07-24-2019 14:09-0400 Pulse (Heart Rate) 68 /min Beck Reyes [facility] Internal Medicine Work Phone: Comment on above: Pattern: Regular 07-24-2019 14:09-0400 Respiratory Rate 16 /min Beck Reyes [facility] Internal Medicine Work Phone: Comment on above: Pattern: Unlabored 05-11-2019 11:34-0400 BMI (Body Mass Index) 27.32 kg/m2 Beck Reyes [facility] Internal Medicine Work Phone: 05-11-2019 11:34-0400 Body Temperature 97.6 [degF] Beck Reyes [facility] Internal Medicine Work Phone: Comment on above: Method: Temporal 05-11-2019 11:34-0400 Body weight 83.92 kg Beck Reyes [facility] Internal Medicine Work Phone: 05-11-2019 11:34-0400 BP Diastolic 70 mm[Hg] Beck Reyes [facility] Internal Medicine Work Phone: Comment on above: Patient Position: Sitting; Cuff Location : Left Arm; Cuff Size: Standard 05-11-2019 11:34-0400 BP Systolic 115 mm[Hg] Beck Reyes [facility] Internal Medicine Work Phone: Comment on above: Patient Position: Sitting; Cuff Location : Left Arm; Cuff Size: Standard 05-11-2019 11:34-0400 BSA (Body Surface Area) 2 m2 Beck Reyes [facility] Internal Medicine Work Phone: 05-11-2019 11:34-0400 Height 175.26 cm Beck Reyes [facility] Internal Medicine Work Phone: 05-11-2019 11:34-0400 Pulse (Heart Rate) 72 /min Beck Reyes [facility] Internal Medicine Work Phone: Comment on above: Pattern: Regular 05-11-2019 11:34-0400 Respiratory Rate 16 /min Beck Reyes [facility] Work Phone: Comment on above: Pattern: Unlabored 05-11-2019 11:34-0400 Weight 83.92 kg Mohsen Fast [facility] Internal Medicine Work Phone: 03-03-2019 08:03-0400 BMI (Body Mass Index) 27.32 kg/m2 Beck Reyes [facility] Internal Medicine Work Phone: 03-03-2019 08:03-0400 Body Temperature 97.4 [degF] Beck Reyes [facility] Internal Medicine Work Phone: Comment on above: Method: Temporal 03-03-2019 08:03-0400 Body weight 83.92 kg Beck Reyes [facility] Internal Medicine Work Phone: 03-03-2019 08:03-0400 BP Diastolic 80 mm[Hg] Beck Reyes [facility] Internal Medicine Work Phone: Comment on above: Patient Position: Sitting; Cuff Location : Left Arm; Cuff Size: Standard 03-03-2019 08:03-0400 BP Systolic 118 mm[Hg] Beck Reyes [facility] Internal Medicine Work Phone: Comment on above: Patient Position: Sitting; Cuff Location : Left Arm; Cuff Size: Standard 03-03-2019 08:03-0400 BSA (Body Surface Area) 2 m2 Bekc Reyes [facility] Internal Medicine Work Phone: 03-03-2019 08:03-0400 Height 175.26 cm Beck Reyes [facility] Internal Medicine Work Phone: 03-03-2019 08:03-0400 Pulse (Heart Rate) 72 /min Beck Reyes [facility] Internal Medicine Work Phone: Comment on above: Pattern: Regular 03-03-2019 08:03-0400 Respiratory Rate 16 /min Beck Reyes [facility] Internal Medicine Work Phone: Comment on above: Pattern: Unlabored 03-03-2019 08:03-0400 Weight 83.92 kg Mohsen Fast [facility] Work Phone: 09-30-2018 09:02-0500 BMI (Body Mass Index) 26.88 kg/m2 LETICIA Shelby ESCOBAR [facility] Work Phone: 09-30-2018 09:02-0500 Body Temperature 97.9 [degF] LETICIA Shelby [facility] Work Phone: Comment on above: Method: Temporal 09-30-2018 09:02-0500 Body weight 82.56 kg LETICIA Shelby ESCOBAR [facility] Work Phone: 09-30-2018 09:02-0500 BP Diastolic 78 mm[Hg] LETICIA Shelby ESCOBAR [facility] Work Phone: Comment on above: Patient Position: Sitting; Cuff Location : Left Arm; Cuff Size: Standard 09-30-2018 09:02-0500 BP Systolic 118 mm[Hg] LETICIA Shelby ESCOBAR [facility] Work Phone: Comment on above: Patient Position: Sitting; Cuff Location : Left Arm; Cuff Size: Standard 09-30-2018 09:02-0500 BSA (Body Surface Area) 1.98 m2 LETIICA Heron CODY [facility] Work Phone: 09-30-2018 09:02-0500 Height 175.26 cm LETICIA Shelby ESCOBAR [facility] Work Phone: 09-30-2018 09:02-0500 Pulse (Heart Rate) 70 /min LETICIA Shelby ESC[facility] Work Phone: Comment on above: Pattern: Regular 09-30-2018 09:02-0500 Pulse Oximetry 98 % Mohsen Perales [facility] Work Phone: Comment on above: Room air 09-30-2018 09:02-0500 Respiratory Rate 20 /min LETICIA Shelby [facility] Work Phone: Comment on above: Pattern: Unlabored 09-30-2018 09:02-0500 SaO2% (BldA) [Mass fraction] 98 % LETICIA Shelby LPN [facility]; [facility] Work Phone: Comment on above: Room air 09-30-2018 09:02-0500 Weight 82.56 kg Mohsen Perales [facility] Internal Medicine Work Phone: 08-29-2018 09:14-0400 BMI (Body Mass Index) 27.32 kg/m2 Beck Reyes [facility] Work Phone: 08-29-2018 09:140400 Body Temperature 97.4 [degF] Beck Reyes [facility] Work Phone: Comment on above: Method: Temporal 08-29-2018 09:140400 Body weight 83.92 kg Beck Reyes [facility] Internal Medicine Work Phone: 08-29-2018 09:14-0400 BP Diastolic 62 mm[Hg] Beck Reyes [facility] Work Phone: Comment on above: Patient Position: Sitting; Cuff Location : Left Arm; Cuff Size: Standard 08-29-2018 09:14-0400 BP Systolic 100 mm[Hg] Beck Reyes [facility] Work Phone: Comment on above: Patient Position: Sitting; Cuff Location : Left Arm; Cuff Size: Standard 08-29-2018 09:14-0400 BSA (Body Surface Area) 2 m2 Beck Reyes [facility] Work Phone: 08-29-2018 09:14-0400 Height 175.26 cm Beck Reyes [facility] Work Phone: 08-29-2018 09:14-0400 Pulse (Heart Rate) 70 /min Beck Reyes [facility] Work Phone: Comment on above: Pattern: Regular 08-29-2018 09:14-0400 Respiratory Rate 16 /min Beck Reyes [facility] Medicine Work Phone: Comment on above: Pattern: Unlabored 08-29-2018 09:14-0400 Weight 83.92 kg Mohsen Perales [facility] Internal Medicine Work Phone: 09-23-2014 08:34-0400 BMI (Body Mass Index) 27.61 kg/m2 LETICIA Shelby LPN [facility] Work Phone: 09-23-2014 08:34-0400 Body Temperature 97.8 [degF] LETICIA Shelby LPN [facility] Work Phone: Comment on above: Method: Temporal 09-23-2014 08:34-0400 Body weight 84.82 kg LETICIA Shelby LPN [facility] Work Phone: 09-23-2014 08:34-0400 BP Diastolic 74 mm[Hg] LETICIA Shelby LPN [facility] Work Phone: Comment on above: Patient Position: Sitting; Cuff Location : Left Arm; Cuff Size: Standard 09-23-2014 08:34-0400 BP Systolic 114 mm[Hg] LETICIA Shelby LPN [facility] Work Phone: Comment on above: Patient Position: Sitting; Cuff Location : Left Arm; Cuff Size: Standard 09-23-2014 08:34-0400 BSA (Body Surface Area) 2.01 m2 LETICIA Shelby LPN [facility] Work Phone: 09-23-2014 08:34-0400 Height 175.26 cm LETICIA Shelby LPN [facility] Work Phone: 09-23-2014 08:34-0400 Pulse (Heart Rate) 70 /min LETICIA Shelby LPN [facility] Work Phone: Comment on above: Pattern: Regular 09-23-2014 08:34-0400 Respiratory Rate 20 /min LETICIA Shelby LPN [facility] Work Phone: Comment on above: Pattern: Unlabored 09-23-2014 08:34-0400 Weight 84.82 kg Mohsen Perales [facility] Work Phone: 09-01-2014 10:45-0400 BMI (Body Mass Index) 27.91 kg/m2 Maria G Stacy MD Work Phone: [facility] Work Phone: 09-01-2014 10:45-0400 Body Temperature 97.4 [degF] Maria G Stacy MD Work Phone: [facility] Work Phone: Comment on above: Method: Temporal 09-01-2014 10:45-0400 Body weight 85.73 kg Maria G Stacy MD Work Phone: [facility] Work Phone: 09-01-2014 10:45-0400 BP Diastolic 78 mm[Hg] Maria G Stacy MD Work Phone: [facility] Work Phone: Comment on above: Patient Position: Sitting; Cuff Location : Left Arm; Cuff Size: Standard 09-01-2014 10:45-0400 BP Systolic 122 mm[Hg] Maria G Stacy MD Work Phone: [facility] Work Phone: Comment on above: Patient Position: Sitting; Cuff Location : Left Arm; Cuff Size: Standard 09-01-2014 10:45-0400 BSA (Body Surface Area) 2.02 m2 Maria G Stacy MD Work Phone: [facility] Work Phone: 09-01-2014 10:45-0400 Height 175.26 cm Maria G Stacy MD Work Phone: [facility] Work Phone: 09-01-2014 10:45-0400 Pulse (Heart Rate) 68 /min Maria G Stacy MD Work Phone: [facility] Work Phone: Comment on above: Pattern: Regular 09-01-2014 10:45-0400 Respiratory Rate 15 /min Maria G Stacy MD Work Phone: [facility] Work Phone: Comment on above: Pattern: Unlabored 09-01-2014 10:45-0400 Weight 85.73 kg Mohsen Fast [facility] Work Phone: 08-24-2014 09:41-0400 BMI (Body Mass Index) 28.8 kg/m2 Madison Ball RN [facility] Work Phone: 08-24-2014 09:41-0400 Body Temperature 98.1 [degF] Madison Ball RN [facility] Work Phone: Comment on above: Method: Temporal 08-24-2014 09:41-0400 Body weight 88.45 kg Madison Ball RN [facility] Work Phone: 08-24-2014 09:41-0400 BP Diastolic 74 mm[Hg] Madison Ball RN [facility] Work Phone: Comment on above: Patient Position: Sitting; Cuff Location : Left Arm; Cuff Size: Standard 08-24-2014 09:41-0400 BP Systolic 120 mm[Hg] Madison Ball RN [facility] Work Phone: Comment on above: Patient Position: Sitting; Cuff Location : Left Arm; Cuff Size: Standard 08-24-2014 09:41-0400 BSA (Body Surface Area) 2.04 m2 Madison Ball RN [facility] Work Phone: 08-24-2014 09:41-0400 Height 175.26 cm Madison Ball RN [facility] Work Phone: 08-24-2014 09:41-0400 Pulse (Heart Rate) 72 /min Madison Ball RN [facility] Work Phone: Comment on above: Pattern: Regular 08-24-2014 09:41-0400 Pulse Oximetry 98 % Mohsen Fast [facility] Work Phone: Comment on above: Room air 08-24-2014 09:41-0400 Respiratory Rate 17 /min Madison Ball RN [facility] Work Phone: Comment on above: Pattern: Unlabored 08-24-2014 09:41-0400 SaO2% (BldA) [Mass fraction] 98 % Madison Ball RN [facility]; [facility] Work Phone: Comment on above: Room air 08-24-2014 09:41-0400 Weight 88.45 kg Mohsen Fast [facility] Work Phone: 06-04-2013 10:04-0400 BMI (Body Mass Index) 26.73 kg/m2 LETICIA Shelby LPN [facility] Work Phone: 06-04-2013 10:04-0400 Body weight 82.1 kg LETICIA Shelby LPN [facility] Medicine Work Phone: 06-04-2013 10:04-0400 BP Diastolic 74 mm[Hg] LETICIA Shelby LPN [facility] Work Phone: Comment on above: Patient Position: Sitting; Cuff Location : Left Arm; Cuff Size: Standard 06-04-2013 10:04-0400 BP Systolic 114 mm[Hg] LETICIA Shelby LPN [facility] Medicine Work Phone: Comment on above: Patient Position: Sitting; Cuff Location : Left Arm; Cuff Size: Standard 06-04-2013 10:04-0400 BSA (Body Surface Area) 1.98 m2 LETICIA Shelby LPN [facility] Work Phone: 06-04-2013 10:04-0400 Height 175.26 cm LETICIA Shelby LPN [facility] Work Phone: 06-04-2013 10:04-0400 Pulse (Heart Rate) 86 /min LETICIA Shelby LPN [facility] Work Phone: Comment on above: Pattern: Regular 06-04-2013 10:04-0400 Respiratory Rate 18 /min LETICIA Shelby LPN [facility] Work Phone: Comment on above: Pattern: Unlabored 06-04-2013 10:04-0400 Weight 82.1 kg Mohsen Perales [facility] Work Phone: 2012 07:29-0400 BMI (Body Mass Index) 26.58 kg/m2 LETICIA Shelby LPN [facility] Work Phone: 2012 07:29-0400 Body Temperature 97.8 [degF] LETICIA Shelby LPN [facility] Work Phone: Comment on above: Method: Oral 2012 07:29-0400 Body weight 81.65 kg LETICIA Shelby LPN [facility] Work Phone: 2012 07:29-0400 BP Diastolic 74 mm[Hg] LETICIA Shelby LPN [facility] Work Phone: Comment on above: Patient Position: Sitting; Cuff Location : Left Arm; Cuff Size: Standard 2012 07:29-0400 BP Systolic 118 mm[Hg] LETICIA Shelby LPN [facility] Work Phone: Comment on above: Patient Position: Sitting; Cuff Location : Left Arm; Cuff Size: Standard 2012 07:29-0400 BSA (Body Surface Area) 1.98 m2 LETICIA Shelby LPN [facility] Work Phone: 2012 07:29-0400 Height 175.26 cm LETICIA Shelby ESCOBAR [facility] Work Phone: 2012 07:29-0400 Pulse (Heart Rate) 68 /min LETICIA Shelby LPN [facility] Work Phone: Comment on above: Pattern: Regular 2012 07:29-0400 Respiratory Rate 18 /min LETICIA Shelby LPN [facility] Work Phone: Comment on above: Pattern: Unlabored 2012 07:29-0400 Weight 81.65 kg Mohsen Diaz [facility] Work Phone: 01-18-2012 07:53-0500 BMI (Body Mass Index) 27.17 kg/m2 Maria G Stacy MD Work Phone: [facility] Work Phone: 01-18-2012 07:53-0500 Body Temperature 98 [degF] Maria G Stacy MD Work Phone: [facility] Work Phone: Comment on above: Method: Oral 01-18-2012 07:53-0500 Body weight 83.46 kg Maria G Stacy MD Work Phone: [facility] Work Phone: 01-18-2012 07:53-0500 BP Diastolic 70 mm[Hg] Maria G Stacy MD Work Phone: [facility] Work Phone: Comment on above: Patient Position: Sitting; Cuff Location : Left Arm; Cuff Size: Standard 01-18-2012 07:53-0500 BP Systolic 108 mm[Hg] Maria G Stacy MD Work Phone: [facility] Work Phone: Comment on above: Patient Position: Sitting; Cuff Location : Left Arm; Cuff Size: Standard 01-18-2012 07:53-0500 BSA (Body Surface Area) 1.99 m2 Maria G Stacy MD Work Phone: [facility] Work Phone: 01-18-2012 07:53-0500 Height 175.26 cm Maria G Stacy MD Work Phone: [facility] Work Phone: 01-18-2012 07:53-0500 Pulse (Heart Rate) 64 /min Maria G Stacy MD Work Phone: [facility] Work Phone: Comment on above: Pattern: Regular 01-18-2012 07:53-0500 Respiratory Rate 18 /min Maria G Stacy MD Work Phone: [facility] Work Phone: Comment on above: Pattern: Unlabored 01-18-2012 07:53-0500 Weight 83.46 kg Mohsen Fast [facility] Work Phone: 12-27-2011 08:55-0500 BMI (Body Mass Index) 27.32 kg/m2 Maria G Stacy MD Work Phone: [facility] Work Phone: 12-27-2011 08:55-0500 Body Temperature 98 [degF] Maria G Stacy MD Work Phone: [facility] Work Phone: Comment on above: Method: Oral 12-27-2011 08:55-0500 Body weight 83.92 kg Maria G Stacy MD Work Phone: [facility] Work Phone: 12-27-2011 08:55-0500 BP Diastolic 74 mm[Hg] Maria G Stacy MD Work Phone: [facility] Work Phone: Comment on above: Patient Position: Sitting; Cuff Location : Left Arm; Cuff Size: Standard 12-27-2011 08:55-0500 BP Systolic 114 mm[Hg] Maria G Stacy MD Work Phone: [facility] Work Phone: Comment on above: Patient Position: Sitting; Cuff Location : Left Arm; Cuff Size: Standard 12-27-2011 08:55-0500 BSA (Body Surface Area) 2 m2 Maria G Stacy MD Work Phone: [facility] Work Phone: 12-27-2011 08:55-0500 Height 175.26 cm Maria G Stacy MD Work Phone: [facility] Work Phone: 12-27-2011 08:55-0500 Pulse (Heart Rate) 76 /min Maria G Stacy MD Work Phone: [facility] Work Phone: Comment on above: Pattern: Regular 12-27-2011 08:55-0500 Respiratory Rate 18 /min Maria G Stacy MD Work Phone: [facility] Work Phone: Comment on above: Pattern: Unlabored 12-27-2011 08:55-0500 Weight 83.92 kg Mohsen Perales [facility] Work Phone: Encounters Encounter Date Encounter Type Care Provider Facility Start: 04-01-2025 End: 04-01-[address] Mohsen Perales DO Work Phone: [facility] Work Phone: Start: 04-01-2025 End: 04-01-[address] Mohsen Perlaes DO -[facility] Work Phone: Start: 04-01-2025 End: 04-01-2025 ambulatory Mohsen Fast Facility:[facility] Start: 12-09-2024 End: 12-09-[address] Evgeny Bhardwaj MD -[facility] Start: 12-09-2024 End: 12-09-2024 ambulatory Mohsen Fast Facility:[facility] Start: 09-07-2024 End: 09-07-2024 ambulatory Mohsen Fast Facility:[facility] Start: 09-05-2024 End: 09-05-2024 ambulatory Mohsen Fast Facility:[facility] Start: 07-24-2024 End: 07-24-2024 ambulatory Mohsen Fast Facility:[facility] Start: 03-02-2024 End: 03-03-2024 ambulatory MOHSEN A FAST [facility] Start: 03-02-2024 End: 03-02-2024 Subsequent hospital visit by physician Bam Jeff [address] [place] [address] Comment on above: Elevated C-reactive protein (CRP) Start: 06-10-2023 Review Mohsen Fast DO Work Phone: [facility] Start: 05-29-2023 End: 05-29-2023 Nursing evaluation of patient and report Mohsen Fast DO Work Phone: [facility] Start: 05-29-2023 Review Mohsen Fast DO Work Phone: [facility] Start: 03-21-2023 End: 03-21-[address] Mohsen Perales Work Phone: [facility] Work Phone: Start: 03-21-2023 End: 03-21-[address] Mohsen Perales Work Phone: [facility] Start: 02-11-2023 ambulatory Maria G Stacy MD [facility] [facility] Start: 02-11-2023 End: 02-11-2023 Office outpatient visit 40 minutes Mohsen Fast DO Work Phone: [facility] Start: 01-24-2023 Non-patient / Non-visit Dr. Mendez Work Phone: [facility] Start: 01-24-2023 End: 01-24-2023 Admission to same day surgery center Dr. Mohsen Perales Work Phone: [facility] Start: 01-24-2023 End: 01-24-[address] Mohsen Perales Work Phone: [facility] Work Phone: Start: 12-25-2022 ambulatory FABI HIDALGO Facility:[facility] Start: 12-25-2022 End: 12-25-2022 Subsequent hospital visit by physician Provider [facility] Comment on above: Z13.21 Z13.29 Start: 11-21-2022 End: 11-21-2022 Office outpatient visit 5 minutes Mohsen Fast DO Work Phone: [facility] Start: 11-09-2022 Non-patient / Non-visit Dr. Mendez Work Phone: [facility] Start: 10-02-2022 End: 10-07-2022 Office outpatient visit 25 minutes Mohsen Fast DO Work Phone: [facility] Start: 10-02-2022 Review Mohsen Fast DO Work Phone: [facility] Start: 06-20-2022 End: 06-21-2022 Office outpatient visit 25 minutes Mohsen Fast DO Work Phone: [facility] Start: 06-20-2022 Review Mohsen Fast DO Work Phone: [facility] Start: 03-26-2022 End: 05-16-2022 Phone Encounter Mohsen Fast DO Work Phone: [facility] Start: 03-26-2022 Review Mohsen Fast DO Work Phone: [facility] Start: 03-21-2022 End: 03-25-2022 Office outpatient visit 15 minutes Mohsen Fast DO Work Phone: [facility] Start: 02-26-2022 End: 02-26-2022 Patient encounter procedure DUARTE MTZ MD [facility] Start: 01-29-2022 End: 01-29-2022 Patient encounter procedure DUARTE MTZ MD [facility] Start: 01-24-2022 End: 01-25-2022 Office outpatient visit 40 minutes Mohsen Fast DO Work Phone: [facility] Start: 01-24-2022 Review Mohsen Fast DO Work Phone: [facility] Start: 01-01-2022 End: 01-01-2022 Patient encounter procedure DUARTE MTZ MD [facility] Start: 11-28-2021 End: 11-30-2021 Observation FABI BLACKMAN MD [facility] Start: 11-27-2021 End: 11-28-2021 Emergency department patient visit DR NICK CHANG [facility] Start: 08-04-2021 End: 08-06-2021 Office outpatient visit 25 minutes Mohsen Fast DO Work Phone: [facility] Start: 03-31-2021 End: 06-20-2022 Office outpatient visit 25 minutes Mohsen Fast DO Work Phone: [facility] Start: 03-31-2021 Review Mohsen Fast DO Work Phone: [facility] Start: 03-15-2021 Review Mohsen Fast DO Work Phone: [facility] Start: 12-23-2020 End: 12-23-2020 Phone Encounter Mohsen Fast [facility] Start: 12-12-2020 End: 12-12-2020 Office outpatient visit 25 minutes Mohsen Fast [facility] Start: 12-05-2020 End: 12-05-2020 Phone Encounter Mohsen Fast [facility] Start: 10-07-2020 End: 10-09-2020 Office outpatient visit 5 minutes Mohsen Fast [facility] Start: 10-05-2020 End: 10-06-2020 Office outpatient visit 15 minutes Mohsen Fast [facility] Start: 06-06-2020 End: 06-06-2020 Office outpatient visit 25 minutes Mohsne Fast [facility] Start: 06-06-2020 Review Mohsen Fast [facility] Start: 01-05-2020 End: 01-05-2020 Office outpatient visit 15 minutes Mohsen Fast [facility] Start: 12-02-2019 End: 01-05-2020 Office outpatient visit 25 minutes Mohsen Fast [facility] Start: 11-04-2019 End: 11-04-2019 Phone Encounter Mohsen Fast [facility] Start: 07-24-2019 End: 07-28-2019 Office outpatient visit 15 minutes Mohsen Fast [facility] Start: 05-11-2019 End: 05-11-2019 Office outpatient visit 15 minutes Mohsen Fast [facility] Start: 05-11-2019 End: 05-11-2019 Preoperative state Mohsen Fast [facility] Work Phone: Comment on above: Dr Milian Start: 03-03-2019 End: 03-05-2019 Office outpatient visit 25 minutes Mohsen Fast [facility] Start: 12-24-2018 End: 12-24-2018 Annotation/Addendum Mohsen Fast [facility] Start: 11-14-2018 End: 11-14-2018 Annotation/Addendum Mohsen Fast [facility] Start: 10-21-2018 End: 10-21-2018 Phone Encounter Mohsen Fast [facility] Start: 09-30-2018 End: 03-05-2019 Office outpatient visit 25 minutes Mohsen Fast [facility] Start: 09-30-2018 Review Mohsen Fast [facility] Start: 09-10-2018 End: 09-10-2018 Office outpatient visit 5 minutes Mohsen Fast [facility] Start: 08-29-2018 End: 08-31-2018 Office outpatient visit 25 minutes Mohsen Fast [facility] Start: 04-25-2015 End: 04-25-2015 Refill Request Mohsen Fast [facility] Start: 09-23-2014 End: 09-23-2014 Office outpatient visit 40 minutes Mohsen Perales [facility] Start: 09-01-2014 End: 09-01-2014 Phone Encounter Mohsen Perales [facility] Start: 09-01-2014 End: 09-01-2014 Office outpatient visit 15 minutes Mohsen Perales [facility] Start: 08-24-2014 End: 08-24-2014 Office outpatient visit 25 minutes Mohsen Perales [facility] Start: 06-04-2013 End: 06-04-2013 Patient encounter procedure Mohsen Perales [facility] Start: 06-04-2013 End: 06-04-2013 Physical examination Mohsen Perales DO Work Phone: [facility] Start: 04-02-2013 End: 04-02-2013 Phone Encounter Mohsen Perales [facility] Start: 2012 End: 2012 Patient encounter procedure Mohsen Perales [facility] Start: 01-18-2012 End: 01-18-2012 Patient encounter procedure Mohsen Perales [facility] Start: 12-27-2011 End: 12-31-2011 Patient encounter procedure Mohsen Perales [facility] Patient encounter status Beck Pratergodfrey [facility]; [facility] Work Phone: Physical examination Lizzeth Sandra LPN [facility] prehensive Internal Medicine; [facility] Work Phone: Physical examination Radha Travis LPN [facility]; [facility] Work Phone: Physical examination Mohsen A Fas t DO Work Phone: [facility]; [facility] Work Phone: Physical examination Beck Moigodfrey [facility]; [facility] Work Phone: Physical examination Beck Sheldonmarilin [facility]; [facility] Work Phone: Physical examination Beck Sheldonmarilin [facility]; [facility] Work Phone: Physical examination Beck Reyes [facility]; [facility] Work Phone: Preoperative state Lizzeth Sandra LPN [facility] ehensive [facility] Medicine; [facility] Work Phone: Comment on above: Dr Milian Preoperative state Radha Angy [facility] re[facility]; [facility] Work Phone: Comment on above: Dr Milian Preoperative state Mohsen Radha Fast DO Work Phone: [facility]; [facility] Work Phone: Comment on above: Dr Milian Preoperative state Beck Manchak [facility]; [facility] Work Phone: Comment on above: Dr Milian Preoperative state Beck Manchak [facility]; [facility] Work Phone: Comment on above: Dr Milian Preoperative state Beck Manchak [facility]; [facility] Work Phone: Comment on above: Dr Milian Preoperative state Beck Manchak [employer] [facility]; [facility] Work Phone: Comment on above: Dr Milian Procedures Date Procedure Procedure Detail Performing Clinician Start: 04-01-2025 Dual energy X-ray absorptiometry Dr. Mohsen Perales DO Work Phone: Start: 12-09-2024 X-ray of thoracic spine, three views Dr. Mohsen Perales DO Work Phone: Start: 12-09-2024 X-ray of lumbosacral spine Dr. Mohsen Perales DO Work Phone: Start: 03-02-2024 CT CARDIAC SCORING WO IV CONTRAST MOHSEN PERALES Start: 03-02-2024 Ct heart no contrast quant eval coronry calcium Mohsen Garcia Fast DO Work Phone: Start: 03-21-2023 Dual energy X-ray absorptiometry Dr. Mohsen Perales Work Phone: Start: 03-21-2023 End: 03-22-2023 Dexa Bone Density Study Procedure Note: See Note; NOTES: [facility] Imaging Services [address] [place] [address] Dexa Bone Density Study MR#: [id number] Acct: [id number] Name: KAREN CAMPOS Rep #: [id number] : 1970 F 52 From: Reji johnson MD PCP: Dr. Mohsen Perales DO Status: REG CLI Study: Dexa Bone Density Study Date of Exam: 03/21/23 Exam# [id number] Ordering Dr: Mohsen Perales DO STUDY: DUAL ENERGY X-RAY ABSORPTIOMETRY / DXA REASON FOR EXAM: Female, 52 years old. Z780 -- postmenopausal TECHNIQUE: Bone Mineral Density (BMD) measurements of lumbar spine and bilateral hips were obtained. COMPARISON: Comparison is made with prior study of January 24, 2021. FINDINGS: Lumbar Spine (L1-L4): g/cm2 (0.921) / T-score (-1.4) / Z-score (-0.6) Findings are suggestive of osteopenia with a low fracture risk. Left Femur Total: g/cm2 (0.860) / T-score (-0.7) / Z-score (-0.2) Left Femoral Neck: g/cm2 (0.659) / T-score (-1.7) / Z-score (-0.9) Right Femur Total: g/cm2 (0.901) / T-score (-0.3) / Z-score (0.2) Right Femoral Neck: g/cm2 (0.703) / T-score (-1.3) / Z-score (-0.5) The T-Scores on the most recent prior examination were: Lumbar Spine (L1-L4): There has been worsening of bone density since the previous examination. Left Femur Total: which represents an improvement of 3.1%. Right Femur Total: which represents an improvement of 9.3%. BD/Dexa Bone Density Study IMPRESSION: The patient is considered osteopenic as outlined below according to World Glen Organization (WHO) criteria with a moderate fracture risk. There has been improvement of bone density since the previous examination. Reference Information: The T-score is the number of standard deviations above or below the standard which is normal for young adults at their peak bone mineral density. The World Health Organization (WHO) interprets the T-scores as follows: Above -1 Normal bone density Between -1 and -2.5 Osteopenia Equal to / or below -2.5 Osteoporosis As a practical clinical guideline, osteopenia may be graded as follows: Mild -1 through -1.5 Moderate -1.6 through -2.0 Severe -2.1 through -2.4 The Z-score is the number of standard deviations above or below age-matched controls. A Z-score of less than -1.5 would be considered abnormal. References: 1. NIH Osteoporosis and Related Bone Diseases www osteo.org 2. International Society for Clinical Densitometry www iscd.org 3. National Osteoporosis Foundation www nof.org Electronically Signed: Reji Huitron MD at 9:20 EDT Reading Location ID and State: [facility] / [place] , Service support , CC: Dr. Mohsen Perales DO Compensation Specialist: Signed Mohsen Perales DO Work Phone: Start: 01-24-2023 End: 01-24-2023 Colonoscopy Report Procedure Note: See Note; NOTES: [facility] Medical Records Department [address] [place] [address] Colonoscopy Report MR#: [id number] Acct: [id number] Name: KAREN CAMPOS Rep #: [id number] : 1970 52 From: Carlos Malcolm DO PCP: Dr. Mohsen Perales DO Status:[facility] Patient Name: Karen Campos Procedure Date: 01/24/2023 8:38 AM Date of : 1970 Age: 52 Procedure: Colonoscopy Indications: Screening for colorectal malignant neoplasm Providers: Carlos Malcolm DO Referring MD: Carlos Malcolm DO Medicines: Monitored Anesthesia Care Patient Profile: This is a 52 year old female. Refer to note in patient chart for documentation of history and physical. Last Colonoscopy: none. The patient's first colonoscopy is today. Complications: No immediate complications. Procedure: Pre-Anesthesia Assessment: - Prior to the procedure, a History and Physical was performed, and patient medications and allergies were reviewed. The patient is competent. The risks and benefits of the procedure and the sedation options and risks were discussed with the patient. All questions were answered and informed consent was obtained. Patient identification and proposed procedure were verified by the physician in the pre-procedure area. Mental Status Examination: alert and oriented. Airway Examination: normal oropharyngeal airway and neck mobility. Respiratory Examination: clear to auscultation. CV Examination: normal. Prophylactic Antibiotics: The patient does not require prophylactic antibiotics. Prior Anticoagulants: The patient has taken no previous anticoagulant or antiplatelet agents. After reviewing the risks and benefits, the patient was deemed in satisfactory condition to undergo the procedure. The anesthesia plan was to use monitored anesthesia care (MAC). Immediately prior to administration of medications, the patient was re-assessed for adequacy to receive sedatives. The heart rate, respiratory rate, oxygen saturations, blood pressure, adequacy of pulmonary ventilation, and response to care were monitored throughout the procedure. The physical status of the patient was re-assessed after the procedure. After I obtained informed consent, the scope was passed under direct vision. Throughout the procedure, the patient's blood pressure, pulse, and oxygen saturations were monitored continuously. The pediatric colonoscope was introduced through the anus and advanced to the cecum, identified by appendiceal orifice and ileocecal valve. The colonoscopy was performed without difficulty. The patient tolerated the procedure well. The quality of the bowel preparation was good. Scope In: 8:54:17 AM Scope Withdrawal Time 0 hours 8 minutes 41 seconds Scope Out: 9:05:44 AM Total Procedure Duration Time 0 hours 11 minutes 27 seconds Findings: The perianal and digital rectal examinations were normal. A 5 mm polyp was found in the cecum. The polyp was sessile. The polyp was removed with a jumbo cold forceps. Resection and retrieval were complete. Verification of patient identification for the specimen was done. Estimated blood loss was minimal. A few small and large-mouthed diverticula were found in the recto-sigmoid colon and sigmoid colon. Impression: - One 5 mm polyp in the cecum, removed with a jumbo cold forceps. Resected and retrieved. - Diverticulosis in the recto-sigmoid colon and in the sigmoid colon. Recommendation: - Discharge patient to home. - Resume previous diet. - Continue present medications. - Await pathology results. - Repeat colonoscopy in 5 years for surveillance. Procedure Code(s): --- Professional --- 65140, Colonoscopy, flexible; with biopsy, single or multiple CPT copyright 2017 [employer]. All rights reserved. The codes documented in this report are preliminary and upon outpatient coder review may be revised to meet current compliance requirements. Carlos Malcolm DO 01/24/2023 9:10:48 AM This report has been signed electronically. Number of Addenda: 0 Note Initiated On: 01/24/2023 8:38 AM 01/24/23910 Date Carlos Malcolm DO Cosigner Signature: Date (if indicated) CC: Dr. Mohsen Perales DO; Carlos Malcolm DO Date Dictated: 01/24/23837 Date Transcribed: Compensation Specialist: JAYME Signed Mohsen Perales DO Work Phone: Start: 01-24-2023 End: 01-24-[address] Mohsen Perales Work Phone: Start: 01-24-2023 End: 01-24-2023 History and Physical Exam Procedure Note: See Note; NOTES: [facility] Medical Records Department [address] [place] [address] History Physical Exam 01/24/23 0749 MR#: [id number] Acct: [id number] Name: KAREN CAMPOS Rep #: [id number] : 1970 52 From: Carlos Malcolm DO PCP: Dr. Mohsen Perales DO Status:[facility] Location: [place] [address] HPI - General General Date of Admission: 01/24/23 Date of Service: 01/24/23 Chief Complaint: Screening colonoscopy HPI Narrative KAREN CAMPOS, is a 52 F who presents today for screening colonoscopy. She does not have any abdominal pain. She has never had a colonoscopy. She denies any chest pain or shortness of breath. She has no family history of colon cancer or colon polyps. She is not experiencing any bleeding per rectum. Overall she is in very good health. [facility] Medical History (Updated 01/21/23 @ 14:34 by Carmen Bhat) Alcohol use Asthma History of echocardiogram Hyperlipidemia Injury of back Non-smoker Normal Holter exam Osteopenia Home Medications albuterol sulfate 90 mcg/actuation aerosol inhaler (ProAir HFA) 2 puff inhalation Q6H PRN SOB 11/09/22 [History Last Taken Unknown] ascorbic acid (vitamin C) 500 mg tablet 500 mg PO DAILY 11/09/22 [History Last Taken Unknown] calcium citrate 250 mg PO DAILY 11/09/22 [History Last Taken Unknown] cholecalciferol (vitamin D3) 50 mcg (2,000 unit) capsule 50 mcg PO DAILY 11/09/22 [History Last Taken Unknown] denosumab 60 mg/mL subcutaneous syringe (Prolia) 60 mg subcut [id number] 11/09/22 [History Last Taken Unknown] rosuvastatin 5 mg tablet 5 mg PO DAILY 11/09/22 [History Last Taken Unknown] sermorelin acetate 0.5 mg subcutaneous solution 10 mg subcut MOTUWETHFR 01/21/23 [History Last Taken Unknown] tirzepatide 2.5 mg/0.5 mL subcutaneous pen injector 2.5 mg subcut MO 01/21/23 [History Last Taken Unknown] Allergy/AdvReac Type Severity Reaction Status Date / Time No Known Allergies Allergy Unverified 01/21/23 14:22 Family History (Updated 11/09/22 @ 10:42 by Mary Goodwin) Father Diabetes Kidney transplant recipient CHF (congestive heart failure) Surgical History (Updated 11/09/22 @ 10:41 by Mary Goodwin) Hx of cholecystectomy Hx of hysterectomy, total Hx of tonsillectomy Social History (Updated 11/09/22 @ 10:43 by Mary Goodwin) household members: spouse current occupational status: employed current occupation: Owns [employer] Smoking Status: Never smoker ROS Review of Systems ROS Unobtainable: other Constitutional Constitutional: Denies fatigue, fever(s), poor appetite, weight gain or weight loss ENT HEENT: Denies mouth lesions Cardiovascular Cardiovascular: Denies abdominal bloating, abdominal edema or abdominal pain Respiratory/Chest Respiratory/Chest: Denies change in mental status, change in phlegm color, chest congestion or chest tightness Gastrointestinal Gastrointestinal: Denies belching, bloating, change in bowel habits, change in stool character, chewing difficulty, coffee ground emesis, constipation, cramping, diarrhea, dyspepsia, dysphagia, early satiety, excessive flatus, fecal incontinence, heartburn, hematemesis, hematochezia, hemorrhoids, loose stools, melena, nausea, odynophagia, rectal bleeding, tenesmus, vomiting or weight changes Genitourinary Genitourinary: Denies abdominal discomfort, burning urination or itching Musculoskeletal Musculoskeletal: Reports as per HPI; Denies muscle weakness or myalgias Integumentary Integumentary: Denies jaundice Neurologic Neurologic: Denies lack of coordination or weakness Psychiatric Psychiatric: Denies confusion, depression, memory loss, mood swings, paranoia or suicidal ideation Endocrine Endocrinology: Denies systems reviewed and no addt'l complaints, except as documented Hematologic/Lymphatic Hematologic/Lymphatic: Denies anemia, easy bleeding, easy bruising or lymphadenopathy Allergic/Immunologic Allergic/Immunologic: Denies systems reviewed and no addt'l complaints, except as documented Physical Exam Const alert General Appearance: cooperative Orientation / Consciousness: oriented to person HEENT hearing grossly normal bilaterally Head and Scalp: normal to inspection Face and Sinus: face symmetric Nose: external nose normal Mouth: oral and palatal mucosa normal Eyes conjunctivae normal General Eye: normal appearance of both eyes Neck full ROM General: normal visual inspection Lymph Lymphatic: no lymphadenopathy noted Chest inspection of chest normal and palpation of chest normal Chest: symmetrical chest wall rise Resp normal respiratory effort Effort and Inspection: able to speak in complete sentences Cardio regular rate GI non-distended Percussion: normal to percussion Rectal Exam: deferred Neuro Speech: speech normal Gait (Neuro): normal gait Assessment Plan Assessment/Plan (1) Encounter for screening for malignant neoplasm of colon: PLAN: She was explained alternatives, risk, benefits including not withstanding bleeding, infection, sepsis, perforation, need for emergent surgery . She will have an ASA of 1. 01/24/23 0752 <Electronically signed by Carlos Malcolm DO> Cosigner Signature (if applicable): CC: Dr. Mohsen Perales DO; Carlos Malcolm DO Signed Mohsen Perales DO Work Phone: Start: 12-25-2022 INSULIN ASSAY BLOOD Provider [facility] Start: 12-25-2022 INSULIN LIK GR FAC I Provider [facility] Start: 12-25-2022 PROLACTIN BLD Provider [facility] Start: 04-04-2022 End: 04-04-2022 SCRN MAMM (CAD)W/EVELIA BILAT Comments: See Note; NOTES: [facility] Imaging Services [address] [place] [address] SCRN MAMM (CAD)W/EVELIA BILAT MR#: [id number] Acct: [id number] Name: KAREN CAMPOS Rep #: [id number] : 1970 F 51 From: Reji johnson MD PCP: Dr. Mohsen Perales DO Status: REG CLI Study: SCRN MAMM (CAD)W/EVELIA BILAT Date of Exam: 03/25 12/16 Exam# [id number] Ordering Dr: Mohsen Perales DO MAMMOGRAPHY - BILATERAL SCREENING REASON FOR EXAM: Female, 51 years old. Routine annual screening examination. PERTINENT HISTORY: Aunts with breast cancer. TECHNIQUE: Digital bilateral breast evelia (3D mammographic acquisition) in the CC and MLO projections. 2-D mediolateral oblique (MLO) and craniocaudad (CC) views of both breasts were obtained. CAD: Full Field Digital Mammography with Computer Added Detection was performed. COMPARISON: Comparison is made with prior study dated 01/24/2021 and 01/14/2020. FINDINGS: Breast Composition: There are scattered areas of fibroglandular density. There are no dominant masses or suspicious calcifications. No other significant abnormalities are identified. There has been no significant change since the prior study. BI/SCRN MAMM (CAD)W/EVELIA BILAT IMPRESSION: Stable bilateral screening mammogram. Yearly follow-up mammogram recommended. (A) ASSESSMENT CATEGORY: BIRADS Category 1: Negative. A letter regarding these results will be sent to the patient by the facility within 30 days. Approximately 10% of breast cancers are not detected by mammography. A normal mammogram should not delay biopsy of a clinically suspicious abnormality. [id number] Electronically Signed: Reji Huitron MD at 8:54 EDT , CC: Dr. Mohsen Perales DO Compensation Specialist: Signed Mohsen Perales DO Work Phone: Start: 01-24-2021 End: 01-24-2021 Dexa Bone Density Study Comments: See Note; NOTES: [facility] Imaging Services [address] [place] [address] Dexa Bone Density Study MR#: [id number] Acct: [id number] Name: KAREN CAMPOS Rep #: [id number] : 1970 F 50 From: Reji johnson MD PCP: Dr. Mohsen Perales DO Status: [facility] Study: Dexa Bone Density Study Date of Exam: 01/24/21 Exam# [id number] Ordering Dr: Mohsen Perales DO STUDY: DUAL ENERGY X-RAY ABSORPTIOMETRY / DXA REASON FOR EXAM: Female, 50 years old. Z780. Early menopause. Loss of height. TECHNIQUE: Bone Mineral Density (BMD) measurements of lumbar spine and bilateral hips were obtained. COMPARISON: Comparison is made with prior study dated 01/13/2019. FINDINGS: Lumbar Spine (L1-L4): g/cm2 (0.935) / T-score (-1.9) / Z-score (-1.6) Findings are suggestive of osteopenia with a moderate fracture risk. Left Femur Total: g/cm2 (0.897) / T-score (-0.9) / Z-score (-0.5) Left Femoral Neck: g/cm2 (0.8 x 3) / T-score (-1.3) / Z-score (-0.6) Right Femur Total: g/cm2 (0.887) / T-score (-1.0) / Z-score (-0.5) Right Femoral Neck: g/cm2 (0.858) / T-score (-1.3) / Z-score (-0.6) The T-Scores on the most recent prior examination were: Lumbar Spine (L1-L4): There has been improvement of bone density since the previous examination. Left Femur Total: which represents a worsening of 3.4%. Right Femur Total: which represents a worsening of 2.7%. BD/Dexa Bone Density Study IMPRESSION: The patient is considered osteopenic as outlined below according to World [place] Organization (WHO) criteria with a moderate fracture risk. There has been worsening of bone density since the previous examination. Reference Information: The T-score is the number of standard deviations above or below the standard which is normal for young adults at their peak bone mineral density. The World Health Organization (WHO) interprets the T-scores as follows: Above -1 Normal bone density Between -1 and -2.5 Osteopenia Equal to / or below -2.5 Osteoporosis As a practical clinical guideline, osteopenia may be graded as follows: Mild -1 through -1.5 Moderate -1.6 through -2.0 Severe -2.1 through -2.4 The Z-score is the number of standard deviations above or below age-matched controls. A Z-score of less than -1.5 would be considered abnormal. References: 1. NIH Osteoporosis and Related Bone Diseases www osteo.org 2. International Society for Clinical Densitometry www iscd.org 3. National Osteoporosis Foundation www nof.org Electronically Signed: Reji Huitron MD at 10:10 EST , Service support , CC: Dr. Mohsen Perales DO Compensation Specialist: Signed Mohsen Perales DO Work Phone: Start: 01-24-2021 End: 01-24-2021 SCRN MAMM (CAD)W/EVELIA BILAT Comments: See Note; NOTES: [facility] Imaging Services [address] [place] [address] SCRN MAMM (CAD)W/EVELIA BILAT MR#: [id number] Acct: [id number] Name: KAREN CAMPOS Rep #: [id number] : 1970 F 50 From: Reji johnson MD PCP: Dr. Mohsen Perales DO Status: REG CLI Study: SCRN MAMM (CAD)W/EVELIA BILAT Date of Exam: 01/15 Exam# [id number] Ordering Dr: Mohsen Perales DO MAMMOGRAPHY - BILATERAL SCREENING REASON FOR EXAM: Female, 50 years old. Routine annual screening examination. PERTINENT HISTORY: Aunts with breast cancer. TECHNIQUE: Digital bilateral breast evelia (3D mammographic acquisition) in the CC and MLO projections. 2-D mediolateral oblique (MLO) and craniocaudad (CC) views of both breasts were obtained. CAD: Full Field Digital Mammography with Computer Added Detection was performed. COMPARISON: Comparison is made with prior study of 01/14/2020 and 01/13/2019 FINDINGS: Breast Composition: There are scattered areas of fibroglandular density. There are no dominant masses or suspicious calcifications. No other significant abnormalities are identified. There has been no significant change since the prior study. BI/SCRN MAMM (CAD)W/EVELIA BILAT IMPRESSION: Stable bilateral screening mammogram. Yearly follow-up mammogram recommended. (A) ASSESSMENT CATEGORY: BIRADS Category 1: Negative. A letter regarding these results will be sent to the patient by the facility within 30 days. Approximately 10% of breast cancers are not detected by mammography. A normal mammogram should not delay biopsy of a clinically suspicious abnormality. [id number] Electronically Signed: Reji Huitron MD at 10:48 EST , Service support , CC: Dr. Mohsen Perales DO Compensation Specialist: Signed Mohsen Perales DO Work Phone: Start: 01-23-2021 End: 01-23-2021 Echo Complete Comments: See Note; NOTES: [facility] Cardiovascular Services [address] [place] [address] Echo Complete 01/23/21 0802 MR#: [id number] Acct: [id number] Name: KAREN CAMPOS Rep #: [id number] : 1970 50 From: Evgeny Bhardwaj MD Attending Dr: Dr. Mohsen Perales DO Status: REG CL I Ordering Dr: Mohsen Perales DO Date: 01/23/21 Location: [facility] Sex: F C Admitted: Reason For Study: SOB Procedure This was a 2D Doppler, Color Flow transthoracic echocardiogram. Exam performed in department. Left Ventricle Normal LV size. Left ventricular systolic function is normal. The estimated ejection fraction is 60 %. Stage 1 diastolic dysfunction. No regional wall motion abnormalities noted. Right Ventricle Normal RV size. Normal systolic function. Atria Normal left atrium. Normal right atrium. Mitral Valve Normal mitral valve. Tricuspid Valve Normal tricuspid valve. Mild (1+) tricuspid valve insufficiency. Pulmonary artery systolic pressure is 30 mmHg. Aortic Valve Normal aortic valve. Trisinus/trileaflet aortic valve. Pulmonic Valve Normal pulmonic valve. Great Vessels Normal aortic root. The pulmonary artery is normal size. Normal inferior vena cava. Pericardium/Pleural No pericardial effusion. MMode/2D Measurements Calculations LVIDd: 4.0 cm IVSd: 0.78 cm Ao root diam: 2.4 cm LVIDs: 2.2 cm LVPWd: 0.85 cm RVDd: 3.2 cm FS: 44.9 % LAV(MOD-bp): 39.9 ml LA A4 area: 14.3 cm2 LA dimension(2D): 3.3 cm LAV(MOD-bp) Indexed: 19.1 ml/m2 LAV(MOD-sp2): 41.4 ml LAV(MOD-sp4): 36.5 ml RA A4 area: 10.7 cm2 Doppler Measurements Calculations MV E max rian: 81.5 cm/sec Lat Peak E' Rian: 9.1 cm/sec Med Peak E' Rian: 9.6 cm/sec MV A max rian: 90.7 cm/sec E/E' lat: 8.9 E/E' med: 8.5 MV E/A: 0.90 Ao V2 max: 153.9 cm/sec LV V1 max: 119.1 cm/sec PA V2 max: 139.5 cm/sec Ao max P.5 mmHg LV V1 max P.7 mmHg TR max rian: 253.3 cm/sec TR max P.7 mmHg Interpretation Summary Normal LV size. Left ventricular systolic function is normal. The estimated ejection fraction is 60 %. Stage 1 diastolic dysfunction. Mild (1+) tricuspid valve insufficiency. Pulmonary artery systolic pressure is 30 mmHg. _ Ordering Physician: Mohsen Perales Referring Physician: Mohsen Perales Performed By: Tiffanie Lagos RDCS 01/23/21 1541 Date Evgeny Bhardwaj MD CC: Dr. Mohsen Perales DO Date Dictated: 01/23/21 0802 Date Transcribed: 01/23/21 154 Compensation Specialist: Signed Mohsen Perales DO Work Phone: Start: 10-05-2020 End: 10-05-2020 Chest PA and Lateral Comments: See Note; NOTES: [facility] Imaging Services [address] [place] [address] Chest PA and Lateral MR#: [id number] Acct: [id number] Name: KAREN CAMPOS Rep #: [id number] : 1970 F 50 From: Mariusz Young PCP: Dr. Mohsen Perales DO Status: REG CLI Study: Chest PA and Lateral Date of Exam: 10/05/20 Exam# [id number] Ordering Dr: Mohsen Perales DO STUDY: X-RAY CHEST REASON FOR EXAM: Female, 50 years old. Cough, shortness of breath. TECHNIQUE: Frontal and lateral views of the chest. COMPARISON: 10/08/2018 FINDINGS: The lungs are clear and expanded. There is no demonstrated pleural abnormality. Normal size heart. Normal mediastinum and zaria. Normal visualized pulmonary arteries. Normal visualized aortic arch and descending thoracic aorta. Normal visualized thoracic spine. Normal visualized ribs, clavicles, and shoulders. There is no demonstrated abnormality of the visualized soft tissue structures of the upper abdomen. RAD/Chest PA and Lateral IMPRESSION: Normal x-ray examination of the chest. Electronically Signed: Mariusz Shay MD at 17:01 EST , Service support , CC: Dr. Mohsen Perales DO Compensation Specialist: Signed Mohsen Perales Work Phone: Start: 10-05-2020 End: 10-05-2020 Finger(s) Min 2 Views Comments: See Note; NOTES: [facility] Imaging Services [address] [place] [address] Finger(s) Min 2 Views MR#: [id number] Acct: [id number] Name: KAREN CAMPOS Nohemi Rep #: [id number] : 1970 F 50 From: Mariusz Young PCP: Dr. Mohsen Perales DO Status: REG CLI Study: Finger(s) Min 2 Views Date of Exam: 10/05/20 Exam# [id number] Ordering Dr: Mohsen Perales DO STUDY: X-RAY - RIGHT HAND, ATTENTION 4 FINGER REASON FOR EXAM: Female, 50 years old. Swollen, and painful right digit. TECHNIQUE: 3 view(s) of the finger were obtained. COMPARISON: None. FINDINGS: Normal metacarpal head. Normal metacarpophalangeal joint. Normal proximal phalanx. Normal middle phalanx. Normal distal phalanx. Minute punctate ossific density along the ulnar aspect of the PIP joint. Minute punctate radiodensity along the ulnar aspect of the DIP joint. RAD/Finger(s) Min 2 Views IMPRESSION: Possible avulsion fractures versus dystrophic calcifications PIP and DIP joints Electronically Signed: Mariusz Shay MD at 17:00 EST , Service support , CC: Dr. Mohsen Perales DO Compensation Specialist: Signed Mohsen Perales Work Phone: Start: 01-14-2020 End: 01-14-2020 SCREENING MAMM (CAD), BILAT Comments: See Note; NOTES: [facility] Imaging Services [address] [place] [address] SCREENING MAMM (CAD), BILAT MR#: [id number] Acct: [id number] Name: KAREN CAMPOS Rep #: [id number] : 1970 F 49 From: Reji Huitron MD PCP: Mohsen Perales DO Status: REG CLI Study: SCREENING MAMM (CAD), BILAT Date of Exam: 01/14/20 Exam# [id number] Ordering Dr: Mohsen Perales DO MAMMOGRAPHY - BILATERAL SCREENING REASON FOR EXAM: Female, 49 years old. Routine annual screening examination. PERTINENT HISTORY: Aunts with breast cancer. TECHNIQUE: Digital bilateral breast evelia (3D mammographic acquisition) in the CC and MLO projections. 2-D mediolateral oblique (MLO) and craniocaudad (CC) views of both breasts were obtained. CAD: Full Field Digital Mammography with Computer Added Detection was performed. COMPARISON: Comparison is made with prior study dated January 13, 2019. FINDINGS: Breast Composition: There are scattered areas of fibroglandular density. There are no dominant masses or suspicious calcifications. No other significant abnormalities are identified. There has been no significant change since the prior study. BI/SCREENING MAMM (CAD), BILAT IMPRESSION: Stable bilateral screening mammogram. Yearly follow-up mammogram recommended. (A) ASSESSMENT CATEGORY: BIRADS Category 1: Negative. A letter regarding these results will be sent to the patient by the facility within 30 days. Approximately 10% of breast cancers are not detected by mammography. A normal mammogram should not delay biopsy of a clinically suspicious abnormality. [id number] Electronically Signed: Reji Huitron, at 12:09 EST , Service support , CC: Mohsen Perales DO Compensation Specialist: Signed Mohsen Perales Work Phone: Start: 01-13-2019 End: 01-13-2019 Echocardiogram Complete Comments: See Note; NOTES: [facility] Cardiovascular Services [address] [place] [address] Echo Complete 01/13/19 1259 MR#: [id number] Acct: [id number] Name: KAREN CAMPOS Rep #: [id number] : 1970 48 From: Josh Valverde MD Attending Dr: Mohsen Perales DO Status: REG CLI Ordering Dr: Mohsen Perales DO Date: 01/13/19 Location: [facility] Sex: F C Admitted: Reason For Study: DYSPNEA ON EXERTION Procedure This was a 2D Doppler, Color Flow transthoracic echocardiogram. The exam was of adequate technical quality. Exam performed in department. Left Ventricle Normal LV size. Left ventricular systolic function is normal. The estimated ejection fraction is 65 %. The global longitudinal strain = -24 % (normal). No evidence for diastolic dysfunction. No regional wall motion abnormalities noted. Right Ventricle Normal RV size. Normal systolic function. Atria Normal left atrium. Normal right atrium. No doppler evidence for ASD. Mitral Valve There is mild mitral annular calcification. Normal mitral valve. Trivial mitral valve insufficiency. Tricuspid Valve Normal tricuspid valve. Trivial tricuspid valve insufficiency. Right ventricular systolic pressure estimated to be 33 mmHg. Aortic Valve Trisinus/trileaflet aortic valve. Normal aortic valve. Pulmonic Valve The pulmonic valve is not well visualized. Trivial pulmonic valve insufficiency. Great Vessels Normal sized aortic root. Pericardium/Pleural No pericardial effusion. MMode/2D Measurements AND Calculations LVIDd: 4.4 cm IVSd: 0.97 cm Ao root diam: 2.6 cm LVIDs: 2.6 cm LVPWd: 0.97 cm RVDd: 3.2 cm FS: 40.8 % LAV(MOD-bp): 49.7 ml LVAd ap4: 27.9 cm2 SV(MOD-sp4): 56.1 ml LAV(MOD-bp) Indexed: 24.6 ml/m2 EDV(MOD-sp4): 83.0 ml LAV(MOD-sp2): 52.6 ml EDV(sp4-el): 87.4 ml LAV(MOD-sp4): 44.9 ml LVAs ap4: 13.9 cm2 ESV(MOD-sp4): 26.9 ml ESV(sp4-el): 27.7 ml EF(MOD-sp4): 67.6 % EF(sp4-el): 68.3 % SV(sp4-el): 59.7 ml LA A4 area: 17.8 cm2 LA dimension(2D): 3.6 cm RA A4 area: 14.6 cm2 Time Measurements MV dec time: 0.24 sec Doppler Measurements AND Calculations MV E max rian: 112.3 cm/sec Lat Peak E' Rian: 13.3 cm/sec Med Peak E' Rian: 13.3 cm/sec MV A max rian: 85.8 cm/sec E/E' lat: 8.5 E/E' med: 8.4 MV E/A: 1.3 Ao V2 max: 180.2 cm/sec LV V1 max: 140.9 cm/sec PA V2 max: 139.8 cm/sec Ao max P.0 mmHg LV V1 max P.9 mmHg TR max rian: 273.3 cm/sec TR max P.9 mmHg Interpretation Summary Left ventricular systolic function is normal. The estimated ejection fraction is 65 %. The global longitudinal strain = -24 % (normal). There is mild mitral annular calcification. Trivial mitral valve insufficiency. Trivial tricuspid valve insufficiency. Trivial pulmonic valve insufficiency. Right ventricular systolic pressure estimated to be 33 mmHg. No evidence for diastolic dysfunction. Ordering Physician: Mohsen Perales Referring Physician: Mohsen Perales Performed By: Oliva Moore RDCS 01/13/19 1638 Date Josh Valverde MD CC: Mohsen Perales DO Date Dictated: 01/13/19 1259 Date Transcribed: 01/13/191637 Compensation Specialist: Signed Mohsen Perales Work Phone: Start: 01-13-2019 End: 01-14-2019 Dexa Bone Density Study Comments: See Note; NOTES: [facility] Imaging Services [address] [place] [address] Dexa Bone Density Study MR#: [id number] Acct: [id number] Name: KAREN CAMPOS Rep #: [id number] : 1970 F 48 From: Reji Huitron MD PCP: Mohsen Perales DO Status: [facility] CLI Study: Dexa Bone Density Study Date of Exam: 01/13/19 Exam# [id number] Ordering Dr: Mohsen Perales DO STUDY: DUAL ENERGY X-RAY ABSORPTIOMETRY / DXA REASON FOR EXAM: Female, 48 years old. Early menopause. Loss of height. TECHNIQUE: Bone Mineral Density (BMD) measurements of lumbar spine and bilateral hips were obtained. COMPARISON: None. FINDINGS: Lumbar Spine (L1-L4): g/cm2 (0.981) / T-score (-1.7) / Z-score (-1.5) Findings are suggestive of osteopenia with a moderate fracture risk. Left Femur Total: g/cm2 (0.929) / T-score (-0.6) / Z-score (-0.3) Left Femoral Neck: g/cm2 (0.769) / T-score (-1.9) / Z-score (-1.3) Right Femur Total: g/cm2 (0.912) / T-score (-0.8) / Z-score (-0.4) Right Femoral Neck: g/cm2 (0.833) / T-score (-1.5) / Z-score (-0.8) BD/Dexa Bone Density Study IMPRESSION: The patient is considered osteopenic as outlined below according to World Glen Organization (WHO) criteria with a moderate fracture risk. Reference Information: The T-score is the number of standard deviations above or below the standard which is normal for young adults at their peak bone mineral density. The World Health Organization (WHO) interprets the T-scores as follows: Above -1 Normal bone density Between -1 and -2.5 Osteopenia Equal to / or below -2.5 Osteoporosis As a practical clinical guideline, osteopenia may be graded as follows: Mild -1 through -1.5 Moderate -1.6 through -2.0 Severe -2.1 through -2.4 The Z-score is the number of standard deviations above or below age-matched controls. A Z-score of less than -1.5 would be considered abnormal. References: 1. NIH Osteoporosis and Related Bone Diseases http://www.osteo.org 2. International Society for Clinical Densitometry http://www.iscd.org 3. National Osteoporosis Foundation http://www.nof.org Electronically Signed: Reji Huitron MD at 14:07 EST , Service support , CC: Mohsen Perales DO Compensation Specialist: Signed Mohsen Perales Work Phone: Start: 01-13-2019 End: 01-13-2019 SCREENING MAMM (CAD), BILAT Comments: See Note; NOTES: [facility] Imaging Services [address] [place] [address] SCREENING MAMM (CAD), BILAT MR#: [id number] Acct: [id number] Name: KAREN CAMPOS Rep #: [id number] : 1970 F 48 From: Reji Huitron MD PCP: Mohsen Perales DO Status: REG CLI Study: SCREENING MAMM (CAD), BILAT Date of Exam: 01/13/19 Exam# [id number] Ordering Dr: Mohsen Perales DO MAMMOGRAPHY - BILATERAL SCREENING REASON FOR EXAM: Female, 48 years old. Routine annual screening examination. PERTINENT HISTORY: Aunts with breast cancer. TECHNIQUE: Digital bilateral breast evelia (3D mammographic acquisition) in the CC and MLO projections. 2-D mediolateral oblique (MLO) and craniocaudad (CC) views of both breasts were obtained. CAD: Full Field Digital Mammography with Computer Added Detection was performed. COMPARISON: Comparison is made with prior examination dated January 27, 2010. FINDINGS: Breast Composition: There are scattered areas of fibroglandular density. There are no dominant masses or suspicious calcifications. No other significant abnormalities are identified. There has been no significant change since the prior study. BI/SCREENING MAMM (CAD), BILAT IMPRESSION: Stable bilateral screening mammogram. Yearly follow-up mammogram recommended. (A) ASSESSMENT CATEGORY: BIRADS Category 1: Negative. A letter regarding these results will be sent to the patient by the facility within 30 days. Approximately 10% of breast cancers are not detected by mammography. A normal mammogram should not delay biopsy of a clinically suspicious abnormality. [id number] Electronically Signed: Reji Huitron MD at 12:51 EST , Service support , CC: Mohsen Perales DO Compensation Specialist: Signed Mohsen Almonte Phone: Start: 11-04-2018 End: 11-04-2018 Stress Report Comments: See Note; NOTES: [facility] Cardiovascular Services [address] [place] [address] MR#: [id number] Acct: [id number] Name: KAREN CAMPOS Rep #: [id number] : 1970 48 From: Josh Valverde MD Primary Care: Mohsen Perales DO Status: REG CLI Ordering Dr: Williams: Nicolas C Stress Test Report Date: 11/04/2018 Procedure: [...] or recovery This note was generated with [employer] Media[employer] software. It may contain incorrect words, spelling, and punctuation that were not noted in checking the note before signing. 11/04/18 1600 <Electronically signed by Josh Valverde MD> Date Josh Valverde MD CC: Mohsen Perales DO Date Dictated: 11/04/181557 Date Transcribed: 11/04/181557 Compensation Specialist: PM Signed Mohsen Perales Start: 10-08-2018 End: 10-09-2018 Chest PA and Lateral Comments: See Note; NOTES: [facility] Imaging Services [address] [facility] [place] [address] Chest PA and Lateral MR#: [id number] Acct: [id number] Name: KAREN CAMPOS Nohemi Rep #: [id number] : 1970 F 48 From: Espinoza Ramirez MD PCP: Mohsen Perales DO Status: REG CLI Study: Chest PA and Lateral Date of Exam: 10/08/18 Exam# [id number] Ordering Dr: Mohsen Perales DO STUDY: X-RAY CHEST REASON FOR EXAM: [...] 12:36 EST , Service support , CC: Mohsen Perales DO Compensation Specialist: Signed Mohsen A Fast Work Phone: Cholecystectomy LETICIA silva Comment on above: October 2006 Cholecystectomy Beck Manc hak Comment on above: October 2006 Cholecystectomy Beck Manc hak Comment on above: October 2006 Cholecystectomy Beck Manc hak Comment on above: October 2006 Cholecystectomy Beck Manc hak Comment on above: October 2006 Cholecystectomy Mohsen A Fast Work Phone: Comment on above: October 2006 Cholecystectomy Beck Manc hak Comment on above: October 2006 Cholecystectomy Lizzeth Jocy Comment on above: October 2006 Cholecystectomy Carey Mayer LPN Comment on above: October [address] CADEN Landin MD Cholecystectomy Radhafroylan Rosas n POTATO PANCAKE FRIER Comment on above: October 2006 Cholecystectomy Mohsen A Fast DO Work Phone: Comment on above: October 2006 Cholecystectomy Beck Manc hak HR INTERN Comment on above: October 2006 Cholecystectomy Beck Manc hak HR INTERN Comment on above: October 2006 Cholecystectomy Beck Manc hak HR INTERN Comment on above: October 2006 Cholecystectomy Beck Manc hak HR INTERN Comment on above: October 2006 Cholecystectomy Beck Manc hak HR INTERN Comment on above: October [address] CADEN Young Tonsillectomy LETICIA Shelby Comment on above: 1978 Tonsillectomy Beck Monalisa k Comment on above: 1978 Tonsillectomy Beck Monalisa k Comment on above: 1978 Tonsillectomy Beck Monalisa k Comment on above: 1978 Tonsillectomy Beck Monalisa k Comment on above: 1978 Tonsillectomy Mohsen A Fast Work Phone: Comment on above: 1978 Tonsillectomy Beck Monalisa k Comment on above: 1978 Tonsillectomy Lizzeth Kingarb Comment on above: 1978 Tonsillectomy Carey Cross L PN Comment on above: 1978 Tonsillectomy Radha Travis POTATO PANCAKE FRIER Comment on above: 1978 Tonsillectomy Mohsen A Fast D O Work Phone: Comment on above: 1978 Tonsillectomy Beck Monalisa k HR INTERN Comment on above: 1978 Tonsillectomy Beck Monalisa k HR INTERN Comment on above: 1978 Tonsillectomy Beck Monalisa k HR INTERN Comment on above: 1978 Tonsillectomy Beck Monalisa k HR INTERN Comment on above: 1978 Tonsillectomy Beck Monalisa k HR INTERN Comment on above: 1978 Total hysterectomy LETICIA Don ssell Comment on above: January 2010 Total hysterectomy Beck M anchak Comment on above: January 2010 Total hysterectomy Beck M anchak Comment on above: January 2010 Total hysterectomy Beck M anchak Comment on above: January 2010 Total hysterectomy Beck M anchak Comment on above: January 2010 Total hysterectomy Mohsen A F ast Work Phone: Comment on above: January 2010 Total hysterectomy Beck M anchak Comment on above: January 2010 Total hysterectomy Lizzeth Sl arb Comment on above: January 2010 Total hysterectomy Carey mejias POTATO PANCAKE FRIER Comment on above: January 2010 Total hysterectomy Radha Conicolas fman POTATO PANCAKE FRIER Comment on above: January 2010 Total hysterectomy Mohsen A F ast DO Work Phone: Comment on above: January 2010 Total hysterectomy Beck M anchak HR INTERN Comment on above: January 2010 Total hysterectomy Beck M anchak HR INTERN Comment on above: January 2010 Total hysterectomy Beck M anchak HR INTERN Comment on above: January 2010 Total hysterectomy Beck M anchak HR INTERN Comment on above: January 2010 Total hysterectomy Beck M anchak HR INTERN Comment on above: January 2010 Plan of Treatment Date Care Activity Detail Author Start: 01-24-2033 Screening for malignant neoplasm of colon [facility] Start: 2032 RSV patients and/or patients aged 60+ years (1 - 1-dose 60+ series) RSV patients and/or patients aged 60+ years (1 - 1-dose 60+ series) [facility] Start: 07-26-2024 Influenza vaccination Influenza Vaccine (Season Ended) [facility] Start: 07-26-2023 COVID-19 Vaccine () COVID-19 Vaccine ( season) [facility] Start: 07-26-2023 [facility] Start: 06-10-2023 Procedure Education Eprescribed prescriptions (G8553) [facility]; [facility] Work Phone: Start: 06-10-2023 Blood count complete auto&auto difrntl wbc CBC W/AUTO DIFF WBC (45187) [facility]; [facility] Work Phone: Start: 06-10-2023 Lipid panel LIPID PANEL (06807) [facility]; [facility] Work Phone: Start: 06-10-2023 Comprehensive metabolic panel METABOLIC PANEL, COMPREHENSIVE (50792) [facility]; [facility] Work Phone: Start: 06-10-2023 C-reactive protein high sensitivity C-REACT PROT HIGH SENS(hsCRP) (77715) [facility]; [facility] Work Phone: Start: 02-11-2023 Hepatic function panel HEPATIC FUNCTION PANEL (55714) [facility] Internal [facility]; [facility] Work Phone: Comment on above: 6 weeks Start: 02-11-2023 Procedure Education Eprescribed prescriptions (G8553) [facility]; [facility] Work Phone: Start: 02-11-2023 Protein electrophoretic fractj&quantj serum [facility]; [facility] Work Phone: Start: 02-11-2023 Urnls dip stick/tablet reagent auto microscopy URINALYSIS, W/ MICRO (56874) [facility]; [facility] Work Phone: Start: 02-11-2023 Blood count complete auto&auto difrntl wbc CBC W/AUTO DIFF WBC (26197) [facility]; [facility] Work Phone: Start: 02-11-2023 Comprehensive metabolic panel METABOLIC PANEL, COMPREHENSIVE (90110) [facility]; [facility] Work Phone: Start: 03-02-2023 Colonoscopy w/biopsy single/multiple COLONOSCOPY AND BIOPSY [facility] Start: 01-24-2023 Patient discharge [facility] Start: 11-25-2022 Depression Assessment Depression Assessment [facility] Start: 10-02-2022 Procedure Education Eprescribed prescriptions (G8553) [facility]; [facility] Work Phone: Start: 10-02-2022 Assay of thyroid stimulating hormone tsh TSH (44358) [facility]; [facility] Work Phone: Start: 10-02-2022 Blood count complete auto&auto difrntl wbc CBC W/AUTO DIFF WBC (64695) [facility]; [facility] Work Phone: Start: 10-02-2022 Comprehensive metabolic panel METABOLIC PANEL, COMPREHENSIVE (13984) [facility]; [facility] Work Phone: Start: 10-02-2022 C-reactive protein high sensitivity C-REACT PROT HIGH SENS(hsCRP) (64664) [facility]; [facility] Work Phone: Start: 10-02-2022 Lipid panel LIPID PANEL (42229) [facility]; [facility] Work Phone: Start: 2022 Shingrix Vaccine (1 of 2) Shingrix Vaccine (1 of 2) [facility] Start: 2022 Zoster Vaccines (1 of 2) Zoster Vaccines (1 of 2) [facility] Start: 06-20-2022 Procedure Education Eprescribed prescriptions (G8553) [facility]; [facility] Work Phone: Start: 06-20-2022 C-reactive protein high sensitivity C-REACT PROT HIGH SENS(hsCRP) (00481) [facility]; [facility] Work Phone: Start: 06-20-2022 Blood count complete auto&auto difrntl wbc CBC, PLATELETS & AUT DIFF (90276) [facility]; [facility] Work Phone: Start: 06-20-2022 Cyanocobalamin vitamin b-12 VITAMIN B-12 (CYANOCOBALAMIN) (83373) [facility]; [facility] Work Phone: Start: 06-20-2022 Comprehensive metabolic panel METABOLIC PANEL, COMPREHENSIVE (26927) [facility]; [facility] Work Phone: Start: 06-20-2022 Lipid panel LIPID PANEL (03614) [facility]; [facility] Work Phone: Start: 03-25-2022 Procedure Education Eprescribed prescriptions (G8553) [facility]; [facility] Work Phone: Start: 03-25-2022 Provider Instructions for Treatment *Bisphosphonate Education [facility]; [facility] Work Phone: Start: 01-24-2022 25 hydroxy includes fractions if performed Vitamin D Hydroxy (79008) [facility]; [facility] Work Phone: Start: 01-24-2022 Blood count complete auto&auto difrntl wbc CBC with auto diff (16338) [facility]; [facility] Work Phone: Start: 01-24-2022 Comprehensive metabolic panel METABOLIC PANEL, COMPREHENSIVE (56252) [facility]; [facility] Work Phone: Start: 01-24-2022 Lipid panel LIPID PANEL (35715) [facility]; [facility] Work Phone: Start: 01-24-2022 Procedure Education Eprescribed prescriptions (G8553) [facility]; [facility] Work Phone: Start: 08-04-2021 Procedure Education Eprescribed prescriptions (G8553) [facility]; [facility] Work Phone: Start: 08-04-2021 Blood count complete auto&auto difrntl wbc CBC W/AUTO DIFF WBC (03298) [facility]; [facility] Work Phone: Start: 08-04-2021 Comprehensive metabolic panel METABOLIC PANEL, COMPREHENSIVE (57703) [facility]; [facility] Work Phone: Start: 08-04-2021 Lipid panel LIPID PANEL (08596) [facility]; [facility] Work Phone: Start: 03-31-2021 Procedure Education Eprescribed prescriptions (G8553) [facility]; [facility] Work Phone: Start: 03-31-2021 Provider Instructions for Treatment COVID SCREENING FORM [facility]; [facility] Work Phone: Start: 03-31-2021 C-reactive protein high sensitivity C-REACT PROT HIGH SENS(hsCRP) (16865) [facility]; [facility] Work Phone: Start: 03-31-2021 25 hydroxy includes fractions if performed Vitamin D Hydroxy (03020) [facility]; [facility] Work Phone: Start: 03-31-2021 Comprehensive metabolic panel METABOLIC PANEL, COMPREHENSIVE (88039) [facility]; [facility] Work Phone: Start: 03-31-2021 Lipid panel LIPID PANEL (83628) [facility]; [facility] Work Phone: Start: 02-23-2021 Blood count complete auto&auto difrntl wbc CBC W/AUTO DIFF WBC (65429) [facility]; [facility] Work Phone: Start: 02-23-2021 Comprehensive metabolic panel METABOLIC PANEL, COMPREHENSIVE (53059) [facility]; [facility] Work Phone: Start: 12-12-2020 Procedure Education Eprescribed prescriptions (G8553) [facility]; [facility] Work Phone: Start: 12-12-2020 Provider Instructions for Treatment COVID SCREENING FORM [facility]; [facility] Work Phone: Start: 12-05-2020 25 hydroxy includes fractions if performed CALCIFEDIOL (31468) [facility]; [facility] Work Phone: Start: 12-05-2020 Comprehensive metabolic panel METABOLIC PANEL, COMPREHENSIVE (39154) [facility]; [facility] Work Phone: Start: 12-05-2020 CBC, PLATELETS & MANUAL DIFF (44796) CBC, PLATELETS & MANUAL DIFF (31929) [facility]; [facility] Work Phone: Start: 12-05-2020 Lipid panel LIPID PANEL (98227) [facility]; [facility] Work Phone: Start: 10-05-2020 Iaadiadoo influenza 2019 Novel Coronavirus (COVID-19), MARY (27549) [facility] Work Phone: Start: 10-05-2020 Procedure Education Eprescribed prescriptions (G8553) [facility] Work Phone: Start: 06-06-2020 Procedure Education Eprescribed prescriptions (G8553) [facility] Work Phone: Start: 06-06-2020 25 hydroxy includes fractions if performed Vitamin D Hydroxy (09397) [facility] Work Phone: Start: 06-06-2020 Cobalamin (Vitamin B12) [Mass/Vol] VITAMIN B-12 (CYANOCOBALAMIN) (66097) [facility] Work Phone: Start: 06-06-2020 Blood count manual cell count each CBC with auto diff (05642) [facility] Work Phone: Start: 06-06-2020 Antibody borrelia burgdorferi lyme disease Lyme Disease Antibody W/ Reflex (93649) [facility] Work Phone: Start: 06-06-2020 Sedimentation rate rbc non-automated SED RATE ERYTHROCYTE (48038) [facility] Work Phone: Start: 06-06-2020 CRP [Mass/Vol] C-REACTIVE PROTEIN (90063) [facility] Work Phone: Start: 06-06-2020 Nuclear Ab IF (S) [Titer] AVERY (ANTINUCLEAR ANTIBODY) (78465) [facility] Work Phone: Start: 06-06-2020 Rheumatoid factor quantitative RHEUMATOID FACTOR-QUANT (07503) [facility] Work Phone: Start: 01-05-2020 Procedure Education Eprescribed prescriptions (G8553) [facility] Work Phone: Start: 12-02-2019 Procedure Education Eprescribed prescriptions (G8553) [facility] Work Phone: Start: 07-24-2019 Procedure Education Eprescribed prescriptions (G8553) [facility] Work Phone: Start: 05-11-2019 Procedure Education Eprescribed prescriptions (G8553) [facility] Work Phone: Start: 05-11-2019 aPTT Coag time (Bld) PTT (Activated Partial Thromboplastin Time) (58025) [facility] Work Phone: Start: 05-11-2019 Prothrombin time (PT) Coag time (PPP) PT (Prothrobim Time) (80006) [facility] Work Phone: Start: 05-11-2019 Blood count complete auto&auto difrntl wbc CBC W/AUTO DIFF WBC (59144) [facility] Work Phone: Start: 03-03-2019 Procedure Education Eprescribed prescriptions (G8553) [facility] Work Phone: Start: 03-03-2019 Protein electrophoretic fractj&quantj serum [facility] Work Phone: Start: 03-03-2019 Calcium urine quantitative timed specimen URINE CALCIUM OMAR TIMED 24 Hour (13000) [facility] Work Phone: Start: 03-03-2019 Assay of phosphorus inorganic PHOSPHORUS (58220) [facility]; [facility] Work Phone: Start: 03-03-2019 Phosphate mass conc PHOSPHORUS (41763) [facility] Work Phone: Start: 03-03-2019 Assay of parathormone PARATHORMONE (37935) [facility] Work Phone: Start: 09-30-2018 Comprehensive metabolic panel METABOLIC PANEL, COMPREHENSIVE (21535) [facility] Work Phone: Start: 09-30-2018 Lipid panel LIPID PANEL (42447) [facility] Work Phone: Start: 09-30-2018 25 hydroxy includes fractions if performed Vitamin D Hydroxy (78719) [facility] Work Phone: Start: 08-29-2018 Procedure Education Eprescribed prescriptions (G8553) [facility] Work Phone: Start: 2017 Cologuard (FIT-DNA) Cologuard (FIT-DNA) [facility] Start: 2017 Colonoscopy Colonoscopy [facility] Start: 2017 Colorectal Cancer Screening Colorectal Cancer Screening [facility] Start: [address] COLONOGRAPHY [facility] Start: 2017 Diabetes Screening Diabetes Screening [facility] Start: 2017 Fecal Occult Blood Fecal Occult Blood [facility] Start: 2017 Lipid 1996 panel - Serum or Plasma Lipid Screening [facility] Start: 2017 SIGMOIDOSCOPY SIGMOIDOSCOPY [facility] Start: 09-01-2014 Patient Education [facility] Work Phone: Start: 09-01-2014 Procedure Education Eprescribed prescriptions (G8553) [facility] Work Phone: Start: 08-24-2014 Procedure Education Eprescribed prescriptions (G8553) [facility] Work Phone: Start: 06-04-2013 Patient Education Acne: acne [facility] Work Phone: Start: 2012 Mammography Mammogram Screening [facility] Start: 2012 Screening for malignant neoplasm of breast Mammogram [facility] Start: 03-28-2011 HPV Testing HPV Testing [facility] Start: 03-28-2011 Pap Testing Pap Testing [facility] Start: 1994 DTaP/Tdap/Td Vaccines (1 - Tdap) DTaP/Tdap/Td Vaccines (1 - Tdap) [facility] Start: 1993 Screening for malignant neoplasm of cervix [facility] Start: 1991 Hepatitis B Vaccines (1 of 3 - 19+ 3-dose series) Hepatitis B Vaccines (1 of 3 - 19+ 3-dose series) [facility] Start: 1991 Urine microalbumin profile DTaP,Tdap,Td Vaccine (1 - Tdap) [facility] Start: 1990 Hepatitis C Screening Hepatitis C Screening [facility] Start: 1990 Hepatitis C screening Hepatitis C Screening [facility] Start: 1990 HIV Screening HIV Screening [facility] Start: 1978 Pneumococcal Vaccine: Pediatrics (0 to 5 Years) and At-Risk Patients (6 to 64 Years) (1 of 2 - PCV) Pneumococcal Vaccine: Pediatrics (0 to 5 Years) and At-Risk Patients (6 to 64 Years) (1 of 2 - PCV) [facility] Start: 1973 MMR Vaccines (1 of 1 - Standard series) MMR Vaccines (1 of 1 - Standard series) [facility] Start: 1972 Covid-19 Vaccine (#1) Covid-19 Vaccine (#1) [facility] Start: 1972 Hepatitis B Vaccine (1 of 3 - 3-dose series) Hepatitis B Vaccine (1 of 3 - 3-dose series) [facility] Start: 1972 Hepatitis B Vaccines (1 of 3 - 3-dose series) Hepatitis B Vaccines (1 of 3 - 3-dose series) [facility] Start: 1972 HIV screening HIV Screening [facility] Start: 1972 Lipid panel Lipid Panel [facility] Start: 1972 Screening for malignant neoplasm of colon [facility] Start: 1972 Yearly Adult Physical Yearly Adult Physical [facility] Colonoscopy [facility] End: 03-02-2024 CT for calcium scoring WO contrast and CTA W contrast IV Heart and coronary arteries [facility] Service Area Work Phone: Comment on above: Once for 1 Occurrences starting 03/02/20 24 until 03/02/2024 Patient referral [facility] Work Phone: [facility] Work Phone: [facility] Work Phone: [facility] Work Phone: [facility] Work Phone: [facility] Work Phone[facility] Work Phone: [facility] Work Phone: [facility] Work Phone: [facility] Work Phone: [facility] Work Phone[facility] Work Phone: [facility] Work Phone: [facility] Work Phone[facility] Work Phone: [facility] Work Phone: [facility] Work Phone: [facility]; [facility] Work Phone: [facility]; [facility] Work Phone: [facility]; [facility] Work Phone: [facility]; [facility] Work Phone: [facility]; [facility] Work Phone: [facility] Work Phone: [facility]; [facility] Work Phone: [facility]; [facility] Work Phone: [facility]; [facility] Work Phone: [facility]; [facility] Work Phone: [facility]; [facility] Work Phone: Immunizations Immunization Date Immunization Notes Care Provider [facility] 11-29-2021 influenza, injectabl e, quadrivalent, preservative free; Translations: [Fluarix PF Quadrivalent ] DR CADEN COSME MD [facility] 11-29-2021 influenza virus vaccine, unspecified formulation [address] Work Phone: 07-26-2021 COVID-Moderna (100 MCG/0.5 ML) Mohsen Fast DO Work Phone: [facility]; [facility] Work Phone: 06-25-2021 COVID-Moderna (100 MCG/0.5 ML) Mohsen Fast DO Work Phone: [facility]; [facility] Work Phone: Payers Date Payer Category Payer Self-pay [id number] 2021 Unknown [id number] 1999 Unknown 1972 Unknown [id number] [id number] [id number] 1972 Unknown [id number] 2.16.8 [id number] 1961 Unknown [id number] 2.16.84 [id number] Unknown [id number] 2.16.8 [id number] Unknown [id number] Unknown [id number] 2.16.8 [id number] Unknown [id number] 2.16.8 [id number] Unknown [id number] 2.16.8 [id number] Unknown [id number] 2.16.8 [id number] Unknown [id number] 2.16.8 [id number] Social History Date Type Detail Facility Alcohol Use: Never smoker [facility] Work Phone: Start: 07-11-2022 Caffeine Use [facility] Work Phone: Comment on above: 6-7 cups coffee qd Current Work/Study Status: Full-time. 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 [facility] Work Phone: Living Situation: [facility] Work Phone: Comment on above: Tobacco use: Never smoker. [facility] Work Phone: Alcohol Use: Alcohol Use: [facility]; [facility] Work Phone: Current Work/Study Status: Current Work/Study Status: [facility]; [facility] Work Phone: Comment on above: Own Green house/farm Exercise History: Exercise History: Compr ehensive Internal Medicine; [facility] Work Phone: [facility] Work Phone: Comment on above: Tobacco use: Tobacco use: [facility]; [facility] Work Phone: Start: 01-29-2022 End: 12-09-2024 Never smoked tobacco (finding) [facility] Sex Assigned At [facility] Start: 01-21-2023 End: 01-21-2023 Tobacco smoking status [facility] Unknown if ever smoked [facility] Start: 1970 Sex Assigned At Female [facility] Tobacco smoking status VAIS Ex-smoker [facility] End: 11-25-1991 History of tobacco use Current smoker [facility] End: 11-25-1991 History of tobacco use Cigarette Smoker [facility] Start: 07-11-2022 Alcohol intake Current drinke r of alcohol (finding) [facility] Start: 07-11-2022 Tobacco use panel [facility] Start: 1970 Sex Assigned At Not on file [facility] Start: 02-21-2024 End: 03-02-2024 Exposure to SARS-CoV-2 (event) Not sure [facility] NEGATED: Highlighted row [facility] Goals Date Patient Goal Desired Activity /State Mental Status Date Assessment Result Facility 01-24-2023 Cognitive function Voice/Name [facility] Work Phone: 01-24-2023 Cognitive function Patient Heidi norton Person;Place;Time [facility] Work Phone: Clinical Notes 11-28-2021 to 01-24-2023 Note Date & Type Note Facility 01-24-2023 History and physi manuela note Note Date/Time January 24, 2023 7:49am [facility] Medical Records Department [address] [place] [address] History & Physical Exam 01/24/23 0749 MR#: [id number] Acct: [id number] Name: KAREN CAMPOS Rep #:[id number] : 1970 52 From: Carlos Friend DO PCP: Dr. Mohsen Perales, DO [place] [place]: [place] [address] HPI - General General Date of Admission: 01/24/23 Date of Service: 01/24/23 Chief Complaint: Screening colonoscopy HPI Narrative KAREN CAMPOS, is a 52 F who presents today for screening colonoscopy. She does not have any abdominal pain. She has never had a colonoscopy. She denies any chest pain or shortness of breath. She has no family history of colon cancer or colon polyps. She is not experiencing any bleeding per rectum. Overall she is in very good health. [facility] Medical History (Updated 01/21/23 @ 14:34 by Carmen Bhat) Alcohol use Asthma History of echocardiogram Hyperlipidemia Injury of back Non-smoker Normal Holter exam Osteopenia Home Medications albuterol sulfate 90 mcg/actuation aerosol inhaler (ProAir HFA) 2 puff inhalation Q6H PRN SOB 11/09/22 [History Last Taken Unknown] ascorbic acid (vitamin C) 500 mg tablet 500 mg PO DAILY 11/09/22 [History Last Taken Unknown] calcium citrate 250 mg PO DAILY 11/09/22 [History Last Taken Unknown] cholecalciferol (vitamin D3) 50 mcg (2,000 unit) capsule 50 mcg PO DAILY 11/09/22 [History Last Taken Unknown] denosumab 60 mg/mL subcutaneous syringe (Prolia) 60 mg subcut [id number] 11/09/22 [History Last Taken Unknown] rosuvastatin 5 mg tablet 5 mg PO DAILY 11/09/22 [History Last Taken Unknown] sermorelin acetate 0.5 mg subcutaneous solution 10 mg subcut MOTUWETHFR 01/21/23[History Last Taken Unknown] tirzepatide 2.5 mg/0.5 mL subcutaneous pen injector 2.5 mg subcut MO 01/21/23 [History Last Taken Unknown] Allergy/AdvReac Type Severity Reaction Status Date / Time No Known Allergies Allergy Unverified 01/21/23 14:22 Family History (Updated 11/09/22 @ 10:42 by Mary Goodwin) Father Diabetes Kidney transplant recipient CHF (congestive heart failure) Surgical History (Updated 11/09/22 @ 10:41 by Mary Goodwin) Hx of cholecystectomy Hx of hysterectomy, total Hx of tonsillectomy Social History (Updated 11/09/22 @ 10:43 by Mary Goodwin) household members: spouse current occupational status: employed current occupation: Owns [employer] Smoking Status: Never smoker ROS Review of Systems ROS Unobtainable: other Constitutional Constitutional: Denies fatigue, fever(s), poor appetite, weight gain or weight loss ENT HEENT: Denies mouth lesions Cardiovascular Cardiovascular: Denies abdominal bloating, abdominal edema or abdominal pain Respiratory/Chest Respiratory/Chest: Denies change in mental status, change in phlegm color, chestcongestion or chest tightness Gastrointestinal Gastrointestinal: Denies belching, bloating, change in bowel habits, change in stool character, chewing difficulty, coffee ground emesis, constipation, cramping, diarrhea, dyspepsia, dysphagia, early satiety, excessive flatus, fecalincontinence, heartburn, hematemesis, hematochezia, hemorrhoids, loose stools, melena, nausea, odynophagia, rectal bleeding, tenesmus, vomiting or weight changes Genitourinary Genitourinary: Denies abdominal discomfort, burning urination or itching Musculoskeletal Musculoskeletal: Reports as per HPI; Denies muscle weakness or myalgias Integumentary Integumentary: Denies jaundice Neurologic Neurologic: Denies lack of coordination or weakness Psychiatric Psychiatric: Denies confusion, depression, memory loss, mood swings, paranoia orsuicidal ideation Endocrine Endocrinology: Denies systems reviewed and no addt'l complaints, except as documented Hematologic/Lymphatic Hematologic/Lymphatic: Denies anemia, easy bleeding, easy bruising or lymphadenopathy Allergic/Immunologic Allergic/Immunologic: Denies systems reviewed and no addt'l complaints, except as documented Physical Exam Const alert General Appearance: cooperative Orientation / Consciousness: oriented to person HEENT hearing grossly normal bilaterally Head and Scalp: normal to inspection Face and Sinus: face symmetric Nose: external nose normal Mouth: oral and palatal mucosa normal Eyes conjunctivae normal General Eye: normal appearance of both eyes Neck full ROM General: normal visual inspection Lymph Lymphatic: no lymphadenopathy noted Chest inspection of chest normal and palpation of chest normal Chest: symmetrical chest wall rise Resp normal respiratory effort Effort and Inspection: able to speak in complete sentences Cardio regular rate GI non-distended Percussion: normal to percussion Rectal Exam: deferred Neuro Speech: speech normal Gait (Neuro): normal gait Assessment & Plan Assessment/Plan (1) Encounter for screening for malignant neoplasm of colon: PLAN: She was explained alternatives, risk, benefits including not withstanding bleeding, infection, sepsis, perforation, need for emergent surgery . She will have an ASA of 1. 01/24/23 0752 <Electronically signed by Carlos Malcolm DO> Cosigner Signature (if applicable): CC: Dr. Mohsen Perales DO; Carlos Malcolm DO~ Signed [facility] Work Phone: [phone]) 670-162303-02-2023 Procedure [facility] 01-24-2023 Procedure [facility]01-06-2022 Hospital Discharge instructions Patient Education 11/30/2021 11:42:21 Spinal Compression Fracture Spinal Compression Fracture A spinal compression fracture is a collapse of the bones that form the spine (vertebrae). With thistype of fracture, the vertebrae become pushed (compressed) into a wedge shape. Most compression fractures happen in the middle or lower part of the spine. What are the causes? This condition may be caused by: Thinning and loss of density in the bones (osteoporosis). This is the most common cause. A fall. A car or motorcycle accident. Cancer. Trauma, such as a heavy, direct hit to the head or back. What increases the risk? You are more likely to develop this condition if: You are 60 years or older. You have osteoporosis. You have certain types of cancer, including: ?Multiple myeloma. ?Lymphoma. ?Prostate cancer. ?Lung cancer. ?Breast cancer. What are the signs or symptoms? Symptoms of this condition include: Severe pain. Pain that gets worse over time. Pain that is worse when you stand, walk, sit, or bend. Sudden pain that is so bad that it is hard for you to move. Bending or humping of the spine. Gradual loss of height. Numbness, tingling, or weakness in the back and legs. Trouble walking. Your symptoms will depend on the cause of the fracture and how quickly it develops. How is this diagnosed? This condition may be diagnosed based on symptoms, medical history, and a physical exam. During thephysical exam, your health care provider may tap along the length of your spine to check for tenderness. Tests may be done to confirm the diagnosis. They may include: A bone mineral density test to check for osteoporosis. Imaging tests, such as a spine X-ray, CT scan, or MRI. How is this treated? Treatment for this condition depends on the cause and severity of the condition. Some fractures mayheal on their own with supportive care. Treatment may include: Pain medicine. Rest. A back brace. Physical therapy exercises. Medicine to strengthen bone. Calcium and vitamin D supplements. Fractures that cause the back to become misshapen, cause nerve pain or weakness, or do not respond to other treatment may be treated with surgery. This may include: Vertebroplasty. Bone cement is injected into the collapsed vertebrae to stabilize them. Balloon kyphoplasty. The collapsed vertebrae are expanded with a balloon and then bone cement is injected into them. Spinal fusion. The collapsed vertebrae are connected (fused) to normal vertebrae. Follow these instructions at home: Medicines Take lkmy-hwk-cpwvodr and prescription medicines only as told by your health care provider. Do not drive or operate heavy machinery while taking prescription pain medicine. If you are taking prescription pain medicine, take actions to prevent or treat constipation. Your health care provider may recommend that you: ?Drink enough fluid to keep your urine pale yellow. ?Eat foods that are high in fiber, such as fresh fruits and vegetables, whole grains, and beans. ?Limit foods that are high in fat and processed sugars, such as fried or sweet foods. ?Take an mkjz-krv-vbogsxs or prescription medicine for constipation. If you have a brace: Wear the brace as told by your health care provider. Remove it only as told by your health care provider. Loosen the brace if your fingers or toes tingle, become numb, or turn cold and blue. Keep the brace clean. If the brace is not waterproof: ?Do not let it get wet. ?Cover it with a watertight covering when you take a bath or a shower. Managing pain, stiffness, and swelling If directed, apply ice to the injured area: ?If you have a removable brace, remove it as told by your health care provider. ?Put ice in a plastic bag. ?Place a towel between your skin and the bag. ?Leave the ice on for 30 minutes every two hours at first. Then apply the ice as needed. Activity Rest as told by your health care provider. ?Avoid sitting for a long time without moving. Get up to take short walks every 1 2 hours. This is important to improve blood flow and breathing. Ask for help if you feel weak or unsteady. Return to your normal activities as directed by your health care provider. Ask what activities are safe for you. Do exercises to improve motion and strength in your back (physical therapy), as recommended by yourhealth care provider. Exercise regularly as directed by your health care provider. General instructions Do not drink alcohol. Alcohol can interfere with your treatment. Do not use any products that contain nicotine or tobacco, such as cigarettes and e-cigarettes. These can delay bone healing. If you need help quitting, ask your health care provider. Keep all follow-up visits as told by your health care provider. This is important. It can help to prevent permanent injury, disability, and long-lasting (chronic) pain. Contact a health care provider if: You have a fever. You develop a cough that makes your pain worse. Your pain medicine is not helping. Your pain does not get better over time. You cannot return to your normal activities as planned or expected. Get help right away if: Your pain is very bad and it suddenly gets worse. You are unable to move any body part (paralysis) that is below the level of your injury. You have numbness, tingling, or weakness in any body part that is below the level of your injury. You cannot control your bladder or bowels. Summary A spinal compression fracture is a collapse of the bones that form the spine (vertebrae). With this type of fracture, the vertebrae become pushed (compressed) into a wedge shape. Your symptoms and treatment will depend on the cause and severity of the fracture and how quickly it develops. Some fractures may heal on their own with supportive care. Fractures that cause the back to become misshapen, cause nerve pain or weakness, or do not respond to other treatment may be treated with surgery. This information is not intended to replace advice given to you by your health care provider. Make sure you discuss any questions you have with your health care provider. Document Released: 11/11/2006 Document Revised: 01/07/2020 Document Reviewed: 12/23/2018 [employer] Patient Education 2020 [employer]. 11/30/2021 11:41:23 Acute Back Pain, Adult Acute Back Pain, Adult Acute back pain is sudden and usually short-lived. It is often caused by an injury to the muscles and tissues in the back. The injury may result from: A muscle or ligament getting overstretched or torn (strained). Ligaments are tissues that connect bones to each other. Lifting something improperly can cause a back strain. Wear and tear (degeneration) of the spinal disks. Spinal disks are circular tissue that provides cushioning between the bones of the spine (vertebrae). Twisting motions, such as while playing sports or doing yard work. A hit to the back. Arthritis. You may have a physical exam, lab tests, and imaging tests to find the cause of your pain. Acute back pain usually goes away with rest and home care. Follow these instructions at home: Managing pain, stiffness, and swelling Take pbxl-eht-hpzihmo and prescription medicines only as told by your health care provider. Your health care provider may recommend applying ice during the first 24 48 hours after your pain starts. To do this: ?Put ice in a plastic bag. ?Place a towel between your skin and the bag. ?Leave the ice on for 20 minutes, 2 3 times a day. If directed, apply heat to the affected area as often as told by your health care provider. Use theheat source that your health care provider recommends, such as a moist heat pack or a heating pad. ?Place a towel between your skin and the heat source. ?Leave the heat on for 20 30 minutes. ?Remove the heat if your skin turns bright red. This is especially important if you are unable to feel pain, heat, or cold. You have a greater risk of getting burned. Activity Do not stay in bed. Staying in bed for more than 1 2 days can delay your recovery. Sit up and stand up straight. Avoid leaning forward when you sit, or hunching over when you stand. ?If you work at a desk, sit close to it so you do not need to lean over. Keep your chin tucked in. Keep your neck drawn back, and keep your elbows bent at a right angle. Your arms should look like the letter L. ?Sit high and close to the steering wheel when you drive. Add lower back (lumbar) support to your car seat, if needed. Take short walks on even surfaces as soon as you are able. Try to increase the length of time you walk each day. Do not sit, drive, or automation engineer one place for more than 30 minutes at a time. Sitting or standing for long periods of time can put stress on your back. Do not drive or use heavy machinery while taking prescription pain medicine. Use proper lifting techniques. When you bend and lift, use positions that put less stress on your back: ?Bend your knees. ?Keep the load close to your body. ?Avoid twisting. Exercise regularly as told by your health care provider. Exercising helps your back heal faster andhelps prevent back injuries by keeping muscles strong and flexible. Work with a physical therapist to make a safe exercise program, as recommended by your health care provider. Do any exercises as told by your physical therapist. Lifestyle Maintain a healthy weight. Extra weight puts stress on your back and makes it difficult to have good posture. Avoid activities or situations that make you feel anxious or stressed. Stress and anxiety increase muscle tension and can make back pain worse. Learn ways to manage anxiety and stress, such as through exercise. General instructions Sleep on a firm mattress in a comfortable position. Try lying on your side with your knees slightlybent. If you lie on your back, put a pillow under your knees. Follow your treatment plan as told by your health care provider. This may include: ?Cognitive or behavioral therapy. ?Acupuncture or massage therapy. ?Meditation or yoga. Contact a health care provider if: You have pain that is not relieved with rest or medicine. You have increasing pain going down into your legs or buttocks. Your pain does not improve after 2 weeks. You have pain at night. You lose weight without trying. You have a fever or chills. Get help right away if: You develop new bowel or bladder control problems. You have unusual weakness or numbness in your arms or legs. You develop nausea or vomiting. You develop abdominal pain. You feel faint. Summary Acute back pain is sudden and usually short-lived. Use proper lifting techniques. When you bend and lift, use positions that put less stress on your back. Take aemx-mlp-yvshwsp and prescription medicines and apply heat or ice as directed by your health care provider. This information is not intended to replace advice given to you by your health care provider. Make sure you discuss any questions you have with your health care provider. Document Released: 11/11/2006 Document Revised: 03/01/2020 Document Reviewed: 06/25/2018 [employer] Patient Education 2020 GOQii. Follow Up Care 11/28/2021 03:09:59 With:DUARTE MTZ MD, Neurosurgery, Neurosurgery Address: [address] [place] [address] Neurosurgery [place] [phone]- When:01/01/2022 10:00:00 With:Post home DC follow up visit scheduled for 12/01 between 8a-12p Address:Unknown When: Unknown With:Lizzeth Cabrera, Nurse Operation Manager, will call you at home 1-2 days after discharge. If you have any non-emergent questions, please call [phone] M-F 8AM-4:30PM. Address: When:1-2 days With:[facility] Address: When: Unknown Comments:This is your home healthcare provider. Please call if you have questions related to home healthcare. [facility] 01-04-2022 Evaluation + Plan noteExtracted from: Title:Clinical Document Author:CADEN COSME MD Date:11/28/21 [facility] Hospitalist History and Physical Date of Admission: 11/28/2021 Chief complaint: Back pain History of present illness: History is taken from talking with the emergency room physician at [facility] as well as talking with the patient. Patient has a past medical history of COVID-19 in September 2020, occipital neuralgia. Patient was last discharged from here on 07/07/2015 when she was here for paresthesia and speech disturbance. She was evaluated by neurology and she was diagnosed with occipital neuralgia. Patient reports that she used to do [employer] multiple times a week until she had COVID-19 in September 2020. She had a difficult time getting over COVID-19 and therefore due to her respiratory symptoms had not been working out for a long time. This week she started going back to the gym. Last evening while at the gym she was doing squats with no weights in her hand when she lost her balance landing on her buttocks. As soon as she had the ground she started having severe back pain. The pain is located in her mid low spine. It is nonradiating. She has no deficits in her lower extremities. She reports that initially she felt some tingling and numbness in her right lower extremity however that is since resolved. She denies fevers, chills or night sweats. Since presenting to the emergency room the patient has been afebrile, hemodynamic is stable, 97% room air. For labs and imaging from [facility] please see below. CT did show L1 compression fracture. They did discuss the case with Dr. Mtz. Past medical history: COVID-19 Cholecystectomy Hysterectomy Family history: Father: Diabetes mellitus Social history: Denies smoking cigarettes or alcohol consumption Medications: Not on any medications Allergies: NKA Review of systems: See HPI for pertinent positives and negatives. All other review of systems have been reviewed and they are negative. Vitals Signs(Last 24 hrs)__Last Charted Minimum Maximum Temp36.5(NOV 28 03:17)36.5(NOV 28:17)36.5(NOV 28:17) Heart Rate76(NOV 28 03:17)76(NOV 28 03:17)76(NOV 28:17) Resp Rate18(NOV 28:17)18(NOV 28:17)18(NOV 28:17) Physical examination: HEENT: No Pallor, No Icterus Cardiac: RRR, No murmur Lungs: CTA, good air entry Abdomen: Soft Non tender Musculoskeletal: Severe mid lower lumbar spine pain Extremities: No edema, good pulses Neurological: Alert, no deficits Skin: No rash, no nodules Labs: Labs and imaging from [facility] EKG: Normal sinus rhythm with no ST elevation or ST depression CT lumbar spine without contrast: L1 superior and right lateral compression fracture. Negative for retropulsion of fragments. CT chest without contrast: Clear lungs, negative for pneumothorax, heart and mediastinum normal. WBC 15.1 hemoglobin 12.9 platelet count 306 Sodium 139 potassium 3.8 creatinine 0.5 AST 26 alkaline phosphatase 79 total bili 1.2 ALT 35 COVID-19 negative High-sensitivity troponin less than 4.0 Assessment and plan: Patient presents as a transfer on 11/28/[address] [facility] emergency room after she had a fall with subsequent severe mid low back pain. Mechanical fall as she lost her balance while doing squats at the gym. L1 compression fracture. N.p.o. with IV fluids in case of surgical intervention. Patient is medically optimized to proceed with surgery if needed. Leukocytosis secondary to the fracture. No concern for infection at this point. Prophylaxis SCDs CODE STATUS full code Addendum by CADEN COSME MD on November 28, 2021 6:15 EST Medications will need reconciled once th ey are verified Future Appointments Appointment Date:01/01/2022 10:00:00 AM Scheduled Provider:DUARTE MTZ MD Location:NEUROS Appointment Type:NS OV Future Scheduled Tests Radiology* XR Spine Lumbar 1 View 12/27/21 [facility] evaluation + Plan note Future Appointments Appointment Date:01/29/2022 10:30:00 AM Scheduled Provider:DUARTE MTZ MD Location:NEUROS Appointment Type:NS OV Future Scheduled Tests Radiology* XR Spine Lumbar 1 View 01/29/22 [facility] Evaluation + Plan note Future Appointments Appointment Date:02/26/2022 09:45:00 AM Scheduled Provider:DUARTE MTZ MD Location:NEUROS Appointment Type:NS OV Future Scheduled Tests Radiology* XR Spine Lumbar 1 View 03/01/22 [facility] Evaluation note* Diagnosis Onset Date Resolution Status Encounter for screening for malignant neoplasm of colo n [facility] Work Phone: Evaluation note* Diagnosis Elevated C-reactive protein (CRP) documented in this encounter [facility] Work Phone: Evaluation note* Diagnosis Elevated C-reactive protein (CRP) documented in this encounter [facility] Work Phone: Evaluation noteNo assessment information available [facility] Work Phone: Hospital course Narrative No data available for this section [facility] Hospital Discharge instructions No data available for this section [facility] Instructions* Name Dates Details Patient Instructions Indication:Nonsmoker Start:12-Dec-2020 Instruction Type:Provider Instructions for Treatment How to Access Health Informa tion Online using Patient Portal and [employer] Apps Indication:Nonsmoker Start:12-Dec-2020 Instruction Type:Patient Education Patient Instructions Indication:Coronavirus infection Start:09-Oct-2020 Instruction Type:Provider Instructions for Treatment How to access health informa tion online Indication:Cough Start:05-Oct-2020 Instruction Type:Patient Education How to access health informa tion online - Detail Indication:Cough Start:05-Oct-2020 Instruction Type:Patient Education Patient Instructions Indication:Cough Start:05-Oct-2020 Instruction Type:Provider Instructions for Treatment How to access health informa tion online Indication:Fatigue Start:06-Jun-2020 Instruction Type:Patient Education How to access health informa tion online - Detail Indication:Fatigue Start:06-Jun-2020 Instruction Type:Patient Education Patient Instructions Indication:Fatigue Start:06-Jun-2020 Instruction Type:Provider Instructions for Treatment How to access health informa tion online Indication:Anxiety and depression Start:05-Jan-2020 Instruction Type:Patient Education How to access health informa tion online - Detail Indication:Anxiety and depression Start:05-Jan-2020 Instruction Type:Patient Education Patient Instructions Indication:Anxiety and depression Start:05-Jan-2020 Instruction Type:Provider Instructions for Treatment How to access health informa tion online Indication:Hyperlipidemia Start:02-Dec-2019 Instruction Type:Patient Education How to access health informa tion online - Detail Indication:Hyperlipidemia Start:02-Dec-2019 Instruction Type:Patient Education Patient Instructions Indication:Hyperlipidemia Start:02-Dec-2019 Instruction Type:Provider Instructions for Treatment How to access health informa tion online Indication:Nonsmoker Start:24-Jul-2019 Instruction Type:Patient Education How to access health informa tion online - Detail Indication:Nonsmoker Start:24-Jul-2019 Instruction Type:Patient Education Patient Instructions Indication:Nonsmoker Start:24-Jul-2019 Instruction Type:Provider Instructions for Treatment How to access health informa tion online Indication:BMI 27.0-27.9,adult Start:11-May-2019 Instruction Type:Patient Education How to access health informa tion online - Detail Indication:BMI 27.0-27.9,adult Start:11-May-2019 Instruction Type:Patient Education Patient Instructions Indication:BMI 27.0-27.9,adult Start:11-May-2019 Instruction Type:Provider Instructions for Treatment How to access health informa tion online Indication:Nonsmoker Start:03-Mar-2019 Instruction Type:Patient Education How to access health informa tion online - Detail Indication:Nonsmoker Start:03-Mar-2019 Instruction Type:Patient Education Patient Instructions Indication:Nonsmoker Start:03-Mar-2019 Instruction Type:Provider Instructions for Treatment How to access health informa tion online Indication:[facility] WELLNESS EXAM Start:30-Sep-2018 Instruction Type:Patient Education How to access health informa tion online - Detail Indication:[facility] WELLNESS EXAM Start:30-Sep-2018 Instruction Type:Patient Education Patient Instructions Indication:[facility] WELLNESS EXAM Start:30-Sep-2018 Instruction Type:Provider Instructions for Treatment How to access health informa tion online Indication:BMI 27.0-27.9,adult Start:29-Aug-2018 Instruction Type:Patient Education How to access health informa tion online - Detail Indication:BMI 27.0-27.9,adult Start:29-Aug-2018 Instruction Type:Patient Education Patient Instructions Indication:BMI 27.0-27.9,adult Start:29-Aug-2018 Instruction Type:Provider Instructions for Treatment How to access health informa tion online Indication:Overweight (BMI 25.0-29.9) Start:01-Sep-2014 Instruction Type:Patient Education How to access health informa tion online - Detail Indication:Overweight (BMI 25.0-29.9) Start:01-Sep-2014 Instruction Type:Patient Education Patient Instructions Indication:Overweight (BMI 25.0-29.9) Start:01-Sep-2014 Instruction Type:Provider Instructions for Treatment How to access health informa tion online Indication:Acne Start:24-Aug-2014 Instruction Type:Patient Education How to access health informa tion online - Detail Indication:Acne Start:24-Aug-2014 Instruction Type:Patient Education Patient Instructions Indication:Acne Start:24-Aug-2014 Instruction Type:Provider Instructions for Treatment Patient Instructions Indication:Acne Start:04-Jun-2013 Instruction Type:Provider Instructions for Treatment [facility] Work Phone: Instructions* Name Dates Details How to Access Health Informa tion Online using Patient Portal and [employer] Apps Indication:Nonsmoker Start:31-Mar-2021 Instruction Type:Patient Education Patient Instructions Indication:Nonsmoker Start:31-Mar-2021 Instruction Type:Provider Instructions for Treatment Patient Instructions Indication:Nonsmoker Start:12-Dec-2020 Instruction Type:Provider Instructions for Treatment How to Access Health Informa tion Online using Patient Portal and [employer] Apps Indication:Nonsmoker Start:12-Dec-2020 Instruction Type:Patient Education Patient Instructions Indication:Coronavirus infection Start:09-Oct-2020 Instruction Type:Provider Instructions for Treatment How to access health informa tion online Indication:Cough Start:05-Oct-2020 Instruction Type:Patient Education How to access health informa tion online - Detail Indication:Cough Start:05-Oct-2020 Instruction Type:Patient Education Patient Instructions Indication:Cough Start:05-Oct-2020 Instruction Type:Provider Instructions for Treatment How to access health informa tion online Indication:Fatigue Start:06-Jun-2020 Instruction Type:Patient Education How to access health informa tion online - Detail Indication:Fatigue Start:06-Jun-2020 Instruction Type:Patient Education Patient Instructions Indication:Fatigue Start:06-Jun-2020 Instruction Type:Provider Instructions for Treatment How to access health informa tion online Indication:Anxiety and depression Start:05-Jan-2020 Instruction Type:Patient Education How to access health informa tion online - Detail Indication:Anxiety and depression Start:05-Jan-2020 Instruction Type:Patient Education Patient Instructions Indication:Anxiety and depression Start:05-Jan-2020 Instruction Type:Provider Instructions for Treatment How to access health informa tion online Indication:Hyperlipidemia Start:02-Dec-2019 Instruction Type:Patient Education How to access health informa tion online - Detail Indication:Hyperlipidemia Start:02-Dec-2019 Instruction Type:Patient Education Patient Instructions Indication:Hyperlipidemia Start:02-Dec-2019 Instruction Type:Provider Instructions for Treatment How to access health informa tion online Indication:Nonsmoker Start:24-Jul-2019 Instruction Type:Patient Education How to access health informa tion online - Detail Indication:Nonsmoker Start:24-Jul-2019 Instruction Type:Patient Education Patient Instructions Indication:Nonsmoker Start:24-Jul-2019 Instruction Type:Provider Instructions for Treatment How to access health informa tion online Indication:BMI 27.0-27.9,adult Start:11-May-2019 Instruction Type:Patient Education How to access health informa tion online - Detail Indication:BMI 27.0-27.9,adult Start:11-May-2019 Instruction Type:Patient Education Patient Instructions Indication:BMI 27.0-27.9,adult Start:11-May-2019 Instruction Type:Provider Instructions for Treatment How to access health informa tion online Indication:Nonsmoker Start:03-Mar-2019 Instruction Type:Patient Education How to access health informa tion online - Detail Indication:Nonsmoker Start:03-Mar-2019 Instruction Type:Patient Education Patient Instructions Indication:Nonsmoker Start:03-Mar-2019 Instruction Type:Provider Instructions for Treatment How to access health informa tion online Indication:[facility] EX[facility] Start:30-Sep-2018 Instruction Type:Patient Education How to access health informa tion online - Detail Indication:[facility] Start:30-Sep-2018 Instruction Type:Patient Education Patient Instructions Indication:[facility] Start:30-Sep-2018 Instruction Type:Provider Instructions for Treatment How to access health informa tion online Indication:BMI 27.0-27.9,adult Start:29-Aug-2018 Instruction Type:Patient Education How to access health informa tion online - Detail Indication:BMI 27.0-27.9,adult Start:29-Aug-2018 Instruction Type:Patient Education Patient Instructions Indication:BMI 27.0-27.9,adult Start:29-Aug-2018 Instruction Type:Provider Instructions for Treatment How to access health informa tion online Indication:Overweight (BMI 25.0-29.9) Start:01-Sep-2014 Instruction Type:Patient Education How to access health informa tion online - Detail Indication:Overweight (BMI 25.0-29.9) Start:01-Sep-2014 Instruction Type:Patient Education Patient Instructions Indication:Overweight (BMI 25.0-29.9) Start:01-Sep-2014 Instruction Type:Provider Instructions for Treatment How to access health informa tion online Indication:Acne Start:24-Aug-2014 Instruction Type:Patient Education How to access health informa tion online - Detail Indication:Acne Start:24-Aug-2014 Instruction Type:Patient Education Patient Instructions Indication:Acne Start:24-Aug-2014 Instruction Type:Provider Instructions for Treatment Patient Instructions Indication:Acne Start:04-Jun-2013 Instruction Type:Provider Instructions for Treatment [facility]; [facility] Work Phone: Instructions* Name Dates Details How to Access Health Informa tion Online using Patient Portal and [employer] Apps Indication:Nonsmoker Start:31-Mar-2021 Instruction Type:Patient Education Patient Instructions Indication:Nonsmoker Start:31-Mar-2021 Instruction Type:Provider Instructions for Treatment Patient Instructions Indication:Nonsmoker Start:12-Dec-2020 Instruction Type:Provider Instructions for Treatment How to Access Health Informa tion Online using Patient Portal and [employer] Apps Indication:Nonsmoker Start:12-Dec-2020 Instruction Type:Patient Education Patient Instructions Indication:Coronavirus infection Start:09-Oct-2020 Instruction Type:Provider Instructions for Treatment How to access health informa tion online Indication:Cough Start:05-Oct-2020 Instruction Type:Patient Education How to access health informa tion online - Detail Indication:Cough Start:05-Oct-2020 Instruction Type:Patient Education Patient Instructions Indication:Cough Start:05-Oct-2020 Instruction Type:Provider Instructions for Treatment How to access health informa tion online Indication:Fatigue Start:06-Jun-2020 Instruction Type:Patient Education How to access health informa tion online - Detail Indication:Fatigue Start:06-Jun-2020 Instruction Type:Patient Education Patient Instructions Indication:Fatigue Start:06-Jun-2020 Instruction Type:Provider Instructions for Treatment How to access health informa tion online Indication:Anxiety and depression Start:05-Jan-2020 Instruction Type:Patient Education How to access health informa tion online - Detail Indication:Anxiety and depression Start:05-Jan-2020 Instruction Type:Patient Education Patient Instructions Indication:Anxiety and depression Start:05-Jan-2020 Instruction Type:Provider Instructions for Treatment How to access health informa tion online Indication:Hyperlipidemia Start:02-Dec-2019 Instruction Type:Patient Education How to access health informa tion online - Detail Indication:Hyperlipidemia Start:02-Dec-2019 Instruction Type:Patient Education Patient Instructions Indication:Hyperlipidemia Start:02-Dec-2019 Instruction Type:Provider Instructions for Treatment How to access health informa tion online Indication:Nonsmoker Start:24-Jul-2019 Instruction Type:Patient Education How to access health informa tion online - Detail Indication:Nonsmoker Start:24-Jul-2019 Instruction Type:Patient Education Patient Instructions Indication:Nonsmoker Start:24-Jul-2019 Instruction Type:Provider Instructions for Treatment How to access health informa tion online Indication:BMI 27.0-27.9,adult Start:11-May-2019 Instruction Type:Patient Education How to access health informa tion online - Detail Indication:BMI 27.0-27.9,adult Start:11-May-2019 Instruction Type:Patient Education Patient Instructions Indication:BMI 27.0-27.9,adult Start:11-May-2019 Instruction Type:Provider Instructions for Treatment How to access health informa tion online Indication:Nonsmoker Start:03-Mar-2019 Instruction Type:Patient Education How to access health informa tion online - Detail Indication:Nonsmoker Start:03-Mar-2019 Instruction Type:Patient Education Patient Instructions Indication:Nonsmoker Start:03-Mar-2019 Instruction Type:Provider Instructions for Treatment How to access health informa tion online Indication:[facility] Start:30-Sep-2018 Instruction Type:Patient Education How to access health informa tion online - Detail Indication:[facility] Start:30-Sep-2018 Instruction Type:Patient Education Patient Instructions Indication:[facility] Start:30-Sep-2018 Instruction Type:Provider Instructions for Treatment How to access health informa tion online Indication:BMI 27.0-27.9,adult Start:29-Aug-2018 Instruction Type:Patient Education How to access health informa tion online - Detail Indication:BMI 27.0-27.9,adult Start:29-Aug-2018 Instruction Type:Patient Education Patient Instructions Indication:BMI 27.0-27.9,adult Start:29-Aug-2018 Instruction Type:Provider Instructions for Treatment How to access health informa tion online Indication:Overweight (BMI 25.0-29.9) Start:01-Sep-2014 Instruction Type:Patient Education How to access health informa tion online - Detail Indication:Overweight (BMI 25.0-29.9) Start:01-Sep-2014 Instruction Type:Patient Education Patient Instructions Indication:Overweight (BMI 25.0-29.9) Start:01-Sep-2014 Instruction Type:Provider Instructions for Treatment How to access health informa tion online Indication:Acne Start:24-Aug-2014 Instruction Type:Patient Education How to access health informa tion online - Detail Indication:Acne Start:24-Aug-2014 Instruction Type:Patient Education Patient Instructions Indication:Acne Start:24-Aug-2014 Instruction Type:Provider Instructions for Treatment Patient Instructions Indication:Acne Start:04-Jun-2013 Instruction Type:Provider Instructions for Treatment [facility]; [facility] Work Phone: Instructions* Name Dates Details How to Access Health Informa tion Online using Patient Portal and [employer] Apps Indication:Nonsmoker Start:04-Aug-2021 Instruction Type:Patient Education Patient Instructions Indication:Nonsmoker Start:04-Aug-2021 Instruction Type:Provider Instructions for Treatment How to Access Health Informa tion Online using Patient Portal and [employer] Apps Indication:Nonsmoker Start:31-Mar-2021 Instruction Type:Patient Education Patient Instructions Indication:Nonsmoker Start:31-Mar-2021 Instruction Type:Provider Instructions for Treatment Patient Instructions Indication:Nonsmoker Start:12-Dec-2020 Instruction Type:Provider Instructions for Treatment How to Access Health Informa tion Online using Patient Portal and [employer] Apps Indication:Nonsmoker Start:12-Dec-2020 Instruction Type:Patient Education Patient Instructions Indication:Coronavirus infection Start:09-Oct-2020 Instruction Type:Provider Instructions for Treatment How to access health informa tion online Indication:Cough Start:05-Oct-2020 Instruction Type:Patient Education How to access health informa tion online - Detail Indication:Cough Start:05-Oct-2020 Instruction Type:Patient Education Patient Instructions Indication:Cough Start:05-Oct-2020 Instruction Type:Provider Instructions for Treatment How to access health informa tion online Indication:Fatigue Start:06-Jun-2020 Instruction Type:Patient Education How to access health informa tion online - Detail Indication:Fatigue Start:06-Jun-2020 Instruction Type:Patient Education Patient Instructions Indication:Fatigue Start:06-Jun-2020 Instruction Type:Provider Instructions for Treatment How to access health informa tion online Indication:Anxiety and depression Start:05-Jan-2020 Instruction Type:Patient Education How to access health informa tion online - Detail Indication:Anxiety and depression Start:05-Jan-2020 Instruction Type:Patient Education Patient Instructions Indication:Anxiety and depression Start:05-Jan-2020 Instruction Type:Provider Instructions for Treatment How to access health informa tion online Indication:Hyperlipidemia Start:02-Dec-2019 Instruction Type:Patient Education How to access health informa tion online - Detail Indication:Hyperlipidemia Start:02-Dec-2019 Instruction Type:Patient Education Patient Instructions Indication:Hyperlipidemia Start:02-Dec-2019 Instruction Type:Provider Instructions for Treatment How to access health informa tion online Indication:Nonsmoker Start:24-Jul-2019 Instruction Type:Patient Education How to access health informa tion online - Detail Indication:Nonsmoker Start:24-Jul-2019 Instruction Type:Patient Education Patient Instructions Indication:Nonsmoker Start:24-Jul-2019 Instruction Type:Provider Instructions for Treatment How to access health informa tion online Indication:BMI 27.0-27.9,adult Start:11-May-2019 Instruction Type:Patient Education How to access health informa tion online - Detail Indication:BMI 27.0-27.9,adult Start:11-May-2019 Instruction Type:Patient Education Patient Instructions Indication:BMI 27.0-27.9,adult Start:11-May-2019 Instruction Type:Provider Instructions for Treatment How to access health informa tion online Indication:Nonsmoker Start:03-Mar-2019 Instruction Type:Patient Education How to access health informa tion online - Detail Indication:Nonsmoker Start:03-Mar-2019 Instruction Type:Patient Education Patient Instructions Indication:Nonsmoker Start:03-Mar-2019 Instruction Type:Provider Instructions for Treatment How to access health informa tion online Indication:[facility] Start:30-Sep-2018 Instruction Type:Patient Education How to access health informa tion online - Detail Indication:[facility] Start:30-Sep-2018 Instruction Type:Patient Education Patient Instructions Indication:[facility] Start:30-Sep-2018 Instruction Type:Provider Instructions for Treatment How to access health informa tion online Indication:BMI 27.0-27.9,adult Start:29-Aug-2018 Instruction Type:Patient Education How to access health informa tion online - Detail Indication:BMI 27.0-27.9,adult Start:29-Aug-2018 Instruction Type:Patient Education Patient Instructions Indication:BMI 27.0-27.9,adult Start:29-Aug-2018 Instruction Type:Provider Instructions for Treatment How to access health informa tion online Indication:Overweight (BMI 25.0-29.9) Start:01-Sep-2014 Instruction Type:Patient Education How to access health informa tion online - Detail Indication:Overweight (BMI 25.0-29.9) Start:01-Sep-2014 Instruction Type:Patient Education Patient Instructions Indication:Overweight (BMI 25.0-29.9) Start:01-Sep-2014 Instruction Type:Provider Instructions for Treatment How to access health informa tion online Indication:Acne Start:24-Aug-2014 Instruction Type:Patient Education How to access health informa tion online - Detail Indication:Acne Start:24-Aug-2014 Instruction Type:Patient Education Patient Instructions Indication:Acne Start:24-Aug-2014 Instruction Type:Provider Instructions for Treatment Patient Instructions Indication:Acne Start:04-Jun-2013 Instruction Type:Provider Instructions for Treatment [facility]; [facility] Work Phone: Instructions* Name Dates Details Patient Instructions Indication:Sinusitis Start:24-Jan-2022 Instruction Type:Provider Instructions for Treatment How to Access Health Informa tion Online using Patient Portal and [employer] Apps Indication:Nonsmoker Start:04-Aug-2021 Instruction Type:Patient Education Patient Instructions Indication:Nonsmoker Start:04-Aug-2021 Instruction Type:Provider Instructions for Treatment How to Access Health Informa tion Online using Patient Portal and [employer] Apps Indication:Nonsmoker Start:31-Mar-2021 Instruction Type:Patient Education Patient Instructions Indication:Nonsmoker Start:31-Mar-2021 Instruction Type:Provider Instructions for Treatment Patient Instructions Indication:Nonsmoker Start:12-Dec-2020 Instruction Type:Provider Instructions for Treatment How to Access Health Informa tion Online using Patient Portal and [employer] Apps Indication:Nonsmoker Start:12-Dec-2020 Instruction Type:Patient Education Patient Instructions Indication:Coronavirus infection Start:09-Oct-2020 Instruction Type:Provider Instructions for Treatment How to access health informa tion online Indication:Cough Start:05-Oct-2020 Instruction Type:Patient Education How to access health informa tion online - Detail Indication:Cough Start:05-Oct-2020 Instruction Type:Patient Education Patient Instructions Indication:Cough Start:05-Oct-2020 Instruction Type:Provider Instructions for Treatment How to access health informa tion online Indication:Fatigue Start:06-Jun-2020 Instruction Type:Patient Education How to access health informa tion online - Detail Indication:Fatigue Start:06-Jun-2020 Instruction Type:Patient Education Patient Instructions Indication:Fatigue Start:06-Jun-2020 Instruction Type:Provider Instructions for Treatment How to access health informa tion online Indication:Anxiety and depression Start:05-Jan-2020 Instruction Type:Patient Education How to access health informa tion online - Detail Indication:Anxiety and depression Start:05-Jan-2020 Instruction Type:Patient Education Patient Instructions Indication:Anxiety and depression Start:05-Jan-2020 Instruction Type:Provider Instructions for Treatment How to access health informa tion online Indication:Hyperlipidemia Start:02-Dec-2019 Instruction Type:Patient Education How to access health informa tion online - Detail Indication:Hyperlipidemia Start:02-Dec-2019 Instruction Type:Patient Education Patient Instructions Indication:Hyperlipidemia Start:02-Dec-2019 Instruction Type:Provider Instructions for Treatment How to access health informa tion online Indication:Nonsmoker Start:24-Jul-2019 Instruction Type:Patient Education How to access health informa tion online - Detail Indication:Nonsmoker Start:24-Jul-2019 Instruction Type:Patient Education Patient Instructions Indication:Nonsmoker Start:24-Jul-2019 Instruction Type:Provider Instructions for Treatment How to access health informa tion online Indication:BMI 27.0-27.9,adult Start:11-May-2019 Instruction Type:Patient Education How to access health informa tion online - Detail Indication:BMI 27.0-27.9,adult Start:11-May-2019 Instruction Type:Patient Education Patient Instructions Indication:BMI 27.0-27.9,adult Start:11-May-2019 Instruction Type:Provider Instructions for Treatment How to access health informa tion online Indication:Nonsmoker Start:03-Mar-2019 Instruction Type:Patient Education How to access health informa tion online - Detail Indication:Nonsmoker Start:03-Mar-2019 Instruction Type:Patient Education Patient Instructions Indication:Nonsmoker Start:03-Mar-2019 Instruction Type:Provider Instructions for Treatment How to access health informa tion online Indication:[facility] Start:30-Sep-2018 Instruction Type:Patient Education How to access health informa tion online - Detail Indication:[facility] Start:30-Sep-2018 Instruction Type:Patient Education Patient Instructions Indication:[facility] Start:30-Sep-2018 Instruction Type:Provider Instructions for Treatment How to access health informa tion online Indication:BMI 27.0-27.9,adult Start:29-Aug-2018 Instruction Type:Patient Education How to access health informa tion online - Detail Indication:BMI 27.0-27.9,adult Start:29-Aug-2018 Instruction Type:Patient Education Patient Instructions Indication:BMI 27.0-27.9,adult Start:29-Aug-2018 Instruction Type:Provider Instructions for Treatment How to access health informa tion online Indication:Overweight (BMI 25.0-29.9) Start:01-Sep-2014 Instruction Type:Patient Education How to access health informa tion online - Detail Indication:Overweight (BMI 25.0-29.9) Start:01-Sep-2014 Instruction Type:Patient Education Patient Instructions Indication:Overweight (BMI 25.0-29.9) Start:01-Sep-2014 Instruction Type:Provider Instructions for Treatment How to access health informa tion online Indication:Acne Start:24-Aug-2014 Instruction Type:Patient Education How to access health informa tion online - Detail Indication:Acne Start:24-Aug-2014 Instruction Type:Patient Education Patient Instructions Indication:Acne Start:24-Aug-2014 Instruction Type:Provider Instructions for Treatment Patient Instructions Indication:Acne Start:04-Jun-2013 Instruction Type:Provider Instructions for Treatment [facility]; [facility] Work Phone: Instructions* Name Dates Details Patient Instructions Indication:Sinusitis Start:24-Jan-2022 Instruction Type:Provider Instructions for Treatment How to Access Health Informa tion Online using Patient Portal and [employer] Apps Indication:Nonsmoker Start:04-Aug-2021 Instruction Type:Patient Education Patient Instructions Indication:Nonsmoker Start:04-Aug-2021 Instruction Type:Provider Instructions for Treatment How to Access Health Informa tion Online using Patient Portal and [employer] Apps Indication:Nonsmoker Start:31-Mar-2021 Instruction Type:Patient Education Patient Instructions Indication:Nonsmoker Start:31-Mar-2021 Instruction Type:Provider Instructions for Treatment Patient Instructions Indication:Nonsmoker Start:12-Dec-2020 Instruction Type:Provider Instructions for Treatment How to Access Health Informa tion Online using Patient Portal and [employer] Apps Indication:Nonsmoker Start:12-Dec-2020 Instruction Type:Patient Education Patient Instructions Indication:Coronavirus infection Start:09-Oct-2020 Instruction Type:Provider Instructions for Treatment How to access health informa tion online Indication:Cough Start:05-Oct-2020 Instruction Type:Patient Education How to access health informa tion online - Detail Indication:Cough Start:05-Oct-2020 Instruction Type:Patient Education Patient Instructions Indication:Cough Start:05-Oct-2020 Instruction Type:Provider Instructions for Treatment How to access health informa tion online Indication:Fatigue Start:06-Jun-2020 Instruction Type:Patient Education How to access health informa tion online - Detail Indication:Fatigue Start:06-Jun-2020 Instruction Type:Patient Education Patient Instructions Indication:Fatigue Start:06-Jun-2020 Instruction Type:Provider Instructions for Treatment How to access health informa tion online Indication:Anxiety and depression Start:05-Jan-2020 Instruction Type:Patient Education How to access health informa tion online - Detail Indication:Anxiety and depression Start:05-Jan-2020 Instruction Type:Patient Education Patient Instructions Indication:Anxiety and depression Start:05-Jan-2020 Instruction Type:Provider Instructions for Treatment How to access health informa tion online Indication:Hyperlipidemia Start:02-Dec-2019 Instruction Type:Patient Education How to access health informa tion online - Detail Indication:Hyperlipidemia Start:02-Dec-2019 Instruction Type:Patient Education Patient Instructions Indication:Hyperlipidemia Start:02-Dec-2019 Instruction Type:Provider Instructions for Treatment How to access health informa tion online Indication:Nonsmoker Start:24-Jul-2019 Instruction Type:Patient Education How to access health informa tion online - Detail Indication:Nonsmoker Start:24-Jul-2019 Instruction Type:Patient Education Patient Instructions Indication:Nonsmoker Start:24-Jul-2019 Instruction Type:Provider Instructions for Treatment How to access health informa tion online Indication:BMI 27.0-27.9,adult Start:11-May-2019 Instruction Type:Patient Education How to access health informa tion online - Detail Indication:BMI 27.0-27.9,adult Start:11-May-2019 Instruction Type:Patient Education Patient Instructions Indication:BMI 27.0-27.9,adult Start:11-May-2019 Instruction Type:Provider Instructions for Treatment How to access health informa tion online Indication:Nonsmoker Start:03-Mar-2019 Instruction Type:Patient Education How to access health informa tion online - Detail Indication:Nonsmoker Start:03-Mar-2019 Instruction Type:Patient Education Patient Instructions Indication:Nonsmoker Start:03-Mar-2019 Instruction Type:Provider Instructions for Treatment How to access health informa tion online Indication:[facility] Start:30-Sep-2018 Instruction Type:Patient Education How to access health informa tion online - Detail Indication:[facility] Start:30-Sep-2018 Instruction Type:Patient Education Patient Instructions Indication:[facility] Start:30-Sep-2018 Instruction Type:Provider Instructions for Treatment How to access health informa tion online Indication:BMI 27.0-27.9,adult Start:29-Aug-2018 Instruction Type:Patient Education How to access health informa tion online - Detail Indication:BMI 27.0-27.9,adult Start:29-Aug-2018 Instruction Type:Patient Education Patient Instructions Indication:BMI 27.0-27.9,adult Start:29-Aug-2018 Instruction Type:Provider Instructions for Treatment How to access health informa tion online Indication:Overweight (BMI 25.0-29.9) Start:01-Sep-2014 Instruction Type:Patient Education How to access health informa tion online - Detail Indication:Overweight (BMI 25.0-29.9) Start:01-Sep-2014 Instruction Type:Patient Education Patient Instructions Indication:Overweight (BMI 25.0-29.9) Start:01-Sep-2014 Instruction Type:Provider Instructions for Treatment How to access health informa tion online Indication:Acne Start:24-Aug-2014 Instruction Type:Patient Education How to access health informa tion online - Detail Indication:Acne Start:24-Aug-2014 Instruction Type:Patient Education Patient Instructions Indication:Acne Start:24-Aug-2014 Instruction Type:Provider Instructions for Treatment Patient Instructions Indication:Acne Start:04-Jun-2013 Instruction Type:Provider Instructions for Treatment [facility] Work Phone: Instructions* Name Dates Details Patient Instructions Indication:Osteopenia Start:25-Mar-2022 Instruction Type:Provider Instructions for Treatment Patient Instructions Indication:Sinusitis Start:24-Jan-2022 Instruction Type:Provider Instructions for Treatment How to Access Health Informa tion Online using Patient Portal and [employer] Apps Indication:Nonsmoker Start:04-Aug-2021 Instruction Type:Patient Education Patient Instructions Indication:Nonsmoker Start:04-Aug-2021 Instruction Type:Provider Instructions for Treatment How to Access Health Informa tion Online using Patient Portal and [employer] Apps Indication:Nonsmoker Start:31-Mar-2021 Instruction Type:Patient Education Patient Instructions Indication:Nonsmoker Start:31-Mar-2021 Instruction Type:Provider Instructions for Treatment Patient Instructions Indication:Nonsmoker Start:12-Dec-2020 Instruction Type:Provider Instructions for Treatment How to Access Health Informa tion Online using Patient Portal and [employer] Apps Indication:Nonsmoker Start:12-Dec-2020 Instruction Type:Patient Education Patient Instructions Indication:Coronavirus infection Start:09-Oct-2020 Instruction Type:Provider Instructions for Treatment How to access health informa tion online Indication:Cough Start:05-Oct-2020 Instruction Type:Patient Education How to access health informa tion online - Detail Indication:Cough Start:05-Oct-2020 Instruction Type:Patient Education Patient Instructions Indication:Cough Start:05-Oct-2020 Instruction Type:Provider Instructions for Treatment How to access health informa tion online Indication:Fatigue Start:06-Jun-2020 Instruction Type:Patient Education How to access health informa tion online - Detail Indication:Fatigue Start:06-Jun-2020 Instruction Type:Patient Education Patient Instructions Indication:Fatigue Start:06-Jun-2020 Instruction Type:Provider Instructions for Treatment How to access health informa tion online Indication:Anxiety and depression Start:05-Jan-2020 Instruction Type:Patient Education How to access health informa tion online - Detail Indication:Anxiety and depression Start:05-Jan-2020 Instruction Type:Patient Education Patient Instructions Indication:Anxiety and depression Start:05-Jan-2020 Instruction Type:Provider Instructions for Treatment How to access health informa tion online Indication:Hyperlipidemia Start:02-Dec-2019 Instruction Type:Patient Education How to access health informa tion online - Detail Indication:Hyperlipidemia Start:02-Dec-2019 Instruction Type:Patient Education Patient Instructions Indication:Hyperlipidemia Start:02-Dec-2019 Instruction Type:Provider Instructions for Treatment How to access health informa tion online Indication:Nonsmoker Start:24-Jul-2019 Instruction Type:Patient Education How to access health informa tion online - Detail Indication:Nonsmoker Start:24-Jul-2019 Instruction Type:Patient Education Patient Instructions Indication:Nonsmoker Start:24-Jul-2019 Instruction Type:Provider Instructions for Treatment How to access health informa tion online Indication:BMI 27.0-27.9,adult Start:11-May-2019 Instruction Type:Patient Education How to access health informa tion online - Detail Indication:BMI 27.0-27.9,adult Start:11-May-2019 Instruction Type:Patient Education Patient Instructions Indication:BMI 27.0-27.9,adult Start:11-May-2019 Instruction Type:Provider Instructions for Treatment How to access health informa tion online Indication:Nonsmoker Start:03-Mar-2019 Instruction Type:Patient Education How to access health informa tion online - Detail Indication:Nonsmoker Start:03-Mar-2019 Instruction Type:Patient Education Patient Instructions Indication:Nonsmoker Start:03-Mar-2019 Instruction Type:Provider Instructions for Treatment How to access health informa tion online Indication:[facility] Start:30-Sep-2018 Instruction Type:Patient Education How to access health informa tion online - Detail Indication:[facility] Start:30-Sep-2018 Instruction Type:Patient Education Patient Instructions Indication:[facility] Start:30-Sep-2018 Instruction Type:Provider Instructions for Treatment How to access health informa tion online Indication:BMI 27.0-27.9,adult Start:29-Aug-2018 Instruction Type:Patient Education How to access health informa tion online - Detail Indication:BMI 27.0-27.9,adult Start:29-Aug-2018 Instruction Type:Patient Education Patient Instructions Indication:BMI 27.0-27.9,adult Start:29-Aug-2018 Instruction Type:Provider Instructions for Treatment How to access health informa tion online Indication:Overweight (BMI 25.0-29.9) Start:01-Sep-2014 Instruction Type:Patient Education How to access health informa tion online - Detail Indication:Overweight (BMI 25.0-29.9) Start:01-Sep-2014 Instruction Type:Patient Education Patient Instructions Indication:Overweight (BMI 25.0-29.9) Start:01-Sep-2014 Instruction Type:Provider Instructions for Treatment How to access health informa tion online Indication:Acne Start:24-Aug-2014 Instruction Type:Patient Education How to access health informa tion online - Detail Indication:Acne Start:24-Aug-2014 Instruction Type:Patient Education Patient Instructions Indication:Acne Start:24-Aug-2014 Instruction Type:Provider Instructions for Treatment Patient Instructions Indication:Acne Start:04-Jun-2013 Instruction Type:Provider Instructions for Treatment [facility] Work Phone: Instructions* Name Dates Details Patient Instructions Indication:Osteopenia Start:25-Mar-2022 Instruction Type:Provider Instructions for Treatment Patient Instructions Indication:Sinusitis Start:24-Jan-2022 Instruction Type:Provider Instructions for Treatment How to Access Health Informa tion Online using Patient Portal and [employer] Apps Indication:Nonsmoker Start:04-Aug-2021 Instruction Type:Patient Education Patient Instructions Indication:Nonsmoker Start:04-Aug-2021 Instruction Type:Provider Instructions for Treatment How to Access Health Informa tion Online using Patient Portal and [employer] Apps Indication:Nonsmoker Start:31-Mar-2021 Instruction Type:Patient Education Patient Instructions Indication:Nonsmoker Start:31-Mar-2021 Instruction Type:Provider Instructions for Treatment Patient Instructions Indication:Nonsmoker Start:12-Dec-2020 Instruction Type:Provider Instructions for Treatment How to Access Health Informa tion Online using Patient Portal and [employer] Apps Indication:Nonsmoker Start:12-Dec-2020 Instruction Type:Patient Education Patient Instructions Indication:Coronavirus infection Start:09-Oct-2020 Instruction Type:Provider Instructions for Treatment How to access health informa tion online Indication:Cough Start:05-Oct-2020 Instruction Type:Patient Education How to access health informa tion online - Detail Indication:Cough Start:05-Oct-2020 Instruction Type:Patient Education Patient Instructions Indication:Cough Start:05-Oct-2020 Instruction Type:Provider Instructions for Treatment How to access health informa tion online Indication:Fatigue Start:06-Jun-2020 Instruction Type:Patient Education How to access health informa tion online - Detail Indication:Fatigue Start:06-Jun-2020 Instruction Type:Patient Education Patient Instructions Indication:Fatigue Start:06-Jun-2020 Instruction Type:Provider Instructions for Treatment How to access health informa tion online Indication:Anxiety and depression Start:05-Jan-2020 Instruction Type:Patient Education How to access health informa tion online - Detail Indication:Anxiety and depression Start:05-Jan-2020 Instruction Type:Patient Education Patient Instructions Indication:Anxiety and depression Start:05-Jan-2020 Instruction Type:Provider Instructions for Treatment How to access health informa tion online Indication:Hyperlipidemia Start:02-Dec-2019 Instruction Type:Patient Education How to access health informa tion online - Detail Indication:Hyperlipidemia Start:02-Dec-2019 Instruction Type:Patient Education Patient Instructions Indication:Hyperlipidemia Start:02-Dec-2019 Instruction Type:Provider Instructions for Treatment How to access health informa tion online Indication:Nonsmoker Start:24-Jul-2019 Instruction Type:Patient Education How to access health informa tion online - Detail Indication:Nonsmoker Start:24-Jul-2019 Instruction Type:Patient Education Patient Instructions Indication:Nonsmoker Start:24-Jul-2019 Instruction Type:Provider Instructions for Treatment How to access health informa tion online Indication:BMI 27.0-27.9,adult Start:11-May-2019 Instruction Type:Patient Education How to access health informa tion online - Detail Indication:BMI 27.0-27.9,adult Start:11-May-2019 Instruction Type:Patient Education Patient Instructions Indication:BMI 27.0-27.9,adult Start:11-May-2019 Instruction Type:Provider Instructions for Treatment How to access health informa tion online Indication:Nonsmoker Start:03-Mar-2019 Instruction Type:Patient Education How to access health informa tion online - Detail Indication:Nonsmoker Start:03-Mar-2019 Instruction Type:Patient Education Patient Instructions Indication:Nonsmoker Start:03-Mar-2019 Instruction Type:Provider Instructions for Treatment How to access health informa tion online Indication:[facility] Start:30-Sep-2018 Instruction Type:Patient Education How to access health informa tion online - Detail Indication:[facility] Start:30-Sep-2018 Instruction Type:Patient Education Patient Instructions Indication:[facility] Start:30-Sep-2018 Instruction Type:Provider Instructions for Treatment How to access health informa tion online Indication:BMI 27.0-27.9,adult Start:29-Aug-2018 Instruction Type:Patient Education How to access health informa tion online - Detail Indication:BMI 27.0-27.9,adult Start:29-Aug-2018 Instruction Type:Patient Education Patient Instructions Indication:BMI 27.0-27.9,adult Start:29-Aug-2018 Instruction Type:Provider Instructions for Treatment How to access health informa tion online Indication:Overweight (BMI 25.0-29.9) Start:01-Sep-2014 Instruction Type:Patient Education How to access health informa tion online - Detail Indication:Overweight (BMI 25.0-29.9) Start:01-Sep-2014 Instruction Type:Patient Education Patient Instructions Indication:Overweight (BMI 25.0-29.9) Start:01-Sep-2014 Instruction Type:Provider Instructions for Treatment How to access health informa tion online Indication:Acne Start:24-Aug-2014 Instruction Type:Patient Education How to access health informa tion online - Detail Indication:Acne Start:24-Aug-2014 Instruction Type:Patient Education Patient Instructions Indication:Acne Start:24-Aug-2014 Instruction Type:Provider Instructions for Treatment Patient Instructions Indication:Acne Start:04-Jun-2013 Instruction Type:Provider Instructions for Treatment [facility] Work Phone: Instructions* Name Dates Details Patient Instructions Indication:[facility] Start:20-Jun-2022 Instruction Type:Provider Instructions for Treatment How to Access Health Informa tion Online using Patient Portal and [employer] Apps Indication:[facility] Start:20-Jun-2022 Instruction Type:Patient Education Patient Instructions Indication:Osteopenia Start:25-Mar-2022 Instruction Type:Provider Instructions for Treatment Patient Instructions Indication:Sinusitis Start:24-Jan-2022 Instruction Type:Provider Instructions for Treatment How to Access Health Informa tion Online using Patient Portal and [employer] Apps Indication:Nonsmoker Start:04-Aug-2021 Instruction Type:Patient Education Patient Instructions Indication:Nonsmoker Start:04-Aug-2021 Instruction Type:Provider Instructions for Treatment How to Access Health Informa tion Online using Patient Portal and [employer] Apps Indication:Nonsmoker Start:31-Mar-2021 Instruction Type:Patient Education Patient Instructions Indication:Nonsmoker Start:31-Mar-2021 Instruction Type:Provider Instructions for Treatment Patient Instructions Indication:Nonsmoker Start:12-Dec-2020 Instruction Type:Provider Instructions for Treatment How to Access Health Informa tion Online using Patient Portal and [employer] Republican Apps Indication:Nonsmoker Start:12-Dec-2020 Instruction Type:Patient Education Patient Instructions Indication:Coronavirus infection Start:09-Oct-2020 Instruction Type:Provider Instructions for Treatment How to access health informa tion online Indication:Cough Start:05-Oct-2020 Instruction Type:Patient Education How to access health informa tion online - Detail Indication:Cough Start:05-Oct-2020 Instruction Type:Patient Education Patient Instructions Indication:Cough Start:05-Oct-2020 Instruction Type:Provider Instructions for Treatment How to access health informa tion online Indication:Fatigue Start:06-Jun-2020 Instruction Type:Patient Education How to access health informa tion online - Detail Indication:Fatigue Start:06-Jun-2020 Instruction Type:Patient Education Patient Instructions Indication:Fatigue Start:06-Jun-2020 Instruction Type:Provider Instructions for Treatment How to access health informa tion online Indication:Anxiety and depression Start:05-Jan-2020 Instruction Type:Patient Education How to access health informa tion online - Detail Indication:Anxiety and depression Start:05-Jan-2020 Instruction Type:Patient Education Patient Instructions Indication:Anxiety and depression Start:05-Jan-2020 Instruction Type:Provider Instructions for Treatment How to access health informa tion online Indication:Hyperlipidemia Start:02-Dec-2019 Instruction Type:Patient Education How to access health informa tion online - Detail Indication:Hyperlipidemia Start:02-Dec-2019 Instruction Type:Patient Education Patient Instructions Indication:Hyperlipidemia Start:02-Dec-2019 Instruction Type:Provider Instructions for Treatment How to access health informa tion online Indication:Nonsmoker Start:24-Jul-2019 Instruction Type:Patient Education How to access health informa tion online - Detail Indication:Nonsmoker Start:24-Jul-2019 Instruction Type:Patient Education Patient Instructions Indication:Nonsmoker Start:24-Jul-2019 Instruction Type:Provider Instructions for Treatment How to access health informa tion online Indication:BMI 27.0-27.9,adult Start:11-May-2019 Instruction Type:Patient Education How to access health informa tion online - Detail Indication:BMI 27.0-27.9,adult Start:11-May-2019 Instruction Type:Patient Education Patient Instructions Indication:BMI 27.0-27.9,adult Start:11-May-2019 Instruction Type:Provider Instructions for Treatment How to access health informa tion online Indication:Nonsmoker Start:03-Mar-2019 Instruction Type:Patient Education How to access health informa tion online - Detail Indication:Nonsmoker Start:03-Mar-2019 Instruction Type:Patient Education Patient Instructions Indication:Nonsmoker Start:03-Mar-2019 Instruction Type:Provider Instructions for Treatment How to access health informa tion online Indication:[facility] Start:30-Sep-2018 Instruction Type:Patient Education How to access health informa tion online - Detail Indication:[facility] Start:30-Sep-2018 Instruction Type:Patient Education Patient Instructions Indication:[facility] Start:30-Sep-2018 Instruction Type:Provider Instructions for Treatment How to access health informa tion online Indication:BMI 27.0-27.9,adult Start:29-Aug-2018 Instruction Type:Patient Education How to access health informa tion online - Detail Indication:BMI 27.0-27.9,adult Start:29-Aug-2018 Instruction Type:Patient Education Patient Instructions Indication:BMI 27.0-27.9,adult Start:29-Aug-2018 Instruction Type:Provider Instructions for Treatment How to access health informa tion online Indication:Overweight (BMI 25.0-29.9) Start:01-Sep-2014 Instruction Type:Patient Education How to access health informa tion online - Detail Indication:Overweight (BMI 25.0-29.9) Start:01-Sep-2014 Instruction Type:Patient Education Patient Instructions Indication:Overweight (BMI 25.0-29.9) Start:01-Sep-2014 Instruction Type:Provider Instructions for Treatment How to access health informa tion online Indication:Acne Start:24-Aug-2014 Instruction Type:Patient Education How to access health informa tion online - Detail Indication:Acne Start:24-Aug-2014 Instruction Type:Patient Education Patient Instructions Indication:Acne Start:24-Aug-2014 Instruction Type:Provider Instructions for Treatment Patient Instructions Indication:Acne Start:04-Jun-2013 Instruction Type:Provider Instructions for Treatment [facility] Work Phone: Instructions* Name Dates Details Patient Instructions Indication:[facility] EX[facility] Start:20-Jun-2022 Instruction Type:Provider Instructions for Treatment How to Access Health Informa tion Online using Patient Portal and [employer] Apps Indication:[facility] EX[facility] Start:20-Jun-2022 Instruction Type:Patient Education Patient Instructions Indication:Osteopenia Start:25-Mar-2022 Instruction Type:Provider Instructions for Treatment Patient Instructions Indication:Sinusitis Start:24-Jan-2022 Instruction Type:Provider Instructions for Treatment How to Access Health Informa tion Online using Patient Portal and [employer] Apps Indication:Nonsmoker Start:04-Aug-2021 Instruction Type:Patient Education Patient Instructions Indication:Nonsmoker Start:04-Aug-2021 Instruction Type:Provider Instructions for Treatment How to Access Health Informa tion Online using Patient Portal and [employer] Apps Indication:Nonsmoker Start:31-Mar-2021 Instruction Type:Patient Education Patient Instructions Indication:Nonsmoker Start:31-Mar-2021 Instruction Type:Provider Instructions for Treatment Patient Instructions Indication:Nonsmoker Start:12-Dec-2020 Instruction Type:Provider Instructions for Treatment How to Access Health Informa tion Online using Patient Portal and [employer] Apps Indication:Nonsmoker Start:12-Dec-2020 Instruction Type:Patient Education Patient Instructions Indication:Coronavirus infection Start:09-Oct-2020 Instruction Type:Provider Instructions for Treatment How to access health informa tion online Indication:Cough Start:05-Oct-2020 Instruction Type:Patient Education How to access health informa tion online - Detail Indication:Cough Start:05-Oct-2020 Instruction Type:Patient Education Patient Instructions Indication:Cough Start:05-Oct-2020 Instruction Type:Provider Instructions for Treatment How to access health informa tion online Indication:Fatigue Start:06-Jun-2020 Instruction Type:Patient Education How to access health informa tion online - Detail Indication:Fatigue Start:06-Jun-2020 Instruction Type:Patient Education Patient Instructions Indication:Fatigue Start:06-Jun-2020 Instruction Type:Provider Instructions for Treatment How to access health informa tion online Indication:Anxiety and depression Start:05-Jan-2020 Instruction Type:Patient Education How to access health informa tion online - Detail Indication:Anxiety and depression Start:05-Jan-2020 Instruction Type:Patient Education Patient Instructions Indication:Anxiety and depression Start:05-Jan-2020 Instruction Type:Provider Instructions for Treatment How to access health informa tion online Indication:Hyperlipidemia Start:02-Dec-2019 Instruction Type:Patient Education How to access health informa tion online - Detail Indication:Hyperlipidemia Start:02-Dec-2019 Instruction Type:Patient Education Patient Instructions Indication:Hyperlipidemia Start:02-Dec-2019 Instruction Type:Provider Instructions for Treatment How to access health informa tion online Indication:Nonsmoker Start:24-Jul-2019 Instruction Type:Patient Education How to access health informa tion online - Detail Indication:Nonsmoker Start:24-Jul-2019 Instruction Type:Patient Education Patient Instructions Indication:Nonsmoker Start:24-Jul-2019 Instruction Type:Provider Instructions for Treatment How to access health informa tion online Indication:BMI 27.0-27.9,adult Start:11-May-2019 Instruction Type:Patient Education How to access health informa tion online - Detail Indication:BMI 27.0-27.9,adult Start:11-May-2019 Instruction Type:Patient Education Patient Instructions Indication:BMI 27.0-27.9,adult Start:11-May-2019 Instruction Type:Provider Instructions for Treatment How to access health informa tion online Indication:Nonsmoker Start:03-Mar-2019 Instruction Type:Patient Education How to access health informa tion online - Detail Indication:Nonsmoker Start:03-Mar-2019 Instruction Type:Patient Education Patient Instructions Indication:Nonsmoker Start:03-Mar-2019 Instruction Type:Provider Instructions for Treatment How to access health informa tion online Indication:[facility] Start:30-Sep-2018 Instruction Type:Patient Education How to access health informa tion online - Detail Indication:[facility] Start:30-Sep-2018 Instruction Type:Patient Education Patient Instructions Indication:[facility] Start:30-Sep-2018 Instruction Type:Provider Instructions for Treatment How to access health informa tion online Indication:BMI 27.0-27.9,adult Start:29-Aug-2018 Instruction Type:Patient Education How to access health informa tion online - Detail Indication:BMI 27.0-27.9,adult Start:29-Aug-2018 Instruction Type:Patient Education Patient Instructions Indication:BMI 27.0-27.9,adult Start:29-Aug-2018 Instruction Type:Provider Instructions for Treatment How to access health informa tion online Indication:Overweight (BMI 25.0-29.9) Start:01-Sep-2014 Instruction Type:Patient Education How to access health informa tion online - Detail Indication:Overweight (BMI 25.0-29.9) Start:01-Sep-2014 Instruction Type:Patient Education Patient Instructions Indication:Overweight (BMI 25.0-29.9) Start:01-Sep-2014 Instruction Type:Provider Instructions for Treatment How to access health informa tion online Indication:Acne Start:24-Aug-2014 Instruction Type:Patient Education How to access health informa tion online - Detail Indication:Acne Start:24-Aug-2014 Instruction Type:Patient Education Patient Instructions Indication:Acne Start:24-Aug-2014 Instruction Type:Provider Instructions for Treatment Patient Instructions Indication:Acne Start:04-Jun-2013 Instruction Type:Provider Instructions for Treatment [facility] Work Phone: Instructions* Name Dates Details Patient Instructions Indication:[facility] EX[facility] Start:20-Jun-2022 Instruction Type:Provider Instructions for Treatment How to Access Health Informa tion Online using Patient Portal and [employer] Apps Indication:[facility] EX[facility] Start:20-Jun-2022 Instruction Type:Patient Education Patient Instructions Indication:Osteopenia Start:25-Mar-2022 Instruction Type:Provider Instructions for Treatment Patient Instructions Indication:Sinusitis Start:24-Jan-2022 Instruction Type:Provider Instructions for Treatment How to Access Health Informa tion Online using Patient Portal and [employer] Apps Indication:Nonsmoker Start:04-Aug-2021 Instruction Type:Patient Education Patient Instructions Indication:Nonsmoker Start:04-Aug-2021 Instruction Type:Provider Instructions for Treatment How to Access Health Informa tion Online using Patient Portal and [employer] Apps Indication:Nonsmoker Start:31-Mar-2021 Instruction Type:Patient Education Patient Instructions Indication:Nonsmoker Start:31-Mar-2021 Instruction Type:Provider Instructions for Treatment Patient Instructions Indication:Nonsmoker Start:12-Dec-2020 Instruction Type:Provider Instructions for Treatment How to Access Health Informa tion Online using Patient Portal and [employer] Apps Indication:Nonsmoker Start:12-Dec-2020 Instruction Type:Patient Education Patient Instructions Indication:Coronavirus infection Start:09-Oct-2020 Instruction Type:Provider Instructions for Treatment How to access health informa tion online Indication:Cough Start:05-Oct-2020 Instruction Type:Patient Education How to access health informa tion online - Detail Indication:Cough Start:05-Oct-2020 Instruction Type:Patient Education Patient Instructions Indication:Cough Start:05-Oct-2020 Instruction Type:Provider Instructions for Treatment How to access health informa tion online Indication:Fatigue Start:06-Jun-2020 Instruction Type:Patient Education How to access health informa tion online - Detail Indication:Fatigue Start:06-Jun-2020 Instruction Type:Patient Education Patient Instructions Indication:Fatigue Start:06-Jun-2020 Instruction Type:Provider Instructions for Treatment How to access health informa tion online Indication:Anxiety and depression Start:05-Jan-2020 Instruction Type:Patient Education How to access health informa tion online - Detail Indication:Anxiety and depression Start:05-Jan-2020 Instruction Type:Patient Education Patient Instructions Indication:Anxiety and depression Start:05-Jan-2020 Instruction Type:Provider Instructions for Treatment How to access health informa tion online Indication:Hyperlipidemia Start:02-Dec-2019 Instruction Type:Patient Education How to access health informa tion online - Detail Indication:Hyperlipidemia Start:02-Dec-2019 Instruction Type:Patient Education Patient Instructions Indication:Hyperlipidemia Start:02-Dec-2019 Instruction Type:Provider Instructions for Treatment How to access health informa tion online Indication:Nonsmoker Start:24-Jul-2019 Instruction Type:Patient Education How to access health informa tion online - Detail Indication:Nonsmoker Start:24-Jul-2019 Instruction Type:Patient Education Patient Instructions Indication:Nonsmoker Start:24-Jul-2019 Instruction Type:Provider Instructions for Treatment How to access health informa tion online Indication:BMI 27.0-27.9,adult Start:11-May-2019 Instruction Type:Patient Education How to access health informa tion online - Detail Indication:BMI 27.0-27.9,adult Start:11-May-2019 Instruction Type:Patient Education Patient Instructions Indication:BMI 27.0-27.9,adult Start:11-May-2019 Instruction Type:Provider Instructions for Treatment How to access health informa tion online Indication:Nonsmoker Start:03-Mar-2019 Instruction Type:Patient Education How to access health informa tion online - Detail Indication:Nonsmoker Start:03-Mar-2019 Instruction Type:Patient Education Patient Instructions Indication:Nonsmoker Start:03-Mar-2019 Instruction Type:Provider Instructions for Treatment How to access health informa tion online Indication:[facility] Start:30-Sep-2018 Instruction Type:Patient Education How to access health informa tion online - Detail Indication:[facility] Start:30-Sep-2018 Instruction Type:Patient Education Patient Instructions Indication:[facility] Start:30-Sep-2018 Instruction Type:Provider Instructions for Treatment How to access health informa tion online Indication:BMI 27.0-27.9,adult Start:29-Aug-2018 Instruction Type:Patient Education How to access health informa tion online - Detail Indication:BMI 27.0-27.9,adult Start:29-Aug-2018 Instruction Type:Patient Education Patient Instructions Indication:BMI 27.0-27.9,adult Start:29-Aug-2018 Instruction Type:Provider Instructions for Treatment How to access health informa tion online Indication:Overweight (BMI 25.0-29.9) Start:01-Sep-2014 Instruction Type:Patient Education How to access health informa tion online - Detail Indication:Overweight (BMI 25.0-29.9) Start:01-Sep-2014 Instruction Type:Patient Education Patient Instructions Indication:Overweight (BMI 25.0-29.9) Start:01-Sep-2014 Instruction Type:Provider Instructions for Treatment How to access health informa tion online Indication:Acne Start:24-Aug-2014 Instruction Type:Patient Education How to access health informa tion online - Detail Indication:Acne Start:24-Aug-2014 Instruction Type:Patient Education Patient Instructions Indication:Acne Start:24-Aug-2014 Instruction Type:Provider Instructions for Treatment Patient Instructions Indication:Acne Start:04-Jun-2013 Instruction Type:Provider Instructions for Treatment [facility]; [facility] Work Phone: Instructions* Name Dates Details Patient Instructions Indication:[facility] Start:20-Jun-2022 Instruction Type:Provider Instructions for Treatment How to Access Health Informa tion Online using Patient Portal and [employer] Apps Indication:[facility] Start:20-Jun-2022 Instruction Type:Patient Education Patient Instructions Indication:Osteopenia Start:25-Mar-2022 Instruction Type:Provider Instructions for Treatment Patient Instructions Indication:Sinusitis Start:24-Jan-2022 Instruction Type:Provider Instructions for Treatment How to Access Health Informa tion Online using Patient Portal and [employer] Apps Indication:Nonsmoker Start:04-Aug-2021 Instruction Type:Patient Education Patient Instructions Indication:Nonsmoker Start:04-Aug-2021 Instruction Type:Provider Instructions for Treatment How to Access Health Informa tion Online using Patient Portal and [employer] Apps Indication:Nonsmoker Start:31-Mar-2021 Instruction Type:Patient Education Patient Instructions Indication:Nonsmoker Start:31-Mar-2021 Instruction Type:Provider Instructions for Treatment Patient Instructions Indication:Nonsmoker Start:12-Dec-2020 Instruction Type:Provider Instructions for Treatment How to Access Health Informa tion Online using Patient Portal and [employer] Apps Indication:Nonsmoker Start:12-Dec-2020 Instruction Type:Patient Education Patient Instructions Indication:Coronavirus infection Start:09-Oct-2020 Instruction Type:Provider Instructions for Treatment How to access health informa tion online Indication:Cough Start:05-Oct-2020 Instruction Type:Patient Education How to access health informa tion online - Detail Indication:Cough Start:05-Oct-2020 Instruction Type:Patient Education Patient Instructions Indication:Cough Start:05-Oct-2020 Instruction Type:Provider Instructions for Treatment How to access health informa tion online Indication:Fatigue Start:06-Jun-2020 Instruction Type:Patient Education How to access health informa tion online - Detail Indication:Fatigue Start:06-Jun-2020 Instruction Type:Patient Education Patient Instructions Indication:Fatigue Start:06-Jun-2020 Instruction Type:Provider Instructions for Treatment How to access health informa tion online Indication:Anxiety and depression Start:05-Jan-2020 Instruction Type:Patient Education How to access health informa tion online - Detail Indication:Anxiety and depression Start:05-Jan-2020 Instruction Type:Patient Education Patient Instructions Indication:Anxiety and depression Start:05-Jan-2020 Instruction Type:Provider Instructions for Treatment How to access health informa tion online Indication:Hyperlipidemia Start:02-Dec-2019 Instruction Type:Patient Education How to access health informa tion online - Detail Indication:Hyperlipidemia Start:02-Dec-2019 Instruction Type:Patient Education Patient Instructions Indication:Hyperlipidemia Start:02-Dec-2019 Instruction Type:Provider Instructions for Treatment How to access health informa tion online Indication:Nonsmoker Start:24-Jul-2019 Instruction Type:Patient Education How to access health informa tion online - Detail Indication:Nonsmoker Start:24-Jul-2019 Instruction Type:Patient Education Patient Instructions Indication:Nonsmoker Start:24-Jul-2019 Instruction Type:Provider Instructions for Treatment How to access health informa tion online Indication:BMI 27.0-27.9,adult Start:11-May-2019 Instruction Type:Patient Education How to access health informa tion online - Detail Indication:BMI 27.0-27.9,adult Start:11-May-2019 Instruction Type:Patient Education Patient Instructions Indication:BMI 27.0-27.9,adult Start:11-May-2019 Instruction Type:Provider Instructions for Treatment How to access health informa tion online Indication:Nonsmoker Start:03-Mar-2019 Instruction Type:Patient Education How to access health informa tion online - Detail Indication:Nonsmoker Start:03-Mar-2019 Instruction Type:Patient Education Patient Instructions Indication:Nonsmoker Start:03-Mar-2019 Instruction Type:Provider Instructions for Treatment How to access health informa tion online Indication:[facility] Start:30-Sep-2018 Instruction Type:Patient Education How to access health informa tion online - Detail Indication:[facility] Start:30-Sep-2018 Instruction Type:Patient Education Patient Instructions Indication:[facility] Start:30-Sep-2018 Instruction Type:Provider Instructions for Treatment How to access health informa tion online Indication:BMI 27.0-27.9,adult Start:29-Aug-2018 Instruction Type:Patient Education How to access health informa tion online - Detail Indication:BMI 27.0-27.9,adult Start:29-Aug-2018 Instruction Type:Patient Education Patient Instructions Indication:BMI 27.0-27.9,adult Start:29-Aug-2018 Instruction Type:Provider Instructions for Treatment How to access health informa tion online Indication:Overweight (BMI 25.0-29.9) Start:01-Sep-2014 Instruction Type:Patient Education How to access health informa tion online - Detail Indication:Overweight (BMI 25.0-29.9) Start:01-Sep-2014 Instruction Type:Patient Education Patient Instructions Indication:Overweight (BMI 25.0-29.9) Start:01-Sep-2014 Instruction Type:Provider Instructions for Treatment How to access health informa tion online Indication:Acne Start:24-Aug-2014 Instruction Type:Patient Education How to access health informa tion online - Detail Indication:Acne Start:24-Aug-2014 Instruction Type:Patient Education Patient Instructions Indication:Acne Start:24-Aug-2014 Instruction Type:Provider Instructions for Treatment Patient Instructions Indication:Acne Start:04-Jun-2013 Instruction Type:Provider Instructions for Treatment [facility]; [facility] Work Phone: Instructions* Name Dates Details Patient Instructions Indication:GERD (gastroesophageal reflux disease) Start:02-Oct-2022 Instruction Type:Provider Instructions for Treatment How to Access Health Informa tion Online using Patient Portal and [employer] Apps Indication:GERD (gastroesophageal reflux disease) Start:02-Oct-2022 Instruction Type:Patient Education Patient Instructions Indication:[facility] Start:20-Jun-2022 Instruction Type:Provider Instructions for Treatment How to Access Health Informa tion Online using Patient Portal and [employer] Apps Indication:[facility] Start:20-Jun-2022 Instruction Type:Patient Education Patient Instructions Indication:Osteopenia Start:25-Mar-2022 Instruction Type:Provider Instructions for Treatment Patient Instructions Indication:Sinusitis Start:24-Jan-2022 Instruction Type:Provider Instructions for Treatment How to Access Health Informa tion Online using Patient Portal and [employer] Apps Indication:Nonsmoker Start:04-Aug-2021 Instruction Type:Patient Education Patient Instructions Indication:Nonsmoker Start:04-Aug-2021 Instruction Type:Provider Instructions for Treatment How to Access Health Informa tion Online using Patient Portal and [employer] Apps Indication:Nonsmoker Start:31-Mar-2021 Instruction Type:Patient Education Patient Instructions Indication:Nonsmoker Start:31-Mar-2021 Instruction Type:Provider Instructions for Treatment Patient Instructions Indication:Nonsmoker Start:12-Dec-2020 Instruction Type:Provider Instructions for Treatment How to Access Health Informa tion Online using Patient Portal and [employer] Apps Indication:Nonsmoker Start:12-Dec-2020 Instruction Type:Patient Education Patient Instructions Indication:Coronavirus infection Start:09-Oct-2020 Instruction Type:Provider Instructions for Treatment How to access health informa tion online Indication:Cough Start:05-Oct-2020 Instruction Type:Patient Education How to access health informa tion online - Detail Indication:Cough Start:05-Oct-2020 Instruction Type:Patient Education Patient Instructions Indication:Cough Start:05-Oct-2020 Instruction Type:Provider Instructions for Treatment How to access health informa tion online Indication:Fatigue Start:06-Jun-2020 Instruction Type:Patient Education How to access health informa tion online - Detail Indication:Fatigue Start:06-Jun-2020 Instruction Type:Patient Education Patient Instructions Indication:Fatigue Start:06-Jun-2020 Instruction Type:Provider Instructions for Treatment How to access health informa tion online Indication:Anxiety and depression Start:05-Jan-2020 Instruction Type:Patient Education How to access health informa tion online - Detail Indication:Anxiety and depression Start:05-Jan-2020 Instruction Type:Patient Education Patient Instructions Indication:Anxiety and depression Start:05-Jan-2020 Instruction Type:Provider Instructions for Treatment How to access health informa tion online Indication:Hyperlipidemia Start:02-Dec-2019 Instruction Type:Patient Education How to access health informa tion online - Detail Indication:Hyperlipidemia Start:02-Dec-2019 Instruction Type:Patient Education Patient Instructions Indication:Hyperlipidemia Start:02-Dec-2019 Instruction Type:Provider Instructions for Treatment How to access health informa tion online Indication:Nonsmoker Start:24-Jul-2019 Instruction Type:Patient Education How to access health informa tion online - Detail Indication:Nonsmoker Start:24-Jul-2019 Instruction Type:Patient Education Patient Instructions Indication:Nonsmoker Start:24-Jul-2019 Instruction Type:Provider Instructions for Treatment How to access health informa tion online Indication:BMI 27.0-27.9,adult Start:11-May-2019 Instruction Type:Patient Education How to access health informa tion online - Detail Indication:BMI 27.0-27.9,adult Start:11-May-2019 Instruction Type:Patient Education Patient Instructions Indication:BMI 27.0-27.9,adult Start:11-May-2019 Instruction Type:Provider Instructions for Treatment How to access health informa tion online Indication:Nonsmoker Start:03-Mar-2019 Instruction Type:Patient Education How to access health informa tion online - Detail Indication:Nonsmoker Start:03-Mar-2019 Instruction Type:Patient Education Patient Instructions Indication:Nonsmoker Start:03-Mar-2019 Instruction Type:Provider Instructions for Treatment How to access health informa tion online Indication:[facility] Start:30-Sep-2018 Instruction Type:Patient Education How to access health informa tion online - Detail Indication:[facility] Start:30-Sep-2018 Instruction Type:Patient Education Patient Instructions Indication:[facility] Start:30-Sep-2018 Instruction Type:Provider Instructions for Treatment How to access health informa tion online Indication:BMI 27.0-27.9,adult Start:29-Aug-2018 Instruction Type:Patient Education How to access health informa tion online - Detail Indication:BMI 27.0-27.9,adult Start:29-Aug-2018 Instruction Type:Patient Education Patient Instructions Indication:BMI 27.0-27.9,adult Start:29-Aug-2018 Instruction Type:Provider Instructions for Treatment How to access health informa tion online Indication:Overweight (BMI 25.0-29.9) Start:01-Sep-2014 Instruction Type:Patient Education How to access health informa tion online - Detail Indication:Overweight (BMI 25.0-29.9) Start:01-Sep-2014 Instruction Type:Patient Education Patient Instructions Indication:Overweight (BMI 25.0-29.9) Start:01-Sep-2014 Instruction Type:Provider Instructions for Treatment How to access health informa tion online Indication:Acne Start:24-Aug-2014 Instruction Type:Patient Education How to access health informa tion online - Detail Indication:Acne Start:24-Aug-2014 Instruction Type:Patient Education Patient Instructions Indication:Acne Start:24-Aug-2014 Instruction Type:Provider Instructions for Treatment Patient Instructions Indication:Acne Start:04-Jun-2013 Instruction Type:Provider Instructions for Treatment [facility]; [facility] Work Phone: Instructions* Name Dates Details Patient Instructions Indication:GERD (gastroesophageal reflux disease) Start:02-Oct-2022 Instruction Type:Provider Instructions for Treatment How to Access Health Informa tion Online using Patient Portal and [employer] Apps Indication:GERD (gastroesophageal reflux disease) Start:02-Oct-2022 Instruction Type:Patient Education Patient Instructions Indication:[facility] Start:20-Jun-2022 Instruction Type:Provider Instructions for Treatment How to Access Health Informa tion Online using Patient Portal and [employer] Apps Indication:[facility] Start:20-Jun-2022 Instruction Type:Patient Education Patient Instructions Indication:Osteopenia Start:25-Mar-2022 Instruction Type:Provider Instructions for Treatment Patient Instructions Indication:Sinusitis Start:24-Jan-2022 Instruction Type:Provider Instructions for Treatment How to Access Health Informa tion Online using Patient Portal and [employer] Apps Indication:Nonsmoker Start:04-Aug-2021 Instruction Type:Patient Education Patient Instructions Indication:Nonsmoker Start:04-Aug-2021 Instruction Type:Provider Instructions for Treatment How to Access Health Informa tion Online using Patient Portal and [employer] Apps Indication:Nonsmoker Start:31-Mar-2021 Instruction Type:Patient Education Patient Instructions Indication:Nonsmoker Start:31-Mar-2021 Instruction Type:Provider Instructions for Treatment Patient Instructions Indication:Nonsmoker Start:12-Dec-2020 Instruction Type:Provider Instructions for Treatment How to Access Health Informa tion Online using Patient Portal and [employer] Apps Indication:Nonsmoker Start:12-Dec-2020 Instruction Type:Patient Education Patient Instructions Indication:Coronavirus infection Start:09-Oct-2020 Instruction Type:Provider Instructions for Treatment How to access health informa tion online Indication:Cough Start:05-Oct-2020 Instruction Type:Patient Education How to access health informa tion online - Detail Indication:Cough Start:05-Oct-2020 Instruction Type:Patient Education Patient Instructions Indication:Cough Start:05-Oct-2020 Instruction Type:Provider Instructions for Treatment How to access health informa tion online Indication:Fatigue Start:06-Jun-2020 Instruction Type:Patient Education How to access health informa tion online - Detail Indication:Fatigue Start:06-Jun-2020 Instruction Type:Patient Education Patient Instructions Indication:Fatigue Start:06-Jun-2020 Instruction Type:Provider Instructions for Treatment How to access health informa tion online Indication:Anxiety and depression Start:05-Jan-2020 Instruction Type:Patient Education How to access health informa tion online - Detail Indication:Anxiety and depression Start:05-Jan-2020 Instruction Type:Patient Education Patient Instructions Indication:Anxiety and depression Start:05-Jan-2020 Instruction Type:Provider Instructions for Treatment How to access health informa tion online Indication:Hyperlipidemia Start:02-Dec-2019 Instruction Type:Patient Education How to access health informa tion online - Detail Indication:Hyperlipidemia Start:02-Dec-2019 Instruction Type:Patient Education Patient Instructions Indication:Hyperlipidemia Start:02-Dec-2019 Instruction Type:Provider Instructions for Treatment How to access health informa tion online Indication:Nonsmoker Start:24-Jul-2019 Instruction Type:Patient Education How to access health informa tion online - Detail Indication:Nonsmoker Start:24-Jul-2019 Instruction Type:Patient Education Patient Instructions Indication:Nonsmoker Start:24-Jul-2019 Instruction Type:Provider Instructions for Treatment How to access health informa tion online Indication:BMI 27.0-27.9,adult Start:11-May-2019 Instruction Type:Patient Education How to access health informa tion online - Detail Indication:BMI 27.0-27.9,adult Start:11-May-2019 Instruction Type:Patient Education Patient Instructions Indication:BMI 27.0-27.9,adult Start:11-May-2019 Instruction Type:Provider Instructions for Treatment How to access health informa tion online Indication:Nonsmoker Start:03-Mar-2019 Instruction Type:Patient Education How to access health informa tion online - Detail Indication:Nonsmoker Start:03-Mar-2019 Instruction Type:Patient Education Patient Instructions Indication:Nonsmoker Start:03-Mar-2019 Instruction Type:Provider Instructions for Treatment How to access health informa tion online Indication:[facility] Start:30-Sep-2018 Instruction Type:Patient Education How to access health informa tion online - Detail Indication:[facility] Start:30-Sep-2018 Instruction Type:Patient Education Patient Instructions Indication:[facility] Start:30-Sep-2018 Instruction Type:Provider Instructions for Treatment How to access health informa tion online Indication:BMI 27.0-27.9,adult Start:29-Aug-2018 Instruction Type:Patient Education How to access health informa tion online - Detail Indication:BMI 27.0-27.9,adult Start:29-Aug-2018 Instruction Type:Patient Education Patient Instructions Indication:BMI 27.0-27.9,adult Start:29-Aug-2018 Instruction Type:Provider Instructions for Treatment How to access health informa tion online Indication:Overweight (BMI 25.0-29.9) Start:01-Sep-2014 Instruction Type:Patient Education How to access health informa tion online - Detail Indication:Overweight (BMI 25.0-29.9) Start:01-Sep-2014 Instruction Type:Patient Education Patient Instructions Indication:Overweight (BMI 25.0-29.9) Start:01-Sep-2014 Instruction Type:Provider Instructions for Treatment How to access health informa tion online Indication:Acne Start:24-Aug-2014 Instruction Type:Patient Education How to access health informa tion online - Detail Indication:Acne Start:24-Aug-2014 Instruction Type:Patient Education Patient Instructions Indication:Acne Start:24-Aug-2014 Instruction Type:Provider Instructions for Treatment Patient Instructions Indication:Acne Start:04-Jun-2013 Instruction Type:Provider Instructions for Treatment [facility]; [facility] Work Phone: Instructions* Name Dates Details Patient Instructions Indication:GERD (gastroesophageal reflux disease) Start:02-Oct-2022 Instruction Type:Provider Instructions for Treatment How to Access Health Informa tion Online using Patient Portal and [employer] Apps Indication:GERD (gastroesophageal reflux disease) Start:02-Oct-2022 Instruction Type:Patient Education Patient Instructions Indication:[facility] Start:20-Jun-2022 Instruction Type:Provider Instructions for Treatment How to Access Health Informa tion Online using Patient Portal and [employer] Apps Indication:[facility] Start:20-Jun-2022 Instruction Type:Patient Education Patient Instructions Indication:Osteopenia Start:25-Mar-2022 Instruction Type:Provider Instructions for Treatment Patient Instructions Indication:Sinusitis Start:24-Jan-2022 Instruction Type:Provider Instructions for Treatment How to Access Health Informa tion Online using Patient Portal and [employer] Apps Indication:Nonsmoker Start:04-Aug-2021 Instruction Type:Patient Education Patient Instructions Indication:Nonsmoker Start:04-Aug-2021 Instruction Type:Provider Instructions for Treatment How to Access Health Informa tion Online using Patient Portal and [employer] Republican Apps Indication:Nonsmoker Start:31-Mar-2021 Instruction Type:Patient Education Patient Instructions Indication:Nonsmoker Start:31-Mar-2021 Instruction Type:Provider Instructions for Treatment Patient Instructions Indication:Nonsmoker Start:12-Dec-2020 Instruction Type:Provider Instructions for Treatment How to Access Health Informa tion Online using Patient Portal and [employer] Apps Indication:Nonsmoker Start:12-Dec-2020 Instruction Type:Patient Education Patient Instructions Indication:Coronavirus infection Start:09-Oct-2020 Instruction Type:Provider Instructions for Treatment How to access health informa tion online Indication:Cough Start:05-Oct-2020 Instruction Type:Patient Education How to access health informa tion online - Detail Indication:Cough Start:05-Oct-2020 Instruction Type:Patient Education Patient Instructions Indication:Cough Start:05-Oct-2020 Instruction Type:Provider Instructions for Treatment How to access health informa tion online Indication:Fatigue Start:06-Jun-2020 Instruction Type:Patient Education How to access health informa tion online - Detail Indication:Fatigue Start:06-Jun-2020 Instruction Type:Patient Education Patient Instructions Indication:Fatigue Start:06-Jun-2020 Instruction Type:Provider Instructions for Treatment How to access health informa tion online Indication:Anxiety and depression Start:05-Jan-2020 Instruction Type:Patient Education How to access health informa tion online - Detail Indication:Anxiety and depression Start:05-Jan-2020 Instruction Type:Patient Education Patient Instructions Indication:Anxiety and depression Start:05-Jan-2020 Instruction Type:Provider Instructions for Treatment How to access health informa tion online Indication:Hyperlipidemia Start:02-Dec-2019 Instruction Type:Patient Education How to access health informa tion online - Detail Indication:Hyperlipidemia Start:02-Dec-2019 Instruction Type:Patient Education Patient Instructions Indication:Hyperlipidemia Start:02-Dec-2019 Instruction Type:Provider Instructions for Treatment How to access health informa tion online Indication:Nonsmoker Start:24-Jul-2019 Instruction Type:Patient Education How to access health informa tion online - Detail Indication:Nonsmoker Start:24-Jul-2019 Instruction Type:Patient Education Patient Instructions Indication:Nonsmoker Start:24-Jul-2019 Instruction Type:Provider Instructions for Treatment How to access health informa tion online Indication:BMI 27.0-27.9,adult Start:11-May-2019 Instruction Type:Patient Education How to access health informa tion online - Detail Indication:BMI 27.0-27.9,adult Start:11-May-2019 Instruction Type:Patient Education Patient Instructions Indication:BMI 27.0-27.9,adult Start:11-May-2019 Instruction Type:Provider Instructions for Treatment How to access health informa tion online Indication:Nonsmoker Start:03-Mar-2019 Instruction Type:Patient Education How to access health informa tion online - Detail Indication:Nonsmoker Start:03-Mar-2019 Instruction Type:Patient Education Patient Instructions Indication:Nonsmoker Start:03-Mar-2019 Instruction Type:Provider Instructions for Treatment How to access health informa tion online Indication:[facility] Start:30-Sep-2018 Instruction Type:Patient Education How to access health informa tion online - Detail Indication:[facility] Start:30-Sep-2018 Instruction Type:Patient Education Patient Instructions Indication:[facility] Start:30-Sep-2018 Instruction Type:Provider Instructions for Treatment How to access health informa tion online Indication:BMI 27.0-27.9,adult Start:29-Aug-2018 Instruction Type:Patient Education How to access health informa tion online - Detail Indication:BMI 27.0-27.9,adult Start:29-Aug-2018 Instruction Type:Patient Education Patient Instructions Indication:BMI 27.0-27.9,adult Start:29-Aug-2018 Instruction Type:Provider Instructions for Treatment How to access health informa tion online Indication:Overweight (BMI 25.0-29.9) Start:01-Sep-2014 Instruction Type:Patient Education How to access health informa tion online - Detail Indication:Overweight (BMI 25.0-29.9) Start:01-Sep-2014 Instruction Type:Patient Education Patient Instructions Indication:Overweight (BMI 25.0-29.9) Start:01-Sep-2014 Instruction Type:Provider Instructions for Treatment How to access health informa tion online Indication:Acne Start:24-Aug-2014 Instruction Type:Patient Education How to access health informa tion online - Detail Indication:Acne Start:24-Aug-2014 Instruction Type:Patient Education Patient Instructions Indication:Acne Start:24-Aug-2014 Instruction Type:Provider Instructions for Treatment Patient Instructions Indication:Acne Start:04-Jun-2013 Instruction Type:Provider Instructions for Treatment [facility]; [facility] Work Phone: Instructions* Name Dates Details Patient Instructions Indication:GERD (gastroesophageal reflux disease) Start:02-Oct-2022 Instruction Type:Provider Instructions for Treatment How to Access Health Informa tion Online using Patient Portal and [employer] Apps Indication:GERD (gastroesophageal reflux disease) Start:02-Oct-2022 Instruction Type:Patient Education Patient Instructions Indication:[facility] Start:20-Jun-2022 Instruction Type:Provider Instructions for Treatment How to Access Health Informa tion Online using Patient Portal and [employer] Apps Indication:[facility] Start:20-Jun-2022 Instruction Type:Patient Education Patient Instructions Indication:Osteopenia Start:25-Mar-2022 Instruction Type:Provider Instructions for Treatment Patient Instructions Indication:Sinusitis Start:24-Jan-2022 Instruction Type:Provider Instructions for Treatment How to Access Health Informa tion Online using Patient Portal and [employer] Apps Indication:Nonsmoker Start:04-Aug-2021 Instruction Type:Patient Education Patient Instructions Indication:Nonsmoker Start:04-Aug-2021 Instruction Type:Provider Instructions for Treatment How to Access Health Informa tion Online using Patient Portal and [employer] Apps Indication:Nonsmoker Start:31-Mar-2021 Instruction Type:Patient Education Patient Instructions Indication:Nonsmoker Start:31-Mar-2021 Instruction Type:Provider Instructions for Treatment Patient Instructions Indication:Nonsmoker Start:12-Dec-2020 Instruction Type:Provider Instructions for Treatment How to Access Health Informa tion Online using Patient Portal and [employer] Apps Indication:Nonsmoker Start:12-Dec-2020 Instruction Type:Patient Education Patient Instructions Indication:Coronavirus infection Start:09-Oct-2020 Instruction Type:Provider Instructions for Treatment How to access health informa tion online Indication:Cough Start:05-Oct-2020 Instruction Type:Patient Education How to access health informa tion online - Detail Indication:Cough Start:05-Oct-2020 Instruction Type:Patient Education Patient Instructions Indication:Cough Start:05-Oct-2020 Instruction Type:Provider Instructions for Treatment How to access health informa tion online Indication:Fatigue Start:06-Jun-2020 Instruction Type:Patient Education How to access health informa tion online - Detail Indication:Fatigue Start:06-Jun-2020 Instruction Type:Patient Education Patient Instructions Indication:Fatigue Start:06-Jun-2020 Instruction Type:Provider Instructions for Treatment How to access health informa tion online Indication:Anxiety and depression Start:05-Jan-2020 Instruction Type:Patient Education How to access health informa tion online - Detail Indication:Anxiety and depression Start:05-Jan-2020 Instruction Type:Patient Education Patient Instructions Indication:Anxiety and depression Start:05-Jan-2020 Instruction Type:Provider Instructions for Treatment How to access health informa tion online Indication:Hyperlipidemia Start:02-Dec-2019 Instruction Type:Patient Education How to access health informa tion online - Detail Indication:Hyperlipidemia Start:02-Dec-2019 Instruction Type:Patient Education Patient Instructions Indication:Hyperlipidemia Start:02-Dec-2019 Instruction Type:Provider Instructions for Treatment How to access health informa tion online Indication:Nonsmoker Start:24-Jul-2019 Instruction Type:Patient Education How to access health informa tion online - Detail Indication:Nonsmoker Start:24-Jul-2019 Instruction Type:Patient Education Patient Instructions Indication:Nonsmoker Start:24-Jul-2019 Instruction Type:Provider Instructions for Treatment How to access health informa tion online Indication:BMI 27.0-27.9,adult Start:11-May-2019 Instruction Type:Patient Education How to access health informa tion online - Detail Indication:BMI 27.0-27.9,adult Start:11-May-2019 Instruction Type:Patient Education Patient Instructions Indication:BMI 27.0-27.9,adult Start:11-May-2019 Instruction Type:Provider Instructions for Treatment How to access health informa tion online Indication:Nonsmoker Start:03-Mar-2019 Instruction Type:Patient Education How to access health informa tion online - Detail Indication:Nonsmoker Start:03-Mar-2019 Instruction Type:Patient Education Patient Instructions Indication:Nonsmoker Start:03-Mar-2019 Instruction Type:Provider Instructions for Treatment How to access health informa tion online Indication:[facility] Start:30-Sep-2018 Instruction Type:Patient Education How to access health informa tion online - Detail Indication:[facility] Start:30-Sep-2018 Instruction Type:Patient Education Patient Instructions Indication:[facility] Start:30-Sep-2018 Instruction Type:Provider Instructions for Treatment How to access health informa tion online Indication:BMI 27.0-27.9,adult Start:29-Aug-2018 Instruction Type:Patient Education How to access health informa tion online - Detail Indication:BMI 27.0-27.9,adult Start:29-Aug-2018 Instruction Type:Patient Education Patient Instructions Indication:BMI 27.0-27.9,adult Start:29-Aug-2018 Instruction Type:Provider Instructions for Treatment How to access health informa tion online Indication:Overweight (BMI 25.0-29.9) Start:01-Sep-2014 Instruction Type:Patient Education How to access health informa tion online - Detail Indication:Overweight (BMI 25.0-29.9) Start:01-Sep-2014 Instruction Type:Patient Education Patient Instructions Indication:Overweight (BMI 25.0-29.9) Start:01-Sep-2014 Instruction Type:Provider Instructions for Treatment How to access health informa tion online Indication:Acne Start:24-Aug-2014 Instruction Type:Patient Education How to access health informa tion online - Detail Indication:Acne Start:24-Aug-2014 Instruction Type:Patient Education Patient Instructions Indication:Acne Start:24-Aug-2014 Instruction Type:Provider Instructions for Treatment Patient Instructions Indication:Acne Start:04-Jun-2013 Instruction Type:Provider Instructions for Treatment [facility]; [facility] Work Phone: Instructions* Name Dates Details Patient Instructions Indication:GERD (gastroesophageal reflux disease) Start:02-Oct-2022 Instruction Type:Provider Instructions for Treatment How to Access Health Informa tion Online using Patient Portal and [employer] Apps Indication:GERD (gastroesophageal reflux disease) Start:02-Oct-2022 Instruction Type:Patient Education Patient Instructions Indication:[facility] Start:20-Jun-2022 Instruction Type:Provider Instructions for Treatment How to Access Health Informa tion Online using Patient Portal and [employer] Apps Indication:[facility] Start:20-Jun-2022 Instruction Type:Patient Education Patient Instructions Indication:Osteopenia Start:25-Mar-2022 Instruction Type:Provider Instructions for Treatment Patient Instructions Indication:Sinusitis Start:24-Jan-2022 Instruction Type:Provider Instructions for Treatment How to Access Health Informa tion Online using Patient Portal and [employer] Apps Indication:Nonsmoker Start:04-Aug-2021 Instruction Type:Patient Education Patient Instructions Indication:Nonsmoker Start:04-Aug-2021 Instruction Type:Provider Instructions for Treatment How to Access Health Informa tion Online using Patient Portal and [employer] Apps Indication:Nonsmoker Start:31-Mar-2021 Instruction Type:Patient Education Patient Instructions Indication:Nonsmoker Start:31-Mar-2021 Instruction Type:Provider Instructions for Treatment Patient Instructions Indication:Nonsmoker Start:12-Dec-2020 Instruction Type:Provider Instructions for Treatment How to Access Health Informa tion Online using Patient Portal and [employer] Apps Indication:Nonsmoker Start:12-Dec-2020 Instruction Type:Patient Education Patient Instructions Indication:Coronavirus infection Start:09-Oct-2020 Instruction Type:Provider Instructions for Treatment How to access health informa tion online Indication:Cough Start:05-Oct-2020 Instruction Type:Patient Education How to access health informa tion online - Detail Indication:Cough Start:05-Oct-2020 Instruction Type:Patient Education Patient Instructions Indication:Cough Start:05-Oct-2020 Instruction Type:Provider Instructions for Treatment How to access health informa tion online Indication:Fatigue Start:06-Jun-2020 Instruction Type:Patient Education How to access health informa tion online - Detail Indication:Fatigue Start:06-Jun-2020 Instruction Type:Patient Education Patient Instructions Indication:Fatigue Start:06-Jun-2020 Instruction Type:Provider Instructions for Treatment How to access health informa tion online Indication:Anxiety and depression Start:05-Jan-2020 Instruction Type:Patient Education How to access health informa tion online - Detail Indication:Anxiety and depression Start:05-Jan-2020 Instruction Type:Patient Education Patient Instructions Indication:Anxiety and depression Start:05-Jan-2020 Instruction Type:Provider Instructions for Treatment How to access health informa tion online Indication:Hyperlipidemia Start:02-Dec-2019 Instruction Type:Patient Education How to access health informa tion online - Detail Indication:Hyperlipidemia Start:02-Dec-2019 Instruction Type:Patient Education Patient Instructions Indication:Hyperlipidemia Start:02-Dec-2019 Instruction Type:Provider Instructions for Treatment How to access health informa tion online Indication:Nonsmoker Start:24-Jul-2019 Instruction Type:Patient Education How to access health informa tion online - Detail Indication:Nonsmoker Start:24-Jul-2019 Instruction Type:Patient Education Patient Instructions Indication:Nonsmoker Start:24-Jul-2019 Instruction Type:Provider Instructions for Treatment How to access health informa tion online Indication:BMI 27.0-27.9,adult Start:11-May-2019 Instruction Type:Patient Education How to access health informa tion online - Detail Indication:BMI 27.0-27.9,adult Start:11-May-2019 Instruction Type:Patient Education Patient Instructions Indication:BMI 27.0-27.9,adult Start:11-May-2019 Instruction Type:Provider Instructions for Treatment How to access health informa tion online Indication:Nonsmoker Start:03-Mar-2019 Instruction Type:Patient Education How to access health informa tion online - Detail Indication:Nonsmoker Start:03-Mar-2019 Instruction Type:Patient Education Patient Instructions Indication:Nonsmoker Start:03-Mar-2019 Instruction Type:Provider Instructions for Treatment How to access health informa tion online Indication:[facility] Start:30-Sep-2018 Instruction Type:Patient Education How to access health informa tion online - Detail Indication:[facility] Start:30-Sep-2018 Instruction Type:Patient Education Patient Instructions Indication:[facility] Start:30-Sep-2018 Instruction Type:Provider Instructions for Treatment How to access health informa tion online Indication:BMI 27.0-27.9,adult Start:29-Aug-2018 Instruction Type:Patient Education How to access health informa tion online - Detail Indication:BMI 27.0-27.9,adult Start:29-Aug-2018 Instruction Type:Patient Education Patient Instructions Indication:BMI 27.0-27.9,adult Start:29-Aug-2018 Instruction Type:Provider Instructions for Treatment How to access health informa tion online Indication:Overweight (BMI 25.0-29.9) Start:01-Sep-2014 Instruction Type:Patient Education How to access health informa tion online - Detail Indication:Overweight (BMI 25.0-29.9) Start:01-Sep-2014 Instruction Type:Patient Education Patient Instructions Indication:Overweight (BMI 25.0-29.9) Start:01-Sep-2014 Instruction Type:Provider Instructions for Treatment How to access health informa tion online Indication:Acne Start:24-Aug-2014 Instruction Type:Patient Education How to access health informa tion online - Detail Indication:Acne Start:24-Aug-2014 Instruction Type:Patient Education Patient Instructions Indication:Acne Start:24-Aug-2014 Instruction Type:Provider Instructions for Treatment Patient Instructions Indication:Acne Start:04-Jun-2013 Instruction Type:Provider Instructions for Treatment [facility]; [facility] Work Phone: Instructions* Name Dates Details Patient Instructions Indication:Nonsmoker Start:11-Feb-2023 Instruction Type:Provider Instructions for Treatment How to Access Health Informa tion Online using Patient Portal and [employer] Apps Indication:Nonsmoker Start:11-Feb-2023 Instruction Type:Patient Education Patient Instructions Indication:GERD (gastroesophageal reflux disease) Start:02-Oct-2022 Instruction Type:Provider Instructions for Treatment How to Access Health Informa tion Online using Patient Portal and [employer] Apps Indication:GERD (gastroesophageal reflux disease) Start:02-Oct-2022 Instruction Type:Patient Education Patient Instructions Indication:[facility] Start:20-Jun-2022 Instruction Type:Provider Instructions for Treatment How to Access Health Informa tion Online using Patient Portal and [employer] Apps Indication:[facility] EX[facility] Start:20-Jun-2022 Instruction Type:Patient Education Patient Instructions Indication:Osteopenia Start:25-Mar-2022 Instruction Type:Provider Instructions for Treatment Patient Instructions Indication:Sinusitis Start:24-Jan-2022 Instruction Type:Provider Instructions for Treatment How to Access Health Informa tion Online using Patient Portal and [employer] Apps Indication:Nonsmoker Start:04-Aug-2021 Instruction Type:Patient Education Patient Instructions Indication:Nonsmoker Start:04-Aug-2021 Instruction Type:Provider Instructions for Treatment How to Access Health Informa tion Online using Patient Portal and [employer] Apps Indication:Nonsmoker Start:31-Mar-2021 Instruction Type:Patient Education Patient Instructions Indication:Nonsmoker Start:31-Mar-2021 Instruction Type:Provider Instructions for Treatment Patient Instructions Indication:Nonsmoker Start:12-Dec-2020 Instruction Type:Provider Instructions for Treatment How to Access Health Informa tion Online using Patient Portal and [employer] Apps Indication:Nonsmoker Start:12-Dec-2020 Instruction Type:Patient Education Patient Instructions Indication:Coronavirus infection Start:09-Oct-2020 Instruction Type:Provider Instructions for Treatment How to access health informa tion online Indication:Cough Start:05-Oct-2020 Instruction Type:Patient Education How to access health informa tion online - Detail Indication:Cough Start:05-Oct-2020 Instruction Type:Patient Education Patient Instructions Indication:Cough Start:05-Oct-2020 Instruction Type:Provider Instructions for Treatment How to access health informa tion online Indication:Fatigue Start:06-Jun-2020 Instruction Type:Patient Education How to access health informa tion online - Detail Indication:Fatigue Start:06-Jun-2020 Instruction Type:Patient Education Patient Instructions Indication:Fatigue Start:06-Jun-2020 Instruction Type:Provider Instructions for Treatment How to access health informa tion online Indication:Anxiety and depression Start:05-Jan-2020 Instruction Type:Patient Education How to access health informa tion online - Detail Indication:Anxiety and depression Start:05-Jan-2020 Instruction Type:Patient Education Patient Instructions Indication:Anxiety and depression Start:05-Jan-2020 Instruction Type:Provider Instructions for Treatment How to access health informa tion online Indication:Hyperlipidemia Start:02-Dec-2019 Instruction Type:Patient Education How to access health informa tion online - Detail Indication:Hyperlipidemia Start:02-Dec-2019 Instruction Type:Patient Education Patient Instructions Indication:Hyperlipidemia Start:02-Dec-2019 Instruction Type:Provider Instructions for Treatment How to access health informa tion online Indication:Nonsmoker Start:24-Jul-2019 Instruction Type:Patient Education How to access health informa tion online - Detail Indication:Nonsmoker Start:24-Jul-2019 Instruction Type:Patient Education Patient Instructions Indication:Nonsmoker Start:24-Jul-2019 Instruction Type:Provider Instructions for Treatment How to access health informa tion online Indication:BMI 27.0-27.9,adult Start:11-May-2019 Instruction Type:Patient Education How to access health informa tion online - Detail Indication:BMI 27.0-27.9,adult Start:11-May-2019 Instruction Type:Patient Education Patient Instructions Indication:BMI 27.0-27.9,adult Start:11-May-2019 Instruction Type:Provider Instructions for Treatment How to access health informa tion online Indication:Nonsmoker Start:03-Mar-2019 Instruction Type:Patient Education How to access health informa tion online - Detail Indication:Nonsmoker Start:03-Mar-2019 Instruction Type:Patient Education Patient Instructions Indication:Nonsmoker Start:03-Mar-2019 Instruction Type:Provider Instructions for Treatment How to access health informa tion online Indication:[facility] Start:30-Sep-2018 Instruction Type:Patient Education How to access health informa tion online - Detail Indication:[facility] Start:30-Sep-2018 Instruction Type:Patient Education Patient Instructions Indication:[facility] Start:30-Sep-2018 Instruction Type:Provider Instructions for Treatment How to access health informa tion online Indication:BMI 27.0-27.9,adult Start:29-Aug-2018 Instruction Type:Patient Education How to access health informa tion online - Detail Indication:BMI 27.0-27.9,adult Start:29-Aug-2018 Instruction Type:Patient Education Patient Instructions Indication:BMI 27.0-27.9,adult Start:29-Aug-2018 Instruction Type:Provider Instructions for Treatment How to access health informa tion online Indication:Overweight (BMI 25.0-29.9) Start:01-Sep-2014 Instruction Type:Patient Education How to access health informa tion online - Detail Indication:Overweight (BMI 25.0-29.9) Start:01-Sep-2014 Instruction Type:Patient Education Patient Instructions Indication:Overweight (BMI 25.0-29.9) Start:01-Sep-2014 Instruction Type:Provider Instructions for Treatment How to access health informa tion online Indication:Acne Start:24-Aug-2014 Instruction Type:Patient Education How to access health informa tion online - Detail Indication:Acne Start:24-Aug-2014 Instruction Type:Patient Education Patient Instructions Indication:Acne Start:24-Aug-2014 Instruction Type:Provider Instructions for Treatment Patient Instructions Indication:Acne Start:04-Jun-2013 Instruction Type:Provider Instructions for Treatment [facility]; [facility] Work Phone: Instructions* Name Dates Details Patient Instructions Indication:Nonsmoker Start:11-Feb-2023 Instruction Type:Provider Instructions for Treatment How to Access Health Informa tion Online using Patient Portal and [employer] Indication:Nonsmoker Start:11-Feb-2023 Instruction Type:Patient Education Patient Instructions Indication:GERD (gastroesophageal reflux disease) Start:02-Oct-2022 Instruction Type:Provider Instructions for Treatment How to Access Health Informa tion Online using Patient Portal and [employer] Indication:GERD (gastroesophageal reflux disease) Start:02-Oct-2022 Instruction Type:Patient Education Patient Instructions Indication:[facility] Start:20-Jun-2022 Instruction Type:Provider Instructions for Treatment How to Access Health Informa tion Online using Patient Portal and [employer] Indication:[facility] EX[facility] Start:20-Jun-2022 Instruction Type:Patient Education Patient Instructions Indication:Osteopenia Start:25-Mar-2022 Instruction Type:Provider Instructions for Treatment Patient Instructions Indication:Sinusitis Start:24-Jan-2022 Instruction Type:Provider Instructions for Treatment How to Access Health Informa tion Online using Patient Portal and [employer] Apps Indication:Nonsmoker Start:04-Aug-2021 Instruction Type:Patient Education Patient Instructions Indication:Nonsmoker Start:04-Aug-2021 Instruction Type:Provider Instructions for Treatment How to Access Health Informa tion Online using Patient Portal and 3rd [employer] Apps Indication:Nonsmoker Start:31-Mar-2021 Instruction Type:Patient Education Patient Instructions Indication:Nonsmoker Start:31-Mar-2021 Instruction Type:Provider Instructions for Treatment Patient Instructions Indication:Nonsmoker Start:12-Dec-2020 Instruction Type:Provider Instructions for Treatment How to Access Health Informa tion Online using Patient Portal and [employer]rd [employer] Apps Indication:Nonsmoker Start:12-Dec-2020 Instruction Type:Patient Education Patient Instructions Indication:Coronavirus infection Start:09-Oct-2020 Instruction Type:Provider Instructions for Treatment How to access health informa tion online Indication:Cough Start:05-Oct-2020 Instruction Type:Patient Education How to access health informa tion online - Detail Indication:Cough Start:05-Oct-2020 Instruction Type:Patient Education Patient Instructions Indication:Cough Start:05-Oct-2020 Instruction Type:Provider Instructions for Treatment How to access health informa tion online Indication:Fatigue Start:06-Jun-2020 Instruction Type:Patient Education How to access health informa tion online - Detail Indication:Fatigue Start:06-Jun-2020 Instruction Type:Patient Education Patient Instructions Indication:Fatigue Start:06-Jun-2020 Instruction Type:Provider Instructions for Treatment How to access health informa tion online Indication:Anxiety and depression Start:05-Jan-2020 Instruction Type:Patient Education How to access health informa tion online - Detail Indication:Anxiety and depression Start:05-Jan-2020 Instruction Type:Patient Education Patient Instructions Indication:Anxiety and depression Start:05-Jan-2020 Instruction Type:Provider Instructions for Treatment How to access health informa tion online Indication:Hyperlipidemia Start:02-Dec-2019 Instruction Type:Patient Education How to access health informa tion online - Detail Indication:Hyperlipidemia Start:02-Dec-2019 Instruction Type:Patient Education Patient Instructions Indication:Hyperlipidemia Start:02-Dec-2019 Instruction Type:Provider Instructions for Treatment How to access health informa tion online Indication:Nonsmoker Start:24-Jul-2019 Instruction Type:Patient Education How to access health informa tion online - Detail Indication:Nonsmoker Start:24-Jul-2019 Instruction Type:Patient Education Patient Instructions Indication:Nonsmoker Start:24-Jul-2019 Instruction Type:Provider Instructions for Treatment How to access health informa tion online Indication:BMI 27.0-27.9,adult Start:11-May-2019 Instruction Type:Patient Education How to access health informa tion online - Detail Indication:BMI 27.0-27.9,adult Start:11-May-2019 Instruction Type:Patient Education Patient Instructions Indication:BMI 27.0-27.9,adult Start:11-May-2019 Instruction Type:Provider Instructions for Treatment How to access health informa tion online Indication:Nonsmoker Start:03-Mar-2019 Instruction Type:Patient Education How to access health informa tion online - Detail Indication:Nonsmoker Start:03-Mar-2019 Instruction Type:Patient Education Patient Instructions Indication:Nonsmoker Start:03-Mar-2019 Instruction Type:Provider Instructions for Treatment How to access health informa tion online Indication:[facility] EX[facility] Start:30-Sep-2018 Instruction Type:Patient Education How to access health informa tion online - Detail Indication:[facility] Start:30-Sep-2018 Instruction Type:Patient Education Patient Instructions Indication:[facility] Start:30-Sep-2018 Instruction Type:Provider Instructions for Treatment How to access health informa tion online Indication:BMI 27.0-27.9,adult Start:29-Aug-2018 Instruction Type:Patient Education How to access health informa tion online - Detail Indication:BMI 27.0-27.9,adult Start:29-Aug-2018 Instruction Type:Patient Education Patient Instructions Indication:BMI 27.0-27.9,adult Start:29-Aug-2018 Instruction Type:Provider Instructions for Treatment How to access health informa tion online Indication:Overweight (BMI 25.0-29.9) Start:01-Sep-2014 Instruction Type:Patient Education How to access health informa tion online - Detail Indication:Overweight (BMI 25.0-29.9) Start:01-Sep-2014 Instruction Type:Patient Education Patient Instructions Indication:Overweight (BMI 25.0-29.9) Start:01-Sep-2014 Instruction Type:Provider Instructions for Treatment How to access health informa tion online Indication:Acne Start:24-Aug-2014 Instruction Type:Patient Education How to access health informa tion online - Detail Indication:Acne Start:24-Aug-2014 Instruction Type:Patient Education Patient Instructions Indication:Acne Start:24-Aug-2014 Instruction Type:Provider Instructions for Treatment Patient Instructions Indication:Acne Start:04-Jun-2013 Instruction Type:Provider Instructions for Treatment [facility] Work Phone: Instructions* Name Dates Details How to Access Health Informa tion Online using Patient Portal and [employer]rd [employer] Apps Indication:[facility] Start:10-Jun-2023 Instruction Type:Patient Education Patient Instructions Indication:[facility] Start:10-Jun-2023 Instruction Type:Provider Instructions for Treatment Patient Instructions Indication:Nonsmoker Start:11-Feb-2023 Instruction Type:Provider Instructions for Treatment How to Access Health Informa tion Online using Patient Portal and [employer]rd [employer] Apps Indication:Nonsmoker Start:11-Feb-2023 Instruction Type:Patient Education Patient Instructions Indication:GERD (gastroesophageal reflux disease) Start:02-Oct-2022 Instruction Type:Provider Instructions for Treatment How to Access Health Informa tion Online using Patient Portal and [employer]rd [employer] Apps Indication:GERD (gastroesophageal reflux disease) Start:02-Oct-2022 Instruction Type:Patient Education Patient Instructions Indication:[facility] Start:20-Jun-2022 Instruction Type:Provider Instructions for Treatment How to Access Health Informa tion Online using Patient Portal and [employer]rd [employer] Apps Indication:[facility] Start:20-Jun-2022 Instruction Type:Patient Education Patient Instructions Indication:Osteopenia Start:25-Mar-2022 Instruction Type:Provider Instructions for Treatment Patient Instructions Indication:Sinusitis Start:24-Jan-2022 Instruction Type:Provider Instructions for Treatment How to Access Health Informa tion Online using Patient Portal and [employer]rd [employer] Apps Indication:Nonsmoker Start:04-Aug-2021 Instruction Type:Patient Education Patient Instructions Indication:Nonsmoker Start:04-Aug-2021 Instruction Type:Provider Instructions for Treatment How to Access Health Informa tion Online using Patient Portal and [employer]rd [employer] Apps Indication:Nonsmoker Start:31-Mar-2021 Instruction Type:Patient Education Patient Instructions Indication:Nonsmoker Start:31-Mar-2021 Instruction Type:Provider Instructions for Treatment Patient Instructions Indication:Nonsmoker Start:12-Dec-2020 Instruction Type:Provider Instructions for Treatment How to Access Health Informa tion Online using Patient Portal and [employer]rd [employer] Apps Indication:Nonsmoker Start:12-Dec-2020 Instruction Type:Patient Education Patient Instructions Indication:Coronavirus infection Start:09-Oct-2020 Instruction Type:Provider Instructions for Treatment How to access health informa tion online Indication:Cough Start:05-Oct-2020 Instruction Type:Patient Education How to access health informa tion online - Detail Indication:Cough Start:05-Oct-2020 Instruction Type:Patient Education Patient Instructions Indication:Cough Start:05-Oct-2020 Instruction Type:Provider Instructions for Treatment How to access health informa tion online Indication:Fatigue Start:06-Jun-2020 Instruction Type:Patient Education How to access health informa tion online - Detail Indication:Fatigue Start:06-Jun-2020 Instruction Type:Patient Education Patient Instructions Indication:Fatigue Start:06-Jun-2020 Instruction Type:Provider Instructions for Treatment How to access health informa tion online Indication:Anxiety and depression Start:05-Jan-2020 Instruction Type:Patient Education How to access health informa tion online - Detail Indication:Anxiety and depression Start:05-Jan-2020 Instruction Type:Patient Education Patient Instructions Indication:Anxiety and depression Start:05-Jan-2020 Instruction Type:Provider Instructions for Treatment How to access health informa tion online Indication:Hyperlipidemia Start:02-Dec-2019 Instruction Type:Patient Education How to access health informa tion online - Detail Indication:Hyperlipidemia Start:02-Dec-2019 Instruction Type:Patient Education Patient Instructions Indication:Hyperlipidemia Start:02-Dec-2019 Instruction Type:Provider Instructions for Treatment How to access health informa tion online Indication:Nonsmoker Start:24-Jul-2019 Instruction Type:Patient Education How to access health informa tion online - Detail Indication:Nonsmoker Start:24-Jul-2019 Instruction Type:Patient Education Patient Instructions Indication:Nonsmoker Start:24-Jul-2019 Instruction Type:Provider Instructions for Treatment How to access health informa tion online Indication:BMI 27.0-27.9,adult Start:11-May-2019 Instruction Type:Patient Education How to access health informa tion online - Detail Indication:BMI 27.0-27.9,adult Start:11-May-2019 Instruction Type:Patient Education Patient Instructions Indication:BMI 27.0-27.9,adult Start:11-May-2019 Instruction Type:Provider Instructions for Treatment How to access health informa tion online Indication:Nonsmoker Start:03-Mar-2019 Instruction Type:Patient Education How to access health informa tion online - Detail Indication:Nonsmoker Start:03-Mar-2019 Instruction Type:Patient Education Patient Instructions Indication:Nonsmoker Start:03-Mar-2019 Instruction Type:Provider Instructions for Treatment How to access health informa tion online Indication:[facility] Start:30-Sep-2018 Instruction Type:Patient Education How to access health informa tion online - Detail Indication:[facility] Start:30-Sep-2018 Instruction Type:Patient Education Patient Instructions Indication:[facility] Start:30-Sep-2018 Instruction Type:Provider Instructions for Treatment How to access health informa tion online Indication:BMI 27.0-27.9,adult Start:29-Aug-2018 Instruction Type:Patient Education How to access health informa tion online - Detail Indication:BMI 27.0-27.9,adult Start:29-Aug-2018 Instruction Type:Patient Education Patient Instructions Indication:BMI 27.0-27.9,adult Start:29-Aug-2018 Instruction Type:Provider Instructions for Treatment How to access health informa tion online Indication:Overweight (BMI 25.0-29.9) Start:01-Sep-2014 Instruction Type:Patient Education How to access health informa tion online - Detail Indication:Overweight (BMI 25.0-29.9) Start:01-Sep-2014 Instruction Type:Patient Education Patient Instructions Indication:Overweight (BMI 25.0-29.9) Start:01-Sep-2014 Instruction Type:Provider Instructions for Treatment How to access health informa tion online Indication:Acne Start:24-Aug-2014 Instruction Type:Patient Education How to access health informa tion online - Detail Indication:Acne Start:24-Aug-2014 Instruction Type:Patient Education Patient Instructions Indication:Acne Start:24-Aug-2014 Instruction Type:Provider Instructions for Treatment Patient Instructions Indication:Acne Start:04-Jun-2013 Instruction Type:Provider Instructions for Treatment [facility] Work Phone: progress note No data available for this section [facility] Reason for referral (narrative)No reason for referral information availableWSamaritan [facility] Work Phone: Family History No Family History Records FoundUnknown Family Member Name Dates Details Father Comments:Type I diabetes, de ceased age 60- had kidney transplant( diabetes) but of chf Status:Active Maternal Grandfather Comments:prostate cancer, de ceased Status:Active Mother Comments:healthy Status:Active paternal aunt with breast ca ncer Status:Active Paternal Grandfather Comments:prostate cancer dec eased Status:Active Sister 1 Comments:living and healthy Status:Active Unknown Family Member Name Dates Details Father Comments:Type I diabetes, de ceased age 60- had kidney transplant( diabetes) but of chf Status:Active Maternal Grandfather Comments:prostate cancer, de ceased Status:Active Mother Comments:healthy Status:Active paternal aunt with breast ca ncer Status:Active Paternal Grandfather Comments:prostate cancer dec eased Status:Active Sister 1 Comments:living and healthy Status:Active Unknown Family Member Name Dates Details Father Comments:Type I diabetes, de ceased age 60- had kidney transplant( diabetes) but of chf Status:Active Maternal Grandfather Comments:prostate cancer, de ceased Status:Active Mother Comments:healthy Status:Active paternal aunt with breast ca ncer Status:Active Paternal Grandfather Comments:prostate cancer dec eased Status:Active Sister 1 Comments:living and healthy Status:Active Unknown Family Member Name Dates Details Father Comments:Type I diabetes, de ceased age 60- had kidney transplant( diabetes) but of chf Status:Active Maternal Grandfather Comments:prostate cancer, de ceased Status:Active Mother Comments:healthy Status:Active paternal aunt with breast ca ncer Status:Active Paternal Grandfather Comments:prostate cancer dec eased Status:Active Sister 1 Comments:living and healthy Status:Active Unknown Family Member Name Dates Details Father Comments:Type I diabetes, de ceased age 60- had kidney transplant( diabetes) but of chf Status:Active Maternal Grandfather Comments:prostate cancer, de ceased Status:Active Mother Comments:healthy Status:Active paternal aunt with breast ca ncer Status:Active Paternal Grandfather Comments:prostate cancer dec eased Status:Active Sister 1 Comments:living and healthy Status:Active Unknown Family Member Name Dates Details Father Comments:Type I diabetes, de ceased age 60- had kidney transplant( diabetes) but of chf Status:Active Maternal Grandfather Comments:prostate cancer, de ceased Status:Active Mother Comments:healthy Status:Active paternal aunt with breast ca ncer Status:Active Paternal Grandfather Comments:prostate cancer dec eased Status:Active Sister 1 Comments:living and healthy Status:Active Unknown Family Member Name Dates Details Father Comments:Type I diabetes, de ceased age 60- had kidney transplant( diabetes) but of chf Status:Active Maternal Grandfather Comments:prostate cancer, de ceased Status:Active Mother Comments:healthy Status:Active paternal aunt with breast ca ncer Status:Active Paternal Grandfather Comments:prostate cancer dec eased Status:Active Sister 1 Comments:living and healthy Status:Active Unknown Family Member Name Dates Details Father Comments:Type I diabetes, de ceased age 60- had kidney transplant( diabetes) but of chf Status:Active Maternal Grandfather Comments:prostate cancer, de ceased Status:Active Mother Comments:healthy Status:Active paternal aunt with breast ca ncer Status:Active Paternal Grandfather Comments:prostate cancer dec eased Status:Active Sister 1 Comments:living and healthy Status:Active Unknown Family Member Name Dates Details Father Comments:Type I diabetes, de ceased age 60- had kidney transplant( diabetes) but of chf Status:Active Maternal Grandfather Comments:prostate cancer, de ceased Status:Active Mother Comments:healthy Status:Active paternal aunt with breast ca ncer Status:Active Paternal Grandfather Comments:prostate cancer dec eased Status:Active Sister 1 Comments:living and healthy Status:Active Unknown Family Member Name Dates Details Father Comments:Type I diabetes, de ceased age 60- had kidney transplant( diabetes) but of chf Status:Active Maternal Grandfather Comments:prostate cancer, de ceased Status:Active Mother Comments:healthy Status:Active paternal aunt with breast ca ncer Status:Active Paternal Grandfather Comments:prostate cancer dec eased Status:Active Sister 1 Comments:living and healthy Status:Active Unknown Family Member Name Dates Details Father Comments:Type I diabetes, de ceased age 60- had kidney transplant( diabetes) but of chf Status:Active Maternal Grandfather Comments:prostate cancer, de ceased Status:Active Mother Comments:healthy Status:Active paternal aunt with breast ca ncer Status:Active Paternal Grandfather Comments:prostate cancer dec eased Status:Active Sister 1 Comments:living and healthy Status:Active Unknown Family Member Name Dates Details Father Comments:Type I diabetes, de ceased age 60- had kidney transplant( diabetes) but of chf Status:Active Maternal Grandfather Comments:prostate cancer, de ceased Status:Active Mother Comments:healthy Status:Active paternal aunt with breast ca ncer Status:Active Paternal Grandfather Comments:prostate cancer dec eased Status:Active Sister 1 Comments:living and healthy Status:Active Unknown Family Member Name Dates Details Father Comments:Type I diabetes, de ceased age 60- had kidney transplant( diabetes) but of chf Status:Active Maternal Grandfather Comments:prostate cancer, de ceased Status:Active Mother Comments:healthy Status:Active paternal aunt with breast ca ncer Status:Active Paternal Grandfather Comments:prostate cancer dec eased Status:Active Sister 1 Comments:living and healthy Status:Active Unknown Family Member Name Dates Details Father Comments:Type I diabetes, de ceased age 60- had kidney transplant( diabetes) but of chf Status:Active Maternal Grandfather Comments:prostate cancer, de ceased Status:Active Mother Comments:healthy Status:Active paternal aunt with breast ca ncer Status:Active Paternal Grandfather Comments:prostate cancer dec eased Status:Active Sister 1 Comments:living and healthy Status:Active Unknown Family Member Name Dates Details Father Comments:Type I diabetes, de ceased age 60- had kidney transplant( diabetes) but of chf Status:Active Maternal Grandfather Comments:prostate cancer, de ceased Status:Active Mother Comments:healthy Status:Active paternal aunt with breast ca ncer Status:Active Paternal Grandfather Comments:prostate cancer dec eased Status:Active Sister 1 Comments:living and healthy Status:Active Unknown Family Member Name Dates Details Father Comments:Type I diabetes, de ceased age 60- had kidney transplant( diabetes) but of chf Status:Active Maternal Grandfather Comments:prostate cancer, de ceased Status:Active Mother Comments:healthy Status:Active paternal aunt with breast ca ncer Status:Active Paternal Grandfather Comments:prostate cancer dec eased Status:Active Sister 1 Comments:living and healthy Status:Active Unknown Family Member Name Dates Details Father Comments:Type I diabetes, de ceased age 60- had kidney transplant( diabetes) but of chf Status:Active Maternal Grandfather Comments:prostate cancer, de ceased Status:Active Mother Comments:healthy Status:Active paternal aunt with breast ca ncer Status:Active Paternal Grandfather Comments:prostate cancer dec eased Status:Active Sister 1 Comments:living and healthy Status:Active Unknown Family Member Name Dates Details Father Comments:Type I diabetes, de ceased age 60- had kidney transplant( diabetes) but of chf Status:Active Maternal Grandfather Comments:prostate cancer, de ceased Status:Active Mother Comments:healthy Status:Active paternal aunt with breast ca ncer Status:Active Paternal Grandfather Comments:prostate cancer dec eased Status:Active Sister 1 Comments:living and healthy Status:Active Unknown Family Member Name Dates Details Father Comments:Type I diabetes, de ceased age 60- had kidney transplant( diabetes) but of chf Status:Active Maternal Grandfather Comments:prostate cancer, de ceased Status:Active Mother Comments:healthy Status:Active paternal aunt with breast ca ncer Status:Active Paternal Grandfather Comments:prostate cancer dec eased Status:Active Sister 1 Comments:living and healthy Status:Active Unknown Family Member Name Dates Details Father Comments:Type I diabetes, de ceased age 60- had kidney transplant( diabetes) but of chf Status:Active Maternal Grandfather Comments:prostate cancer, de ceased Status:Active Mother Comments:healthy Status:Active paternal aunt with breast ca ncer Status:Active Paternal Grandfather Comments:prostate cancer dec eased Status:Active Sister 1 Comments:living and healthy Status:Active Unknown Family Member Name Dates Details Father Comments:Type I diabetes, de ceased age 60- had kidney transplant( diabetes) but of chf Status:Active Maternal Grandfather Comments:prostate cancer, de ceased Status:Active Mother Comments:healthy Status:Active paternal aunt with breast ca ncer Status:Active Paternal Grandfather Comments:prostate cancer dec eased Status:Active Sister 1 Comments:living and healthy Status:Active Unknown Family Member Name Dates Details Father Comments:Type I diabetes, de ceased age 60- had kidney transplant( diabetes) but of chf Status:Active Maternal Grandfather Comments:prostate cancer, de ceased Status:Active Mother Comments:healthy Status:Active paternal aunt with breast ca ncer Status:Active Paternal Grandfather Comments:prostate cancer dec eased Status:Active Sister 1 Comments:living and healthy Status:Active Unknown Family Member Name Dates Details Father Comments:Type I diabetes, de ceased age 60- had kidney transplant( diabetes) but of chf Status:Active Maternal Grandfather Comments:prostate cancer, de ceased Status:Active Mother Comments:healthy Status:Active paternal aunt with breast ca ncer Status:Active Paternal Grandfather Comments:prostate cancer dec eased Status:Active Sister 1 Comments:living and healthy Status:Active Unknown Family Member Name Dates Details Father Comments:Type I diabetes, de ceased age 60- had kidney transplant( diabetes) but of chf Status:Active Maternal Grandfather Comments:prostate cancer, de ceased Status:Active Mother Comments:healthy Status:Active paternal aunt with breast ca ncer Status:Active Paternal Grandfather Comments:prostate cancer dec eased Status:Active Sister 1 Comments:living and healthy Status:Active Unknown Family Member Name Dates Details Father Comments:Type I diabetes, de ceased age 60- had kidney transplant( diabetes) but of chf Status:Active Maternal Grandfather Comments:prostate cancer, de ceased Status:Active Mother Comments:healthy Status:Active paternal aunt with breast ca ncer Status:Active Paternal Grandfather Comments:prostate cancer dec eased Status:Active Sister 1 Comments:living and healthy Status:Active Unknown Family Member Name Dates Details Father Comments:Type I diabetes, de ceased age 60- had kidney transplant( diabetes) but of chf Status:Active Maternal Grandfather Comments:prostate cancer, de ceased Status:Active Mother Comments:healthy Status:Active paternal aunt with breast ca ncer Status:Active Paternal Grandfather Comments:prostate cancer dec eased Status:Active Sister 1 Comments:living and healthy Status:Active Unknown Family Member Name Dates Details Father Comments:Type I diabetes, de ceased age 60- had kidney transplant( diabetes) but of chf Status:Active Maternal Grandfather Comments:prostate cancer, de ceased Status:Active Mother Comments:healthy Status:Active paternal aunt with breast ca ncer Status:Active Paternal Grandfather Comments:prostate cancer dec eased Status:Active Sister 1 Comments:living and healthy Status:Active Unknown Family Member Name Dates Details Father Comments:Type I diabetes, de ceased age 60- had kidney transplant( diabetes) but of chf Status:Active Maternal Grandfather Comments:prostate cancer, de ceased Status:Active Mother Comments:healthy Status:Active paternal aunt with breast ca ncer Status:Active Paternal Grandfather Comments:prostate cancer dec eased Status:Active Sister 1 Comments:living and healthy Status:Active Unknown Family Member Name Dates Details Father Comments:Type I diabetes, de ceased age 60- had kidney transplant( diabetes) but of chf Status:Active Maternal Grandfather Comments:prostate cancer, de ceased Status:Active Mother Comments:healthy Status:Active paternal aunt with breast ca ncer Status:Active Paternal Grandfather Comments:prostate cancer dec eased Status:Active Sister 1 Comments:living and healthy Status:Active Relationship Condition Age at Onset Recorded Date/T florentino father Diabetes mellitus Unknown History of kidney transplant Unknown Congestive heart failure Unknown Unknown Family Member Name Dates Details Father Comments:Type I diabetes, de ceased age 60- had kidney transplant( diabetes) but of chf Status:Active Maternal Grandfather Comments:prostate cancer, de ceased Status:Active Mother Comments:healthy Status:Active paternal aunt with breast ca ncer Status:Active Paternal Grandfather Comments:prostate cancer dec eased Status:Active Sister 1 Comments:living and healthy Status:Active Unknown Family Member Name Dates Details Father Comments:Type I diabetes, de ceased age 60- had kidney transplant( diabetes) but of chf Status:Active Maternal Grandfather Comments:prostate cancer, de ceased Status:Active Mother Comments:healthy Status:Active paternal aunt with breast ca ncer Status:Active Paternal Grandfather Comments:prostate cancer dec eased Status:Active Sister 1 Comments:living and healthy Status:Active Unknown Family Member Name Dates Details Father Comments:Type I diabetes, de ceased age 60- had kidney transplant( diabetes) but of chf Status:Active Maternal Grandfather Comments:prostate cancer, de ceased Status:Active Mother Comments:healthy Status:Active paternal aunt with breast ca ncer Status:Active Paternal Grandfather Comments:prostate cancer dec eased Status:Active Sister 1 Comments:living and healthy Status:Active Unknown Family Member Name Dates Details Father Comments:Type I diabetes, de ceased age 60- had kidney transplant( diabetes) but of chf Status:Active Maternal Grandfather Comments:prostate cancer, de ceased Status:Active Mother Comments:healthy Status:Active paternal aunt with breast ca ncer Status:Active Paternal Grandfather Comments:prostate cancer dec eased Status:Active Sister 1 Comments:living and healthy Status:Active Unknown Family Member Name Dates Details Father Comments:Type I diabetes, de ceased age 60- had kidney transplant( diabetes) but of chf Status:Active Maternal Grandfather Comments:prostate cancer, de ceased Status:Active Mother Comments:healthy Status:Active paternal aunt with breast ca ncer Status:Active Paternal Grandfather Comments:prostate cancer dec eased Status:Active Sister 1 Comments:living and healthy Status:Active Instructions Name Dates Details [facility] : How to access health information online Indication:[facility] : How to access health information online - Detail Indication:[facility] : Patien t Instructions Indication:[facility] BMI 27.0-27.9,adult : How to access health information online Indication:BMI 27.0-27.9,adult BMI 27.0-27.9,adult : How to access health information online - Detail Indication:BMI 27.0-27.9,adult BMI 27.0-27.9,adult : Patien t Instructions Indication:BMI 27.0-27.9,adult Overweight (BMI 25.0-29.9) : How to access health information online Indication:Overweight (BMI 25.0-29.9) Overweight (BMI 25.0-29.9) : How to access health information online - Detail Indication:Overweight (BMI 25.0-29.9) Overweight (BMI 25.0-29.9) : Patient Instructions Indication:Overweight (BMI 25.0-29.9) Acne : How to access health information online Indication:Acne Acne : How to access health information online - Detail Indication:Acne Acne : Patient Instructions Indication:Acne Name Dates Details How to access health informa tion online Indication:BMI 27.0-27.9,adult Start:11-May-2019 Instruction Type:Patient Education How to access health informa tion online - Detail Indication:BMI 27.0-27.9,adult Start:11-May-2019 Instruction Type:Patient Education Patient Instructions Indication:BMI 27.0-27.9,adult Start:11-May-2019 Instruction Type:Provider Instructions for Treatment How to access health informa tion online Indication:Nonsmoker Start:03-Mar-2019 Instruction Type:Patient Education How to access health informa tion online - Detail Indication:Nonsmoker Start:03-Mar-2019 Instruction Type:Patient Education Patient Instructions Indication:Nonsmoker Start:03-Mar-2019 Instruction Type:Provider Instructions for Treatment How to access health informa tion online Indication:[facility] Start:30-Sep-2018 Instruction Type:Patient Education How to access health informa tion online - Detail Indication:[facility] Start:30-Sep-2018 Instruction Type:Patient Education Patient Instructions Indication:[facility] Start:30-Sep-2018 Instruction Type:Provider Instructions for Treatment How to access health informa tion online Indication:BMI 27.0-27.9,adult Start:29-Aug-2018 Instruction Type:Patient Education How to access health informa tion online - Detail Indication:BMI 27.0-27.9,adult Start:29-Aug-2018 Instruction Type:Patient Education Patient Instructions Indication:BMI 27.0-27.9,adult Start:29-Aug-2018 Instruction Type:Provider Instructions for Treatment How to access health informa tion online Indication:Overweight (BMI 25.0-29.9) Start:01-Sep-2014 Instruction Type:Patient Education How to access health informa tion online - Detail Indication:Overweight (BMI 25.0-29.9) Start:01-Sep-2014 Instruction Type:Patient Education Patient Instructions Indication:Overweight (BMI 25.0-29.9) Start:01-Sep-2014 Instruction Type:Provider Instructions for Treatment How to access health informa tion online Indication:Acne Start:24-Aug-2014 Instruction Type:Patient Education How to access health informa tion online - Detail Indication:Acne Start:24-Aug-2014 Instruction Type:Patient Education Patient Instructions Indication:Acne Start:24-Aug-2014 Instruction Type:Provider Instructions for Treatment Patient Instructions Indication:Acne Start:04-Jun-2013 Instruction Type:Provider Instructions for Treatment Name Dates Details How to access health informa tion online Indication:Nonsmoker Start:24-Jul-2019 Instruction Type:Patient Education How to access health informa tion online - Detail Indication:Nonsmoker Start:24-Jul-2019 Instruction Type:Patient Education Patient Instructions Indication:Nonsmoker Start:24-Jul-2019 Instruction Type:Provider Instructions for Treatment How to access health informa tion online Indication:BMI 27.0-27.9,adult Start:11-May-2019 Instruction Type:Patient Education How to access health informa tion online - Detail Indication:BMI 27.0-27.9,adult Start:11-May-2019 Instruction Type:Patient Education Patient Instructions Indication:BMI 27.0-27.9,adult Start:11-May-2019 Instruction Type:Provider Instructions for Treatment How to access health informa tion online Indication:Nonsmoker Start:03-Mar-2019 Instruction Type:Patient Education How to access health informa tion online - Detail Indication:Nonsmoker Start:03-Mar-2019 Instruction Type:Patient Education Patient Instructions Indication:Nonsmoker Start:03-Mar-2019 Instruction Type:Provider Instructions for Treatment How to access health informa tion online Indication:[facility] Start:30-Sep-2018 Instruction Type:Patient Education How to access health informa tion online - Detail Indication:[facility] Start:30-Sep-2018 Instruction Type:Patient Education Patient Instructions Indication:[facility] Start:30-Sep-2018 Instruction Type:Provider Instructions for Treatment How to access health informa tion online Indication:BMI 27.0-27.9,adult Start:29-Aug-2018 Instruction Type:Patient Education How to access health informa tion online - Detail Indication:BMI 27.0-27.9,adult Start:29-Aug-2018 Instruction Type:Patient Education Patient Instructions Indication:BMI 27.0-27.9,adult Start:29-Aug-2018 Instruction Type:Provider Instructions for Treatment How to access health informa tion online Indication:Overweight (BMI 25.0-29.9) Start:01-Sep-2014 Instruction Type:Patient Education How to access health informa tion online - Detail Indication:Overweight (BMI 25.0-29.9) Start:01-Sep-2014 Instruction Type:Patient Education Patient Instructions Indication:Overweight (BMI 25.0-29.9) Start:01-Sep-2014 Instruction Type:Provider Instructions for Treatment How to access health informa tion online Indication:Acne Start:24-Aug-2014 Instruction Type:Patient Education How to access health informa tion online - Detail Indication:Acne Start:24-Aug-2014 Instruction Type:Patient Education Patient Instructions Indication:Acne Start:24-Aug-2014 Instruction Type:Provider Instructions for Treatment Patient Instructions Indication:Acne Start:04-Jun-2013 Instruction Type:Provider Instructions for Treatment Name Dates Details How to access health informa tion online Indication:Fatigue Start:06-Jun-2020 Instruction Type:Patient Education How to access health informa tion online - Detail Indication:Fatigue Start:06-Jun-2020 Instruction Type:Patient Education Patient Instructions Indication:Fatigue Start:06-Jun-2020 Instruction Type:Provider Instructions for Treatment How to access health informa tion online Indication:Anxiety and depression Start:05-Jan-2020 Instruction Type:Patient Education How to access health informa tion online - Detail Indication:Anxiety and depression Start:05-Jan-2020 Instruction Type:Patient Education Patient Instructions Indication:Anxiety and depression Start:05-Jan-2020 Instruction Type:Provider Instructions for Treatment How to access health informa tion online Indication:Hyperlipidemia Start:02-Dec-2019 Instruction Type:Patient Education How to access health informa tion online - Detail Indication:Hyperlipidemia Start:02-Dec-2019 Instruction Type:Patient Education Patient Instructions Indication:Hyperlipidemia Start:02-Dec-2019 Instruction Type:Provider Instructions for Treatment How to access health informa tion online Indication:Nonsmoker Start:24-Jul-2019 Instruction Type:Patient Education How to access health informa tion online - Detail Indication:Nonsmoker Start:24-Jul-2019 Instruction Type:Patient Education Patient Instructions Indication:Nonsmoker Start:24-Jul-2019 Instruction Type:Provider Instructions for Treatment How to access health informa tion online Indication:BMI 27.0-27.9,adult Start:11-May-2019 Instruction Type:Patient Education How to access health informa tion online - Detail Indication:BMI 27.0-27.9,adult Start:11-May-2019 Instruction Type:Patient Education Patient Instructions Indication:BMI 27.0-27.9,adult Start:11-May-2019 Instruction Type:Provider Instructions for Treatment How to access health informa tion online Indication:Nonsmoker Start:03-Mar-2019 Instruction Type:Patient Education How to access health informa tion online - Detail Indication:Nonsmoker Start:03-Mar-2019 Instruction Type:Patient Education Patient Instructions Indication:Nonsmoker Start:03-Mar-2019 Instruction Type:Provider Instructions for Treatment How to access health informa tion online Indication:[facility] Start:30-Sep-2018 Instruction Type:Patient Education How to access health informa tion online - Detail Indication:[facility] Start:30-Sep-2018 Instruction Type:Patient Education Patient Instructions Indication:[facility] Start:30-Sep-2018 Instruction Type:Provider Instructions for Treatment How to access health informa tion online Indication:BMI 27.0-27.9,adult Start:29-Aug-2018 Instruction Type:Patient Education How to access health informa tion online - Detail Indication:BMI 27.0-27.9,adult Start:29-Aug-2018 Instruction Type:Patient Education Patient Instructions Indication:BMI 27.0-27.9,adult Start:29-Aug-2018 Instruction Type:Provider Instructions for Treatment How to access health informa tion online Indication:Overweight (BMI 25.0-29.9) Start:01-Sep-2014 Instruction Type:Patient Education How to access health informa tion online - Detail Indication:Overweight (BMI 25.0-29.9) Start:01-Sep-2014 Instruction Type:Patient Education Patient Instructions Indication:Overweight (BMI 25.0-29.9) Start:01-Sep-2014 Instruction Type:Provider Instructions for Treatment How to access health informa tion online Indication:Acne Start:24-Aug-2014 Instruction Type:Patient Education How to access health informa tion online - Detail Indication:Acne Start:24-Aug-2014 Instruction Type:Patient Education Patient Instructions Indication:Acne Start:24-Aug-2014 Instruction Type:Provider Instructions for Treatment Patient Instructions Indication:Acne Start:04-Jun-2013 Instruction Type:Provider Instructions for Treatment Name Dates Details How to access health informa tion online Indication:Fatigue Start:06-Jun-2020 Instruction Type:Patient Education How to access health informa tion online - Detail Indication:Fatigue Start:06-Jun-2020 Instruction Type:Patient Education Patient Instructions Indication:Fatigue Start:06-Jun-2020 Instruction Type:Provider Instructions for Treatment How to access health informa tion online Indication:Anxiety and depression Start:05-Jan-2020 Instruction Type:Patient Education How to access health informa tion online - Detail Indication:Anxiety and depression Start:05-Jan-2020 Instruction Type:Patient Education Patient Instructions Indication:Anxiety and depression Start:05-Jan-2020 Instruction Type:Provider Instructions for Treatment How to access health informa tion online Indication:Hyperlipidemia Start:02-Dec-2019 Instruction Type:Patient Education How to access health informa tion online - Detail Indication:Hyperlipidemia Start:02-Dec-2019 Instruction Type:Patient Education Patient Instructions Indication:Hyperlipidemia Start:02-Dec-2019 Instruction Type:Provider Instructions for Treatment How to access health informa tion online Indication:Nonsmoker Start:24-Jul-2019 Instruction Type:Patient Education How to access health informa tion online - Detail Indication:Nonsmoker Start:24-Jul-2019 Instruction Type:Patient Education Patient Instructions Indication:Nonsmoker Start:24-Jul-2019 Instruction Type:Provider Instructions for Treatment How to access health informa tion online Indication:BMI 27.0-27.9,adult Start:11-May-2019 Instruction Type:Patient Education How to access health informa tion online - Detail Indication:BMI 27.0-27.9,adult Start:11-May-2019 Instruction Type:Patient Education Patient Instructions Indication:BMI 27.0-27.9,adult Start:11-May-2019 Instruction Type:Provider Instructions for Treatment How to access health informa tion online Indication:Nonsmoker Start:03-Mar-2019 Instruction Type:Patient Education How to access health informa tion online - Detail Indication:Nonsmoker Start:03-Mar-2019 Instruction Type:Patient Education Patient Instructions Indication:Nonsmoker Start:03-Mar-2019 Instruction Type:Provider Instructions for Treatment How to access health informa tion online Indication:[facility] Start:30-Sep-2018 Instruction Type:Patient Education How to access health informa tion online - Detail Indication:[facility] Start:30-Sep-2018 Instruction Type:Patient Education Patient Instructions Indication:[facility] Start:30-Sep-2018 Instruction Type:Provider Instructions for Treatment How to access health informa tion online Indication:BMI 27.0-27.9,adult Start:29-Aug-2018 Instruction Type:Patient Education How to access health informa tion online - Detail Indication:BMI 27.0-27.9,adult Start:29-Aug-2018 Instruction Type:Patient Education Patient Instructions Indication:BMI 27.0-27.9,adult Start:29-Aug-2018 Instruction Type:Provider Instructions for Treatment How to access health informa tion online Indication:Overweight (BMI 25.0-29.9) Start:01-Sep-2014 Instruction Type:Patient Education How to access health informa tion online - Detail Indication:Overweight (BMI 25.0-29.9) Start:01-Sep-2014 Instruction Type:Patient Education Patient Instructions Indication:Overweight (BMI 25.0-29.9) Start:01-Sep-2014 Instruction Type:Provider Instructions for Treatment How to access health informa tion online Indication:Acne Start:24-Aug-2014 Instruction Type:Patient Education How to access health informa tion online - Detail Indication:Acne Start:24-Aug-2014 Instruction Type:Patient Education Patient Instructions Indication:Acne Start:24-Aug-2014 Instruction Type:Provider Instructions for Treatment Patient Instructions Indication:Acne Start:04-Jun-2013 Instruction Type:Provider Instructions for Treatment Name Dates Details How to access health informa tion online Indication:Cough Start:05-Oct-2020 Instruction Type:Patient Education How to access health informa tion online - Detail Indication:Cough Start:05-Oct-2020 Instruction Type:Patient Education Patient Instructions Indication:Cough Start:05-Oct-2020 Instruction Type:Provider Instructions for Treatment How to access health informa tion online Indication:Fatigue Start:06-Jun-2020 Instruction Type:Patient Education How to access health informa tion online - Detail Indication:Fatigue Start:06-Jun-2020 Instruction Type:Patient Education Patient Instructions Indication:Fatigue Start:06-Jun-2020 Instruction Type:Provider Instructions for Treatment How to access health informa tion online Indication:Anxiety and depression Start:05-Jan-2020 Instruction Type:Patient Education How to access health informa tion online - Detail Indication:Anxiety and depression Start:05-Jan-2020 Instruction Type:Patient Education Patient Instructions Indication:Anxiety and depression Start:05-Jan-2020 Instruction Type:Provider Instructions for Treatment How to access health informa tion online Indication:Hyperlipidemia Start:02-Dec-2019 Instruction Type:Patient Education How to access health informa tion online - Detail Indication:Hyperlipidemia Start:02-Dec-2019 Instruction Type:Patient Education Patient Instructions Indication:Hyperlipidemia Start:02-Dec-2019 Instruction Type:Provider Instructions for Treatment How to access health informa tion online Indication:Nonsmoker Start:24-Jul-2019 Instruction Type:Patient Education How to access health informa tion online - Detail Indication:Nonsmoker Start:24-Jul-2019 Instruction Type:Patient Education Patient Instructions Indication:Nonsmoker Start:24-Jul-2019 Instruction Type:Provider Instructions for Treatment How to access health informa tion online Indication:BMI 27.0-27.9,adult Start:11-May-2019 Instruction Type:Patient Education How to access health informa tion online - Detail Indication:BMI 27.0-27.9,adult Start:11-May-2019 Instruction Type:Patient Education Patient Instructions Indication:BMI 27.0-27.9,adult Start:11-May-2019 Instruction Type:Provider Instructions for Treatment How to access health informa tion online Indication:Nonsmoker Start:03-Mar-2019 Instruction Type:Patient Education How to access health informa tion online - Detail Indication:Nonsmoker Start:03-Mar-2019 Instruction Type:Patient Education Patient Instructions Indication:Nonsmoker Start:03-Mar-2019 Instruction Type:Provider Instructions for Treatment How to access health informa tion online Indication:[facility] Start:30-Sep-2018 Instruction Type:Patient Education How to access health informa tion online - Detail Indication:[facility] Start:30-Sep-2018 Instruction Type:Patient Education Patient Instructions Indication:[facility] Start:30-Sep-2018 Instruction Type:Provider Instructions for Treatment How to access health informa tion online Indication:BMI 27.0-27.9,adult Start:29-Aug-2018 Instruction Type:Patient Education How to access health informa tion online - Detail Indication:BMI 27.0-27.9,adult Start:29-Aug-2018 Instruction Type:Patient Education Patient Instructions Indication:BMI 27.0-27.9,adult Start:29-Aug-2018 Instruction Type:Provider Instructions for Treatment How to access health informa tion online Indication:Overweight (BMI 25.0-29.9) Start:01-Sep-2014 Instruction Type:Patient Education How to access health informa tion online - Detail Indication:Overweight (BMI 25.0-29.9) Start:01-Sep-2014 Instruction Type:Patient Education Patient Instructions Indication:Overweight (BMI 25.0-29.9) Start:01-Sep-2014 Instruction Type:Provider Instructions for Treatment How to access health informa tion online Indication:Acne Start:24-Aug-2014 Instruction Type:Patient Education How to access health informa tion online - Detail Indication:Acne Start:24-Aug-2014 Instruction Type:Patient Education Patient Instructions Indication:Acne Start:24-Aug-2014 Instruction Type:Provider Instructions for Treatment Patient Instructions Indication:Acne Start:04-Jun-2013 Instruction Type:Provider Instructions for Treatment Name Dates Details Patient Instructions Indication:Coronavirus infection Start:09-Oct-2020 Instruction Type:Provider Instructions for Treatment How to access health informa tion online Indication:Cough Start:05-Oct-2020 Instruction Type:Patient Education How to access health informa tion online - Detail Indication:Cough Start:05-Oct-2020 Instruction Type:Patient Education Patient Instructions Indication:Cough Start:05-Oct-2020 Instruction Type:Provider Instructions for Treatment How to access health informa tion online Indication:Fatigue Start:06-Jun-2020 Instruction Type:Patient Education How to access health informa tion online - Detail Indication:Fatigue Start:06-Jun-2020 Instruction Type:Patient Education Patient Instructions Indication:Fatigue Start:06-Jun-2020 Instruction Type:Provider Instructions for Treatment How to access health informa tion online Indication:Anxiety and depression Start:05-Jan-2020 Instruction Type:Patient Education How to access health informa tion online - Detail Indication:Anxiety and depression Start:05-Jan-2020 Instruction Type:Patient Education Patient Instructions Indication:Anxiety and depression Start:05-Jan-2020 Instruction Type:Provider Instructions for Treatment How to access health informa tion online Indication:Hyperlipidemia Start:02-Dec-2019 Instruction Type:Patient Education How to access health informa tion online - Detail Indication:Hyperlipidemia Start:02-Dec-2019 Instruction Type:Patient Education Patient Instructions Indication:Hyperlipidemia Start:02-Dec-2019 Instruction Type:Provider Instructions for Treatment How to access health informa tion online Indication:Nonsmoker Start:24-Jul-2019 Instruction Type:Patient Education How to access health informa tion online - Detail Indication:Nonsmoker Start:24-Jul-2019 Instruction Type:Patient Education Patient Instructions Indication:Nonsmoker Start:24-Jul-2019 Instruction Type:Provider Instructions for Treatment How to access health informa tion online Indication:BMI 27.0-27.9,adult Start:11-May-2019 Instruction Type:Patient Education How to access health informa tion online - Detail Indication:BMI 27.0-27.9,adult Start:11-May-2019 Instruction Type:Patient Education Patient Instructions Indication:BMI 27.0-27.9,adult Start:11-May-2019 Instruction Type:Provider Instructions for Treatment How to access health informa tion online Indication:Nonsmoker Start:03-Mar-2019 Instruction Type:Patient Education How to access health informa tion online - Detail Indication:Nonsmoker Start:03-Mar-2019 Instruction Type:Patient Education Patient Instructions Indication:Nonsmoker Start:03-Mar-2019 Instruction Type:Provider Instructions for Treatment How to access health informa tion online Indication:[facility] Start:30-Sep-2018 Instruction Type:Patient Education How to access health informa tion online - Detail Indication:[facility] Start:30-Sep-2018 Instruction Type:Patient Education Patient Instructions Indication:[facility] Start:30-Sep-2018 Instruction Type:Provider Instructions for Treatment How to access health informa tion online Indication:BMI 27.0-27.9,adult Start:29-Aug-2018 Instruction Type:Patient Education How to access health informa tion online - Detail Indication:BMI 27.0-27.9,adult Start:29-Aug-2018 Instruction Type:Patient Education Patient Instructions Indication:BMI 27.0-27.9,adult Start:29-Aug-2018 Instruction Type:Provider Instructions for Treatment How to access health informa tion online Indication:Overweight (BMI 25.0-29.9) Start:01-Sep-2014 Instruction Type:Patient Education How to access health informa tion online - Detail Indication:Overweight (BMI 25.0-29.9) Start:01-Sep-2014 Instruction Type:Patient Education Patient Instructions Indication:Overweight (BMI 25.0-29.9) Start:01-Sep-2014 Instruction Type:Provider Instructions for Treatment How to access health informa tion online Indication:Acne Start:24-Aug-2014 Instruction Type:Patient Education How to access health informa tion online - Detail Indication:Acne Start:24-Aug-2014 Instruction Type:Patient Education Patient Instructions Indication:Acne Start:24-Aug-2014 Instruction Type:Provider Instructions for Treatment Patient Instructions Indication:Acne Start:04-Jun-2013 Instruction Type:Provider Instructions for Treatment Name Dates Details Patient Instructions Indication:Coronavirus infection Start:09-Oct-2020 Instruction Type:Provider Instructions for Treatment How to access health informa tion online Indication:Cough Start:05-Oct-2020 Instruction Type:Patient Education How to access health informa tion online - Detail Indication:Cough Start:05-Oct-2020 Instruction Type:Patient Education Patient Instructions Indication:Cough Start:05-Oct-2020 Instruction Type:Provider Instructions for Treatment How to access health informa tion online Indication:Fatigue Start:06-Jun-2020 Instruction Type:Patient Education How to access health informa tion online - Detail Indication:Fatigue Start:06-Jun-2020 Instruction Type:Patient Education Patient Instructions Indication:Fatigue Start:06-Jun-2020 Instruction Type:Provider Instructions for Treatment How to access health informa tion online Indication:Anxiety and depression Start:05-Jan-2020 Instruction Type:Patient Education How to access health informa tion online - Detail Indication:Anxiety and depression Start:05-Jan-2020 Instruction Type:Patient Education Patient Instructions Indication:Anxiety and depression Start:05-Jan-2020 Instruction Type:Provider Instructions for Treatment How to access health informa tion online Indication:Hyperlipidemia Start:02-Dec-2019 Instruction Type:Patient Education How to access health informa tion online - Detail Indication:Hyperlipidemia Start:02-Dec-2019 Instruction Type:Patient Education Patient Instructions Indication:Hyperlipidemia Start:02-Dec-2019 Instruction Type:Provider Instructions for Treatment How to access health informa tion online Indication:Nonsmoker Start:24-Jul-2019 Instruction Type:Patient Education How to access health informa tion online - Detail Indication:Nonsmoker Start:24-Jul-2019 Instruction Type:Patient Education Patient Instructions Indication:Nonsmoker Start:24-Jul-2019 Instruction Type:Provider Instructions for Treatment How to access health informa tion online Indication:BMI 27.0-27.9,adult Start:11-May-2019 Instruction Type:Patient Education How to access health informa tion online - Detail Indication:BMI 27.0-27.9,adult Start:11-May-2019 Instruction Type:Patient Education Patient Instructions Indication:BMI 27.0-27.9,adult Start:11-May-2019 Instruction Type:Provider Instructions for Treatment How to access health informa tion online Indication:Nonsmoker Start:03-Mar-2019 Instruction Type:Patient Education How to access health informa tion online - Detail Indication:Nonsmoker Start:03-Mar-2019 Instruction Type:Patient Education Patient Instructions Indication:Nonsmoker Start:03-Mar-2019 Instruction Type:Provider Instructions for Treatment How to access health informa tion online Indication:[facility] Start:30-Sep-2018 Instruction Type:Patient Education How to access health informa tion online - Detail Indication:[facility] Start:30-Sep-2018 Instruction Type:Patient Education Patient Instructions Indication:[facility] Start:30-Sep-2018 Instruction Type:Provider Instructions for Treatment How to access health informa tion online Indication:BMI 27.0-27.9,adult Start:29-Aug-2018 Instruction Type:Patient Education How to access health informa tion online - Detail Indication:BMI 27.0-27.9,adult Start:29-Aug-2018 Instruction Type:Patient Education Patient Instructions Indication:BMI 27.0-27.9,adult Start:29-Aug-2018 Instruction Type:Provider Instructions for Treatment How to access health informa tion online Indication:Overweight (BMI 25.0-29.9) Start:01-Sep-2014 Instruction Type:Patient Education How to access health informa tion online - Detail Indication:Overweight (BMI 25.0-29.9) Start:01-Sep-2014 Instruction Type:Patient Education Patient Instructions Indication:Overweight (BMI 25.0-29.9) Start:01-Sep-2014 Instruction Type:Provider Instructions for Treatment How to access health informa tion online Indication:Acne Start:24-Aug-2014 Instruction Type:Patient Education How to access health informa tion online - Detail Indication:Acne Start:24-Aug-2014 Instruction Type:Patient Education Patient Instructions Indication:Acne Start:24-Aug-2014 Instruction Type:Provider Instructions for Treatment Patient Instructions Indication:Acne Start:04-Jun-2013 Instruction Type:Provider Instructions for Treatment Name Dates Details Patient Instructions Indication:Coronavirus infection Start:09-Oct-2020 Instruction Type:Provider Instructions for Treatment How to access health informa tion online Indication:Cough Start:05-Oct-2020 Instruction Type:Patient Education How to access health informa tion online - Detail Indication:Cough Start:05-Oct-2020 Instruction Type:Patient Education Patient Instructions Indication:Cough Start:05-Oct-2020 Instruction Type:Provider Instructions for Treatment How to access health informa tion online Indication:Fatigue Start:06-Jun-2020 Instruction Type:Patient Education How to access health informa tion online - Detail Indication:Fatigue Start:06-Jun-2020 Instruction Type:Patient Education Patient Instructions Indication:Fatigue Start:06-Jun-2020 Instruction Type:Provider Instructions for Treatment How to access health informa tion online Indication:Anxiety and depression Start:05-Jan-2020 Instruction Type:Patient Education How to access health informa tion online - Detail Indication:Anxiety and depression Start:05-Jan-2020 Instruction Type:Patient Education Patient Instructions Indication:Anxiety and depression Start:05-Jan-2020 Instruction Type:Provider Instructions for Treatment How to access health informa tion online Indication:Hyperlipidemia Start:02-Dec-2019 Instruction Type:Patient Education How to access health informa tion online - Detail Indication:Hyperlipidemia Start:02-Dec-2019 Instruction Type:Patient Education Patient Instructions Indication:Hyperlipidemia Start:02-Dec-2019 Instruction Type:Provider Instructions for Treatment How to access health informa tion online Indication:Nonsmoker Start:24-Jul-2019 Instruction Type:Patient Education How to access health informa tion online - Detail Indication:Nonsmoker Start:24-Jul-2019 Instruction Type:Patient Education Patient Instructions Indication:Nonsmoker Start:24-Jul-2019 Instruction Type:Provider Instructions for Treatment How to access health informa tion online Indication:BMI 27.0-27.9,adult Start:11-May-2019 Instruction Type:Patient Education How to access health informa tion online - Detail Indication:BMI 27.0-27.9,adult Start:11-May-2019 Instruction Type:Patient Education Patient Instructions Indication:BMI 27.0-27.9,adult Start:11-May-2019 Instruction Type:Provider Instructions for Treatment How to access health informa tion online Indication:Nonsmoker Start:03-Mar-2019 Instruction Type:Patient Education How to access health informa tion online - Detail Indication:Nonsmoker Start:03-Mar-2019 Instruction Type:Patient Education Patient Instructions Indication:Nonsmoker Start:03-Mar-2019 Instruction Type:Provider Instructions for Treatment How to access health informa tion online Indication:[facility] Start:30-Sep-2018 Instruction Type:Patient Education How to access health informa tion online - Detail Indication:[facility] Start:30-Sep-2018 Instruction Type:Patient Education Patient Instructions Indication:[facility] Start:30-Sep-2018 Instruction Type:Provider Instructions for Treatment How to access health informa tion online Indication:BMI 27.0-27.9,adult Start:29-Aug-2018 Instruction Type:Patient Education How to access health informa tion online - Detail Indication:BMI 27.0-27.9,adult Start:29-Aug-2018 Instruction Type:Patient Education Patient Instructions Indication:BMI 27.0-27.9,adult Start:29-Aug-2018 Instruction Type:Provider Instructions for Treatment How to access health informa tion online Indication:Overweight (BMI 25.0-29.9) Start:01-Sep-2014 Instruction Type:Patient Education How to access health informa tion online - Detail Indication:Overweight (BMI 25.0-29.9) Start:01-Sep-2014 Instruction Type:Patient Education Patient Instructions Indication:Overweight (BMI 25.0-29.9) Start:01-Sep-2014 Instruction Type:Provider Instructions for Treatment How to access health informa tion online Indication:Acne Start:24-Aug-2014 Instruction Type:Patient Education How to access health informa tion online - Detail Indication:Acne Start:24-Aug-2014 Instruction Type:Patient Education Patient Instructions Indication:Acne Start:24-Aug-2014 Instruction Type:Provider Instructions for Treatment Patient Instructions Indication:Acne Start:04-Jun-2013 Instruction Type:Provider Instructions for Treatment Name Dates Details Patient Instructions Indication:Coronavirus infection Start:09-Oct-2020 Instruction Type:Provider Instructions for Treatment How to access health informa tion online Indication:Cough Start:05-Oct-2020 Instruction Type:Patient Education How to access health informa tion online - Detail Indication:Cough Start:05-Oct-2020 Instruction Type:Patient Education Patient Instructions Indication:Cough Start:05-Oct-2020 Instruction Type:Provider Instructions for Treatment How to access health informa tion online Indication:Fatigue Start:06-Jun-2020 Instruction Type:Patient Education How to access health informa tion online - Detail Indication:Fatigue Start:06-Jun-2020 Instruction Type:Patient Education Patient Instructions Indication:Fatigue Start:06-Jun-2020 Instruction Type:Provider Instructions for Treatment How to access health informa tion online Indication:Anxiety and depression Start:05-Jan-2020 Instruction Type:Patient Education How to access health informa tion online - Detail Indication:Anxiety and depression Start:05-Jan-2020 Instruction Type:Patient Education Patient Instructions Indication:Anxiety and depression Start:05-Jan-2020 Instruction Type:Provider Instructions for Treatment How to access health informa tion online Indication:Hyperlipidemia Start:02-Dec-2019 Instruction Type:Patient Education How to access health informa tion online - Detail Indication:Hyperlipidemia Start:02-Dec-2019 Instruction Type:Patient Education Patient Instructions Indication:Hyperlipidemia Start:02-Dec-2019 Instruction Type:Provider Instructions for Treatment How to access health informa tion online Indication:Nonsmoker Start:24-Jul-2019 Instruction Type:Patient Education How to access health informa tion online - Detail Indication:Nonsmoker Start:24-Jul-2019 Instruction Type:Patient Education Patient Instructions Indication:Nonsmoker Start:24-Jul-2019 Instruction Type:Provider Instructions for Treatment How to access health informa tion online Indication:BMI 27.0-27.9,adult Start:11-May-2019 Instruction Type:Patient Education How to access health informa tion online - Detail Indication:BMI 27.0-27.9,adult Start:11-May-2019 Instruction Type:Patient Education Patient Instructions Indication:BMI 27.0-27.9,adult Start:11-May-2019 Instruction Type:Provider Instructions for Treatment How to access health informa tion online Indication:Nonsmoker Start:03-Mar-2019 Instruction Type:Patient Education How to access health informa tion online - Detail Indication:Nonsmoker Start:03-Mar-2019 Instruction Type:Patient Education Patient Instructions Indication:Nonsmoker Start:03-Mar-2019 Instruction Type:Provider Instructions for Treatment How to access health informa tion online Indication:[facility] Start:30-Sep-2018 Instruction Type:Patient Education How to access health informa tion online - Detail Indication:[facility] Start:30-Sep-2018 Instruction Type:Patient Education Patient Instructions Indication:[facility] Start:30-Sep-2018 Instruction Type:Provider Instructions for Treatment How to access health informa tion online Indication:BMI 27.0-27.9,adult Start:29-Aug-2018 Instruction Type:Patient Education How to access health informa tion online - Detail Indication:BMI 27.0-27.9,adult Start:29-Aug-2018 Instruction Type:Patient Education Patient Instructions Indication:BMI 27.0-27.9,adult Start:29-Aug-2018 Instruction Type:Provider Instructions for Treatment How to access health informa tion online Indication:Overweight (BMI 25.0-29.9) Start:01-Sep-2014 Instruction Type:Patient Education How to access health informa tion online - Detail Indication:Overweight (BMI 25.0-29.9) Start:01-Sep-2014 Instruction Type:Patient Education Patient Instructions Indication:Overweight (BMI 25.0-29.9) Start:01-Sep-2014 Instruction Type:Provider Instructions for Treatment How to access health informa tion online Indication:Acne Start:24-Aug-2014 Instruction Type:Patient Education How to access health informa tion online - Detail Indication:Acne Start:24-Aug-2014 Instruction Type:Patient Education Patient Instructions Indication:Acne Start:24-Aug-2014 Instruction Type:Provider Instructions for Treatment Patient Instructions Indication:Acne Start:04-Jun-2013 Instruction Type:Provider Instructions for Treatment Name Dates Details Nonsmoker : How to access he alth information online Indication:Nonsmoker Nonsmoker : How to access he alth information online - Detail Indication:Nonsmoker Nonsmoker : Patient Instruct ions Indication:Nonsmoker [facility] : How to access health information online Indication:[facility] : How to access health information online - Detail Indication:[facility] : Patien t Instructions Indication:[facility] BMI 27.0-27.9,adult : How to access health information online Indication:BMI 27.0-27.9,adult BMI 27.0-27.9,adult : How to access health information online - Detail Indication:BMI 27.0-27.9,adult BMI 27.0-27.9,adult : Patien t Instructions Indication:BMI 27.0-27.9,adult Overweight (BMI 25.0-29.9) : How to access health information online Indication:Overweight (BMI 25.0-29.9) Overweight (BMI 25.0-29.9) : How to access health information online - Detail Indication:Overweight (BMI 25.0-29.9) Overweight (BMI 25.0-29.9) : Patient Instructions Indication:Overweight (BMI 25.0-29.9) Acne : How to access health information online Indication:Acne Acne : How to access health information online - Detail Indication:Acne Acne : Patient Instructions Indication:Acne Name Dates Details Patient Instructions Indication:Nonsmoker Start:12-Dec-2020 Instruction Type:Provider Instructions for Treatment How to Access Health Informa tion Online using Patient Portal and [employer] Apps Indication:Nonsmoker Start:12-Dec-2020 Instruction Type:Patient Education Patient Instructions Indication:Coronavirus infection Start:09-Oct-2020 Instruction Type:Provider Instructions for Treatment How to access health informa tion online Indication:Cough Start:05-Oct-2020 Instruction Type:Patient Education How to access health informa tion online - Detail Indication:Cough Start:05-Oct-2020 Instruction Type:Patient Education Patient Instructions Indication:Cough Start:05-Oct-2020 Instruction Type:Provider Instructions for Treatment How to access health informa tion online Indication:Fatigue Start:06-Jun-2020 Instruction Type:Patient Education How to access health informa tion online - Detail Indication:Fatigue Start:06-Jun-2020 Instruction Type:Patient Education Patient Instructions Indication:Fatigue Start:06-Jun-2020 Instruction Type:Provider Instructions for Treatment How to access health informa tion online Indication:Anxiety and depression Start:05-Jan-2020 Instruction Type:Patient Education How to access health informa tion online - Detail Indication:Anxiety and depression Start:05-Jan-2020 Instruction Type:Patient Education Patient Instructions Indication:Anxiety and depression Start:05-Jan-2020 Instruction Type:Provider Instructions for Treatment How to access health informa tion online Indication:Hyperlipidemia Start:02-Dec-2019 Instruction Type:Patient Education How to access health informa tion online - Detail Indication:Hyperlipidemia Start:02-Dec-2019 Instruction Type:Patient Education Patient Instructions Indication:Hyperlipidemia Start:02-Dec-2019 Instruction Type:Provider Instructions for Treatment How to access health informa tion online Indication:Nonsmoker Start:24-Jul-2019 Instruction Type:Patient Education How to access health informa tion online - Detail Indication:Nonsmoker Start:24-Jul-2019 Instruction Type:Patient Education Patient Instructions Indication:Nonsmoker Start:24-Jul-2019 Instruction Type:Provider Instructions for Treatment How to access health informa tion online Indication:BMI 27.0-27.9,adult Start:11-May-2019 Instruction Type:Patient Education How to access health informa tion online - Detail Indication:BMI 27.0-27.9,adult Start:11-May-2019 Instruction Type:Patient Education Patient Instructions Indication:BMI 27.0-27.9,adult Start:11-May-2019 Instruction Type:Provider Instructions for Treatment How to access health informa tion online Indication:Nonsmoker Start:03-Mar-2019 Instruction Type:Patient Education How to access health informa tion online - Detail Indication:Nonsmoker Start:03-Mar-2019 Instruction Type:Patient Education Patient Instructions Indication:Nonsmoker Start:03-Mar-2019 Instruction Type:Provider Instructions for Treatment How to access health informa tion online Indication:[facility] Start:30-Sep-2018 Instruction Type:Patient Education How to access health informa tion online - Detail Indication:[facility] Start:30-Sep-2018 Instruction Type:Patient Education Patient Instructions Indication:[facility] Start:30-Sep-2018 Instruction Type:Provider Instructions for Treatment How to access health informa tion online Indication:BMI 27.0-27.9,adult Start:29-Aug-2018 Instruction Type:Patient Education How to access health informa tion online - Detail Indication:BMI 27.0-27.9,adult Start:29-Aug-2018 Instruction Type:Patient Education Patient Instructions Indication:BMI 27.0-27.9,adult Start:29-Aug-2018 Instruction Type:Provider Instructions for Treatment How to access health informa tion online Indication:Overweight (BMI 25.0-29.9) Start:01-Sep-2014 Instruction Type:Patient Education How to access health informa tion online - Detail Indication:Overweight (BMI 25.0-29.9) Start:01-Sep-2014 Instruction Type:Patient Education Patient Instructions Indication:Overweight (BMI 25.0-29.9) Start:01-Sep-2014 Instruction Type:Provider Instructions for Treatment How to access health informa tion online Indication:Acne Start:24-Aug-2014 Instruction Type:Patient Education How to access health informa tion online - Detail Indication:Acne Start:24-Aug-2014 Instruction Type:Patient Education Patient Instructions Indication:Acne Start:24-Aug-2014 Instruction Type:Provider Instructions for Treatment Patient Instructions Indication:Acne Start:04-Jun-2013 Instruction Type:Provider Instructions for Treatment Name Dates Details How to access health informa tion online Indication:Fatigue Start:06-Jun-2020 Instruction Type:Patient Education How to access health informa tion online - Detail Indication:Fatigue Start:06-Jun-2020 Instruction Type:Patient Education Patient Instructions Indication:Fatigue Start:06-Jun-2020 Instruction Type:Provider Instructions for Treatment How to access health informa tion online Indication:Anxiety and depression Start:05-Jan-2020 Instruction Type:Patient Education How to access health informa tion online - Detail Indication:Anxiety and depression Start:05-Jan-2020 Instruction Type:Patient Education Patient Instructions Indication:Anxiety and depression Start:05-Jan-2020 Instruction Type:Provider Instructions for Treatment How to access health informa tion online Indication:Hyperlipidemia Start:02-Dec-2019 Instruction Type:Patient Education How to access health informa tion online - Detail Indication:Hyperlipidemia Start:02-Dec-2019 Instruction Type:Patient Education Patient Instructions Indication:Hyperlipidemia Start:02-Dec-2019 Instruction Type:Provider Instructions for Treatment How to access health informa tion online Indication:Nonsmoker Start:24-Jul-2019 Instruction Type:Patient Education How to access health informa tion online - Detail Indication:Nonsmoker Start:24-Jul-2019 Instruction Type:Patient Education Patient Instructions Indication:Nonsmoker Start:24-Jul-2019 Instruction Type:Provider Instructions for Treatment How to access health informa tion online Indication:BMI 27.0-27.9,adult Start:11-May-2019 Instruction Type:Patient Education How to access health informa tion online - Detail Indication:BMI 27.0-27.9,adult Start:11-May-2019 Instruction Type:Patient Education Patient Instructions Indication:BMI 27.0-27.9,adult Start:11-May-2019 Instruction Type:Provider Instructions for Treatment How to access health informa tion online Indication:Nonsmoker Start:03-Mar-2019 Instruction Type:Patient Education How to access health informa tion online - Detail Indication:Nonsmoker Start:03-Mar-2019 Instruction Type:Patient Education Patient Instructions Indication:Nonsmoker Start:03-Mar-2019 Instruction Type:Provider Instructions for Treatment How to access health informa tion online Indication:[facility] Start:30-Sep-2018 Instruction Type:Patient Education How to access health informa tion online - Detail Indication:[facility] Start:30-Sep-2018 Instruction Type:Patient Education Patient Instructions Indication:[facility] Start:30-Sep-2018 Instruction Type:Provider Instructions for Treatment How to access health informa tion online Indication:BMI 27.0-27.9,adult Start:29-Aug-2018 Instruction Type:Patient Education How to access health informa tion online - Detail Indication:BMI 27.0-27.9,adult Start:29-Aug-2018 Instruction Type:Patient Education Patient Instructions Indication:BMI 27.0-27.9,adult Start:29-Aug-2018 Instruction Type:Provider Instructions for Treatment How to access health informa tion online Indication:Overweight (BMI 25.0-29.9) Start:01-Sep-2014 Instruction Type:Patient Education How to access health informa tion online - Detail Indication:Overweight (BMI 25.0-29.9) Start:01-Sep-2014 Instruction Type:Patient Education Patient Instructions Indication:Overweight (BMI 25.0-29.9) Start:01-Sep-2014 Instruction Type:Provider Instructions for Treatment How to access health informa tion online Indication:Acne Start:24-Aug-2014 Instruction Type:Patient Education How to access health informa tion online - Detail Indication:Acne Start:24-Aug-2014 Instruction Type:Patient Education Patient Instructions Indication:Acne Start:24-Aug-2014 Instruction Type:Provider Instructions for Treatment Patient Instructions Indication:Acne Start:04-Jun-2013 Instruction Type:Provider Instructions for Treatment Summary Purpose Advance Directives No Advanced Directives Records Found Advance Directive Response Recorded Date/ Time Name of Medical Power of Foot Drill Operator SPOUSE January 21, 2023 2:29pm Living Will Yes January 21, 2 023 2:29pm Power of Foot Drill Operator Yes January 21, 2023 2:29pm Advance Directive Response Recorded Date/ Time Name of Medical Power of Foot Drill Operator SPOUSE January 21, 2023 3:29pm Living Will Yes January 21, 2 023 3:29pm Power of Foot Drill Operator Yes January 21, 2023 3:29pm Chief Complaint and Reason for Visit Chief Complaint Amb Documentation Reason for Visit Encounter for screen ing for malignant neoplasm of colon Chief Complaint POST TOMMY Reason for Visit Encounter for screen ing for malignant neoplasm of colon Chief Complaint Admit Date xray December 09, 2024 1 0:22am POST TOMMY April 01, 2025 12:08p m Reason for Referral Specialty Diagnoses / Procedures Referred By Contac t Referred To Contact Radiology Diagnoses Elevated C-reactive protein (CRP) Procedures CT cardiac scoring wo IV contrast Mohsen Perales DO [address] [facility] [address] [place] [address] Referral ID Status Reason Start Date Expiration Date Visits Requested Visits Authorized [id number] Authorized Perform Procedure 02/10/2024 02/09/2025 1 1 Additional Source Comments INFORMATION SOURCE (unrecogn ized section and content) DATE CREATED AUTHOR 12/06/[address] [facility] DATE CREATED AUTHOR AUTHOR'S ORGANIZ ATION 03/09/2022 [facility] [place] [facility] DATE CREATED AUTHOR AUTHOR'S ORGANIZ ATION 12/31/2022 [facility] DATE CREATED AUTHOR AUTHOR'S ORGANIZ ATION 02/11/2023 [facility] DATE CREATED AUTHOR AUTHOR'S ORGANIZ ATION 03/08/2024 [facility] DATE CREATED AUTHOR AUTHOR[facility]S ORGANIZ ATION [facility] (unrecognized sect ion and content) Team Status: Active Member Role Status Dates Dr. Mohsen Perales DO Family Provider Active Dr. Mohsen Perales DO Primary Care Provider Active Team Status: Active Member Role Status Dates Dr. Mohsen Perales DO Primary Care Provider Active [place] Attending Provider Active Team Status: Active Member Role Status Dates Dr. Mohsen Perales DO Primary Care Provider Active Dr. Carlos Malcolm DO Attending Provid er, Referring Provider, Other Provider Active Team Status: Inactive Member Role Status Dates Dr. Mohsen Perales DO Primary Care Provider Active Dr. Carlos Malcolm , Attending Provider, Referring Provider Active Team Status: Inactive Member Role Status Dates Dr. Mohsen Perales DO Primary Care Provide r, Attending Provider, Referring Provider Active [employer] Relationship Specialty Start Date End Date Pcp, NoCOOKIEN PCP - General 06/09/22 12/25/22 [employer] Relationship Specialty Start Date End Date Mohsen Perales DO [address] [facility] [address] [place] [address] PCP - General Internal Medicine 03/02/24 [employer] Operator Relationship Specialty Start Date End Date Mohsen Perales DO [address] [facility] [address] [place] [address] PCP - General Internal Medicine 03/02/24 Team Status: Active Member Role Status Dates Dr. Mohsen Perales DO Primary Care Provider Active Team Status: Inactive Member Role Status Dates Dr. Mohsen Perales DO Primary Care Provider Active Start: December 09, 2024 End: December 09, 2024 Dr. Evgeny Bhardwaj MD Attending Provider Active S tart: December 09, 2024 End: December 09, 2024 Team Status: Inactive Member Role Status Dates Dr. Mohsen Perales DO Primary Care Provider Active Start: April 01, 2025 End: April 01, 2025 Dr. Mohsen Perales DO Attending Provider Active St art: April 01, 2025 End: April 01, 2025 Dr. Mohsen Perales DO Referring Provider Active St art: April 01, 2025 End: April 01, 2025 Source Comments (unrecognize d section and content) In the event this informatio n is protected by the Federal Confidentiality of Alcohol and Drug Abuse Patient Records regulations: The Federal rules restrict any use of the information to criminally investigate or prosecute any alcohol or drug abuse patient.[facility] Reason for Visit (unrecogniz ed section and content) Specialty Diagnoses / Procedures Referred By Contac t Referred To Contact Radiology Diagnoses Elevated C-reactive protein (CRP) Procedures CT cardiac scoring wo IV contrast Mohsen Perales DO [address] [facility] [address] [place] [address] Referral ID Status Reason Start Date Expiration Date Visits Requested Visits Authorized [id number] Authorized Perform Procedure 02/10/2024 02/09/2025 1 1 Goals (unrecognized section and content) Goals may be documented in a n alternate section FOR RECORDS PERTAINING TO PATIENTS WHO ARE OR HAVE BEEN ENROLLED IN A CHEMICAL DEPENDENCY/SUBSTANCEABUSE PROGRAM, SOME INFORMATION MAY BE OMITTED. This clinical summary was aggregated from multiple sources. Caution should be exercised in using it in the provision of clinical care. This summary normalizes information from multiple sources, and as a consequence, information in this document may materially change the coding, format and clinical context of patient data. In addition, data may be omitted in some cases. CLINICAL DECISIONS SHOULD BE BASED ON THE PRIMARY CLINICAL RECORDS. [facility], [facility]. provides no warranty or guarantee of the accuracy or completeness of information in this document.
--- NOTE | 2025-11-02 07:30 | BI_ITS ---
EXAM: SCRN MAMM (CAD)W/EVELIA BILAT DATE: 11/02/2025 CLINICAL HISTORY: F, Age 55 y/o , SCRN MAMM (CAD)W/EVELIA BILAT Aunts with breast cancer. TECHNIQUE: Procedure Code: [id number] Modality: MG Procedure: SCRN MAMM (CAD)W/EVELIA BILAT COMPARISON: Prior exam(s) dated September 07, 2024.. FINDINGS: TISSUE DENSITY: The breasts are heterogeneously dense, which may obscure small masses. Bilateral Breast Mammographic Findings: No significant masses, calcifications or other abnormalities are identified. No suspicious masses, areas of developing architectural distortion, or suspicious calcifications. There has been no significant interval change. BI/SCRN MAMM (CAD)W/EVELIA BILAT IMPRESSION: Stable bilateral screening mammogram. OVERALL FINAL ASSESSMENT BI-RADS 1: NEGATIVE. RECOMMENDATION: Routine annual follow-up in 1 Year Additional Recommendation none A letter with findings and recommendations will be mailed to the patient. Reading Location: [place] [id number]
== END | disposition home or self-care (01) ==
LOC: OPBI 07:13
PROVIDERS: PCP Internal Medicine; Referring Provider Internal Medicine; Visit Provider Internal Medicine
DX: Z12.31 Encounter for screening mammogram for malignant neoplasm of breast (principal); K76.0 Fatty (change of) liver, not elsewhere classified
CPT/HCPCS: 76705; 76981; 77063; 77067